=== PATIENT | male | born 1970 | race Caucasian/White ===

== ENCOUNTER → 2018-06-16 10:37 | Outpatient (CLI) | payer BC, SELFPAY ==
[2018-06-16 13:04] LABS: Hemoglobin A1c 6.7 % (4.2-6.3)
[2018-06-16 13:08] LABS: AST(SGOT) 15 U/L (15-37); Alanine Aminotransfer ALT/SGPT 27 U/L (16-61); Albumin, Serum 4.2 g/dL (3.2-5.0); Alkaline Phosphatase 45 U/L (45-117); Anion Gap 7 (5-15); BUN 12 mg/dL (7-18); BUN/Creat Ratio 14.2 RATIO (10-20); Bilirubin, Direct 0.17 mg/dL (0.00-0.30); Calcium,Total 9.1 mg/dL (8.5-10.1); Chloride 101 mmol/L (98-107); Cholesterol 113 mg/dL (200); Creatinine, Serum 0.85 mg/dL (0.70-1.30); EST Glomerular Filtration Rate 102 mL/min (>60); Est Glom Filt Rate - Afr Amer 123 mL/min (>60); Globulin 3.7 g/dL (2.2-4.2); Glucose 191 mg/dL (74-106); High Density Lipoprotein 26 mg/dL; Potassium 3.9 mmol/L (3.5-5.1); Protein, Total 7.9 g/dL (6.4-8.2); Sodium Level 135 mmol/L (136-145); Triglycerides 375 mg/dL; Very Low Density Lipoprotein 75 mg/dL (5-40)
[2018-06-16 13:12] LABS: Microalbumin,Random Urine < 5.0 mg/L (NO RANGE EST.)
== END ==
PROVIDERS: Family Provider Family Medicine; PCP Family Medicine; Visit Provider Family Medicine
DX: E11.9 Type 2 diabetes mellitus without complications (principal); I10 Essential (primary) hypertension
CPT/HCPCS: 36415; 80048; 80061; 80076; 82043; 82570; 83036

== ENCOUNTER → 2019-02-15 10:08 | Outpatient (CLI) | payer BC, SELFPAY ==
[2019-02-15 12:51] LABS: Anion Gap 7 (5-15); BUN 10 mg/dL (7-18); BUN/Creat Ratio 11.6 RATIO (10-20); Calcium,Total 9.5 mg/dL (8.5-10.1); Chloride 99 mmol/L (98-107); Cholesterol 111 mg/dL (200); Creatinine, Serum 0.86 mg/dL (0.70-1.30); EST Glomerular Filtration Rate 100 mL/min (>60); Est Glom Filt Rate - Afr Amer 121 mL/min (>60); Glucose 194 mg/dL (74-106); High Density Lipoprotein 32 mg/dL; Sodium Level 136 mmol/L (136-145); Triglycerides 243 mg/dL; Very Low Density Lipoprotein 49 mg/dL (5-40)
== END ==
PROVIDERS: Family Provider Family Medicine; PCP Family Medicine; Referring Provider Family Medicine; Visit Provider Family Medicine
DX: E11.9 Type 2 diabetes mellitus without complications (principal)
CPT/HCPCS: 36415; 80048; 80061

== ENCOUNTER → 2019-09-26 11:15 | Outpatient (CLI) | payer BC, SELFPAY ==
[2019-09-26 12:43] LABS: Anion Gap 7 (5-15); BUN 11 mg/dL (7-18); BUN/Creat Ratio 12.5 RATIO (10-20); Calcium,Total 9.4 mg/dL (8.5-10.1); Chloride 103 mmol/L (98-107); Cholesterol 130 mg/dL (200); Creatinine, Serum 0.88 mg/dL (0.70-1.30); EST Glomerular Filtration Rate 97 mL/min (>60); Est Glom Filt Rate - Afr Amer 117 mL/min (>60); Glucose 184 mg/dL (74-106); High Density Lipoprotein 33 mg/dL; Potassium 3.8 mmol/L (3.5-5.1); Sodium Level 137 mmol/L (136-145); Triglycerides 372 mg/dL; Very Low Density Lipoprotein 74 mg/dL (5-40)
== END ==
PROVIDERS: Family Provider Family Medicine; PCP Family Medicine; Referring Provider Family Medicine; Visit Provider Family Medicine
DX: E11.9 Type 2 diabetes mellitus without complications (principal)
CPT/HCPCS: 36415; 80048; 80061

== ENCOUNTER → 2020-12-14 14:27 | Outpatient (CLI) | payer BC, SELFPAY ==
[2020-12-14 17:53] LABS: ALB/GLOB Ratio 1.3 RATIO (0.9-2.4); AST(SGOT) 18 U/L (15-37); Alanine Aminotransfer ALT/SGPT 34 U/L (16-61); Albumin, Serum 4.3 g/dL (3.2-5.0); Alkaline Phosphatase 50 U/L (45-117); Anion Gap 5 (5-15); BUN 13 mg/dL (7-18); BUN/Creat Ratio 15.7 RATIO (10-20); Calcium,Total 9.1 mg/dL (8.5-10.1); Chloride 102 mmol/L (98-107); Cholesterol 111 mg/dL (200); Creatinine, Serum 0.83 mg/dL (0.70-1.30); EST Glomerular Filtration Rate 104 mL/min (>60); Est Glom Filt Rate - Afr Amer 125 mL/min (>60); Globulin 3.3 g/dL (2.2-4.2); Glucose 155 mg/dL (74-106); High Density Lipoprotein 34 mg/dL; Protein, Total 7.6 g/dL (6.4-8.2); Sodium Level 135 mmol/L (136-145); Triglycerides 216 mg/dL; Very Low Density Lipoprotein 43 mg/dL (5-40)
== END ==
PROVIDERS: PCP Family Medicine; Referring Provider Family Medicine; Visit Provider Family Medicine
DX: I10 Essential (primary) hypertension (principal)
CPT/HCPCS: 36415; 80053; 80061

== ENCOUNTER 2021-12-04 10:37 | Inpatient (IN) | payer BC, SELFPAY ==
[2021-12-04] VITALS (10 sets, daily range): BP systolic 112–140; BP diastolic 64–83; PULSE 101–148; RESP 18–37; TEMP 36.8–38.4; O2SAT 95–100; BMI 28.5; BMI 28.1
--- NOTE | 2021-12-04 10:49 | EKG12_ITS ---
Test Reason : CELLUTIS Blood Pressure : / mmHG Vent. Rate : 133 BPM Atrial Rate : 133 BPM P-R Int : 164 ms QRS Dur : 088 ms QT Int : 288 ms P-R-T Axes : 034 012 059 degrees QTc Int : 428 ms Sinus tachycardia with occasional Premature ventricular complexes Otherwise normal ECG Confirmed by JAQUELINE DURBIN, AILYN ([id number]), advertising editor MICHAEL KLEIN ([id number]) on 12/05/2021 9:48:21 AM Referred By: Confirmed By:AILYN PARSONS MD
--- NOTE | 2021-12-04 10:56 | RAD_ITS ---
STUDY: X-RAY - RIGHT FOOT CLINICAL: Right foot pain, no known injury. TECHNIQUE: 2 view(s) of the foot. COMPARISON: None. FINDINGS: There are posterior and plantar calcaneal enthesophytes. Otherwise, unremarkable talus, calcaneus, and tarsal bones. There is joint space narrowing of the tarsometatarsal articulations. There is chronic healed fracture deformity of the second through fifth metatarsals. Normal metatarsophalangeal joint of the great toe. Normal tibial and fibular sesamoid bones. Normal interphalangeal joint of the great toe. Normal phalanges of the great toe. Normal second through fifth metatarsophalangeal joints. Normal interphalangeal joints and phalanges of the lesser toes. The soft tissue structures are unremarkable. RAD/Foot 2 Views IMPRESSION: Chronic healed fracture deformity of the second through fifth metatarsals. Arthrosis of the tarsometatarsal articulations. Calcaneal enthesopathy. Electronically Signed: Werner Elizalde MD at 11:29 EST ,
--- NOTE | 2021-12-04 10:56 | EX.ED.DYSGE1 ---
HPI History of Present Illness Chief Complaint: Cellulitis Narrative Narrative: 50-year-old male presenting with right foot pain. Patient states he had COVID 19 2 weeks ago and has been recovering. He had fevers and chills throughout that time which resolved. Patient states that he now has a return of his fever over the last few days. Patient reports that he had a splinter in his right foot about a week ago. He dug it out himself. He quarantined at home and did not receive close follow-up because of this. Patient presented to his primary care physician's office with a fever and tachycardia. He was sent to the emergency room. He states that his foot does not hurt as bad as it did but does hurt mildly. He said no drainage from it. He denies any trauma. [facility] Medical History Diabetes mellitus HTN (hypertension) HTN (hypertension) Home Medications aspirin 81 mg PO DAILY@0800 03/30/14 [History Last Taken Unknown] lisinopril 5 mg PO DAILY 03/30/14 [History Last Taken Unknown] metformin 500 mg PO BIDCM 03/30/14 [History Last Taken Unknown] Allergy/AdvReac Type Severity Reaction Status Date / Time naproxen sodium [From Aleve] Allergy Other Verified 12/04/21 10:40 Social History Smoking Status: Former smoker ROS ROS ED Constitutional Constitutional ED: Reports fever(s); Denies sweats Eyes Eyes: Denies blurry vision or diplopia ENT ENT ED: Denies rhinorrhea or sore throat Cardiovascular Cardiovascular: Reports palpitations and racing heartbeat; Denies chest pain Respiratory/Chest Respiratory/Chest: Denies cough or dyspnea Gastrointestinal Gastrointestinal: Denies abdominal pain, nausea or vomiting Genitourinary Genitourinary ED: Denies dysuria or hematuria Musculoskeletal Musculoskeletal: Reports other Details: Right foot pain Integumentary Reports other Details: Redness and swelling of right foot. Neurologic Neurologic: Denies headache(s) or paresthesias EXAM Physical Exam Const Vital Signs: 12/04/21 10:38 12/04/21 10:40 12/04/21 11:02 Temperature 101.2 F H 100.7 F H 100.7 F H Temperature Source Oral Temporal Temporal Pulse Rate 148 H 148 H Respiratory Rate 18 18 Blood Pressure 119/83 H 119/83 H Blood Pressure Mean 95 95 Pulse Ox 96 96 Oxygen Delivery Method Room Air Room Air 12/04/21 11:15 12/04/21 11:40 12/04/21 12:00 Temperature 100.2 F H 100 F H Temperature Source Temporal Temporal Pulse Rate 126 H 119 H Respiratory Rate 28 H 31 H Blood Pressure 126/64 H 112/67 Blood Pressure Mean 84 82 Pulse Ox 96 95 95 Oxygen Delivery Method Room Air Room Air Room Air Positive well nourished Constitutional Narrative: Noted to be tachycardic. General Appearance ED: NAD HEENT Reports moist mucous membranes Eyes PERRL and EOMs intact bilaterally Neck no lymphadenopathy and supple Chest Wall inspection of chest normal and palpation of chest normal Resp normal respiratory effort and clear to auscultation bilaterally Cardio regular rhythm Rate: tachycardic Neuro oriented x3, CN's II-XII intact bilaterally and no sensory deficits noted Sensorium / Orientation: alert Motor Exam: strength 5/5 throughout Psych mental status grossly normal Skin Skin Narrative: Diffuse cellulitis over the right foot lymphangitic streaking noted on the medial aspect of the left ankle. On the plantar surface of the foot at the distal fat pad there is an area of fluctuance which is about 5 cm long with variable width. MDM MDM MDM Narrative Medical decision making narrative: Patient presenting with cellulitis of the right foot with a small area of abscess on the plantar surface. Patient is noted to be febrile and tachycardic. Patient given 2 L of IV fluids. 1 g of Tylenol was given. Sepsis work-up initiated. Patient CBC shows a leukocytosis of 17.2. Hemoglobin and hematocrit are stable. PT/INR normal. Sodium slightly low at 130 but otherwise electrolytes unremarkable. GFR normal. Glucose is 219. Total bilirubin is slightly elevated but has been in the past. Lactic acid 1.7. Patient was discussed with Dr. Jack who will likely be consulted inpatient. He felt comfortable he make an appoint incision into the abscess and obtaining cultures of the wound. Patient otherwise pancultured. Patient was given vancomycin and Zosyn. Urinalysis did return negative. Right foot x-ray on my interpretation shows old fracture deformities of the first through fifth metatarsals without any acute fractures. Radiologist does agree. There is no subcutaneous emphysema. Chest x-ray my interpretation shows no acute cardiopulmonary process and radiologist does agree. At this point patient was discussed with the hospitalist for admission. Impression: 1. Cellulitis right foot 2. Leukocytosis 3. Tachycardia Lab Data Labs: Laboratory Results - last 24 hr 12/04/21 12/04/21 12/04/21 11:15 11:15 11:15 WBC 17.2 H RBC 4.46 L Hgb 14.1 Hct 39.1 L MCV 87.7 MCH 31.6 MCHC 36.1 H RDW Std Deviation 38.7 RDW Coeff of Davina 12.1 Plt Count 231 MPV 8.5 Immature Gran % (Auto) 0.800 Neut % (Auto) 86.5 H Lymph % (Auto) 4.2 L [place] % (Auto) 8.3 Eos % (Auto) 0.1 Baso % (Auto) 0.1 Absolute Neuts (auto) 14.9 H Absolute Lymphs (auto) 0.72 L Nucleated RBC % 0 PT 14.5 INR 1.2 APTT 37.9 H Sodium 130 L Potassium 4.4 Chloride 99 Carbon Dioxide 26.0 Anion Gap 5 BUN 13 Creatinine 1.00 Estim Creat Clear Calc 93.77 Est GFR (MDRD) Af Amer 100 Est GFR (MDRD) Non-Af 83 BUN/Creatinine Ratio 13.0 Glucose 219 H Lactic Acid Calcium 9.7 Total Bilirubin 1.40 H AST 16 ALT 40 Alkaline Phosphatase 67 Troponin I High Sens 7 Total Protein 8.5 H Albumin 3.5 Globulin 5.0 H Albumin/Globulin Ratio 0.7 L 12/04/21 11:15 WBC RBC Hgb Hct MCV MCH MCHC RDW Std Deviation RDW Coeff of Davina Plt Count MPV Immature Gran % (Auto) Neut % (Auto) Lymph % (Auto) [place] % (Auto) Eos % (Auto) Baso % (Auto) Absolute Neuts (auto) Absolute Lymphs (auto) Nucleated RBC % PT INR APTT Sodium Potassium Chloride Carbon Dioxide Anion Gap BUN Creatinine Estim Creat Clear Calc Est GFR (MDRD) Af Amer Est GFR (MDRD) Non-Af BUN/Creatinine Ratio Glucose Lactic Acid 1.7 Calcium Total Bilirubin AST ALT Alkaline Phosphatase Troponin I High Sens Total Protein Albumin Globulin Albumin/Globulin Ratio Radiography Diagnostic Testing: Clinical Impression(s) from Imaging Studies Foot X-Ray 12/04/21 10:56 IMPRESSION: Chronic healed fracture deformity of the second through fifth metatarsals. Arthrosis of the tarsometatarsal articulations. Calcaneal enthesopathy. Electronically Signed: Werner Elizalde MD at 11:29 EST , Chest X-Ray 12/04/21 11:05 IMPRESSION: No acute pulmonary process Electronically Signed: Nick He MD at 11:26 EST , Discharge Plan Triage Chief Complaint: Cellulitis ED Provider: Louie Macias Dx/Rx/DC Orders Primary Care Provider: Steve Mckeon
[2021-12-04] MEDS: Acetaminophen 500 MG Tablet 1000 MG PO (11:04)
--- NOTE | 2021-12-04 11:05 | RAD_ITS ---
STUDY: X-RAY CHEST REASON FOR EXAM: Male, 51 years old. Fever and cough TECHNIQUE: Single AP portable view of the chest. COMPARISON: None. FINDINGS: EKG leads overlie the chest The lungs are clear and expanded. There is no demonstrated pleural abnormality. Normal size heart. Normal mediastinum and loyd. Normal visualized pulmonary arteries. Normal visualized aortic arch and descending thoracic aorta. Normal visualized thoracic spine. Normal visualized ribs, clavicles, and shoulders. There is no demonstrated abnormality of the visualized soft tissue structures of the upper abdomen. RAD/Chest 1 View (Portable) IMPRESSION: No acute pulmonary process Electronically Signed: Nick He MD at 11:26 EST ,
[2021-12-04] MEDS: 0.9% Normal Saline 1,000 ML 999 ML IV ×2 (11:14→11:20)
[2021-12-04 11:29] LABS: Absolute Lymphocyte Count 0.72 X10^3/uL (0.83-4.51); Absolute Neutrophil Count 14.9 X10^3/uL (2.0-7.7); Basophil# 0.02 X10^3/uL; Basophil% 0.1 % (0-1); Eosinophil# 0.01 X10^3/uL; Eosinophils% 0.1 % (0-5); Hematocrit 39.1 % (40-54); Hemoglobin 14.1 g/dL (13.0-16.5); Lymphocyte # 0.72 X10^3/ul (0.83-4.51); Lymphocyte % 4.2 % (19-41); Mean Corp Hgb Conc 36.1 g/dL (32-36); Mean Corpuscular Hgb 31.6 pg (27.0-32.0); Mean Corpuscular Volume 87.7 fL (80-94); Mean Platelet Vol. 8.5 fl (6.2-12.0); Monocyte# 1.43 X10^3/uL; Monocyte% 8.3 % (0-10); NRBC Flagged by Analyzer 0 % (0-5); Neutrophil # 14.85 X10^3/uL (2.7-7.7); Neutrophil % 86.5 % (47-70); Platelet Count 231 K/mm3 (150-450); RBC Distribution Width CV 12.1 % (11.6-14.6); RBC Distribution Width SD 38.7 fl (35.1-43.9); Red Blood Count 4.46 M/mm3 (4.6-6.2); White Blood Count 17.2 K/mm3 (4.4-11.0)
--- NOTE | 2021-12-04 11:38 | ED.RN ---
atb are on hold until provider I&D's area for wound cx. there is no open area to obtain cx samples.
[2021-12-04 11:41] LABS: International Normalized Ratio 1.2; Partial Thromboplast Time 37.9 Seconds (24.1-36.2); Prothrombin Time (Protime)PT. 14.5 SECONDS (11.7-14.9)
[2021-12-04] MEDS: Lidocaine 1% (20 ml mdv) 20 ML Vial INFILT (11:45)
[2021-12-04 11:50] LABS: ALB/GLOB Ratio 0.7 RATIO (0.9-2.4); AST(SGOT) 16 U/L (15-37); Alanine Aminotransfer ALT/SGPT 40 U/L (16-61); Albumin, Serum 3.5 g/dL (3.2-5.0); Alkaline Phosphatase 67 U/L (45-117); Anion Gap 5 (5-15); BUN 13 mg/dL (7-18); Calcium,Total 9.7 mg/dL (8.5-10.1); Chloride 99 mmol/L (98-107); EST Glomerular Filtration Rate 83 mL/min (>60); Est Glom Filt Rate - Afr Amer 100 mL/min (>60); Estimated Creatinine Clearance 93.77 ml/min; Glucose 219 mg/dL (74-106); Potassium 4.4 mmol/L (3.5-5.1); Protein, Total 8.5 g/dL (6.4-8.2); Sodium Level 130 mmol/L (136-145); Troponin-I HS 7 pg/mL (3.0-78.0)
[2021-12-04 12:01] LABS: Lactic Acid 1.7 mmol/L (0.4-1.9)
--- NOTE | 2021-12-04 12:30 | CASEMGMT ---
RN WINSOME Assessment: RN CM to room to meet with patient for initial transition planning/care coordination assessment. RN CM introduced self and role at [facility]. Patient voices understanding and consents to assessment at this time. Patient's Gracie Barnett present at bedside. Patient is alert and oriented and answers all questions appropriately, sitting up on ER cart in no apparent distress. Care providers, pharmacy, and demographics verified/updated at this time. Admitting Dx: cellulitis PCP: Steve Mckeon Specialists: Denies Preferred Pharmacy: [facility] Insurance: [employer] Prescription Benefit: yes Living Will/HPOA: Patient denies having a living will or HPOA. LNOK: Gracie Barnett Living Arrangements: Patient lives with in two story house with 3 steps to enter the home (no handrail present). Patient states independent with ADLs prior to hospitalization. 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 Smoking/ETOH: Former smoker (quit 1991), admits to occasional ETOH use (beer) Transportation: Patient drives self and denies transportation concerns. DME/HHC/SNF: Patient has a glucometer at home but admits he needs to purchase more test strips. Denies any other DME in the home and denies need for DME at this time. Denies previous HHC or SNF stays. Patient has no concerns with going home at time of discharge. CM to follow for any discharge planning/needs. Patient voices no concerns/needs at this time. Advised patient to ask for CM if any questions/concerns/needs arise. Voices understanding. Plan: home
--- NOTE | 2021-12-04 13:10 | PCM.HP.STD ---
HPI - General General Date of Admission: 12/04/21 Date of Service: 12/04/21 Chief Complaint: Right foot redness, swelling and pain for 1 week HPI Narrative JENNIFRE ANTHONY, is a 51 M history of diabetes mellitus type 2 on Metformin came to ED for right foot redness, pain, fever chills for 1 week. It started when patient is stepdown power cord about 1 week ago. He also removed a splinter from his foot at that time. Gradually started feeling pain along with fever and chills no 1- 02 Fahrenheit. Patient also recovered from Covid infection about 2 weeks ago. He had 2 dosages of Covid vaccine but did not had booster dose. He still has mild cough. He said he was tested positive for Covid on November 20. Complain of pain over right foot 6-7/10 intensity diffuse all over the foot but a started from right midfoot around ball of toe. No radiation. He has mild numbness probably Charcot's foot of right midtarsal bones. History of diabetes mellitus type 2 but his A1c usually less than 7 g%. He follows PCP Dr. Steve Mckeon. Denies any prior history of foot ulcer or osteomyelitis. In ED patient had fever, T-max 101.2 Fahrenheit along with tachycardia but no tachypnea or hypoxia. Patient has leukocytosis with left shift mild lymphopenia and lactic acid negative. Blood pressure is normal. [facility] Medical History Diabetes mellitus HTN (hypertension) HTN (hypertension) Home Medications aspirin 81 mg PO DAILY@0800 03/30/14 [History Last Taken Unknown] lisinopril 40 mg PO DAILY 12/04/21 [History Last Taken Unknown] metformin 500 mg PO DAILY 12/04/21 [History Last Taken Unknown] metformin 750 mg PO DAILY 12/04/21 [History Last Taken Unknown] Allergy/AdvReac Type Severity Reaction Status Date / Time naproxen sodium [From Aleve] Allergy Other Verified 12/04/21 10:40 Social History Smoking Status: Former smoker ROS ROS Narrative Constitutional: Fever with chills. Mild cough, recovering from Covid infection. Reports mild fatigue and weakness HEENT: Reports systems reviewed and no addt'l complaints, except as documented Respiratory/Chest: Denies chest pain, shortness of breath at rest or with exertion Gastrointestinal: Denies coffee ground emesis, hematemesis or vomiting Genitourinary: Denies burning urination or new urinary tract symptoms Musculoskeletal: Mild right foot joint pain and limited range of motion Neurologic: Denies seizure-like activity skin: Right foot redness, no open ulcer. Mild incision and wound culture/biopsy taken AGV Endocrinology: Diabetes mellitus type 2 as mentioned in HPI. Reports systems reviewed and no addt'l complaints, except as documented Hematologic/Lymphatic: Reports systems reviewed and no addt'l complaints, except as documented Rest 14 ROS are negative except as mentioned in HPI Vital Signs Vital Signs Vital Signs: 12/04/21 10:38 12/04/21 10:40 12/04/21 11:02 Temperature 101.2 F H 100.7 F H 100.7 F H Temperature Source Oral Temporal Temporal Pulse Rate 148 H 148 H Respiratory Rate 18 18 Blood Pressure 119/83 H 119/83 H Blood Pressure Mean 95 95 Pulse Ox 96 96 Oxygen Delivery Method Room Air Room Air 12/04/21 11:15 12/04/21 11:40 12/04/21 12:00 Temperature 100.2 F H 100 F H Temperature Source Temporal Temporal Pulse Rate 126 H 119 H Respiratory Rate 28 H 31 H Blood Pressure 126/64 H 112/67 Blood Pressure Mean 84 82 Pulse Ox 96 95 95 Oxygen Delivery Method Room Air Room Air Room Air 12/04/21 12:48 12/04/21 13:00 Temperature 100 F H 99 F Temperature Source Temporal Temporal Pulse Rate 119 H 106 H Respiratory Rate 31 H 37 H Blood Pressure 112/67 122/76 H Blood Pressure Mean 82 91 Pulse Ox 95 95 Oxygen Delivery Method Room Air Room Air Weight Weight: 210 lb Body Mass Index (BMI) 28.5 Physical Exam Narrative General: Alert, Oriented x3, Cooperative, overweight BMI 28.5 kg/m? HEENT: Atraumatic, PERRLA, EOMI, Normocephalic Oral: No Gingival or Mucosal Lesions/ Ulcerations Neck: Supple, No JVD, Negative Carotid Bruits Lungs: Air entry diminished in bilateral lung bases. No crepitation/rhonchi Cardiovascular: Regular rate, Regular Rhythm, Normal S1, Normal S2, No murmurs Abdomen: Bowel Sounds Present, Soft, Non Tender, Non-Distended : No renal angle tenderness. No suprapubic tenderness. Extremities: Right foot edema, Capillary Refill Less than 3 Seconds Skin: Subcutaneous fluctuant swelling with tenderness around midfoot. Incision and wound culture taken in ED. Redness, localized swelling and induration whole foot below right ankle. Musculoskeletal: No Tenderness to Palpation of Joints or Extremities Neurological: Cranial nerves II-XII grossly intact, DTR 2+/4 and Symmetrical, Neuro grossly intact Psych/Mental Status: Normal Affect, Appropriate. Results Lab / Micro Data Result Diagrams: 12/04/21 11:15 12/04/21 11:15 Labs: Laboratory Results - last 24 hr 12/04/21 11:15: WBC 17.2 H, RBC 4.46 L, Hgb 14.1, Hct 39.1 L, MCV 87.7, MCH 31.6, MCHC 36.1 H, RDW Std Deviation 38.7, RDW Coeff of Davina 12.1, Plt Count 231, MPV 8.5, Immature Gran % (Auto) 0.800, Neut % (Auto) 86.5 H, Lymph % (Auto) 4.2 L, [place] % (Auto) 8.3, Eos % (Auto) 0.1, Baso % (Auto) 0.1, Absolute Neuts (auto) 14.9 H, Absolute Lymphs (auto) 0.72 L, Nucleated RBC % 0 12/04/21 11:15: PT 14.5, INR 1.2, APTT 37.9 H 12/04/21 11:15: Sodium 130 L, Potassium 4.4, Chloride 99, Carbon Dioxide 26.0, Anion Gap 5, BUN 13, Creatinine 1.00, Estim Creat Clear Calc 93.77, Est GFR (MDRD) Af Amer 100, Est GFR (MDRD) Non-Af 83, BUN/Creatinine Ratio 13.0, Glucose 219 H, Calcium 9.7, Total Bilirubin 1.40 H, AST 16, ALT 40, Alkaline Phosphatase 67, Troponin I High Sens 7, Total Protein 8.5 H, Albumin 3.5, Globulin 5.0 H, Albumin/Globulin Ratio 0.7 L 12/04/21 11:15: Lactic Acid 1.7 Radiology Impression Foot X-Ray 12/04/21 10:56 IMPRESSION: Chronic healed fracture deformity of the second through fifth metatarsals. Arthrosis of the tarsometatarsal articulations. Calcaneal enthesopathy. Electronically Signed: Werner Elizalde MD at 11:29 EST , Chest X-Ray 12/04/21 11:05 IMPRESSION: No acute pulmonary process Electronically Signed: Nick He MD at 11:26 EST , Assessment & Plan Assessment/Plan (1) Cutaneous abscess of right foot: (2) Cellulitis of right foot: PLAN: 1. Right foot cellulitis with localized subcutaneous abscess: Patient is being admitted on [facility] floor. Patient has fever, tachycardia and leukocytosis with left shift and lymphopenia but does not merit the diagnosis of sepsis. No hypotension or lactic acidosis. qSOFA score 0. Started on IV vancomycin and Zosyn. Wound culture and blood culture taken in ED. Sugar Refinery Supervisor is consulted. Right foot x-ray shows arthrosis of tarsometatarsal articulation and chronic healed fracture deformity from second through fifth metatarsal. 2. Diabetes mellitus type 2: As per history is A1c less than 7 g%. Glucose in BMP is 290 mg/dL. Accu-Chek insulin coverage Humalog sliding scale. Hold Metformin. 3. Hypertension: Blood pressure is good and controlled. BP 122/76. Twelve-lead EKG shows sinus tachycardia 133 bpm. QTc 423 ms. No chest pain or shortness of breath. 4. Recovering from COVID-19 infection: Chest x-ray individually reviewed and does not show acute cardiopulmonary abnormality. Rapid COVID-19 antigen ordered. Patient had 2 doses of COVID-19 vaccine. Booster dose recommended after 5 months of second dose. VT prophylaxis: Moderate VTE risk. Lovenox 40 mg subcu daily. Living will/advanced directive/end of life care: Patient does not have living will or advanced directive. His is next to kin. Patient does not have designated power of trust and estates attorney for health. After discussion of benefits/risks procedures involved with full code, DNR CC arrest and DNR CC, the patient opted for full code. Patient does want artificial life support including intubation, tube feed, ventilator and/chest compression, central venous catheter, vasopressor and DC shock if needed Total time spent in [id number] encounter in discussion of advanced directive 16 minutes. Charges/Coding Visit Charges Inpatient E&M: 31850 Init Hosp L3 Procedures Hospitalists Procedures: 58637 Advncd Care Plan 30 Min
[2021-12-04] MEDS: 0.9% Normal Saline 1,000 ML 100 ML IV (15:30)
[2021-12-04] MEDS: Enoxaparin 40 MG/0.4 ML Syringe SC (15:30)
[2021-12-04] MEDS: 0.9% Saline Lock 10 ML Syringe IV (15:30)
--- NOTE | 2021-12-04 15:57 | PCM.RX.CS ---
Consult Suspected Infection: Other Labs: Sodium 130 mmol/L (136-145) L 12/04/21 11:15 Potassium 4.4 mmol/L (3.5-5.1) 12/04/21 11:15 Chloride 99 mmol/L (98-107) 12/04/21 11:15 Carbon Dioxide 26.0 mmol/L (21.0-32.0) 12/04/21 11:15 Anion Gap 5 (5-15) 12/04/21 11:15 BUN 13 mg/dL (7-18) 12/04/21 11:15 Creatinine 1.00 mg/dL (0.70-1.30) 12/04/21 11:15 Est GFR (MDRD) Af Amer 100 mL/min (>60) 12/04/21 11:15 Est GFR (MDRD) Non-Af 83 mL/min (>60) 12/04/21 11:15 BUN/Creatinine Ratio 13.0 RATIO (10-20) 12/04/21 11:15 Glucose 219 mg/dL (74-106) H 12/04/21 11:15 Microbiology: Microbiology 12/04/21 11:50 Wound - Left Foot Gram Stain - Final Weight used for dosin.7 kg Estimated Creatinine Clearance: 100 ML/MIN Goal Trough: 15-20 mcg/mL Pharmacy Plan for Drug Dosing: VANCOMYCIN 1250 MG IV Q8H Pharmacy Service will continue to monitor and adjust dosing as required. Follow-Up Labs: Trough Vancomycin Labs to be done on [date and time ordered]: VANCOMYCIN TROUGH 12/05/21 AT 1130
[2021-12-04 17:06] LABS: Bedside Glucose 212 mg/dL (70-110)
[2021-12-04 17:11] LABS: M R Staph aureus DNA By PCR Negative (Negative); Probe Check PASS; Specimen Processing Control PASS; Staph aureus DNA By PCR NEGATIVE (Negative)
[2021-12-04] MEDS: Insulin Lispro 100 UNIT/ML INSULN.PEN SC (17:53)
--- NOTE | 2021-12-04 18:21 | ART_ITS ---
Reason For Study: Ulcer Procedure A bilateral lower extremity continuous wave Doppler with analog waveform analysis,segmental pressures,and ankle brachial indexes without exercise. Left Segmental Pressures Left posterior tibial artery = 176mmHg. Left dorsalis pedis artery = 150mmHg. Left digit = 90 mmHg. The left dorsalis pedis waveforms are triphasic. The left posterior tibial artery waveforms are triphasic. Right Segmental Pressures Right brachial= 118mmHg. Right posterior tibial artery = 205mmHg. Right dorsalis pedis artery = 185mmHg. Right digit = 68 mmHg. The right dorsalis pedis waveforms are triphasic. The right posterior tibial artery waveforms are triphasic. Indices The right ankle brachial index by the dorsalis pedis is 1.57. The right ankle brachial index by the posterior tibial artery is 1.74. The right digital-brachial index is 0.58. The left ankle brachial index by the dorsalis pedis is 1.27. The left ankle brachial index by the posterior tibial artery is 1.49. The left digital-brachial index is 0.76. VL/Lower Ext Art Exam w/o Exercis Interpretation Summary Triphasic Doppler waveforms are noted at ankle level bilaterally. Pulse-volume recordings appear satisfactory at all levels bilaterally, including low thigh, calf, ankle, and d igital levels. Resting ankle-brachial indices are supra-normal bilaterally. The right digital- brachial index is mildly diminished. The left digital-brachial index is normal. There is evidence of arterial calcification at ankle level bilaterally. Arteria l flow appears normal at ankle level bilaterally, and at digital level on the left. There is evidence of mild arterial occlusive disease at digital level on the right. Ordering Physician: Jesse Jack Referring Physician: Steve Mckeon Performed By: Alka Gamboa RVT
--- NOTE | 2021-12-04 18:24 | PCM.CONS.GEN ---
Assessment & Plan Assessment/Plan (1) Cellulitis of right foot: (2) Cutaneous abscess of right foot: (3) Diabetes mellitus with diabetic polyneuropathy: (4) Type 2 diabetes mellitus with foot ulcer: (5) Non-pressure chronic ulcer of other part of right foot with fat layer exposed: PLAN: Evaluation performed. Reviewed diagnostic data. MRI was ordered for further evaluation. Will keep patient NPO after midnight for possible I+D debridement tomorrow. LEAS ordered for further evaluation of LE arterial flow - clinically there is good flow to foot bilateral. No weightbearing right foot. Painted ulceration right foot with betadine soln and applied gauze, kerlix and narayan dressing - keep clean, dry and intact. Discussed with Dr. Rocha. Podiatry will continue to follow - thank you for consultation. HPI Consult Data Date of Consult: 12/04/21 HPI Narrative Reason for Consultation: Right foot infection HPI Narrative: JENNIFER ANTHONY, is a 51 M who presents with redness, swelling and wound on bottom of the right foot. Patient relates symptoms started a couple days ago and have really been getting worse. He relates he had a metal splinter which came out. He saw Dr. Mckeon, and was sent to ER, and patient has been admitted. Patient has been started on Vancomycin and Zosyn, cultures have been obtained, xrays with old fractures, no gas. WBC is elevated. Patient is resting in chair. He relates to hx fever. He relates to hx of neuropathy in feet. He has no other complaints. FORMERLY [facility], 1928–1983 Medical History (Updated 12/04/21 @ 18:[address] Jesse Jack, [place]) Alcohol abuse Chewing tobacco use Diabetes mellitus HTN (hypertension) HTN (hypertension) Home Medications aspirin 81 mg PO DAILY@0800 03/30/14 [History Last Taken Unknown] lisinopril 40 mg PO DAILY 12/04/21 [History Last Taken Unknown] metformin 500 mg PO DAILY 12/04/21 [History Last Taken Unknown] metformin 750 mg PO DAILY 12/04/21 [History Last Taken Unknown] Allergy/AdvReac Type Severity Reaction Status Date / Time naproxen sodium [From Aleve] Allergy Other Verified 12/04/21 10:40 Social History Smoking Status: Former smoker Physical Exam Const alert, oriented x3 and no apparent distress Extremity Extremity Narrative: Right foot with large ulceration to plantar central forefoot down to subcutaneous tissue, there is no deep probing or tracking, there is serous drainage, there is significant erythema and edema to the foot, there is no maloder, no fluctuance, no crepitus, no visible abscess, no pain to the foot. There is decreased sensation bilateral foot. No open lesions left foot. There is chronic contracture of toes bilateral. No m/s POP or pain on ROM to the foot or ankle bilateral. No evidence of acute charcot neuroarthropathy bilateral foot. DP and PT pulses palpable, CFT < 2 seconds to all toes - no evidence of acute ischemia bilateral. No calf pain bilateral. Lab / Micro Data Result Diagrams: 12/04/21 11:15 12/04/21 11:15 Labs: Laboratory Results - last 24 hr 12/04/21 11:15: WBC 17.2 H, RBC 4.46 L, Hgb 14.1, Hct 39.1 L, MCV 87.7, MCH 31.6, MCHC 36.1 H, RDW Std Deviation 38.7, RDW Coeff of Davina 12.1, Plt Count 231, MPV 8.5, Immature Gran % (Auto) 0.800, Neut % (Auto) 86.5 H, Lymph % (Auto) 4.2 L, [place] % (Auto) 8.3, Eos % (Auto) 0.1, Baso % (Auto) 0.1, Absolute Neuts (auto) 14.9 H, Absolute Lymphs (auto) 0.72 L, Nucleated RBC % 0 12/04/21 11:15: PT 14.5, INR 1.2, APTT 37.9 H 12/04/21 11:15: Sodium 130 L, Potassium 4.4, Chloride 99, Carbon Dioxide 26.0, Anion Gap 5, BUN 13, Creatinine 1.00, Estim Creat Clear Calc 93.77, Est GFR (MDRD) Af Amer 100, Est GFR (MDRD) Non-Af 83, BUN/Creatinine Ratio 13.0, Glucose 219 H, Calcium 9.7, Total Bilirubin 1.40 H, AST 16, ALT 40, Alkaline Phosphatase 67, Troponin I High Sens 7, Total Protein 8.5 H, Albumin 3.5, Globulin 5.0 H, Albumin/Globulin Ratio 0.7 L 12/04/21 11:15: Lactic Acid 1.7 12/04/21 11:15: C-React Prot Ext Range 116.00 H 12/04/21 15:00: S.aureus Protein A PCR NEGATIVE, MRSA (PCR) Negative 12/04/21 17:00: POC Glucose 212 H Micro: Microbiology 12/04/21 15:00 Nasal Secretion SARS-CoV-2 Antigen (Rapid) - Final 12/04/21 11:50 Wound - Left Foot Gram Stain - Final Radiology Impression Foot X-Ray 12/04/21 10:56 IMPRESSION: Chronic healed fracture deformity of the second through fifth metatarsals. Arthrosis of the tarsometatarsal articulations. Calcaneal enthesopathy. Electronically Signed: Werner Elizalde MD at 11:29 EST , Chest X-Ray 12/04/21 11:05 IMPRESSION: No acute pulmonary process Electronically Signed: Nick He MD at 11:26 EST ,
[2021-12-04 18:41] LABS: Bacteria 0 SEEN /hpf (None Seen); Mucous, Urine 0 SEEN /hpf (<or=2+); Red Blood Cells-Urine 0 SEEN /hpf (0-5); Squamous Epithelial Cells - UA 0 SEEN /hpf (0-5); White Blood Cells 0 SEEN /hpf (0-5)
[2021-12-04 18:42] LABS: Color, Urine Yellow (Yellow); Glucose, Dipstick 1000 mg/dl (Normal); Ketone-Dipstick 5 mg/dl (Negative); Leukocyte Esterase-Dipstick Negative /ul (Negative); Nitrite-Dipstick Negative (Negative); Occult Blood-Urine Negative /ul (Negative); Protein-Dipstick Negative (Negative); Specific Gravity, Urine 1.015 (1.002-1.030); Urine Bilirubin Dipstick Negative (Negative); Urine Clarity Clear (Clear); Urine Urobilinogen Normal (Normal)
--- NOTE | 2021-12-04 19:10 | RAD_ITS ---
STUDY: X-RAY - ORBITS REASON FOR EXAM: Male, 51 years old. H/O METAL REMOVED FROM EYE TECHNIQUE: 2 view(s) of the orbits were obtained. COMPARISON: None. FINDINGS: Normal bilateral orbits without a metallic orbital foreign body. Normal visualized facial bones. Normal paranasal sinuses. The soft tissue structures are unremarkable. RAD/Orbits for Foreign Body IMPRESSION: No demonstrated metallic orbital foreign body. The patient is cleared for an MRI examination. Electronically Signed: Berta De La Fuente MD at 20:11 EST Reading Location ID and State: [id number] / Tel , Service support ,
--- NOTE | 2021-12-04 20:20 | MRI_ITS ---
STUDY: MRI RIGHT MIDFOOT REASON FOR EXAM: Male, 51 years old. Abscess. Notes Patient pulled metal splinter out of plantar surface of mid-proximal foot x5 days ago. Now red and swollen with pain across distal end of metatarsals on plantar surface of foot. xray also of foot 12/04/21 TECHNIQUE: Standardized fat and water weighted pulse sequences were obtained in all 3 orthogonal planes. COMPARISON: Right foot x-ray dated December 04, 2021 FINDINGS: There are healed fracture deformities of the fourth and fifth metatarsal bones. No visualized cortical erosion or bony destruction or intramedullary edema to suggest active osteomyelitis. Moderate subcutaneous edema is present around the forefoot. No visualized soft tissue abscess. A 9.8 x 4.8 mm oval fluid collection is present in the plantar subcutaneous tissues beneath the second and third metatarsal bases, which could represent a small microabscess at the site of laceration or posttraumatic seroma. There is no intramuscular abscess or inflammatory changes. Normal talonavicular articulation. Normal calcaneocuboid articulation. Normal navicular-cuneiform articulations. Normal intercuneiform articulations. Normal first tarsometatarsal articulation. Normal Lisfranc ligament. Normal second and third tarsometatarsal articulations. Normal cuboid fourth and cuboid fifth tarsometatarsal articulation. Mild to moderate osteoarthritic changes are present in the first through fifth TMT articulations. Normal tibialis anterior tendon. Normal extensor hallucis longus tendon. Normal extensor digitorum longus tendons. Normal peroneus longus tendon and distal insertion. Normal peroneus brevis tendon and distal insertion. There is diffuse atrophy of the intrinsic muscles of the foot consistent with a peripheral neuropathy. MRI/Lower Ext/No Jt/w/o IMPRESSION: 1. A 9.8 x 4.8 mm oval fluid collection is present in the plantar subcutaneous tissues beneath the second and third metatarsal bases, which could represent a small microabscess at the site of laceration or posttraumatic seroma. There is no intramuscular abscess or inflammatory changes. 2. No evidence of osteomyelitis. Electronically Signed: Barrington Mcdaniel MD at 22:51 EST ,
[2021-12-04] MEDS: Lisinopril 40 MG Tablet PO (22:03)
[2021-12-04] MEDS: guaiFENesin 10 ML UDC (200MG/10ML) GT (22:04)
[2021-12-04 22:16] LABS: Bedside Glucose 135 mg/dL (70-110)
[2021-12-05 03:54] VITALS: BP 113/58; PULSE 89; RESP 18; TEMP 37.6; O2SAT 98
[2021-12-05 04:56] LABS: Absolute Lymphocyte Count 1.37 X10^3/uL (0.83-4.51); Absolute Neutrophil Count 9.8 X10^3/uL (2.0-7.7); Basophil# 0.04 X10^3/uL; Basophil% 0.3 % (0-1); Eosinophil# 0.11 X10^3/uL; Eosinophils% 0.9 % (0-5); Hematocrit 32.4 % (40-54); Hemoglobin 11.3 g/dL (13.0-16.5); Lymphocyte # 1.37 X10^3/ul (0.83-4.51); Lymphocyte % 10.8 % (19-41); Mean Corp Hgb Conc 34.9 g/dL (32-36); Mean Corpuscular Hgb 30.5 pg (27.0-32.0); Mean Corpuscular Volume 87.3 fL (80-94); Mean Platelet Vol. 8.8 fl (6.2-12.0); Monocyte# 1.36 X10^3/uL; Monocyte% 10.7 % (0-10); NRBC Flagged by Analyzer 0 % (0-5); Neutrophil % 76.8 % (47-70); Platelet Count 191 K/mm3 (150-450); RBC Distribution Width CV 12.1 % (11.6-14.6); RBC Distribution Width SD 38.6 fl (35.1-43.9); Red Blood Count 3.71 M/mm3 (4.6-6.2); White Blood Count 12.7 K/mm3 (4.4-11.0)
[2021-12-05 05:26] LABS: Anion Gap 7 (5-15); BUN 12 mg/dL (7-18); BUN/Creat Ratio 17.5 RATIO (10-20); Calcium,Total 8.6 mg/dL (8.5-10.1); Chloride 102 mmol/L (98-107); Creatinine, Serum 0.68 mg/dL (0.70-1.30); EST Glomerular Filtration Rate 128 mL/min (>60); Est Glom Filt Rate - Afr Amer 155 mL/min (>60); Estimated Creatinine Clearance 141.98 ml/min; Glucose 140 mg/dL (74-106); Potassium 3.9 mmol/L (3.5-5.1); Sodium Level 134 mmol/L (136-145)
[2021-12-05 06:35] LABS: Bedside Glucose 127 mg/dL (70-110)
[2021-12-05 07:37] LABS: Hemoglobin A1c 7.1 % (3.8-5.6)
--- NOTE | 2021-12-05 07:43 | PN.HOSP_ITS ---
Subjective Subjective Patient had incision and drainage in the morning after MRI. MRI does not show osteomyelitis but superficial, subcutaneous plantar abscess. Continued to have fever, T-max 101.4 Fahrenheit. Objective Data Objective Data Vital Signs: Vital Signs Temp Pulse Resp BP Pulse Ox 99.6 F H 89 18 113/58 L 98 12/05/21 03:54 12/05/21 03:54 12/05/21 03:54 12/05/21 03:54 12/05/21 03:54 Oxygen Delivery Method Room Air Weight: 213 lb 2.992 oz Body Mass Index (BMI) 28.1 Intake & Output: Intake and Output for Last 24 Hours 12/03/21 12/04/21 12/05/21 23:59 23:59 23:59 Intake Total 2883.44 / 2883.44 324.79 / 324.79 Balance 2883.44 / 2883.44 324.79 / 324.79 Lab / Micro Data Result Diagrams: 12/05/21 04:42 12/05/21 04:42 Labs: Laboratory Results - last 24 hr 12/04/21 11:15: WBC 17.2 H, RBC 4.46 L, Hgb 14.1, Hct 39.1 L, MCV 87.7, MCH 31.6, MCHC 36.1 H, RDW Std Deviation 38.7, RDW Coeff of Davina 12.1, Plt Count 231, MPV 8.5, Immature Gran % (Auto) 0.800, Neut % (Auto) 86.5 H, Lymph % (Auto) 4.2 L, [place] % (Auto) 8.3, Eos % (Auto) 0.1, Baso % (Auto) 0.1, Absolute Neuts (auto) 14.9 H, Absolute Lymphs (auto) 0.72 L, Nucleated RBC % 0 12/04/21 11:15: PT 14.5, INR 1.2, APTT 37.9 H 12/04/21 11:15: Sodium 130 L, Potassium 4.4, Chloride 99, Carbon Dioxide 26.0, Anion Gap 5, BUN 13, Creatinine 1.00, Estim Creat Clear Calc 93.77, Est GFR (MDRD) Af Amer 100, Est GFR (MDRD) Non-Af 83, BUN/Creatinine Ratio 13.0, Glucose 219 H, Calcium 9.7, Total Bilirubin 1.40 H, AST 16, ALT 40, Alkaline Phosphatase 67, Troponin I High Sens 7, Total Protein 8.5 H, Albumin 3.5, Globulin 5.0 H, Albumin/Globulin Ratio 0.7 L 12/04/21 11:15: Lactic Acid 1.7 12/04/21 11:15: C-React Prot Ext Range 116.00 H 12/04/21 15:00: S.aureus Protein A PCR NEGATIVE, MRSA (PCR) Negative 12/04/21 17:00: POC Glucose 212 H 12/04/21 18:32: Urine Color Yellow, Urine Clarity Clear, Urine pH 6.0, Ur Specific [place] 1.015, Urine Protein Negative, Urine Glucose (UA) 1000 H, Urine Ketones 5 H, Urine Occult Blood Negative, Urine Nitrite Negative, Urine Bilirubin Negative, Urine Urobilinogen Normal, Ur Leukocyte Esterase Negative, Urine RBC 0 SEEN, Urine WBC 0 SEEN, Ur Squamous Epith Cells 0 SEEN, Urine Bacteria 0 SEEN, Urine Mucus 0 SEEN 12/04/21 21:54: POC Glucose 135 H 12/05/21 04:42: WBC 12.7 H, RBC 3.71 L, Hgb 11.3 L, Hct 32.4 L, MCV 87.3, MCH 30.5, MCHC 34.9, RDW Std Deviation 38.6, RDW Coeff of Davina 12.1, Plt Count 191, MPV 8.8, Immature Gran % (Auto) 0.500, Neut % (Auto) 76.8 H, Lymph % (Auto) 10.8 L, [place] % (Auto) 10.7 H, Eos % (Auto) 0.9, Baso % (Auto) 0.3, Absolute Neuts (auto) 9.8 H, Absolute Lymphs (auto) 1.37, Nucleated RBC % 0 12/05/21 04:42: Sodium 134 L, Potassium 3.9, Chloride 102, Carbon Dioxide 25.0, Anion Gap 7, BUN 12, Creatinine 0.68 L, Estim Creat Clear Calc 141.98, Est GFR (MDRD) Af Amer 155, Est GFR (MDRD) Non-Af 128, BUN/Creatinine Ratio 17.5, Glucose 140 H, Calcium 8.6 12/05/21 04:42: Hemoglobin A1c 7.1 H 12/05/21 06:28: POC Glucose 127 H Micro: Microbiology 12/04/21 11:15 Blood Culture (Wb) - Venous Blood Culture - Preliminary 12/04/21 15:00 Nasal Secretion SARS-CoV-2 Antigen (Rapid) - Final 12/04/21 11:50 Wound - Left Foot Gram Stain - Final Radiography Diagnostic Testing: Radiology Impression Foot X-Ray 12/04/21 10:56 IMPRESSION: Chronic healed fracture deformity of the second through fifth metatarsals. Arthrosis of the tarsometatarsal articulations. Calcaneal enthesopathy. Electronically Signed: Werner Elizalde MD at 11:29 EST , Chest X-Ray 12/04/21 11:05 IMPRESSION: No acute pulmonary process Electronically Signed: Nick He MD at 11:26 EST , Orbit X-Ray 12/04/21 19:10 IMPRESSION: No demonstrated metallic orbital foreign body. The patient is cleared for an MRI examination. Electronically Signed: Berta De La Fuente MD at 20:11 EST Reading Location ID and State: [id number] / Tel , Service support , Lower Extremity MRI 12/04/21 20:20 IMPRESSION: 1. A 9.8 x 4.8 mm oval fluid collection is present in the plantar subcutaneous tissues beneath the second and third metatarsal bases, which could represent a small microabscess at the site of laceration or posttraumatic seroma. There is no intramuscular abscess or inflammatory changes. 2. No evidence of osteomyelitis. Electronically Signed: Barrington Mcdaniel MD at 22:51 EST , Physical Exam Narrative General: Alert, Oriented x3, Cooperative, overweight BMI 28.5 kg/m?. Mild febrile HEENT: Atraumatic, PERRLA, EOMI, Normocephalic Oral: No Gingival or Mucosal Lesions/ Ulcerations Neck: Supple, No JVD, Negative Carotid Bruits Lungs: Air entry diminished in bilateral lung bases. No crepitation/rhonchi Cardiovascular: Sinus tachycardia, Normal S1, Normal S2, No murmurs Abdomen: Bowel Sounds Present, Soft, Non Tender, Non-Distended : No renal angle tenderness. No suprapubic tenderness. Extremities: Right foot edema resolved, Capillary Refill Less than 3 Seconds Skin: Incision and drainage with Phillip wrap bandage of right plantar foot. Redness, localized swelling and induration whole foot below right ankle improving. Musculoskeletal: No Tenderness to Palpation of Joints or Extremities Neurological: Cranial nerves II-XII grossly intact, DTR 2+/4 and Symmetrical, Neuro grossly intact Psych/Mental Status: Normal Affect, Appropriate. Assessment & Plan Assessment/Plan (1) Cutaneous abscess of right foot: (2) Cellulitis of right foot: PLAN: 1. Right foot cellulitis with localized subcutaneous abscess: Patient is being admitted on [facility] floor. Patient has fever, tachycardia and leukocytosis with left shift and lymphopenia but does not merit the diagnosis of sepsis. No hypotension or lactic acidosis. qSOFA score 0. Started on IV vancomycin and Zosyn. Wound culture and blood culture taken in ED. Auto Transmission Mechanic is consulted. Right foot x-ray shows arthrosis of tarsometatarsal articulation and chronic healed fracture deformity from second through fifth metatarsal. 12/05: Lower extremity MRI shows less than 1 cm oval fluid collection in plantar subcutaneous tissue beneath second and third metatarsal base. Patient had incision and drainage at bedside by geriatric social work professor. No evidence of osteomyelitis. Wound culture shows 3+ beta Streptococcus. Blood culture aerobic bottle shows gram-negative rods. Continue IV vancomycin and Zosyn till further sensitivities are available. MRI finding, clinical and hospital course discussed with the patient and near the bedside. 2. Diabetes mellitus type 2: As per history is A1c less than 7 g%. Glucose in BMP is 290 mg/dL. Accu-Chek insulin coverage Humalog sliding scale. Hold Metformin. 3. Hypertension: Blood pressure is good and controlled. BP 122/76. Twelve-lead EKG shows sinus tachycardia 133 bpm. QTc 423 ms. No chest pain or shortness of breath. 4. Recovering from COVID-19 infection: Chest x-ray individually reviewed and does not show acute cardiopulmonary abnormality. Rapid COVID-19 antigen ordered. Patient had 2 doses of COVID-19 vaccine. Booster dose recommended after 5 months of second dose. VT prophylaxis: Moderate VTE risk. Lovenox 40 mg subcu daily. Living will/advanced directive/end of life care: Patient does not have living will or advanced directive. His is next to kin. Patient does not have designated power of patent prosecution attorney for health. After discussion of benefits/risks procedures involved with full code, DNR CC arrest and DNR CC, the patient opted for full code. Patient does want artificial life support including intubation, tube feed, ventilator and/chest compression, central venous catheter, vasopressor and DC shock if needed Total time spent in [id number] encounter in discussion of advanced directive 16 minutes. Clinical Impression(s) from Imaging Studies Foot X-Ray 12/04/21 10:56 IMPRESSION: Chronic healed fracture deformity of the second through fifth metatarsals. Arthrosis of the tarsometatarsal articulations. Calcaneal enthesopathy. Lower Extremity MRI 12/04/21 20:20 IMPRESSION: 1. A 9.8 x 4.8 mm oval fluid collection is present in the plantar subcutaneous tissues beneath the second and third metatarsal bases, which could represent a small microabscess at the site of laceration or posttraumatic seroma. There is no intramuscular abscess or inflammatory changes. 2. No evidence of osteomyelitis. Charges/Coding Visit Charges Inpatient E&M: 97521 Subs Hosp L2
[2021-12-05] MEDS: Lisinopril 40 MG Tablet PO (07:49)
[2021-12-05] MEDS: Aspirin 81 MG TAB.CHEW PO (07:49)
[2021-12-05 09:00] VITALS: PULSE 66
--- NOTE | 2021-12-05 09:37 | WOUNDNOTE ---
wound photo: right foot
--- NOTE | 2021-12-05 09:37 | WOUNDNOTE ---
wound photo: right foot
[2021-12-05 09:54] VITALS: BP 151/76; PULSE 80; RESP 18; TEMP 37.1; O2SAT 96
[2021-12-05] MEDS: guaiFENesin 1,200 MG Tablet 1200 MG PO (11:00)
[2021-12-05] MEDS: Enoxaparin 40 MG/0.4 ML Syringe SC (11:00)
[2021-12-05] MEDS: Benzonatate 100 MG Capsule 200 MG PO ×2 (11:00→22:34)
[2021-12-05 11:16] LABS: Bedside Glucose 161 mg/dL (70-110)
--- NOTE | 2021-12-05 11:59 | NURSING ---
1200 vanc not on unit for pt administration-Rx sent note
[2021-12-05] MEDS: Insulin Lispro 100 UNIT/ML INSULN.PEN SC ×2 (12:10→22:35)
[2021-12-05 12:51] LABS: Vancomycin, Trough Level 10.5 ug/mL (5.0-15.0)
--- NOTE | 2021-12-05 14:32 | PN_ITS ---
Subjective Subjective This was seen this morning for follow up on right foot. He had MRI, WBC is trending down. Foot is improving. No fever, chills, nausea or vomiting. Objective Data Objective Data Vital Signs: Vital Signs Temp Pulse Resp BP Pulse Ox 98.8 F 80 18 151/76 H 96 12/05/21 09:54 12/05/21 09:54 12/05/21 09:54 12/05/21 09:54 12/05/21 09:54 Oxygen Delivery Method Room Air Weight: 96.7 kg Body Mass Index (BMI) 28.1 Intake & Output: Intake and Output for Last 24 Hours 12/03/21 12/04/21 12/05/21 23:59 23:59 23:59 Intake Total 2883.44 / 2883.44 1429.79 / 1429.79 Balance 2883.44 / 2883.44 1429.79 / 1429.79 Lab / Micro Data Result Diagrams: 12/05/21 04:42 12/05/21 04:42 Labs: Laboratory Results - last 24 hr 12/04/21 15:00: S.aureus Protein A PCR NEGATIVE, MRSA (PCR) Negative 12/04/21 17:00: POC Glucose 212 H 12/04/21 18:32: Urine Color Yellow, Urine Clarity Clear, Urine pH 6.0, Ur Specific [place] 1.015, Urine Protein Negative, Urine Glucose (UA) 1000 H, Urine Ketones 5 H, Urine Occult Blood Negative, Urine Nitrite Negative, Urine Bilirubin Negative, Urine Urobilinogen Normal, Ur Leukocyte Esterase Negative, Urine RBC 0 SEEN, Urine WBC 0 SEEN, Ur Squamous Epith Cells 0 SEEN, Urine Bacteria 0 SEEN, Urine Mucus 0 SEEN 12/04/21 21:54: POC Glucose 135 H 12/05/21 04:42: WBC 12.7 H, RBC 3.71 L, Hgb 11.3 L, Hct 32.4 L, MCV 87.3, MCH 30.5, MCHC 34.9, RDW Std Deviation 38.6, RDW Coeff of Davina 12.1, Plt Count 191, MPV 8.8, Immature Gran % (Auto) 0.500, Neut % (Auto) 76.8 H, Lymph % (Auto) 10.8 L, [place] % (Auto) 10.7 H, Eos % (Auto) 0.9, Baso % (Auto) 0.3, Absolute Neuts (auto) 9.8 H, Absolute Lymphs (auto) 1.37, Nucleated RBC % 0 12/05/21 04:42: Sodium 134 L, Potassium 3.9, Chloride 102, Carbon Dioxide 25.0, Anion Gap 7, BUN 12, Creatinine 0.68 L, Estim Creat Clear Calc 141.98, Est GFR (MDRD) Af Amer 155, Est GFR (MDRD) Non-Af 128, BUN/Creatinine Ratio 17.5, Glucose 140 H, Calcium 8.6 12/05/21 04:42: Hemoglobin A1c 7.1 H 12/05/21 06:28: POC Glucose 127 H 12/05/21 11:04: POC Glucose 161 H 12/05/21 11:48: Vancomycin Trough 10.5 Micro: Microbiology 12/04/21 11:15 Blood Culture (Wb) - Venous Blood Culture - Preliminary GNR lactose geotechnical operating engineer 12/04/21 11:50 Wound - Left Foot Gram Stain - Final 12/04/21 11:50 Wound - Left Foot Wound Culture - Preliminary Beta streptococcus 12/04/21 18:32 Urine, Clean Catch Urine Culture - Preliminary Culture exhibits no growth. 12/04/21 15:00 Nasal Secretion SARS-CoV-2 Antigen (Rapid) - Final Radiography Diagnostic Testing: Radiology Impression Orbit X-Ray 12/04/21 19:10 IMPRESSION: No demonstrated metallic orbital foreign body. The patient is cleared for an MRI examination. Electronically Signed: Berta De La Fuente MD at 20:11 EST Reading Location ID and State: [id number] / Tel , Service support , Lower Extremity MRI 12/04/21 20:20 IMPRESSION: 1. A 9.8 x 4.8 mm oval fluid collection is present in the plantar subcutaneous tissues beneath the second and third metatarsal bases, which could represent a small microabscess at the site of laceration or posttraumatic seroma. There is no intramuscular abscess or inflammatory changes. 2. No evidence of osteomyelitis. Electronically Signed: Barrington Mcdaniel MD at 22:51 EST Reading Location ID and State: [facility] / [place] , Service support , Physical Exam Const alert, oriented x3 and no apparent distress Extremity Extremity Narrative: Right foot with large ulceration to plantar central forefoot down to subcutaneous tissue, there is no deep probing or tracking, there is serous drainage, there is significant erythema and edema to the foot which is less than last night, there is no maloder, there is abscess to the plantar foot at base of the 3rd and 4th metatasals and questionable abscess just distal and lateral to this, otherwise no fluctuance, no crepitus, no visible abscess. There is noted to be POP to the abscess sites. No other pain to the foot. There is decreased sensation bilateral foot. No open lesions left foot. There is chronic contracture of toes bilateral. No m/s POP or pain on ROM to the foot or ankle bilateral. No evidence of acute charcot neuroarthropathy bilateral foot. DP and PT pulses palpable, CFT < 2 seconds to all toes - no evidence of ac pamunkey ischemia bilateral. No calf pain bilateral. Assessment & Plan Assessment/Plan (1) Cellulitis of right foot: (2) Diabetes mellitus with diabetic polyneuropathy: (3) Non-pressure chronic ulcer of other part of right foot with fat layer exposed: PLAN: Re-evaluation performed. Reviewed diagnostic data. There is improvement noted to the right foot. MRI was ordered for further evaluation, which has been obtained and reviewed. There is noted to be a small abscess plantar subcutaneous tissue at base of the 3rd and 4th metatarsals. This was discussed with patient and he agreed to proceed with bedside I+D which was completed this morning as noted below. Cultures have been obtained - finals pending - continue with Vanc/Zoravenn. LEAS ordered for further evaluation of LE arterial flow - clinically there is good flow to foot bilateral. No weightbearing right foot. Podiatry will continue to follow. I+D right foot - the procedure was discussed with patient in detail, reviewed rationale of procedure, possible benefits vs risks, goals, expectations and alternative (antibiotics, wound care, nothing) options. The consent form was reviewed with him and he freely signed it. After consent was obtained the site was cleansed with 70% Isopropyl alcohol and 10mL of 1% Lidocaine plain was given as a local nerve block around the plantar forefoot. After anestehsia obtained the skin was cleansed with 70% Isopropyl alcohol and the abscess at base of the 3rd and 4th met bases was incised and drained with a 15 blade, there was some purulence expressed from site, there was some nonviable tissue which was debrided and abscess was excised from the subcutaneous tissue and fascia layer using a 15 blade. The abscess did probe to the fascia layer, again the abscess was excised. The debrided area measured 0.9cm x 0.7cm and down to the subcutaneous tissue. There was another clinically questionable abscess area just distal and lateral to this which was incised using a 15 blade, there was serous drainage but otherwise no purulence noted. The sites were cleansed with normal saline solution. The site was packed with gauze packing and a gauze dressing was applied. He tolerated well with no complications. EBL was <5mL. (4) Type 2 diabetes mellitus with foot ulcer: (5) Cutaneous abscess of right foot:
[2021-12-05 15:00] VITALS: BP 125/76; PULSE 116; RESP 18; TEMP 38.6; O2SAT 95
--- NOTE | 2021-12-05 15:44 | CASEMGMT ---
PRATIK CM in to pt room to discuss any needs with wound care, monitoring upon dc. Pt denies need for HHC SN upon dc. He states he can perform any needed dressing change on himself. Pt has no interest in HHC.
[2021-12-05 16:40] LABS: Bedside Glucose 212 mg/dL (70-110)
[2021-12-05 20:46] VITALS: BP 116/59; PULSE 89; RESP 18; TEMP 37.6; O2SAT 94
[2021-12-05 22:51] LABS: Bedside Glucose 185 mg/dL (70-110)
[2021-12-06 03:00] VITALS: BP 129/76; PULSE 86; RESP 16; TEMP 36.6; O2SAT 99
[2021-12-06] MEDS: Benzonatate 100 MG Capsule 200 MG PO ×3 (06:17→22:49)
[2021-12-06] MEDS: Insulin Lispro 100 UNIT/ML INSULN.PEN SC ×3 (06:18→17:57)
[2021-12-06 06:31] LABS: Bedside Glucose 184 mg/dL (70-110)
[2021-12-06 07:04] LABS: Absolute Lymphocyte Count 1.24 X10^3/uL (0.83-4.51); Absolute Neutrophil Count 8.2 X10^3/uL (2.0-7.7); Basophil# 0.03 X10^3/uL; Basophil% 0.3 % (0-1); Eosinophil# 0.12 X10^3/uL; Eosinophils% 1.1 % (0-5); Hematocrit 31.7 % (40-54); Hemoglobin 11.1 g/dL (13.0-16.5); Lymphocyte # 1.24 X10^3/ul (0.83-4.51); Lymphocyte % 11.4 % (19-41); Mean Corpuscular Hgb 30.4 pg (27.0-32.0); Mean Corpuscular Volume 86.8 fL (80-94); Mean Platelet Vol. 9.1 fl (6.2-12.0); Monocyte# 1.16 X10^3/uL; Monocyte% 10.7 % (0-10); NRBC Flagged by Analyzer 0 % (0-5); Neutrophil # 8.21 X10^3/uL (2.7-7.7); Neutrophil % 75.9 % (47-70); Platelet Count 192 K/mm3 (150-450); RBC Distribution Width CV 12.1 % (11.6-14.6); RBC Distribution Width SD 38.6 fl (35.1-43.9); Red Blood Count 3.65 M/mm3 (4.6-6.2); White Blood Count 10.8 K/mm3 (4.4-11.0)
--- NOTE | 2021-12-06 07:18 | PN_ITS ---
Subjective Subjective Patient was seen this morning for follow up on right foot. He is resting comfortably in bed, no new complaints. Foot is improving. No complaints of fever, chills, nausea or vomiting. Objective Data Objective Data Vital Signs: Vital Signs Temp Pulse Resp BP Pulse Ox 97.9 F 86 16 129/76 H 99 12/06/21 03:00 12/06/21 03:00 12/06/21 03:00 12/06/21 03:00 12/06/21 03:00 Oxygen Delivery Method Room Air Weight: 96.7 kg Body Mass Index (BMI) 28.1 Intake & Output: Intake and Output for Last 24 Hours 12/04/21 12/05/21 12/06/21 23:59 23:59 23:59 Intake Total 2883.44 / 2883.44 202.79 / 2028.79 325 / 325 Balance 2883.44 / 2883.44 2028. / 2028. 325 / 325 Lab / Micro Data Result Diagrams: 12/06/21 06:20 12/05/21 04:42 Labs: Laboratory Results - last 24 hr 12/05/21 04:42: Hemoglobin A1c 7.1 H 12/05/21 11:04: POC Glucose 161 H 12/05/21 11:48: Vancomycin Trough 10.5 12/05/21 16:30: POC Glucose 212 H 12/05/21 22:33: POC Glucose 185 H 12/06/21 06:16: POC Glucose 184 H 12/06/21 06:20: WBC 10.8, RBC 3.65 L, Hgb 11.1 L, Hct 31.7 L, MCV 86.8, MCH 30.4, MCHC 35.0, RDW Std Deviation 38.6, RDW Coeff of Davina 12.1, Plt Count 192, MPV 9.1, Immature Gran % (Auto) 0.600, Neut % (Auto) 75.9 H, Lymph % (Auto) 11.4 L, [place] % (Auto) 10.7 H, Eos % (Auto) 1.1, Baso % (Auto) 0.3, Absolute Neuts (auto) 8.2 H, Absolute Lymphs (auto) 1.24, Nucleated RBC % 0 Micro: Microbiology 12/04/21 11:15 Blood Culture (Wb) - Venous Blood Culture - Preliminary GNR lactose [place] 12/04/21 11:50 Wound - Left Foot Gram Stain - Final 12/04/21 11:50 Wound - Left Foot Wound Culture - Preliminary Beta streptococcus 12/04/21 18:32 Urine, Clean Catch Urine Culture - Preliminary Culture exhibits no growth. 12/04/21 15:00 Nasal Secretion SARS-CoV-2 Antigen (Rapid) - Final Physical Exam Const alert, oriented x3 and no apparent distress Extremity Extremity Narrative: Right foot with ulceration to plantar central forefoot down to subcutaneous tissue and spot down to fascia layer, there is no deep probing or tracking, there is serous drainage and some mild purulence at the I+D site, there is significant erythema and edema to the foot, there is no maloder, there is no visible abscess. There is some tenderness to the plantar forefoot but improved. No other pain to the foot. There is decreased sensation bilateral foot. No open lesions left foot. There is chronic contracture of toes bilateral. No evidence of acute charcot neuroarthropathy bilateral foot. DP and PT pulses palpable, CFT < 2 seconds to all toes - no evidence of acute ischemia bilateral. No calf pain bilateral. 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 Reviewed diagnostic data. WBC now normal. There is continued improvement noted to the right foot. Cultures have been obtained - reviewed - finals pending - pt is on Vanc/Zosyn. I do not recommend patient be discharged home yet from foot standpoint. LEAS ordered for further evaluation of LE arterial flow - clinically there is good flow to foot bilateral. No weightbearing right foot. Recommend home health nursing once patient is discharged. Podiatry will continue to follow. (4) Type 2 diabetes mellitus with foot ulcer: (5) Cutaneous abscess of right foot:
[2021-12-06 07:29] LABS: Anion Gap 6 (5-15); BUN 11 mg/dL (7-18); BUN/Creat Ratio 16.2 RATIO (10-20); Calcium,Total 8.9 mg/dL (8.5-10.1); Chloride 103 mmol/L (98-107); Creatinine, Serum 0.68 mg/dL (0.70-1.30); EST Glomerular Filtration Rate 129 mL/min (>60); Est Glom Filt Rate - Afr Amer 156 mL/min (>60); Estimated Creatinine Clearance 141.98 ml/min; Glucose 176 mg/dL (74-106); Potassium 3.9 mmol/L (3.5-5.1); Sodium Level 135 mmol/L (136-145)
--- NOTE | 2021-12-06 07:50 | PCM.PN.HOSP ---
Subjective Subjective Follow-up for right foot subcutaneous abscess with cellulitis. Seen and examined. Patient had fever 101.4 Fahrenheit at 3 PM yesterday. Repeat blood culture ordered. Seen by shoes hand sewer in the morning. Objective Data Objective Data Vital Signs: Vital Signs Temp Pulse Resp BP Pulse Ox 97.9 F 86 16 129/76 H 99 12/06/21 03:00 12/06/21 03:00 12/06/21 03:00 12/06/21 03:00 12/06/21 03:00 Oxygen Delivery Method Room Air Weight: 213 lb 2.992 oz Body Mass Index (BMI) 28.1 Intake & Output: Intake and Output for Last 24 Hours 12/04/21 12/05/21 12/06/21 23:59 23:59 23:59 Intake Total 2883.44 / 2883.44 2029.79 / 2029.79 325 / 325 Balance 2883.44 / 2883.44 202.79 / 2028.79 325 / 325 Lab / Micro Data Result Diagrams: 12/06/21 06:20 12/06/21 06:20 Labs: Laboratory Results - last 24 hr 12/05/21 11:04: POC Glucose 161 H 12/05/21 11:48: Vancomycin Trough 10.5 12/05/21 16:30: POC Glucose 212 H 12/05/21 22:33: POC Glucose 185 H 12/06/21 06:16: POC Glucose 184 H 12/06/21 06:20: WBC 10.8, RBC 3.65 L, Hgb 11.1 L, Hct 31.7 L, MCV 86.8, MCH 30.4, MCHC 35.0, RDW Std Deviation 38.6, RDW Coeff of Davina 12.1, Plt Count 192, MPV 9.1, Immature Gran % (Auto) 0.600, Neut % (Auto) 75.9 H, Lymph % (Auto) 11.4 L, [place] % (Auto) 10.7 H, Eos % (Auto) 1.1, Baso % (Auto) 0.3, Absolute Neuts (auto) 8.2 H, Absolute Lymphs (auto) 1.24, Nucleated RBC % 0 12/06/21 06:20: Sodium 135 L, Potassium 3.9, Chloride 103, Carbon Dioxide 26.0, Anion Gap 6, BUN 11, Creatinine 0.68 L, Estim Creat Clear Calc 141.98, Est GFR (MDRD) Af Amer 156, Est GFR (MDRD) Non-Af 129, BUN/Creatinine Ratio 16.2, Glucose 176 H, Calcium 8.9 Micro: Microbiology 12/04/21 11:15 Blood Culture (Wb) - Venous Blood Culture - Preliminary GNR lactose activities director scouting 12/04/21 11:50 Wound - Left Foot Gram Stain - Final 12/04/21 11:50 Wound - Left Foot Wound Culture - Preliminary Beta streptococcus 12/04/21 18:32 Urine, Clean Catch Urine Culture - Preliminary Culture exhibits no growth. 12/04/21 15:00 Nasal Secretion SARS-CoV-2 Antigen (Rapid) - Final Physical Exam Narrative General: Alert, Oriented x3, Cooperative, overweight BMI 28.5 kg/m?. Mild febrile HEENT: Atraumatic, PERRLA, EOMI, Normocephalic Oral: No Gingival or Mucosal Lesions/ Ulcerations Neck: Supple, No JVD, Negative Carotid Bruits Lungs: Air entry diminished in bilateral lung bases. No crepitation/rhonchi Cardiovascular: Sinus tachycardia, Normal S1, Normal S2, No murmurs Abdomen: Bowel Sounds Present, Soft, Non Tender, Non-Distended : No renal angle tenderness. No suprapubic tenderness. Extremities: Right foot edema resolved, Capillary Refill Less than 3 Seconds Skin: Incision and drainage with Phillip wrap bandage of right plantar foot. Redness, localized swelling and induration whole foot below right ankle has improved Musculoskeletal: Mild tenderness over right plantar aspect of foot. Neurological: Cranial nerves II-XII grossly intact, DTR 2+/4 and Symmetrical, Neuro grossly intact Psych/Mental Status: Normal Affect, Appropriate. Charges/Coding Visit Charges Inpatient E&M: 65390 Subs Hosp L2 Assessment/Plan Assessment/Plan (1) Cutaneous abscess of right foot: CODE(S): L02.611 - Cutaneous abscess of right foot (2) Cellulitis of right foot: CODE(S): L03.115 - Cellulitis of right lower limb PLAN: 1. Right foot cellulitis with localized subcutaneous abscess: Patient is being admitted on [facility] floor. Patient has fever, tachycardia and leukocytosis with left shift and lymphopenia but does not merit the diagnosis of sepsis. No hypotension or lactic acidosis. qSOFA score 0. Started on IV vancomycin and Zosyn. Wound culture and blood culture taken in ED. [facility] [employer] [facility] is consulted. Right foot x-ray shows arthrosis of tarsometatarsal articulation and chronic healed fracture deformity from second through fifth metatarsal. 12/05: Lower extremity MRI shows less than 1 cm oval fluid collection in plantar subcutaneous tissue beneath second and third metatarsal base. Patient had incision and drainage at bedside by shoes hand sewer. No evidence of osteomyelitis. Wound culture shows 3+ beta Streptococcus. Blood culture aerobic bottle shows gram-negative rods. Continue IV vancomycin and Zosyn till further sensitivities are available. MRI finding, clinical and hospital course discussed with the patient and near the bedside. 12/06: Patient had fever about 3 PM yesterday T-max 101.4 Fahrenheit. Blood culture was sent and received but is still pending. Prelim blood culture shows gram-negative luis alberto. Doppler shows right 1.74, left 1.49 but reported triphasic wave in posterior tibialis. Due to inconsistency of CHAD and waveforms, recommend exercise segmental CHAD to further clarify whether calcification/hardening of ankle and dorsalis pedis arteries. 2. Diabetes mellitus type 2: As per history is A1c less than 7 g%. Glucose in BMP is 290 mg/dL. Accu-Chek insulin coverage Humalog sliding scale. Hold Metformin. : Blood sugar is high 1 80-245 range. Lantus 8 unit subcutaneous started. Titrate the dose as per Accu-Cheks. Continue sliding scale insulin. 3. Hypertension: Blood pressure is good and controlled. BP 122/76. Twelve-lead EKG shows sinus tachycardia 133 bpm. QTc 423 ms. No chest pain or shortness of breath. 4. Recovering from COVID-19 infection: Chest x-ray individually reviewed and does not show acute cardiopulmonary abnormality. Rapid COVID-19 antigen ordered. Patient had 2 doses of COVID-19 vaccine. Booster dose recommended after 5 months of second dose. VT prophylaxis: Moderate VTE risk. Lovenox 40 mg subcu daily. 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 Jack wants to monitor the patient until the full culture is out and clinically wound is better. Possible discharge on weekend Clinical Impression(s) from Imaging Studies Foot X-Ray 12/04/21 10:56 IMPRESSION: Chronic healed fracture deformity of the second through fifth metatarsals. Arthrosis of the tarsometatarsal articulations. Lower Extremity MRI 12/04/21 20:20 IMPRESSION: 1. A 9.8 x 4.8 mm oval fluid collection is present in the plantar subcutaneous tissues beneath the second and third metatarsal bases, which could represent a small microabscess at the site of laceration or posttraumatic seroma. There is no intramuscular abscess or inflammatory changes. 2. No evidence of osteomyelitis. Living will/advanced directive/end of life care: Patient does not have living will or advanced directive. His is next to kin. Patient does not have designated power of publisher assistant for health. After discussion of benefits/risks procedures involved with full code, DNR CC arrest and DNR CC, the patient opted for full code. Patient does want artificial life support including intubation, tube feed, ventilator and/chest compression, central venous catheter, vasopressor and DC shock if needed Total time spent in [id number] encounter in discussion of advanced directive 16 minutes.
[2021-12-06] MEDS: Aspirin 81 MG TAB.CHEW PO (08:10)
[2021-12-06 08:12] VITALS: BP 134/77; PULSE 89; RESP 18; TEMP 36.8; O2SAT 96
--- NOTE | 2021-12-06 09:42 | CASEMGMT ---
Addendum entered by Fidelia Clark 12/06/21 10:03: Received tc back from Kecia at [facility], they are able to accept pt with SOC on Thursday. Notified pt of information. Original Note: PRATIK SCHUMACHER notified that pt has changed his mind regarding HHC. PRATIK SCHUMACHER in to pt room. Pt states his will learn dsg change. He plans on staying at his mother's as it is one level. Her address is [address] [place] [address]. Pt states he has a walker at home as well as a knee scooter. His will go to his mother's house to change the dressings. Patient was provided a list of [facility] providers including quality and resource use data and consistent with the patient?s preferred geographic region, medical needs, and insurance network. The patient?s preferred provider is [facility]. TC to Kecia at [facility], referral made. She will call back with acceptance.
[2021-12-06] MEDS: Enoxaparin 40 MG/0.4 ML Syringe SC (10:34)
[2021-12-06] MEDS: Lisinopril 40 MG Tablet PO (10:34)
[2021-12-06] MEDS: guaiFENesin 1,200 MG Tablet 1200 MG PO (10:34)
[2021-12-06 10:50] LABS: Bedside Glucose 245 mg/dL (70-110)
[2021-12-06 12:37] LABS: Vancomycin, Trough Level 11.8 ug/mL (5.0-15.0)
--- NOTE | 2021-12-06 14:08 | PCM.RX.CS ---
Consult Pharmacy has been consulted to manage selected antiobiotic: Vancomycin Type of Consult: Follow-up Suspected Infection: Skin/Soft tissue Prior Doses of Antibiotics Received/Current Regimen: Has been on 1250mg iv q8h. Labs: Sodium 135 mmol/L (136-145) L 12/06/21 06:20 Potassium 3.9 mmol/L (3.5-5.1) 12/06/21 06:20 Chloride 103 mmol/L (98-107) 12/06/21 06:20 Carbon Dioxide 26.0 mmol/L (21.0-32.0) 12/06/21 06:20 Anion Gap 6 (5-15) 12/06/21 06:20 BUN 11 mg/dL (7-18) 12/06/21 06:20 Creatinine 0.68 mg/dL (0.70-1.30) L 12/06/21 06:20 Est GFR (MDRD) Af Amer 156 mL/min (>60) 12/06/21 06:20 Est GFR (MDRD) Non-Af 129 mL/min (>60) 12/06/21 06:20 BUN/Creatinine Ratio 16.2 RATIO (10-20) 12/06/21 06:20 Glucose 176 mg/dL (74-106) H 12/06/21 06:20 Vancomycin Trough 11.8 ug/mL (5.0-15.0) 12/06/21 11:30 Microbiology: Microbiology 12/04/21 11:19 Blood Culture (Wb) - Anticubital Left Blood Culture - Preliminary No growth in 48 hours. 12/04/21 11:50 Wound - Left Foot Gram Stain - Final 12/04/21 11:50 Wound - Left Foot Wound Culture - Final Streptococcus agalactiae (B) 12/04/21 11:50 Wound - Left Foot Anaerobic Culture - Final No anaerobic bacteria isolated. 12/04/21 18:32 Urine, Clean Catch Urine Culture - Final Gram negative luis alberto 12/04/21 11:15 Blood Culture (Wb) - Venous Blood Culture - Final Klebsiella oxytoca 12/04/21 15:00 Nasal Secretion SARS-CoV-2 Antigen (Rapid) - Final Weight used for dosin.7 kg Estimated Creatinine Clearance: >100ml/min Goal Trough: 15-20 mcg/mL Pharmacy Plan for Drug Dosing: Renal reviewed and same. Trough today 11.8 ~7.5 hrs post dose. Goal 15-20mcg/ml. Dose to be increased to 150mg IV q8h. New trough ordered for before 4th dose of new dose. Pharmacy Service will continue to monitor and adjust dosing as required. Follow-Up Labs: Trough Vancomycin - 2.12.22 @1930 before 2000 dose
[2021-12-06 15:15] VITALS: BP 143/76; PULSE 100; RESP 18; TEMP 37.4; O2SAT 97
[2021-12-06 18:06] LABS: Bedside Glucose 259 mg/dL (70-110)
[2021-12-06 20:40] VITALS: BP 122/69; PULSE 96; RESP 18; TEMP 37.9; O2SAT 99
[2021-12-06] MEDS: oxyCODONE 5 MG Tablet PO (20:54)
[2021-12-06 22:00] VITALS: TEMP 37.6
[2021-12-06 23:01] LABS: Bedside Glucose 146 mg/dL (70-110)
[2021-12-07 03:25] VITALS: BP 135/82; PULSE 95; RESP 16; TEMP 36.9; O2SAT 97
[2021-12-07 05:45] LABS: Absolute Lymphocyte Count 0.99 X10^3/uL (0.83-4.51); Absolute Neutrophil Count 9.5 X10^3/uL (2.0-7.7); Basophil# 0.03 X10^3/uL; Basophil% 0.2 % (0-1); Eosinophil# 0.12 X10^3/uL; Hematocrit 32.9 % (40-54); Hemoglobin 11.8 g/dL (13.0-16.5); Lymphocyte # 0.99 X10^3/ul (0.83-4.51); Lymphocyte % 8.2 % (19-41); Mean Corp Hgb Conc 35.9 g/dL (32-36); Mean Corpuscular Hgb 31.2 pg (27.0-32.0); Mean Platelet Vol. 8.7 fl (6.2-12.0); Monocyte# 1.28 X10^3/uL; Monocyte% 10.6 % (0-10); NRBC Flagged by Analyzer 0 % (0-5); Neutrophil # 9.54 X10^3/uL (2.7-7.7); Neutrophil % 79.5 % (47-70); Platelet Count 190 K/mm3 (150-450); RBC Distribution Width CV 11.9 % (11.6-14.6); RBC Distribution Width SD 38.1 fl (35.1-43.9); Red Blood Count 3.78 M/mm3 (4.6-6.2)
[2021-12-07] MEDS: Benzonatate 100 MG Capsule 200 MG PO ×2 (06:31→23:02)
[2021-12-07] MEDS: Insulin Lispro 100 UNIT/ML INSULN.PEN SC ×4 (06:35→23:17)
[2021-12-07 06:40] LABS: Bedside Glucose 167 mg/dL (70-110)
[2021-12-07 07:02] LABS: Anion Gap 5 (5-15); BUN 11 mg/dL (7-18); BUN/Creat Ratio 13.8 RATIO (10-20); Calcium,Total 8.7 mg/dL (8.5-10.1); Chloride 102 mmol/L (98-107); EST Glomerular Filtration Rate 108 mL/min (>60); Est Glom Filt Rate - Afr Amer 130 mL/min (>60); Estimated Creatinine Clearance 120.68 ml/min; Glucose 176 mg/dL (74-106); Sodium Level 134 mmol/L (136-145)
[2021-12-07 07:10] VITALS: O2SAT 96
--- NOTE | 2021-12-07 09:50 | PN_ITS ---
Subjective Subjective Patient was seen this morning for follow up on right foot. He is resting comfortably in bed, no new complaints. He is currently afebrile, had fever overnight of 100.2F; no current fever, chills, nausea or vomiting. Objective Data Objective Data Vital Signs: Vital Signs Temp Pulse Resp BP Pulse Ox 98.5 F 95 16 135/82 H 96 12/07/21 03:25 12/07/21 03:25 12/07/21 03:25 12/07/21 03:25 12/07/21 07:10 Oxygen Delivery Method Room Air Weight: 96.7 kg Body Mass Index (BMI) 28.1 Intake & Output: Intake and Output for Last 24 Hours 12/05/21 12/06/21 12/07/21 23:59 23:59 23:59 Intake Total / 2029 580 / 580 Balance / 2029 580 / 580 Lab / Micro Data Result Diagrams: 12/07/21 05:26 12/07/21 05:26 Labs: Laboratory Results - last 24 hr 12/06/21 10:37: POC Glucose 245 H 12/06/21 11:30: Vancomycin Trough 11.8 12/06/21 17:56: POC Glucose 259 H 12/06/21 22:47: POC Glucose 146 H 12/07/21 05:26: WBC 12.0 H, RBC 3.78 L, Hgb 11.8 L, Hct 32.9 L, MCV 87.0, MCH 31.2, MCHC 35.9, RDW Std Deviation 38.1, RDW Coeff of Davina 11.9, Plt Count 190, MPV 8.7, Immature Gran % (Auto) 0.500, Neut % (Auto) 79.5 H, Lymph % (Auto) 8.2 L, [place] % (Auto) 10.6 H, Eos % (Auto) 1.0, Baso % (Auto) 0.2, Absolute Neuts (auto) 9.5 H, Absolute Lymphs (auto) 0.99, Nucleated RBC % 0 12/07/21 05:26: Sodium 134 L, Potassium 4.0, Chloride 102, Carbon Dioxide 27.0, Anion Gap 5, BUN 11, Creatinine 0.80, Estim Creat Clear Calc 120.68, Est GFR (MDRD) Af Amer 130, Est GFR (MDRD) Non-Af 108, BUN/Creatinine Ratio 13.8, Glucose 176 H, Calcium 8.7 12/07/21 06:35: POC Glucose 167 H Micro: Microbiology 12/04/21 11:19 Blood Culture (Wb) - Anticubital Left Blood Culture - Preliminary No growth in 48 hours. 12/04/21 11:50 Wound - Left Foot Gram Stain - Final 12/04/21 11:50 Wound - Left Foot Wound Culture - Final Streptococcus agalactiae (B) 12/04/21 11:50 Wound - Left Foot Anaerobic Culture - Final No anaerobic bacteria isolated. 12/04/21 18:32 Urine, Clean Catch Urine Culture - Final Gram negative luis alberto 12/04/21 11:15 Blood Culture (Wb) - Venous Blood Culture - Final Klebsiella oxytoca 12/04/21 15:00 Nasal Secretion SARS-CoV-2 Antigen (Rapid) - Final Physical Exam Const alert, oriented x3 and no apparent distress Extremity Extremity Narrative: Right foot with ulceration to plantar central forefoot down to subcutaneous tissue and spot down to fascia layer, there is no deep probing or tracking, there is serous drainage and some mild purulence at the I+D site which was milked/massaged out today, there is erythema and edema to the foot which is resolving and improving, there is no maloder, there is no visible abscess. There is some tenderness to the plantar forefoot but continues to imp rove. No other pain to the foot. No evidence of acute ischemia to the right foot. No calf pain bilateral. Assessment & Plan Assessment/Plan (1) Cellulitis of right foot: (2) Diabetes mellitus with diabetic polyneuropathy: (3) Non-pressure chronic ulcer of other part of right foot with fat layer exposed: PLAN: Re-evaluation performed. Reviewed diagnostic data. Overall there is continued improvement noted to the right foot. Cultures have been obtained - reviewed - finals pending - pt is on Vanc/Zosyn. I do not recommend patient be discharged home yet from foot standpoint. LEAS ordered for further evaluation of LE arterial flow - obtained and reviewed- noted mild small vessel PVD - patient should follow up with vascular surgery, which can be outpatient at this point. No weightbearing right foot. Recommend home health nursing once patient is discharged. Podiatry will continue to follow. (4) Type 2 diabetes mellitus with foot ulcer: (5) Cutaneous abscess of right foot:
[2021-12-07 10:04] VITALS: BP 124/72; PULSE 100; RESP 18; TEMP 37.9; O2SAT 97
[2021-12-07] MEDS: oxyCODONE 5 MG Tablet PO (10:11)
[2021-12-07] MEDS: Lisinopril 40 MG Tablet PO (10:12)
[2021-12-07] MEDS: Enoxaparin 40 MG/0.4 ML Syringe SC (10:12)
[2021-12-07] MEDS: Acetaminophen 325 MG Tablet 650 MG PO (10:12)
[2021-12-07] MEDS: Aspirin 81 MG TAB.CHEW PO (10:13)
--- NOTE | 2021-12-07 11:58 | PCM.PN.HOSP ---
Subjective Subjective Patient states his foot is still sore at times. Asks if he will be able to drive with that leg and I told him likely not. He is awaiting input from [facility] to see if he will be able to go home today or not. No significant point complaints at this time. Objective Data Objective Data Vital Signs: Vital Signs Temp Pulse Resp BP Pulse Ox 100.2 F H 100 18 124/72 H 97 12/07/21 10:04 12/07/21 10:04 12/07/21 10:04 12/07/21 10:04 12/07/21 10:04 Oxygen Delivery Method Room Air Weight: 96.7 kg Body Mass Index (BMI) 28.1 Intake & Output: Intake and Output for Last 24 Hours 12/05/21 12/06/21 12/07/21 23:59 23:59 23:59 Intake Total / 2029 580 / 580 Balance / 2029 580 / 580 Lab / Micro Data Result Diagrams: 12/07/21 05:26 12/07/21 05:26 Labs: Laboratory Results - last 24 hr 12/06/21 11:30: Vancomycin Trough 11.8 12/06/21 17:56: POC Glucose 259 H 12/06/21 22:47: POC Glucose 146 H 12/07/21 05:26: WBC 12.0 H, RBC 3.78 L, Hgb 11.8 L, Hct 32.9 L, MCV 87.0, MCH 31.2, MCHC 35.9, RDW Std Deviation 38.1, RDW Coeff of Davina 11.9, Plt Count 190, MPV 8.7, Immature Gran % (Auto) 0.500, Neut % (Auto) 79.5 H, Lymph % (Auto) 8.2 L, [place] % (Auto) 10.6 H, Eos % (Auto) 1.0, Baso % (Auto) 0.2, Absolute Neuts (auto) 9.5 H, Absolute Lymphs (auto) 0.99, Nucleated RBC % 0 12/07/21 05:26: Sodium 134 L, Potassium 4.0, Chloride 102, Carbon Dioxide 27.0, Anion Gap 5, BUN 11, Creatinine 0.80, Estim Creat Clear Calc 120.68, Est GFR (MDRD) Af Amer 130, Est GFR (MDRD) Non-Af 108, BUN/Creatinine Ratio 13.8, Glucose 176 H, Calcium 8.7 12/07/21 06:35: POC Glucose 167 H Micro: Microbiology 12/04/21 11:19 Blood Culture (Wb) - Anticubital Left Blood Culture - Preliminary No growth in 48 hours. 12/04/21 11:50 Wound - Left Foot Gram Stain - Final 12/04/21 11:50 Wound - Left Foot Wound Culture - Final Streptococcus agalactiae (B) 12/04/21 11:50 Wound - Left Foot Anaerobic Culture - Final No anaerobic bacteria isolated. 12/04/21 18:32 Urine, Clean Catch Urine Culture - Final Gram negative luis alberto 12/04/21 11:15 Blood Culture (Wb) - Venous Blood Culture - Final Klebsiella oxytoca 12/04/21 15:00 Nasal Secretion SARS-CoV-2 Antigen (Rapid) - Final Physical Exam Const alert, oriented x3 and no apparent distress Constitutional Narrative: Slightly overweight white male lying in bed, watching television, appears comfortable, nontoxic, nursing at bedside Exam Limitations: no limitations Nutritional Appearance: overweight HEENT head/scalp atraumatic and moist oral mucous membranes Head and Scalp: normocephalic Resp normal respiratory effort, no retractions, no use of accessory muscles and clear to auscultation bilaterally Auscultation: Negative for crackles, rales, rhonchi or wheezes Cardio regular rate, regular rhythm, S1 normal heart sound, S2 normal heart sound, no murmurs, no rub, no gallops, no clicks and no JVD GI normal to inspection, nondistended, normoactive bowel sounds, soft to palpation, non-tender and non-distended Extremity no clubbing, cyanosis or edema Extremity Narrative: 1+ bilateral lower extremity pedal pulses Skin Skin Narrative: Right foot with post I&D dressing in place, cap refill is to bilateral lower extremities Neuro oriented x3, CN's II-XII intact bilaterally, moves all extremities and no focal motor deficits Sensorium / Orientation: awake and alert Assessment & Plan Assessment/Plan (1) Cutaneous abscess of right foot: (2) Cellulitis of right foot: (3) Leukocytosis: (4) Acute anemia: PLAN: Group B strep right foot abscess/infection -Status post I&D on 12/04/2021 -Patient is currently on Vanco and Zosyn -We will narrow to Unasyn at this time with likely discharge on Augmentin -The organism appears to be highly sensitive -Blood cultures remain pending -Fevers appear to be improving with T-max of 100.2 in the last 12 hours -MRI does not show any signs of osteomyelitis -Continue wound care -Appreciate podiatry input and await approval for discharge Leukocytosis -White count remains elevated but this appears to be a persistent issue -Overall white count has trended down however from 17.2 on admission to 12 today -Continue to monitor -Continue antibiotics Acute anemia -Baseline hemoglobin is normal -Patient with a hemoglobin of 11.2 today -Suspect related to volume and blood loss at foot -No signs of acute bleeding -Continue to monitor DM-2 -Metformin on hold -Continue Lantus 8 units subcu that was initiated yesterday -Continue SSI -Continue Accu-Cheks -Continue carb controlled diet Hypertension -Continue home lisinopril 40 mg daily Recent COVID-19 infection -Room air -Patient has had 2 doses of his COVID-19 vaccine and booster has been recommended at 4 months following second dose DVT prophylaxis -Continue enoxaparin 40 mg daily CODE STATUS -Full code Charges/Coding Visit Charges Inpatient E&M: 07188 Subs Hosp L2
[2021-12-07] MEDS: MENTHOL 226.8 GM JAR 1 APPLIC TOPICAL (12:03)
[2021-12-07 12:11] LABS: Bedside Glucose 230 mg/dL (70-110)
[2021-12-07 16:36] LABS: Bedside Glucose 150 mg/dL (70-110)
[2021-12-07 16:38] VITALS: BP 142/85; PULSE 95; RESP 16; TEMP 36.7; O2SAT 98
[2021-12-07 19:39] LABS: Vancomycin, Trough Level 16.8 ug/mL (5.0-15.0)
[2021-12-07 22:30] VITALS: BP 123/83; PULSE 107; RESP 20; TEMP 37.2; O2SAT 96
[2021-12-07 23:41] LABS: Bedside Glucose 193 mg/dL (70-110)
[2021-12-07] MEDS: 0.9% Saline Lock 10 ML Syringe IV (23:44)
[2021-12-08 04:30] VITALS: BP 118/65; PULSE 88; RESP 18; TEMP 36.6; O2SAT 96
[2021-12-08] MEDS: Benzonatate 100 MG Capsule 200 MG PO ×3 (05:49→21:05)
[2021-12-08] MEDS: oxyCODONE 5 MG Tablet PO ×2 (06:04→14:30)
[2021-12-08 06:55] LABS: Absolute Lymphocyte Count 0.97 X10^3/uL (0.83-4.51); Absolute Neutrophil Count 8.3 X10^3/uL (2.0-7.7); Basophil# 0.02 X10^3/uL; Basophil% 0.2 % (0-1); Eosinophil# 0.12 X10^3/uL; Eosinophils% 1.1 % (0-5); Hemoglobin 11.3 g/dL (13.0-16.5); Lymphocyte # 0.97 X10^3/ul (0.83-4.51); Mean Corp Hgb Conc 35.3 g/dL (32-36); Mean Corpuscular Volume 87.9 fL (80-94); Mean Platelet Vol. 8.6 fl (6.2-12.0); Monocyte# 1.32 X10^3/uL; Monocyte% 12.2 % (0-10); NRBC Flagged by Analyzer 0 % (0-5); Neutrophil % 76.9 % (47-70); Platelet Count 191 K/mm3 (150-450); RBC Distribution Width CV 12.1 % (11.6-14.6); RBC Distribution Width SD 39.4 fl (35.1-43.9); Red Blood Count 3.64 M/mm3 (4.6-6.2); White Blood Count 10.8 K/mm3 (4.4-11.0)
[2021-12-08 07:21] LABS: Bedside Glucose 188 mg/dL (70-110)
[2021-12-08 07:28] LABS: Anion Gap 5 (5-15); BUN 11 mg/dL (7-18); BUN/Creat Ratio 15.1 RATIO (10-20); Calcium,Total 8.8 mg/dL (8.5-10.1); Chloride 100 mmol/L (98-107); Creatinine, Serum 0.73 mg/dL (0.70-1.30); EST Glomerular Filtration Rate 120 mL/min (>60); Est Glom Filt Rate - Afr Amer 145 mL/min (>60); Estimated Creatinine Clearance 132.25 ml/min; Glucose 190 mg/dL (74-106); Potassium 3.9 mmol/L (3.5-5.1); Sodium Level 133 mmol/L (136-145)
--- NOTE | 2021-12-08 08:00 | PN_ITS ---
Subjective Subjective Patient was seen this morning for follow up on right foot. He relates he has not really been having any pain in foot. Patient is afebrile, no complaints of chills, nausea, vomiting or calf pain. Objective Data Objective Data Vital Signs: Vital Signs Temp Pulse Resp BP Pulse Ox 97.9 F 88 18 118/65 96 12/08/21 04:30 12/08/21 04:30 12/08/21 04:30 12/08/21 04:30 12/08/21 04:30 Oxygen Delivery Method Room Air Weight: 96.7 kg Body Mass Index (BMI) 28.1 Intake & Output: Intake and Output for Last 24 Hours 12/06/21 12/07/21 12/08/21 23:59 23:59 23:59 Intake Total 2029 2372 / 2372 344 / 344 Output Total 1400 / 1700 1125 / 1125 Balance 2029 972 / 672 -781 / -781 Lab / Micro Data Result Diagrams: 12/08/21 06:47 12/08/21 06:47 Labs: Laboratory Results - last 24 hr 12/07/21 12:02: POC Glucose 230 H 12/07/21 16:30: POC Glucose 150 H 12/07/21 19:04: Vancomycin Trough 16.8 H 12/07/21 23:13: POC Glucose 193 H 12/08/21 06:47: WBC 10.8, RBC 3.64 L, Hgb 11.3 L, Hct 32.0 L, MCV 87.9, MCH 31.0, MCHC 35.3, RDW Std Deviation 39.4, RDW Coeff of Davina 12.1, Plt Count 191, MPV 8.6, Immature Gran % (Auto) 0.600, Neut % (Auto) 76.9 H, Lymph % (Auto) 9.0 L, [place] % (Auto) 12.2 H, Eos % (Auto) 1.1, Baso % (Auto) 0.2, Absolute Neuts (auto) 8.3 H, Absolute Lymphs (auto) 0.97, Nucleated RBC % 0 12/08/21 06:47: Sodium 133 L, Potassium 3.9, Chloride 100, Carbon Dioxide 28.0, Anion Gap 5, BUN 11, Creatinine 0.73, Estim Creat Clear Calc 132.25, Est GFR (MDRD) Af Amer 145, Est GFR (MDRD) Non-Af 120, BUN/Creatinine Ratio 15.1, Glucose 190 H, Calcium 8.8 12/08/21 07:14: POC Glucose 188 H Micro: Microbiology 12/04/21 11:19 Blood Culture (Wb) - Anticubital Left Blood Culture - Preliminary No growth in 48 hours. 12/04/21 11:50 Wound - Left Foot Gram Stain - Final 12/04/21 11:50 Wound - Left Foot Wound Culture - Final Streptococcus agalactiae (B) 12/04/21 11:50 Wound - Left Foot Anaerobic Culture - Final No anaerobic bacteria isolated. 12/04/21 18:32 Urine, Clean Catch Urine Culture - Final Gram negative luis alberto 12/04/21 11:15 Blood Culture (Wb) - Venous Blood Culture - Final Klebsiella oxytoca 12/04/21 15:00 Nasal Secretion SARS-CoV-2 Antigen (Rapid) - Final Physical Exam Const alert, oriented x3 and no apparent distress Extremity Extremity Narrative: Right foot with ulceration to plantar central forefoot down to subcutaneous tissue and spot down to fascia layer, there is no deep probing or tracking, there is serous drainage and some mild purulence (less than yesterday) at the I+D site which was milked/massaged out today, there is erythema and edema to the foot which is continues to resolve and improve, there is no maloder, there is no visible abscess. There is some tenderness to the plantar forefoot but continues to improve. No other pain to the foot. No evidence of acute ischemia to the right foot. No calf pain bilateral. 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 Reviewed diagnostic data. WBC normal. Overall there is continued improvement noted to the right foot. Cultures have been obtained - reviewed. Pt is on Vanc/Zosyn. Although foot continues to improve, I do not recommend patient be discharged home yet from foot standpoint. LEAS ordered for further evaluation of LE arterial flow - obtained and reviewed- noted mild small vessel PVD - patient should follow up with vascular surgery, which can be outpatient at this point. No weightbearing right foot. Recommend home health nursing once patient is discharged. Podiatry will continue to follow. (4) Type 2 diabetes mellitus with foot ulcer: (5) Cutaneous abscess of right foot:
[2021-12-08 08:11] VITALS: BP 127/79; PULSE 88; RESP 18; TEMP 37.7; O2SAT 97
[2021-12-08] MEDS: Insulin Lispro 100 UNIT/ML INSULN.PEN SC ×4 (08:31→21:04)
[2021-12-08] MEDS: Aspirin 81 MG TAB.CHEW PO (08:32)
[2021-12-08] MEDS: Lisinopril 40 MG Tablet PO (08:33)
[2021-12-08] MEDS: Enoxaparin 40 MG/0.4 ML Syringe SC (08:33)
[2021-12-08 12:30] LABS: Bedside Glucose 248 mg/dL (70-110)
--- NOTE | 2021-12-08 13:04 | PCM.PN.HOSP ---
Subjective Subjective No specific complaints. Patient states he is in no hurry to get home as he would like to make sure he does not have to come back and that this foot is taking care of. I did discuss the case with Dr. Jack and he would like him on at least 24 more hours of IV antibiotics and then reevaluate his foot again tomorrow. Objective Data Objective Data Vital Signs: Vital Signs Temp Pulse Resp BP Pulse Ox 99.9 F H 88 18 127/79 H 97 12/08/21 08:11 12/08/21 08:11 12/08/21 08:11 12/08/21 08:11 12/08/21 08:11 Oxygen Delivery Method Room Air Weight: 96.7 kg Body Mass Index (BMI) 28.1 Intake & Output: Intake and Output for Last 24 Hours 12/06/21 12/07/21 12/08/21 23:59 23:59 23:59 Intake Total 2029 2372 / 2372 1144 / 1144 Output Total 1400 / 1700 1625 / 1625 Balance 2029 972 / 672 -481 / -481 Lab / Micro Data Result Diagrams: 12/08/21 06:47 12/08/21 06:47 Labs: Laboratory Results - last 24 hr 12/07/21 16:30: POC Glucose 150 H 12/07/21 19:04: Vancomycin Trough 16.8 H 12/07/21 23:13: POC Glucose 193 H 12/08/21 06:47: WBC 10.8, RBC 3.64 L, Hgb 11.3 L, Hct 32.0 L, MCV 87.9, MCH 31.0, MCHC 35.3, RDW Std Deviation 39.4, RDW Coeff of Davina 12.1, Plt Count 191, MPV 8.6, Immature Gran % (Auto) 0.600, Neut % (Auto) 76.9 H, Lymph % (Auto) 9.0 L, [place] % (Auto) 12.2 H, Eos % (Auto) 1.1, Baso % (Auto) 0.2, Absolute Neuts (auto) 8.3 H, Absolute Lymphs (auto) 0.97, Nucleated RBC % 0 12/08/21 06:47: Sodium 133 L, Potassium 3.9, Chloride 100, Carbon Dioxide 28.0, Anion Gap 5, BUN 11, Creatinine 0.73, Estim Creat Clear Calc 132.25, Est GFR (MDRD) Af Amer 145, Est GFR (MDRD) Non-Af 120, BUN/Creatinine Ratio 15.1, Glucose 190 H, Calcium 8.8 12/08/21 07:14: POC Glucose 188 H 12/08/21 12:16: POC Glucose 248 H Micro: Microbiology 12/05/21 15:50 Blood Culture (Wb) - Right Forearm Blood Culture - Preliminary No growth in 48 hours. 12/04/21 11:19 Blood Culture (Wb) - Anticubital Left Blood Culture - Preliminary No growth in 48 hours. 12/04/21 11:50 Wound - Left Foot Gram Stain - Final 12/04/21 11:50 Wound - Left Foot Wound Culture - Final Streptococcus agalactiae (B) 12/04/21 11:50 Wound - Left Foot Anaerobic Culture - Final No anaerobic bacteria isolated. 12/04/21 18:32 Urine, Clean Catch Urine Culture - Final Gram negative luis alberto 12/04/21 11:15 Blood Culture (Wb) - Venous Blood Culture - Final Klebsiella oxytoca 12/04/21 15:00 Nasal Secretion SARS-CoV-2 Antigen (Rapid) - Final Physical Exam Const alert, oriented x3 and no apparent distress Constitutional Narrative: Slightly overweight white male lying in bed, watching television, appears comfortable, nontoxic Exam Limitations: no limitations Nutritional Appearance: overweight HEENT head/scalp atraumatic and moist oral mucous membranes Head and Scalp: normocephalic Resp normal respiratory effort, no retractions, no use of accessory muscles and clear to auscultation bilaterally Auscultation: Negative for crackles, rales, rhonchi or wheezes Cardio regular rate, regular rhythm, S1 normal heart sound, S2 normal heart sound, no murmurs, no rub, no gallops, no clicks and no JVD GI normal to inspection, nondistended, normoactive bowel sounds, soft to palpation, non-tender and non-distended Extremity no clubbing, cyanosis or edema Extremity Narrative: 1+ bilateral lower extremity pedal pulses Skin Skin Narrative: Right foot with post I&D dressing in place, cap refill is to bilateral lower extremities Neuro oriented x3, CN's II-XII intact bilaterally, moves all extremities and no focal motor deficits Neuro Narrative: Bilateral lower extremity neuropathy with the right being greater than left Sensorium / Orientation: awake and alert Assessment & Plan Assessment/Plan (1) Cutaneous abscess of right foot: (2) Cellulitis of right foot: (3) Leukocytosis: (4) Acute anemia: PLAN: Group B strep right foot abscess/infection -Status post I&D on 12/04/2021 -Continue Unasyn -We will likely discharge on Augmentin -The organism appears to be highly sensitive -Blood cultures are negative -Fevers appear to be improving with T-max of 100.2 in the last 12 hours -MRI did not show any signs of osteomyelitis -Continue wound care -Appreciate podiatry input and await approval for discharge Leukocytosis -White count remains elevated but this appears to be a persistent issue -Overall white count has trended down however from 17.2 on admission to 12 today -Continue to monitor -Continue antibiotics Acute anemia -Baseline hemoglobin is normal -Patient with a hemoglobin of 11.3 today -Suspect related to volume and blood loss at foot -No signs of acute bleeding -Continue to monitor DM-2 -Metformin on hold -Increase Lantus to 12 units today and recheck fasting sugar tomorrow -Continue SSI but increase to high-dose as blood sugars remain markedly elevated -Continue Accu-Cheks -Continue carb controlled diet Hypertension -Continue home lisinopril 40 mg daily Recent COVID-19 infection -Room air -Patient has had 2 doses of his COVID-19 vaccine and booster has been recommended at 4 months following second dose DVT prophylaxis -Continue enoxaparin 40 mg daily CODE STATUS -Full code Charges/Coding Visit Charges Inpatient E&M: 03703 Subs Hosp L2
[2021-12-08 14:24] VITALS: BP 143/78; PULSE 97; RESP 16; TEMP 37.6; O2SAT 98
[2021-12-08 17:31] LABS: Bedside Glucose 227 mg/dL (70-110)
[2021-12-08 19:23] VITALS: BP 125/61; PULSE 79; RESP 18; TEMP 36.7; O2SAT 100
[2021-12-08 21:10] LABS: Bedside Glucose 237 mg/dL (70-110)
[2021-12-09] MEDS: oxyCODONE 5 MG Tablet PO ×2 (00:14→05:28)
[2021-12-09 00:30] VITALS: BP 124/77; PULSE 82; RESP 18; TEMP 36.8; O2SAT 98
[2021-12-09] MEDS: Insulin Lispro 100 UNIT/ML INSULN.PEN SC ×4 (05:29→22:01)
[2021-12-09] MEDS: Benzonatate 100 MG Capsule 200 MG PO ×3 (05:29→22:06)
[2021-12-09 05:33] VITALS: BP 127/69; PULSE 68; RESP 18; TEMP 36.8; O2SAT 93
[2021-12-09 05:46] LABS: Bedside Glucose 180 mg/dL (70-110)
[2021-12-09] MEDS: Enoxaparin 40 MG/0.4 ML Syringe SC (08:21)
[2021-12-09] MEDS: Aspirin 81 MG TAB.CHEW PO (08:22)
[2021-12-09] MEDS: Lisinopril 40 MG Tablet PO (08:22)
[2021-12-09 08:37] VITALS: BP 137/83; PULSE 95; RESP 18; TEMP 36.5; O2SAT 98
--- NOTE | 2021-12-09 10:36 | PCM.PROGNOTE ---
Subjective Subjective Patient was seen this morning for follow up on right foot. He relates he is not having any pain in foot. He is currently afebrile but temp was 99.9F. No complaints of chills, nausea, vomiting or calf pain. Objective Data Objective Data Vital Signs: Vital Signs Temp Pulse Resp BP Pulse Ox 97.7 F L 95 18 137/83 H 98 12/09/21 08:37 12/09/21 08:37 12/09/21 08:37 12/09/21 08:37 12/09/21 08:37 Oxygen Delivery Method Room Air Weight: 96.7 kg Body Mass Index (BMI) 28.1 Intake & Output: Intake and Output for Last 24 Hours 12/07/21 12/08/21 12/09/21 23:59 23:59 23:59 Intake Total 2372 / 2372 1967 / 1967 1325.5 / 1325.5 Output Total 1400 / 1700 2125 / 2125 2150 / 2150 Balance 972 / 672 -157 / -157 -824.5 / -824.5 Lab / Micro Data Result Diagrams: 12/08/21 06:47 12/08/21 06:47 Labs: Laboratory Results - last 24 hr 12/08/21 12:16: POC Glucose 248 H 12/08/21 16:52: POC Glucose 227 H 12/08/21 21:02: POC Glucose 237 H 12/09/21 05:27: POC Glucose 180 H Micro: Microbiology 12/05/21 15:50 Blood Culture (Wb) - Right Forearm Blood Culture - Preliminary No growth in 48 hours. 12/04/21 11:19 Blood Culture (Wb) - Anticubital Left Blood Culture - Preliminary No growth in 48 hours. 12/04/21 11:50 Wound - Left Foot Gram Stain - Final 12/04/21 11:50 Wound - Left Foot Wound Culture - Final Streptococcus agalactiae (B) 12/04/21 11:50 Wound - Left Foot Anaerobic Culture - Final No anaerobic bacteria isolated. 12/04/21 18:32 Urine, Clean Catch Urine Culture - Final Gram negative luis alberto 12/04/21 11:15 Blood Culture (Wb) - Venous Blood Culture - Final Klebsiella oxytoca 12/04/21 15:00 Nasal Secretion SARS-CoV-2 Antigen (Rapid) - Final Physical Exam Const alert, oriented x3 and no apparent distress Extremity Extremity Narrative: Right foot with ulceration to plantar central forefoot down to subcutaneous tissue and spot down to fascia layer, there is no deep probing or tracking, there is serous drainage and again noted to be purulence at the I+D site which was milked/massaged out today but appears there is chronic nidus of abscess which needs to be futhur incised, drained and debrided, there is erythema and edema to the foot which is continues to resolve and improve, there is no maloder, there is no visible abscess. There is some tenderness to the plantar forefoot but continues to improve. No other pain to the foot. No evidence of acute ischemia to the right foot. No calf pain bilateral. Assessment & Plan Assessment/Plan (1) Cellulitis of right foot: (2) Diabetes mellitus with diabetic polyneuropathy: (3) Non-pressure chronic ulcer of other part of right foot with fat layer exposed: PLAN: Re-evaluation performed. Reviewed diagnostic data. WBC normal. Overall there is continued improvement noted to the right foot but there is still purulence from the plantar forefoot - appears to have nidus of infection at this time and further I+D was discussed with patient and he agreed with plan. Cultures have been obtained - reviewed. Pt is on Vanc/Zosyn. LEAS ordered for further evaluation of LE arterial flow - obtained and reviewed- noted mild small vessel PVD - patient should follow up with vascular surgery, which can be outpatient at this point. No weightbearing right foot. Recommend home health nursing once patient is discharged. Podiatry will continue to follow. I+D right foot - the procedure was discussed with patient in detail, reviewed rationale of procedure, possible benefits vs risks, goals, expectations and alternative (antibiotics, wound care, nothing) options. The consent form was reviewed with him and he freely signed it. After consent was obtained the site was cleansed with 70% Isopropyl alcohol and 5mL of 1% Lidocaine plain was given as a local nerve block around the plantar forefoot. After anesthesia obtained the skin was cleansed with 70% Isopropyl alcohol and the abscess at the central plantar forefoot was incised and drained, and debrided all nonviable subcutaneous and fascia tissue with a 15 blade, all purulence expressed from site. The debrided area measured 9.5cm x 4cm and down to the subcutaneous and fascia tissue. The sites were cleansed with normal saline solution. The site was packed with gauze packing and a gauze dressing was applied. He tolerated well with no complications. EBL was <5mL. (4) Type 2 diabetes mellitus with foot ulcer: (5) Cutaneous abscess of right foot:
[2021-12-09] MEDS: Lidocaine 1% (20 ml mdv) 20 ML Vial INFILT (11:17)
--- NOTE | 2021-12-09 11:28 | WOUNDNOTE ---
PRATIK Crum states that patient had been up to the bathroom. there was blood all over the floor. blood had soaked through the dressings and HARRY bandages. some oozing noted when dressing was removed. direct pressure applied to 2 small bleeding areas right plantar foot. Dakins not to unit yet. another NS wet to dry dressing was applied. covered with dry dressings, ABD pads, and two rolls of kerlix. applied a snug HARRY wrap for compression as well. pt tolerated well. will monitor.
[2021-12-09 11:35] LABS: Bedside Glucose 262 mg/dL (70-110)
--- NOTE | 2021-12-09 12:17 | WOUNDNOTE ---
wound photo: right foot
--- NOTE | 2021-12-09 12:18 | WOUNDNOTE ---
skin photo: right foot
--- NOTE | 2021-12-09 13:27 | WOUNDNOTE ---
In to reassess the right foot. there is some strikethrough bleeding noted again through the dressings and HARRY wrap. did removed the dressings. left the packing in place to not disturb any clot formation. placed 4x4 gauze dressings, ABD pads, and 2 rolls of kerlix. applied the HARRY wrap with pressure. pt tolerated well. did let Dr Jack know of the bleeding as well.
--- NOTE | 2021-12-09 14:35 | PCM.PN.HOSP ---
Subjective Subjective No issues overnight. Patient states he is has no current problems. No significant foot pain. Is awaiting input from Dr. Jack from today. Objective Data Objective Data Vital Signs: Vital Signs Temp Pulse Resp BP Pulse Ox 97.7 F L 95 18 137/83 H 98 12/09/21 08:37 12/09/21 08:37 12/09/21 08:37 12/09/21 08:37 12/09/21 08:37 Oxygen Delivery Method Room Air Weight: 96.7 kg Body Mass Index (BMI) 28.1 Intake & Output: Intake and Output for Last 24 Hours 12/07/21 12/08/21 12/09/21 23:59 23:59 23:59 Intake Total 2372 / 2372 1968 / 1968 1437.5 / 1437.5 Output Total 1400 / 1700 2125 / 2125 2150 / 2150 Balance 972 / 672 -157 / -157 -712.5 / -712.5 Lab / Micro Data Result Diagrams: 12/08/21 06:47 12/08/21 06:47 Labs: Laboratory Results - last 24 hr 12/08/21 16:52: POC Glucose 227 H 12/08/21 21:02: POC Glucose 237 H 12/09/21 05:27: POC Glucose 180 H 12/09/21 11:21: POC Glucose 262 H Micro: Microbiology 12/04/21 11:19 Blood Culture (Wb) - Anticubital Left Blood Culture - Final No growth in 5 days. 12/05/21 15:50 Blood Culture (Wb) - Right Forearm Blood Culture - Preliminary No growth in 48 hours. 12/04/21 11:50 Wound - Left Foot Gram Stain - Final 12/04/21 11:50 Wound - Left Foot Wound Culture - Final Streptococcus agalactiae (B) 12/04/21 11:50 Wound - Left Foot Anaerobic Culture - Final No anaerobic bacteria isolated. 12/04/21 18:32 Urine, Clean Catch Urine Culture - Final Gram negative luis alberto 12/04/21 11:15 Blood Culture (Wb) - Venous Blood Culture - Final Klebsiella oxytoca 12/04/21 15:00 Nasal Secretion SARS-CoV-2 Antigen (Rapid) - Final Physical Exam Const alert, oriented x3 and no apparent distress Constitutional Narrative: Slightly overweight white male lying in bed, eating breakfast and watching television, appears comfortable, nontoxic Exam Limitations: no limitations Nutritional Appearance: overweight HEENT head/scalp atraumatic and moist oral mucous membranes HEENT Narrative: No thrush Head and Scalp: normocephalic Resp normal respiratory effort, no retractions, no use of accessory muscles and clear to auscultation bilaterally Auscultation: Negative for crackles, rales, rhonchi or wheezes Cardio regular rate, regular rhythm, S1 normal heart sound, S2 normal heart sound, no murmurs, no rub, no gallops, no clicks and no JVD GI normal to inspection, nondistended, normoactive bowel sounds, soft to palpation, non-tender and non-distended Extremity no clubbing, cyanosis or edema Skin Skin Narrative: Right foot with post I&D dressing in place, cap refill is to bilateral lower extremities Neuro oriented x3, moves all extremities and no focal motor deficits Neuro Narrative: Bilateral lower extremity neuropathy with the right being greater than left Sensorium / Orientation: awake and alert Assessment & Plan Assessment/Plan (1) Cutaneous abscess of right foot: (2) Cellulitis of right foot: (3) Leukocytosis: (4) Acute anemia: PLAN: Group B strep right foot abscess/infection -Status post I&D on 12/04/2021 -Continue Unasyn -We will likely discharge on Augmentin -The organism appears to be highly sensitive -Blood cultures are negative -Fevers appear to be improving with T-max of 100.2 in the last 12 hours -MRI did not show any signs of osteomyelitis -Continue wound care -Appreciate podiatry input and await approval for discharge Leukocytosis -White count remains elevated but this appears to be a persistent issue -Has trended down-we will repeat tomorrow morning -Continue to monitor -Continue antibiotics Acute anemia -Baseline hemoglobin is normal -Suspect related to volume and blood loss at foot -No signs of acute bleeding -Continue to monitor DM-2 -A1c was 7.1 on admission -Patient is on oral agents at baseline -Increase Lantus to 16 units today and recheck fasting sugar tomorrow -Continue high-dose sliding scale -Continue Accu-Cheks -Continue carb controlled diet Hypertension -Continue home lisinopril 40 mg daily Recent COVID-19 infection -Room air -Patient has had 2 doses of his COVID-19 vaccine and booster has been recommended at 4 months following second dose DVT prophylaxis -Continue enoxaparin 40 mg daily CODE STATUS -Full code Charges/Coding Visit Charges Inpatient E&M: 05104 Subs Hosp L2
[2021-12-09 14:40] VITALS: BP 130/60; PULSE 97; RESP 18; TEMP 37.7; O2SAT 99
--- NOTE | 2021-12-09 16:41 | NURSING ---
Pt laying in bed all day. This nurse encouraged pt to get up in chair. pt refused. I'm in a comfortable spot.
[2021-12-09 17:01] LABS: Bedside Glucose 277 mg/dL (70-110)
[2021-12-09] MEDS: 0.9% Saline Lock 10 ML Syringe IV ×2 (17:15→22:03)
[2021-12-09 21:51] VITALS: BP 147/75; PULSE 92; RESP 18; TEMP 37.9; O2SAT 96
[2021-12-09] MEDS: Acetaminophen 325 MG Tablet 650 MG PO (22:01)
[2021-12-09 22:16] LABS: Bedside Glucose 207 mg/dL (70-110)
[2021-12-10 01:16] VITALS: BP 126/77; PULSE 81; RESP 18; TEMP 36.5; O2SAT 100
[2021-12-10 06:01] LABS: Absolute Lymphocyte Count 1.15 X10^3/uL (0.83-4.51); Absolute Neutrophil Count 4.3 X10^3/uL (2.0-7.7); Basophil# 0.04 X10^3/uL; Basophil% 0.6 % (0-1); Eosinophil# 0.26 X10^3/uL; Eosinophils% 3.9 % (0-5); Hematocrit 31.8 % (40-54); Hemoglobin 10.8 g/dL (13.0-16.5); Lymphocyte # 1.15 X10^3/ul (0.83-4.51); Lymphocyte % 17.2 % (19-41); Mean Corpuscular Hgb 29.7 pg (27.0-32.0); Mean Corpuscular Volume 87.4 fL (80-94); Mean Platelet Vol. 8.8 fl (6.2-12.0); Monocyte# 0.89 X10^3/uL; Monocyte% 13.3 % (0-10); NRBC Flagged by Analyzer 0 % (0-5); Neutrophil # 4.28 X10^3/uL (2.7-7.7); Neutrophil % 64.3 % (47-70); Platelet Count 243 K/mm3 (150-450); RBC Distribution Width CV 12.2 % (11.6-14.6); RBC Distribution Width SD 39.4 fl (35.1-43.9); Red Blood Count 3.64 M/mm3 (4.6-6.2); White Blood Count 6.7 K/mm3 (4.4-11.0)
[2021-12-10 06:17] VITALS: BP 127/75; PULSE 76; RESP 16; TEMP 36.6; O2SAT 97
[2021-12-10] MEDS: Benzonatate 100 MG Capsule 200 MG PO (06:21)
[2021-12-10 06:35] LABS: Anion Gap 5 (5-15); BUN 15 mg/dL (7-18); BUN/Creat Ratio 21.1 RATIO (10-20); Chloride 103 mmol/L (98-107); Creatinine, Serum 0.71 mg/dL (0.70-1.30); EST Glomerular Filtration Rate 123 mL/min (>60); Est Glom Filt Rate - Afr Amer 149 mL/min (>60); Estimated Creatinine Clearance 135.98 ml/min; Glucose 185 mg/dL (74-106); Potassium 4.1 mmol/L (3.5-5.1); Sodium Level 136 mmol/L (136-145)
--- NOTE | 2021-12-10 07:32 | PCM.DC ---
Discharge Instructions Activity Discharge Activity: May Not Drive Weight Bearing Status: No weight bearing (No weightbearing right foot) Keep extremity elevated above heart level: Right Leg (Keep right foot elevated as much as possible.) Dressing / Incision Call your doctor if your incision/area has: - (Right foot dressing - change daily. Pack open wound with gauze moisted with Dakin's solution - cover with dry gauze, gauze wrap (kerlix) and narayan bandage.) Call your doctor if you observe: Fever of 101 or Higher, Shortness of breath, Chest pain, Calf discomfort, Uncontrolled pain and - (If any worsening to foot.) Follow Up Care Please Follow Up With: Jesse Jack DPM When: Thursday12/13/2021 at the [facility] [place] [address] Test Results: Test results from this visit will be discussed in further detail at your follow-up appointment, if applicable. Discharge Plan Admission Admit Date/Time: 12/04/21 12:21 Attending Provider: Heather Westbrook Primary Care Provider: Steve Mckeon Consulting Providers: Jesse Jack Instructions Additional Instructions / Restrictions: 1. dressing changes daily as instructed 2. Please complete all of antibiotics Discharge Orders/Prescriptions Prescriptions: New Dakin's Solution 0.25 % solution 1 applic topical DAILY Qty: 473 RF: 1 amoxicillin-pot clavulanate 875-125 mg tablet 1 tab PO BID Qty: 18 RF: 0 Continued aspirin 81 MG tablet,chewable 81 mg PO DAILY@0800 RF: 0 lisinopril 40 mg tablet 40 mg PO DAILY RF: 0 metformin 500 mg tablet extended release 24 hr 500 mg PO DAILY RF: 0 metformin 750 mg tablet extended release 24 hr 750 mg PO DAILY RF: 0 Referrals / Follow Up: Jesse Jack DPM [STAFF PHYSICIAN] - See Referral Note (as directed) Steve Mckeon MD [Primary Care Provider] - Within 2 Weeks Disposition Disposition (needs filled in before D/C Order can be placed): Home Health Service
--- NOTE | 2021-12-10 07:35 | PN_ITS ---
Subjective Subjective Patient was seen this morning for follow up on right foot. He has no new complaints. No current temperature/fever, no chills, nausea or vomiting. Objective Data Objective Data Vital Signs: Vital Signs Temp Pulse Resp BP Pulse Ox 97.9 F 76 16 127/75 H 97 12/10/21 06:17 12/10/21 06:17 12/10/21 06:17 12/10/21 06:17 12/10/21 06:17 Oxygen Delivery Method Room Air Weight: 96.7 kg Body Mass Index (BMI) 28.1 Intake & Output: Intake and Output for Last 24 Hours 12/08/21 12/09/21 12/10/21 23:59 23:59 23:59 Intake Total 1967 / 1967 2659.5 / 2659.5 472.5 / 472.5 Output Total 2124 / 2125 3450 / 3775 1425 / 1425 Balance -157 / -157 -790.5 / -1115.5 -952.5 / -952.5 Lab / Micro Data Result Diagrams: 12/10/21 05:31 12/10/21 05:31 Labs: Laboratory Results - last 24 hr 12/09/21 11:21: POC Glucose 262 H 12/09/21 16:49: POC Glucose 277 H 12/09/21 21:59: POC Glucose 207 H 12/10/21 05:31: WBC 6.7, RBC 3.64 L, Hgb 10.8 L, Hct 31.8 L, MCV 87.4, MCH 29.7, MCHC 34.0, RDW Std Deviation 39.4, RDW Coeff of Davina 12.2, Plt Count 243, MPV 8.8, Immature Gran % (Auto) 0.700, Neut % (Auto) 64.3, Lymph % (Auto) 17.2 L, [place] % (Auto) 13.3 H, Eos % (Auto) 3.9, Baso % (Auto) 0.6, Absolute Neuts (auto) 4.3, Absolute Lymphs (auto) 1.15, Nucleated RBC % 0 12/10/21 05:31: Sodium 136, Potassium 4.1, Chloride 103, Carbon Dioxide 28.0, Anion Gap 5, BUN 15, Creatinine 0.71, Estim Creat Clear Calc 135.98, Est GFR (MDRD) Af Amer 149, Est GFR (MDRD) Non-Af 123, BUN/Creatinine Ratio 21.1 H, Glucose 185 H, Calcium 9.0 Micro: Microbiology 12/04/21 11:19 Blood Culture (Wb) - Anticubital Left Blood Culture - Final No growth in 5 days. 12/05/21 15:50 Blood Culture (Wb) - Right Forearm Blood Culture - Preliminary No growth in 48 hours. 12/04/21 11:50 Wound - Left Foot Gram Stain - Final 12/04/21 11:50 Wound - Left Foot Wound Culture - Final Streptococcus agalactiae (B) 12/04/21 11:50 Wound - Left Foot Anaerobic Culture - Final No anaerobic bacteria isolated. 12/04/21 18:32 Urine, Clean Catch Urine Culture - Final Gram negative luis alberto 12/04/21 11:15 Blood Culture (Wb) - Venous Blood Culture - Final Klebsiella oxytoca 12/04/21 15:00 Nasal Secretion SARS-CoV-2 Antigen (Rapid) - Final Physical Exam Const alert, oriented x3 and no apparent distress Extremity Extremity Narrative: Right foot with ulceration to plantar central forefoot down to subcutaneous tissue and spot down to fascia layer, there is no deeper probing or tracking, no purulence, the tissues are healthy and viable, erythema and edema to the foot significantly improved, there is no maloder, there is no visible abscess. There is some tenderness to the plantar forefoot but continues to improve. No other pain to the foot. No evidence of acute ischemia to the rig ht foot. No calf pain bilateral. Assessment & Plan Assessment/Plan (1) Cellulitis of right foot: (2) Diabetes mellitus with diabetic polyneuropathy: (3) Non-pressure chronic ulcer of other part of right foot with fat layer exposed: PLAN: Re-evaluation performed. Reviewed diagnostic data. WBC normal. Foot doing well today, no purulence, tissues healthy and viable. Dressing changes right foot - wet to dry dakins solution gauze, kerlix and narayan - change daily. Cultures have been obtained - reviewed. Pt is on Vanc/Zosyn. LEAS ordered for further evaluation of LE arterial flow - obtained and reviewed- noted mild small vessel PVD - patient should follow up with vascular surgery, which can be outpatient at this point. No weightbearing right foot. Recommend home health nursing once patient is discharged. Ok to d/c home from podiatry standpoint. Patient to follow up with me in office this Thursday, sooner if needed. (4) Type 2 diabetes mellitus with foot ulcer: (5) Cutaneous abscess of right foot:
[2021-12-10] MEDS: Insulin Lispro 100 UNIT/ML INSULN.PEN SC ×2 (07:52→12:12)
[2021-12-10] MEDS: Lisinopril 40 MG Tablet PO (07:56)
[2021-12-10] MEDS: Aspirin 81 MG TAB.CHEW PO (07:56)
[2021-12-10] MEDS: Enoxaparin 40 MG/0.4 ML Syringe SC (07:57)
[2021-12-10] MEDS: DAKIN'S SOL HALF STRENGTH (=0.25%) 1 APPLIC TOPICAL (08:01)
[2021-12-10 08:11] LABS: Bedside Glucose 184 mg/dL (70-110)
[2021-12-10 08:16] VITALS: BP 118/71; PULSE 80; RESP 22; TEMP 36.4; O2SAT 100
--- NOTE | 2021-12-10 08:18 | NURSING ---
patient was speaking while respirations were noted, denies shortness of breath, chest pain, etc.
--- NOTE | 2021-12-10 10:25 | DS.PCM_ITS ---
Providers Date of Admission: 12/04/21 Date of Discharge: 12/10/21 Primary Care Physician: Dr. Steve Mckeon MD Consultations 12/04/21 14:11 Consult: Podiatry Routine Consulting Provider: Jesse Jack Reason for Consult: Right foot infection/abscess EMERGENT Consult: No MD Notified: Yes Date Notified: 12/04/21 Time Notified: 11:30 Method of Notification: Verbal Comments:: Notified by ER physician Dr. 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 Routine Comment: Reason for Consult:: right foot Reason For Visit: RIGHT FOOT CELLULITIS Diagnosis Discharge Diagnosis (1) Cellulitis of right foot: Status: Acute Code(s): L03.115 - Cellulitis of right lower limb (2) Diabetes mellitus with diabetic polyneuropathy: Status: Inactive Code(s): E11.42 - Type 2 diabetes mellitus with diabetic polyneuropathy (3) Non-pressure chronic ulcer of other part of right foot with fat layer exposed: Status: Inactive Code(s): L97.512 - Non-pressure chronic ulcer of other part of right foot with fat layer exposed (4) Type 2 diabetes mellitus with foot ulcer: Status: Deleted Code(s): E11.621 - Type 2 diabetes mellitus with foot ulcer; L97.509 - Non-pressure chronic ulcer of other part of unspecified foot with unspecified severity (5) Cutaneous abscess of right foot: Status: Acute Code(s): L02.611 - Cutaneous abscess of right foot Medications at Discharge Home Medications aspirin 81 mg PO DAILY@0800 03/30/14 lisinopril 40 mg PO DAILY 12/04/21 metformin 500 mg PO DAILY 12/04/21 metformin 750 mg PO DAILY 12/04/21 amoxicillin-pot clavulanate 1 tab PO BID #18 tab 12/10/21 Hospital Course Summary of Care Provided Minutes Spent on Discharge: 41 Hospital Course: Mr. Barnett is a 51-year-old white male who presented to the emergency department at [facility] on 12/04/2021 with a chief complaint of right lower extremity diabetic foot wound. On presentation the patient indicated he was a type II diabetic who is on Metformin at baseline and came in for right foot redness, pain, fever, and chills that had been present for approximately 1 week. He indicated that the wound started when he stepped down on a power cord of his that was lying on the floor. He also indicated he had removed a splinter from his foot at that time. He reported that he started feeling pain all along with fever and chills with a T-max of 101.2 at home. He indicated he also just recovered from COVID-19 2 weeks prior to presentation. On admission his pain was rated at 6-7 out of 10 diffusely all over the right foot but started about in the midfoot on the plantar surface. In the emergency department he was febrile with a temperature of 101.2, was tachycardic and had a leukocytosis with a left shift. He was admitted to the medical floor and started on broad- spectrum antibiotics with vancomycin and Zosyn. Wound and blood cultures were taken in the emergency department and podiatry was consulted. 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 An MRI was obtained and did not show any evidence of ost eomyelitis but did show evidence of abscess for which an I&D was performed at the bedside on 12/05/2021. Purulent fluid was expressed after the I&D and the patient was monitored on a daily basis while kept on broad-spectrum antibiotics. His cultures grew out pansensitive group B strep and his antibiotics were narrowed to Unasyn. A repeat I&D was performed on 12/09/2021 with more purulent fluid being expressed and the foot appeared much improved by 12/10/2021. At that time podiatry felt the patient was stable to be discharged home on oral antibiotics with outpatient follow-up and daily wound dressings. Home health care was arranged for the patient at discharge. He will be continued on oral antibiotics with Augmentin to complete a total of 14 days. He is to follow-up with Dr. Jack from podiatry as instructed by him and with his primary care physician in 2 to 4 weeks. He was discharged home in stable condition on 12/10/2021. Discharge diagnoses: Group B strep right foot abscess/infection Leukocytosis Acute anemia DM-2 Hypertension Recent COVID-19 infection Physical Exam Const alert, oriented x3 and no apparent distress Constitutional Narrative: Slightly overweight white male sitting up in bed eating breakfast and watching television, appears comfortable, nontoxic General Appearance: cooperative, comfortable, well kempt and well developed Orientation / Consciousness: awake Exam Limitations: no limitations Nutritional Appearance: overweight HEENT normocephalic, head/scalp atraumatic, hearing grossly normal bilaterally and moist oral mucous membranes HEENT Narrative: Mallampati 2-3, dentition is good, no thrush Eyes PERRL, EOMs intact bilaterally and conjunctivae normal Eyes Narrative: No scleral icterus Neck no lymphadenopathy, supple and no JVD Neck Narrative: Trachea midline, no thyroid enlargement Resp normal respiratory effort, no retractions, no use of accessory muscles and clear to auscultation bilaterally Auscultation: Negative for crackles, rales, rhonchi or wheezes Cardio regular rate, regular rhythm, S1 normal heart sound, S2 normal heart sound, no murmurs, no rub, no gallops, no clicks and no JVD GI normal to inspection, nondistended, normoactive bowel sounds, soft to palpation, non-tender and non-distended Extremity no clubbing, cyanosis or edema Extremity Narrative: 1+ bilateral lower extremity pedal pulses Skin Skin Narrative: Right foot with post I&D dressing in place, cap refill is to bilateral lower extremities Neuro oriented x3, CN's II-XII intact bilaterally, moves all extremities and no focal motor deficits Neuro Narrative: Bilateral lower extremity neuropathy with the right being greater than left Sensorium / Orientation: awake and alert Speech: speech normal Motor Exam: strength 5/5 throughout Psych affect normal Weight / BMI Weight Weight: 96.7 kg Body Mass Index (BMI) 28.1 ABG / Lab / Microbiology Data Result Diagrams: 12/10/21 05:31 12/10/21 05:31 Laboratory: Laboratory Results - last 24 hr 12/09/21 11:21: POC Glucose 262 H 12/09/21 16:49: POC Glucose 277 H 12/09/21 21:59: POC Glucose 207 H 12/10/21 05:31: WBC 6.7, RBC 3.64 L, Hgb 10.8 L, Hct 31.8 L, MCV 87.4, MCH 29.7, MCHC 34.0, RDW Std Deviation 39.4, RDW Coeff of Davina 12.2, Plt Count 243, MPV 8.8, Immature Gran % (Auto) 0.700, Neut % (Auto) 64.3, Lymph % (Auto) 17.2 L, [place] % (Auto) 13.3 H, Eos % (Auto) 3.9, Baso % (Auto) 0.6, Absolute Neuts (auto) 4.3, Absolute Lymphs (auto) 1.15, Nucleated RBC % 0 12/10/21 05:31: Sodium 136, Potassium 4.1, Chloride 103, Carbon Dioxide 28.0, Anion Gap 5, BUN 15, Creatinine 0.71, Estim Creat Clear Calc 135.98, Est GFR (MDRD) Af Amer 149, Est GFR (MDRD) Non-Af 123, BUN/Creatinine Ratio 21.1 H, Glucose 185 H, Calcium 9.0 12/10/21 07:48: POC Glucose 184 H Microbiology: Microbiology 12/04/21 11:19 Blood Culture (Wb) - Anticubital Left Blood Culture - Final No growth in 5 days. 12/05/21 15:50 Blood Culture (Wb) - Right Forearm Blood Culture - Preliminary No growth in 48 hours. 12/04/21 11:50 Wound - Left Foot Gram Stain - Final 12/04/21 11:50 Wound - Left Foot Wound Culture - Final Streptococcus agalactiae (B) 12/04/21 11:50 Wound - Left Foot Anaerobic Culture - Final No anaerobic bacteria isolated. 12/04/21 18:32 Urine, Clean Catch Urine Culture - Final Gram negative luis alberto 12/04/21 11:15 Blood Culture (Wb) - Venous Blood Culture - Final Klebsiella oxytoca 12/04/21 15:00 Nasal Secretion SARS-CoV-2 Antigen (Rapid) - Final D/C Instructions Discharge Diet: 1800 Calorie Control Diet Weight Bearing Status: No weight bearing (No weightbearing right foot) Keep extremity elevated above heart level: Right Leg (Keep right foot elevated as much as possible.) Call your doctor if your incision/area has: - (Right foot dressing - change daily. Pack open wound with gauze moisted with Dakin's solution - cover with dry gauze, gauze wrap (kerlix) and narayan bandage.) Call your doctor if you observe: Fever of 101 or Higher, Shortness of breath, Chest pain, Calf discomfort, Uncontrolled pain and - (If any worsening to foot.) Please Follow Up With: Jesse Jack DPM When: Thursday12/13/2021 at [facility] [place] [address] Meaningful Use Info Meaningful Use Diagnoses (Choose all that apply): None applicable Discharge Plan Admission Admit Date/Time: 12/04/21 12:21 Primary Reason for Your Visit: R Foot infection Attending Provider: Heather Westbrook Primary Care Provider: Steve Mckeon Consulting Providers: Jesse Jack Instructions Additional Instructions / Restrictions: 1. dressing changes daily as instructed 2. Please complete all of antibiotics Discharge Orders/Prescriptions Prescriptions: New amoxicillin-pot clavulanate 875-125 mg tablet 1 tab PO BID Qty: 18 RF: 0 Continued aspirin 81 MG tablet,chewable 81 mg PO DAILY@0800 RF: 0 lisinopril 40 mg tablet 40 mg PO DAILY RF: 0 metformin 500 mg tablet extended release 24 hr 500 mg PO DAILY RF: 0 metformin 750 mg tablet extended release 24 hr 750 mg PO DAILY RF: 0 Referrals / Follow Up: Jesse Jack DPM [STAFF PHYSICIAN] - See Referral Note (as directed) Steve Mckeon MD [Primary Care Provider] - Within 2 Weeks Disposition Disposition (needs filled in before D/C Order can be placed): Home Health S ervice Charges/Coding Visit Charges Inpatient E&M: 83502 Disch Hosp
--- NOTE | 2021-12-10 11:35 | CASEMGMT ---
Notified Kecia at [facility] that pt is dc'ing today.
[2021-12-10 12:16] LABS: Bedside Glucose 282 mg/dL (70-110)
--- NOTE | 2021-12-10 15:12 | WOUNDNOTE ---
Dressing to the right foot changed with . removed HARRY wrap and dressing. there was a small amount of drainage noted on the old dressing. no purulence noted. the was very surprised about the size of the wound. appeared hesitant about doing dressing change, but once she observed the whole change she states she felt better about changing it. pt will also have his mother assist with dressing changes and will have home health care. all supplies in room sent with patient as well as the Dakins. there is a script for dressing supplies as well. home health care will see patient tomorrow and pt has an appt at Dr Jack's office on 12/13/21. all questions answered. pt and very appreciative of care.
--- NOTE | 2021-12-10 15:16 | NURSING ---
Student charting reviewed by PRATIK Valdez, instructor
[2021-12-10 15:24] VITALS: BP 139/73; PULSE 89; RESP 16; TEMP 36.6
== END 2021-12-10 15:55 | disposition home health service (06) | DRG 638 ==
LOC: ED 12:28 → MS3 12:30
PROVIDERS: Admitting Provider Internal Medicine; Emergency Provider Student in an Organized Health Care Education/Training Program; PCP Family Medicine; Visit Provider Internal Medicine
DX: E11.621 Type 2 diabetes mellitus with foot ulcer (principal); L02.611 Cutaneous abscess of right foot; L03.115 Cellulitis of right lower limb; L97.412 Non-pressure chronic ulcer of right heel and midfoot with fat layer exposed; E11.42 Type 2 diabetes mellitus with diabetic polyneuropathy; B95.1 Streptococcus, group B, as the cause of diseases classified elsewhere; E11.65 Type 2 diabetes mellitus with hyperglycemia; I10 Essential (primary) hypertension; Z79.1 Long term (current) use of non-steroidal anti-inflammatories (NSAID); Z87.891 Personal history of nicotine dependence; Z79.82 Long term (current) use of aspirin; Z20.822 Contact with and (suspected) exposure to COVID-19; Z79.84 Long term (current) use of oral hypoglycemic drugs; Z79.899 Other long term (current) drug therapy; Z86.16 Personal history of COVID-19
CPT/HCPCS: 36415; 70030; 71045; 73620; 73718; 80048; 80053; 80202; 81001; 82962; 83036; 83605; 84484; 85025; 85610; 85730; 86140; 87040; 87070; 87075; 87077; 87086; 87088; 87186; 87205; 87426; 87640; 93005; 93923; 97161; 97802; 97803; 99251; 99285; 99406; J7030; J7040; J7050; A4216; G0463; J0295

== ENCOUNTER 2022-03-19 08:00 | Outpatient (RCR) | payer BC, SELFPAY ==
[2022-03-19 08:10] VITALS: BP 131/89; PULSE 95; RESP 16; TEMP 36.1; BMI 29.8
--- NOTE | 2022-03-19 09:10 | HP.PCM_ITS ---
History of Present Illness Date of Service: 03/19/22 Chief Complaint: Right foot ulcers History of Wound: This 52-year-old male with history of diabetic neuropathy presents to the wound healing center for delayed healing of right foot ulcers. It is noted he had prior foot infections with a bedside incision and drainage performed by Dr. Jack on 12-05-21. He denies current fever, chill, nausea, vomiting, redness or odor. He has been using a wound VAC. He has been using a knee roller. He takes nutritional supplementation. He refuses vascular surgery referral as recommended previously. He is eager to return to work and his short-term disability is approaching the end duration. This ulcer has been present for over several months. Progress of Wound: Stable [facility] Medical History (Updated 03/19/22 @ 11:[address] Judy Lima, [facility]) Acute anemia Alcohol abuse Chewing tobacco use Chronic cough Cutaneous abscess of right foot Diabetes mellitus Diabetes mellitus with diabetic polyneuropathy HTN (hypertension) HTN (hypertension) Non-pressure chronic ulcer of other part of right foot with fat layer exposed Home Medications aspirin 81 mg PO DAILY@0800 03/30/14 [History Last Taken Unknown] lisinopril 40 mg PO DAILY 12/04/21 [History Last Taken Unknown] metformin 750 mg PO BID 12/04/21 [History Last Taken Unknown] sodium hypochlorite [Dakin's Solution] 1 applic TOPICAL DAILY #473 ml 12/10/21 [Rx Last Taken Unknown] multivitamin 1 tab PO DAILY 03/19/22 [History Last Taken Unknown] Allergy/AdvReac Type Severity Reaction Status Date / Time naproxen sodium [From Aleve] Allergy Other Verified 03/19/22 08:24 Social History Smoking Status: Former smoker ROS Constitutional Constitutional: Denies chills, fatigue or fever(s) Cardiovascular Cardiovascular: Denies claudication or cold extremities Gastrointestinal Gastrointestinal: Denies nausea or vomiting Neurologic Neurologic: Reports paresthesias Hematologic/Lymphatic Hematologic/Lymphatic: Denies easy bruising Vital Signs Vital Signs Vital Signs: 03/19/22 08:10 Temperature 97 F L Temperature Source Temporal Pulse Rate 95 Respiratory Rate 16 Blood Pressure 131/89 H Blood Pressure Mean 103 Blood Pressure Source Monitor Blood Pressure Position Sitting Blood Pressure Location Left Arm Oxygen Delivery Method Room Air Weight Weight: 99.79 kg Body Mass Index (BMI) 29.8 Physical Exam Const alert and oriented x3 General Appearance: cooperative HEENT normocephalic Extremity Extremity Narrative: No calf tenderness Diminished pulses; palpable DP pulse and weak PT bilateral Muscle wasting noted General Extremity: edema and no tenderness to palpation of joints or extremities; Negative for cyanosis Skin Skin Narrative: no purulence, no streaking, no odor, no infection. Two plantar foot ulcers in which the more proximal one has exposed fascia/muscle tissue. The ulcer is more distal closer to the toes has a granular base. There is no other probe to bone. There is a lateral column rocker-bottom type foot shape noted and there is no laxity, calor, erythema or significant edema. There is no purulence on expression or adjacent erythema or streaking. General Skin Exam: Negative for erythema Neuro Neuro Narrative: lack of normal epicritic sensation via light touch is consistent with neuropathy status Psych cooperative and affect normal Debridement Note Debridement Note Wound debrided: Plantar right foot (distal, proximal) Wound Grade/Stage: 1,2 Type of Debridement: Excisional debridement Anesthesia Used: 4% Lidocaine Solution Depth: in the subcutaneous layer Percentage of wound debrided: 100 Instrument Used: #15 blade Tissue Removed: fibrous, devitalized subcutaneous, biofilm, slough Severity: Fat Layer Exposed Amount of bleeding with debridement: Mild Bleeding Controlled with: Pressure Patient tolerated procedure: Patient tolerated procedure well Post-Debridement Measurements and Additional Note: Post-Debridement Measurements/Treatment - Nurse 1 - General Ulcer Assessment Start: 03/19/22 08:08 Freq: Status: Active Protocol: MARY JO Activity Type Activity Date Activity User E-Sign Co-Sign Detail Recorded Client Recorded Date Recorded By Document 03/19/22 08:10 BMF [id number] 03/19/22 08:21 BMF Edit Result 03/19/22 08:10 BMF (1) [id number] 03/19/22 08:22 BMF (1) Pulse Rate (60-100) 102 H => 95 Blood Pressure (90/60-120/80) 163/96 H => 131/89 H Blood Pressure Mean 118 => 103 03/19/22 08:10 - Today's Visit Information Type of service Initial Visit Arrival Mode Ambulatory Transfer Assistance None Accompanied by Patient Identification Verified (Name & Yes ) Patient Requires Transmission-Based No Precautions Finger Stick Blood Sugar(mg/dl) (if 154 indicated): Blood Sugar Stated by Patient Height and Weight Height 6 ft Weight 99.79 kg Weight in Pounds 220.0 lbs Weight Measurement Method Estimated by Patient Body Mass Index (BMI) 29.8 BMI Classification Overweight BSA - Arsh 2.22 Vital Signs Temperature (97.8 F-99.1 F) 97 F L Temperature Source Temporal Pulse Rate (60-100) 95 Pulse Location Monitor Respiratory Rate (12-18) 16 Respiratory rate source Observation Oxygen Delivery Method Room Air Blood Pressure (90/60-120/80) 131/89 H Blood Pressure Mean 103 Source Monitor Position Sitting Blood Pressure Location Left Arm History Since Last Visit- (Skip if this is Patient's initial visit) Left Footwear Regular Shoe Right Footwear Other Footwear (Comment) Other Footwear sock to right foot Pain Scale: 0-10 Numeric Is Patient Pain Free? 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 Mover Helper Required No Able to Read Yes Able to Write Yes Communication Tools None Right Hearing Abillity Normal Left Hearing Abillity Normal Visual Assistive Devices Glasses Teaching Assessment Preferences Verbal,Written, Audio/Visual, Demonstration Barriers to Learning None Readiness To Learn Excellent Willingness to Engage in Self Management High Activies Readiness to Engage in Self Management High Activities Anxiety Level Calm Cooperation Cooperative Perception Coherent Interest in Health Problem Asks Questions Education Importance Acknowledges Need Does Patient Smoke tobacco or other No substances Smoking Status Former smoker Is Patient Diabetic Yes Functional Assessment Recent Decline in Ability to Perform Ambulation, Transferring Culture/Moravian/Neurology Technologist Cultural/Moravian Needs that may affect No Treatment Plan WC - Nurse 1 - General Ulcer Measurement Start: 03/19/22 08:08 Freq: Status: Active Protocol: Activity Type Activity Date Activity User E-Sign Co-Sign Detail Recorded Client Recorded Date Recorded By Document 03/19/22 08:10 [facility] [id number] 03/19/22 08:21 [facility] 03/19/22 08:10 Wound Center Nurse 1 #2- R INFERIOR PLANTAR FOOT POST OP -Combined with other wound No -Current Size (cm) - Length 1.6 -Current Size (cm) - Width 0.6 -Current Size (cm) - Depth 0.2 -Total Square Cm 0.96 -Date of Last Picture (Recall this 03/19/22 field) -Photo Taken Yes -Epithelialization None Present -Tunneling No -Undermining/Tunneling No -Circular Undermining No -Exudate Amt Small -Exudate Type Serosanguineous -Wound Margin Thickened & Rolled Under -Granulation Amt Large (67-100%) -Granulation Quality Red -Slough/Fibrin Yes -Necrosis Amt Small (1-33%) -Necrotic Tissue Type Adherent Slough -Texture (Lor-wound Skin Appearance) Assessed, Scarring -Moisture (Lor-wound Skin Appearance) Assessed, Maceration -Color (Lor-wound Skin Appearance) Assessed,Palor -Temperature (Lor-wound Skin No Abnormality Appearance) (Pt Warm) -Tenderness on Palpation (Lor-wound No Skin Appearance) -Ulcer Cleansing Soap and Water -Foul Odor after Cleansing No -Anesthetic Used 4% Lidocaine Solution #1- R SUPERIOR PLANTAR FOOTPOST OP -Combined with other wound No -Current Size (cm) - Length 3.3 -Current Size (cm) - Width 1.5 -Current Size (cm) - Depth 0.3 -Total Square Cm 4.95 -Date of Last Picture (Recall this 03/19/22 field) -Photo Taken Yes -Epithelialization None Present -Tunneling No -Undermining/Tunneling No -Circular Undermining No -Exudate Amt Medium -Exudate Type Serosanguineous -Wound Margin Thickened & Rolled Under -Granulation Amt Large (67-100%) -Granulation Quality Red -Slough/Fibrin Yes -Necrosis Amt Small (1-33%) -Necrotic Tissue Type Adherent Slough -Texture (Lor-wound Skin Appearance) Assessed, Scarring -Moisture (Lor-wound Skin Appearance) Assessed, Maceration -Color (Lor-wound Skin Appearance) Assessed,Palor -Temperature (Lor-wound Skin No Abnormality Appearance) (Pt Warm) -Tenderness on Palpation (Lor-wound No Skin Appearance) -Ulcer Cleansing Soap and Water -Foul Odor after Cleansing No -Anesthetic Used 4% Lidocaine Solution WC - Nurse 2 - General Ulcer CM Notes Start: 03/19/22 08:08 Freq: Status: Active Protocol: Activity Type Activity Date Activity User E-Sign Co-Sign Detail Recorded Client Recorded Date Recorded By Document 03/19/22 08:37 [id number] 03/19/22 08:42 03/19/22 08:37 Wound Center Nurse 2 #2- R INFERIOR PLANTAR FOOT POST OP -Time 08:39 -Correct Patient Yes -Correct Side, Site, Position Yes -Correct Procedure Yes -Procedure Performed Yes -Type of Procedure Debridement -Clinical Debridement Muscle / Fascia -Tissue Removed Muscle -Post Debridement (cm) - Length 1.7 -Post Debridement (cm) - Width 0.6 -Post Debridement (cm) - Depth 0.2 -Total Square (Post) (cm) 1.02 -Area of Debridement (cm) - Length 1.7 -Area of Debridement (cm) - Width 0.6 -Total Square (Area) (cm) 1.02 -Tunneling No -Undermining/Tunneling No -Circular Undermining No -Wound/Ulcer Outcome Not Healed -Ulcer Cleansing Rinsed/ Irrigated with Saline -Foul Odor after Cleansing No -Bioengineered Tissue No -Bleeding Controlled with Pressure -Treatment Response Procedure Tolerated Well -Offloading Yes -Type of Offloading Knee Walker -Debridement - Subq, 1st 20sq cm No -Debridement - Muscle / Fascia, 1st Yes 20sq cm #1- R SUPERIOR PLANTAR FOOTPOST OP -Time 08:39 -Correct Patient Yes -Correct Side, Site, Position Yes -Correct Procedure Yes -Procedure Performed Yes -Type of Procedure Debridement -Clinical Debridement Subcutaneous -Tissue Removed Subcutaneous -Post Debridement (cm) - Length 3.4 -Post Debridement (cm) - Width 1.5 -Post Debridement (cm) - Depth 0.3 -Total Square (Post) (cm) 5.10 -Area of Debridement (cm) - Length 3.4 -Area of Debridement (cm) - Width 1.5 -Total Square (Area) (cm) 5.10 -Tunneling No -Undermining/Tunneling No -Circular Undermining No -Wound/Ulcer Outcome Not Healed -Ulcer Cleansing Rinsed/ Irrigated with Saline -Foul Odor after Cleansing No -Bioengineered Tissue No -Bleeding Controlled with Pressure -Treatment Response Procedure Tolerated Well -Offloading Yes -Type of Offloading Knee Walker -Debridement - Subq, 1st 20sq cm Yes Pain Scale: 0-10 Numeric Is Patient Pain Free? Yes WC - Nurse 3 - General Ulcer D/C NN Start: 05/25/22 08:08 Freq: Status: Active Protocol: Activity Type Activity Date Activity User E-Sign Co-Sign Detail Recorded Client Recorded Date Recorded By Document 03/19/22 08:57 DL [id number] 03/19/22 09:01 DL 03/19/22 08:57 Wound Care Nurse 3 #2- R INFERIOR PLANTAR FOOT POST OP -Ulcer Cleansing Rinsed/ Irrigated with Saline -Foul Odor after Cleansing No -Primary Dressing Applied Promogran Aayush Matter -Primary Dressing Covered/Secured with Dry Gauze & Roll Gauze, Secured with Tape -Promogran Aayush Matter 1 #1- R SUPERIOR PLANTAR FOOTPOST OP -Ulcer Cleansing Rinsed/ Irrigated with Saline -Foul Odor after Cleansing No -Other Dressing aayush -Primary Dressing Covered/Secured with Dry Gauze & Roll Gauze, Secured with Tape -Promogran Aayush Matter 1 Treatment Response Procedure Tolerated Well Pain Scale: 0-10 Numeric Is Patient Pain Free? Yes WC - Visit Discharge Discharge Condition Stable Ambulatory Status Ambulatory Transportation Private [facility] Facility Type [facility] Care Facility Orders Sent Yes Assessment/Plan Assessment/Plan (1) Non-pressure chronic ulcer of other part of right foot with necrosis of muscle: CODE(S): L97.513 - Non-pressure chronic ulcer of other part of right foot with necrosis of muscle (2) Non-pressure chronic ulcer of other part of right foot with fat layer exposed: CODE(S): L97.512 - Non-pressure chronic ulcer of other part of right foot with fat layer exposed (3) Type 2 diabetes mellitus with foot ulcer: CODE(S): E11.621 - Type 2 diabetes mellitus with foot ulcer; L97.509 - Non-pressure chronic ulcer of other part of unspecified foot with unspecified severity (4) Other specified peripheral vascular diseases: CODE(S): I73.89 - Other specified peripheral vascular diseases (5) Localized edema: CODE(S): R60.0 - Localized edema (6) Delayed healing of traumatic wound: CODE(S): T14.8XXD - Other injury of unspecified body region, subsequent encounter (7) Type 2 diabetes mellitus with diabetic polyneuropathy: CODE(S): E11.42 - Type 2 diabetes mellitus with diabetic polyneuropathy PLAN: I reviewed and discussed his case today. Debridement was performed today as noted in the clinical panel to all of the ulcer sites. The following work up and care recommendations were made: Dressing: Change daily with Aayush Wash: Soap and water Tissue growth optimization: I recommend application of advanced wound healing product, epi fix and epi cord to optimize healing. Is noted he has delays in healing and this has been open for several months. The benefits, indications, anticipated application and management were reviewed. He is amendable to proceed and prior authorization will be started. This is a limb salvage case and delayed healing in a continue manner could result in amputation, , and serial infections. Offload: To maintain a strict nonweightbearing status with knee roller. Vascular: His noninvasive vascular studies demonstrate evidence of micro vascular disease and a vascular specialist referral has been recommended in the past. I recommend this again at this time and he refuses. It is also noted he uses tobacco products and this can affect microvascular circulation. He was urged to quit. Edema: Tubigrip Infection: This is resolved. It is noted he was treated by infectious disease on an inpatient and outpatient basis. To monitor for return of infection signs. Pain: He is neuropathic and does not have pain at this time. Host factors: He is a diabetic and his last A1c on file was 6.7%. To continue to manage his glucose levels to optimize healing. I also recommend nutritional supplementation. He is already taking Mino. He expresses concern about being off work for a longer time period. He will bring in his short-term disability paperwork for update. I answered all the patient's questions. To return to the wound healing center in 1 week or call sooner if the patient has any questions or concerns. Note: [employer] speech recognition weaving loom operator software was used to create portions of this document. Sound-alike and misspelled words, as well as other weaving loom operator errors may be contained in the documentation. The medical decision making level is moderate. There is noted moderate risk of morbidity after considering this treatment plan and diagnostic data. Considerations were given to prescription management, decisions regarding surgical options, or social determinants of health. The problems addressed require a moderate decision making level which includes one or more chronic illnesses (w/ exacerbation, progression, or side effects), two or more stable chronic illnesses, one undiagnosed new problem w/ uncertain prognosis, one acute illness with systemic symptoms, or one acute complicated injury. The medical decision making level is moderate based on data including at least three of the following: review of prior external notes, review of a test, ordering a test, assessment requiring an independent historian.
--- NOTE | 2022-03-19 09:18 | RAD_ITS ---
STUDY: X-RAY - RIGHT FOOT CLINICAL: Male, 52 years old. WOUND TECHNIQUE: 3 view(s) of the foot. COMPARISON: 12/04/2021 FINDINGS: Normal talus, calcaneus, and tarsal bones. Small plantar posterior calcaneal enthesophytes. Normal visualized subtalar, talonavicular, calcaneocuboid, tarsal and tarsometatarsal articulations. Healed fractures of the shafts of the fourth and fifth metatarsal bones. Normal metatarsophalangeal joint of the great toe. Normal tibial and fibular sesamoid bones. Normal interphalangeal joint of the great toe. Normal phalanges of the great toe. Normal second through fifth metatarsophalangeal joints. Normal interphalangeal joints and phalanges of the lesser toes. The soft tissue structures are unremarkable. No bone destruction or periosteal reaction to suggest osteomyelitis. RAD/Foot min 3 Views IMPRESSION: No radiographic evidence of osteomyelitis. Electronically Signed: Ruddy Castellanos MD at 9:26 EDT ,
== END 2022-03-25 23:59 | disposition home or self-care (01) ==
LOC: WC 08:00
PROVIDERS: PCP Family Medicine; Referring Provider Podiatrist; Visit Provider Podiatrist
DX: E11.621 Type 2 diabetes mellitus with foot ulcer (principal); E11.51 Type 2 diabetes mellitus with diabetic peripheral angiopathy without gangrene; L97.513 Non-pressure chronic ulcer of other part of right foot with necrosis of muscle; L97.512 Non-pressure chronic ulcer of other part of right foot with fat layer exposed; E11.42 Type 2 diabetes mellitus with diabetic polyneuropathy; I10 Essential (primary) hypertension; Z79.82 Long term (current) use of aspirin; R60.0 Localized edema; Z60.9 Problem related to social environment, unspecified; Z87.891 Personal history of nicotine dependence; T14.8XXD Other injury of unspecified body region, subsequent encounter
CPT/HCPCS: 11042; 11043; 36415; 73630; 80048; 80061; 99213; G0463

== ENCOUNTER → 2022-03-19 | Outpatient (CLI) | payer BC, SELFPAY ==
[2022-03-19 12:59] LABS: Anion Gap 8 (5-15); BUN 16 mg/dL (7-18); BUN/Creat Ratio 17.7 RATIO (10-20); Calcium,Total 9.8 mg/dL (8.5-10.1); Chloride 100 mmol/L (98-107); Cholesterol 106 mg/dL (200); EST Glomerular Filtration Rate 93 mL/min (>60); Est Glom Filt Rate - Afr Amer 113 mL/min (>60); Glucose 184 mg/dL (74-106); High Density Lipoprotein 30 mg/dL; Potassium 4.2 mmol/L (3.5-5.1); Sodium Level 135 mmol/L (136-145); Triglycerides 228 mg/dL; Very Low Density Lipoprotein 46 mg/dL (5-40)
== END | disposition home or self-care (01) ==
LOC: MFPLAB 09:54
PROVIDERS: PCP Family Medicine; Referring Provider Family Medicine; Visit Provider Family Medicine
DX: E11.9 Type 2 diabetes mellitus without complications (principal)
CPT/HCPCS: 36415; 80048; 80061

== ENCOUNTER 2022-04-23 09:45 | Outpatient (RCR) | payer BC, SELFPAY ==
[2022-03-26 01:17] VITALS: BP 131/89; PULSE 95; RESP 16; TEMP 36.1; BMI 29.8
[2022-03-26 08:36] VITALS: BP 142/77; PULSE 94; RESP 18; TEMP 36.1; BMI 29.8
--- NOTE | 2022-03-26 09:06 | PCM.WC.PN ---
History of Present Illness Date of Service: 03/26/22 Chief Complaint: Right foot ulcers History of Wound: This 52-year-old male with history of diabetic neuropathy presents to the wound healing center for delayed healing of right foot ulcers. It is noted he had prior foot infections with a bedside incision and drainage performed by Dr. Jack on 12-05-21. He denies current fever, chill, nausea, vomiting, redness or odor. He has been using a wound VAC. He has been using a knee roller. He takes nutritional supplementation. He refuses vascular surgery referral as recommended previously. He is eager to return to work and his short-term disability is approaching the end duration; he brought his paperwork today for completion. This ulcer has been present for over several months. He places weight on his heel if needed. Progress of Wound: stable Objective Data Objective Data Vital Signs: Vital Signs Temp Pulse Resp BP 97.0 F L 94 18 142/77 H 03/26/22 08:36 03/26/22 08:36 03/26/22 08:36 03/26/22 08:36 Oxygen Delivery Method Room Air Weight: 99.79 kg Body Mass Index (BMI) 29.8 Physical Exam Const alert and oriented x3 General Appearance: cooperative HEENT normocephalic Extremity Extremity Narrative: No calf tenderness Diminished pulses; palpable DP pulse and weak PT bilateral Muscle wasting noted General Extremity: edema and no tenderness to palpation of joints or extremities; Negative for cyanosis Skin Skin Narrative: no purulence, no streaking, no odor, no infection. Two plantar foot ulcers in which the more proximal one has exposed fascia/muscle tissue. The ulcer is more distal closer to the toes has a granular base. There is no other probe to bone. There is a lateral column rocker-bottom type foot shape noted and there is no laxity, calor, erythema or significant edema. There is no purulence on expression or adjacent erythema or streaking. General Skin Exam: Negative for erythema Neuro Neuro Narrative: lack of normal epicritic sensation via light touch is consistent with neuropathy status Psych cooperative and affect normal Debridement Note Debridement Note Wound debrided: plantar right foot (distal/inferior, proximal/superior) Wound Grade/Stage: 2,1 Type of Debridement: Excisional debridement Anesthesia Used: 4% Lidocaine Solution Depth: in the subcutaneous layer Percentage of wound debrided: 100 Instrument Used: #15 blade Tissue Removed: fibrous, devitalized subcutaneous, biofilm, slough Severity: Fat Layer Exposed Amount of bleeding with debridement: Mild Bleeding Controlled with: Pressure Patient tolerated procedure: Patient tolerated procedure well Post-Debridement Measurements and Additional Note: Post-Debridement Measurements/Treatment [facility] Nurse 1 - General Ulcer Assessment Start: 03/26/22 08:36 Freq: Status: Active Protocol: MARY JO Activity Type Activity Date Activity User E-Sign Co-Sign Detail Recorded Client Recorded Date Recorded By Document 03/26/22 08:36 [place] [id number] 03/26/22 08:47 [place] 03/26/22 08:36 - Today's Visit Information Type of service Follow-up Visit (Physician/VP PRODUCT MANAGEMENT ) Arrival Mode Ambulatory Accompanied by Patient Identification Verified (Name & Yes ) Height and Weight Body Mass Index (BMI) 29.8 BMI Classification Overweight Vital Signs Temperature (97.8 F-99.1 F) 97.0 F L Temperature Source Temporal Pulse Rate (60-100) 94 Pulse Location Monitor Respiratory Rate (12-18) 18 Respiratory rate source Observation Oxygen Delivery Method Room Air Blood Pressure (90/60-120/80) 142/77 H Blood Pressure Mean (mm Hg) 98 Source Monitor Position Sitting Blood Pressure Location Left Arm History Since Last Visit- (Skip if this is Patient's initial visit) Has dressing in place as prescribed Yes Has compression in place as prescribed Yes Has offloadiing in place as prescribed Yes Experienced any changes in pain level or Yes management Left Footwear Diabetic Shoe Right Footwear Diabetic Shoe Pain Scale: 0-10 Numeric Is Patient Pain Free? Yes [facility] Nurse 1 - General Ulcer Measurement Start: 03/26/22 08:36 Freq: Status: Active Protocol: Activity Type Activity Date Activity User E-Sign Co-Sign Detail Recorded Client Recorded Date Recorded By Document 03/26/22 08:36 [place] [id number] 03/26/22 08:47 [place] 03/26/22 08:36 Wound Center Nurse 1 #2- R INFERIOR PLANTAR FOOT POST OP -Current Size (cm) - Length 2.5 -Current Size (cm) - Width 1.5 -Current Size (cm) - Depth 0.5 -Total Square Cm 3.75 -Exudate Amt Small -Exudate Type Serosanguineous -Wound Margin Thickened & Rolled Under -Granulation Amt Medium (34-66%) -Granulation Quality Pale,[place] -Necrosis Amt Medium (34-66%) -Texture (Lor-wound Skin Appearance) Assessed,Callus -Moisture (Lor-wound Skin Appearance) Assessed -Color (Lor-wound Skin Appearance) Assessed -Temperature (Lor-wound Skin No Abnormality Appearance) (Pt Warm) -Tenderness on Palpation (Lor-wound No Skin Appearance) -Ulcer Cleansing Wound Cleanser -Foul Odor after Cleansing No -Anesthetic Used 4% Lidocaine Solution #1- R SUPERIOR PLANTAR FOOTPOST OP -Current Size (cm) - Length 2.5 -Current Size (cm) - Width 0.9 -Current Size (cm) - Depth 0.5 -Total Square Cm 2.25 -Exudate Amt Small -Exudate Type Serosanguineous -Wound Margin Thickened -Granulation Amt Medium (34-66%) -Granulation Quality Pale,[place] -Necrosis Amt Medium (34-66%) -Texture (Lor-wound Skin Appearance) Assessed -Moisture (Lor-wound Skin Appearance) Assessed -Color (Lor-wound Skin Appearance) Assessed -Temperature (Lor-wound Skin No Abnormality Appearance) (Pt Warm) -Tenderness on Palpation (Lor-wound No Skin Appearance) -Ulcer Cleansing Wound Cleanser -Anesthetic Used 4% Lidocaine Solution Lower Limb Edema Present NA Assessment/Plan Assessment/Plan (1) Non-pressure chronic ulcer of other part of right foot with necrosis of muscle: CODE(S): L97.513 - Non-pressure chronic ulcer of other part of right foot with necrosis of muscle (2) Non-pressure chronic ulcer of other part of right foot with fat layer exposed: CODE(S): L97.512 - Non-pressure chronic ulcer of other part of right foot with fat layer exposed (3) Type 2 diabetes mellitus with foot ulcer: CODE(S): E11.621 - Type 2 diabetes mellitus with foot ulcer; L97.509 - Non-pressure chronic ulcer of other part of unspecified foot with unspecified severity (4) Other specified peripheral vascular diseases: CODE(S): I73.89 - Other specified peripheral vascular diseases (5) Localized edema: CODE(S): R60.0 - Localized edema (6) Delayed healing of traumatic wound: CODE(S): T14.8XXD - Other injury of unspecified body region, subsequent encounter (7) Type 2 diabetes mellitus with diabetic polyneuropathy: CODE(S): E11.42 - Type 2 diabetes mellitus with diabetic polyneuropathy PLAN: I reviewed and discussed his case today. Debridement was performed today as noted in the clinical panel to all of the ulcer sites. The following work up and care recommendations were made: Dressing:d/c wound vac. Keep secondary dressing clean, dry, and intact no follow-up next week. Wash: Soap and water Tissue growth optimization: I recommend application of advanced wound healing product, epi fix which was approved for the distal/inferior ulcer that has exposed fascial tissue. The benefits, indications, anticipated application and management were reviewed. He is amendable to proceed and prior authorization will be started. This is a limb salvage case and delayed healing in a continue manner could result in amputation, , and serial infections. Verbal consent was obtained. This was applied according standard protocol was further secured with a wound veil and Steri-Strips. He tolerated this well. This was performed according standard protocol. Offload: To maintain a strict nonweightbearing status with knee roller. Vascular: His noninvasive vascular studies demonstrate evidence of micro vascular disease and a vascular specialist referral has been recommended in the past. I recommend this again at this time and he refuses. It is also noted he uses tobacco products and this can affect microvascular circulation. He was urged to quit. Edema: Tubigrip Infection: This is resolved. It is noted he was treated by infectious disease on an inpatient and outpatient basis. To monitor for return of infection signs. Pain: He is neuropathic and does not have pain at this time. Host factors: He is a diabetic and his last A1c on file was 6.7%. To continue to manage his glucose levels to optimize healing. I also recommend nutritional supplementation. He is already taking Mino. He also brought his short-term disability paperwork for update which will be completed. I answered all the patient's questions. To return to the wound healing center in 1 week or call sooner if the patient has any questions or concerns. Note: [employer] speech recognition production mechanic tin cans software was used to create portions of this document. Sound-alike and misspelled words, as well as other production mechanic tin cans errors may be contained in the documentation.
[2022-04-02 08:53] VITALS: BP 150/83; PULSE 99; RESP 17; TEMP 36.5; BMI 29.8
--- NOTE | 2022-04-02 15:31 | PCM.WC.PN ---
History of Present Illness Date of Service: 04/02/22 Chief Complaint: Right foot ulcers History of Wound: This 52-year-old male with history of diabetic neuropathy presents to the wound healing center for delayed healing of right foot ulcers. It is noted he had prior foot infections with a bedside incision and drainage performed by Dr. Jack on 12-05-21. He denies current fever, chill, nausea, vomiting, redness or odor. He has been using a wound VAC. He has been using a knee roller. He takes nutritional supplementation. He refuses vascular surgery referral as recommended previously. This ulcer has been present for over several months. He places weight on his heel if needed. He defers total contact cast today as advised and will consider this next week. Progress of Wound: stable Objective Data Objective Data Vital Signs: Vital Signs Temp Pulse Resp BP 97.7 F L 99 17 150/83 H 04/02/22 08:53 04/02/22 08:53 04/02/22 08:53 04/02/22 08:53 Oxygen Delivery Method Room Air Weight: 99.79 kg Body Mass Index (BMI) 29.8 Physical Exam Const alert and oriented x3 General Appearance: cooperative HEENT normocephalic Extremity Extremity Narrative: No calf tenderness Diminished pulses; palpable DP pulse and weak PT bilateral Muscle wasting noted General Extremity: edema and no tenderness to palpation of joints or extremities; Negative for cyanosis Skin Skin Narrative: no purulence, no streaking, no odor, no infection. Two plantar foot ulcers in which the more proximal one has exposed fascia/muscle tissue. The ulcer is more distal closer to the toes has a granular base. There is no other probe to bone. There is a lateral column rocker-bottom type foot shape noted and there is no laxity, calor, erythema or significant edema. There is no purulence on expression or adjacent erythema or streaking. General Skin Exam: Negative for erythema Neuro Neuro Narrative: lack of normal epicritic sensation via light touch is consistent with neuropathy status Psych cooperative and affect normal Debridement Note Debridement Note Wound debrided: plantar right foot (inferior and superior) Wound Grade/Stage: 2,1 Type of Debridement: Excisional debridement Anesthesia Used: 4% Lidocaine Solution Depth: in the subcutaneous layer Percentage of wound debrided: 100 Instrument Used: #15 blade Tissue Removed: fibrous, devitalized subcutaneous, biofilm, slough Severity: Fat Layer Exposed Amount of bleeding with debridement: Mild Bleeding Controlled with: Pressure Patient tolerated procedure: Patient tolerated procedure well Post-Debridement Measurements and Additional Note: Post-Debridement Measurements/Treatment - Nurse 1 - General Ulcer Assessment Start: 03/26/22 08:36 Freq: Status: Active Protocol: MARY JO Activity Type Activity Date Activity User E-Sign Co-Sign Detail Recorded Client Recorded Date Recorded By Document 03/26/22 08:36 MT [id number] 03/26/22 08:47 MT Document 04/02/22 08:53 ML [id number] 04/02/22 09:04 ML 03/26/22 04/02/22 08:36 08:53 WC - Today's Visit Information Type of service Follow-up Visit Follow-up Visit (Physician/FOOD OR BAGGAGE HANDLING RAMPMAN (Physician/FOOD OR BAGGAGE HANDLING RAMPMAN ) ) Arrival Mode Ambulatory Arrival Mode (Other) knee roller Transfer Assistance None Accompanied by Patient Identification Verified (Name & Yes Yes ) Patient Requires Transmission-Based No Precautions Safety Precautions NA Finger Stick Blood Sugar(mg/dl) (if 160 indicated): Blood Sugar Stated by Patient Height and Weight Body Mass Index (BMI) 29.8 29.8 BMI Classification Overweight Overweight Vital Signs Temperature (97.8 F-99.1 F) 97.0 F L 97.7 F L Temperature Source Temporal Temporal Pulse Rate (60-100) 94 99 Pulse Location Monitor Monitor Respiratory Rate (12-18) 18 17 Respiratory rate source Observation Observation Oxygen Delivery Method Room Air Blood Pressure (90/60-120/80) 142/77 H 150/83 H Blood Pressure Mean (mm Hg) 98 105 Source Monitor Monitor Position Sitting Sitting Blood Pressure Location Left Arm Right Arm History Since Last Visit- (Skip if this is Patient's initial visit) Have you changed medications since your No last visit? Any new allergies or adverse reactions No Had a fall/change in ADL's that may No increase risk of falls Signs or symptoms of abuse and/or No neglect since last visit Have you been in the hospital since your No last visit? Has dressing in place as prescribed Yes Yes Has compression in place as prescribed Yes Yes Has offloadiing in place as prescribed Yes Yes Experienced any changes in pain level or Yes No management Left Footwear Diabetic Shoe Regular Shoe Right Footwear Diabetic Shoe Surgical Shoe with pressure relief insole Pain Scale: 0-10 Numeric Is Patient Pain Free? Yes Yes WC - Nurse 1 - General Ulcer Measurement Start: 03/26/22 08:36 Freq: Status: Active Protocol: Activity Type Activity Date Activity User E-Sign Co-Sign Detail Recorded Client Recorded Date Recorded By Document 03/26/22 08:36 MT [id number] 03/26/22 08:47 MT Document 04/02/22 08:53 ML [id number] 04/02/22 09:04 ML 03/26/22 04/02/22 08:36 08:53 Wound Center Nurse 1 #2- R INFERIOR PLANTAR FOOT POST OP -Current Size (cm) - Length 2.5 2.5 -Current Size (cm) - Width 1.5 3 -Current Size (cm) - Depth 0.5 0.3 -Total Square Cm 3.75 7.5 -Exudate Amt Small Medium -Exudate Type Serosanguineous Serosanguineous -Wound Margin Thickened & Distinct, Rolled Under Outline Attached -Granulation Amt Medium (34-66%) Medium (34-66%) -Granulation Quality Pale,[place] Pale -Slough/Fibrin Yes -Necrosis Amt Medium (34-66%) Medium (34-66%) -Necrotic Tissue Type Adherent Slough -Texture (Lor-wound Skin Appearance) Assessed,Callus Assessed -Moisture (Lor-wound Skin Appearance) Assessed Assessed -Color (Lor-wound Skin Appearance) Assessed Assessed -Temperature (Lor-wound Skin No Abnormality No Abnormality Appearance) (Pt Warm) (Pt Warm) -Tenderness on Palpation (Lor-wound No No Skin Appearance) -Ulcer Cleansing Wound Cleanser Soap and Water -Foul Odor after Cleansing No No -Anesthetic Used 4% Lidocaine 5% Lidocaine Solution Gel #1- R SUPERIOR PLANTAR FOOTPOST OP -Current Size (cm) - Length 2.5 1 -Current Size (cm) - Width 0.9 1.5 -Current Size (cm) - Depth 0.5 0.2 -Total Square Cm 2.25 1.5 -Exudate Amt Small Medium -Exudate Type Serosanguineous Serosanguineous -Wound Margin Thickened Distinct, Outline Attached -Granulation Amt Medium (34-66%) Medium (34-66%) -Granulation Quality Pale,[place] -Slough/Fibrin Yes -Necrosis Amt Medium (34-66%) Medium (34-66%) -Necrotic Tissue Type Adherent Slough -Texture (Lor-wound Skin Appearance) Assessed Assessed -Moisture (Lor-wound Skin Appearance) Assessed Assessed -Color (Lor-wound Skin Appearance) Assessed Assessed -Temperature (Lor-wound Skin No Abnormality No Abnormality Appearance) (Pt Warm) (Pt Warm) -Tenderness on Palpation (Lor-wound No No Skin Appearance) -Ulcer Cleansing Wound Cleanser Soap and Water -Foul Odor after Cleansing No -Anesthetic Used 4% Lidocaine 5% Lidocaine Solution Gel Lower Limb Edema Present NA WC - Nurse 2 - General Ulcer CM Notes Start: 03/26/22 08:36 Freq: Status: Active Protocol: Activity Type Activity Date Activity User E-Sign Co-Sign Detail Recorded Client Recorded Date Recorded By Document 03/26/22 08:55 SARAH [id number] 03/26/22 09:08 Edit Result 03/26/22 08:55 SARAH (1) [id number] 03/27/22 07:34 JF Document 04/02/22 09:14 [id number] 04/02/22 09:22 SARAH (1) #2- R INFERIOR PLANTAR FOOT POST OP - Type of Procedure Incision & => Debridement Drainage => - Epicord (per sq cm) 4 => #1- R SUPERIOR PLANTAR FOOTPOST OP - Offloading => Yes - Type of Offloading Total Contact Cast => Knee Walker (TCC) - Left ($) => - Apply Skin Sub - 1st 25 sq cm - Feet 1 => 03/26/22 04/02/22 08:55 09:14 Wound Center Nurse 2 #2- R INFERIOR PLANTAR FOOT POST OP -Time 09: 09:14 -Correct Patient Yes Yes -Correct Side, Site, Position Yes Yes -Correct Procedure Yes Yes -Procedure Performed Yes Yes -Type of Procedure Debridement Debridement -Clinical Debridement Subcutaneous Subcutaneous -Tissue Removed Subcutaneous Subcutaneous -Post Debridement (cm) - Length 2.3 2.3 -Post Debridement (cm) - Width 1.0 1.3 -Post Debridement (cm) - Depth 0.5 0.3 -Total Square (Post) (cm) 2.30 2.99 -Area of Debridement (cm) - Length 2.3 2.3 -Area of Debridement (cm) - Width 1.0 1.3 -Total Square (Area) (cm) 2.30 2.99 -Tunneling No No -Undermining/Tunneling No No -Circular Undermining No No -Wound/Ulcer Outcome Not Healed Not Healed -Ulcer Cleansing Rinsed/ Rinsed/ Irrigated with Irrigated with Saline Saline -Foul Odor after Cleansing No No -Bioengineered Tissue Yes Yes -Type of Bioengineered Tissue Epifix Epifix -Expiration Date 12/24/26 12/24/26 -Product Lot Number [id number] -Percent Used 100 100 -Lot number of Saline Used [id number] -Bleeding Controlled with Pressure Pressure -Treatment Response Procedure Procedure Tolerated Well Tolerated Well -Offloading Yes Yes -Type of Offloading Knee Walker Knee Walker -Debridement - Subq, 1st 20sq cm No No -Apply Skin Sub - 1st 25 sq cm - Feet 1 1 -Epifix (per sq cm) 4 4 #1- R SUPERIOR PLANTAR FOOTPOST OP -Time 08:57 09:15 -Correct Patient Yes Yes -Correct Side, Site, Position Yes Yes -Correct Procedure Yes Yes -Procedure Performed Yes Yes -Type of Procedure Debridement Debridement -Clinical Debridement Subcutaneous Subcutaneous -Tissue Removed Subcutaneous Subcutaneous -Post Debridement (cm) - Length 2.5 3.3 -Post Debridement (cm) - Width 1.0 1.2 -Post Debridement (cm) - Depth 0.5 0.3 -Total Square (Post) (cm) 2.50 3.96 -Area of Debridement (cm) - Length 2.5 3.3 -Area of Debridement (cm) - Width 1.0 1.3 -Total Square (Area) (cm) 2.50 4.29 -Tunneling No No -Undermining/Tunneling No No -Circular Undermining No No -Wound/Ulcer Outcome Not Healed Not Healed -Ulcer Cleansing Rinsed/ Rinsed/ Irrigated with Irrigated with Saline Saline -Foul Odor after Cleansing No No -Bioengineered Tissue No No -Bleeding Controlled with Pressure Pressure -Treatment Response Procedure Procedure Tolerated Well Tolerated Well -Offloading Yes Yes -Type of Offloading Knee Walker Knee Walker -Debridement - Subq, 1st 20sq cm Yes Yes Pain Scale: 0-10 Numeric Is Patient Pain Free? Yes Yes WC - Nurse 3 - General Ulcer D/C NN Start: 03/26/22 08:36 Freq: Status: Active Protocol: Activity Type Activity Date Activity User E-Sign Co-Sign Detail Recorded Client Recorded Date Recorded By Document 03/26/22 09:10 DL [id number] 03/26/22 09:12 DL Document 04/02/22 09:38 DL [id number] 04/02/22 09:40 DL 03/26/22 04/02/22 09:10 09:38 Wound Care Nurse 3 #2- R INFERIOR PLANTAR FOOT POST OP -Ulcer Cleansing Rinsed/ Irrigated with Saline -Foul Odor after Cleansing No No -Other Dressing Epifix epifix -Primary Dressing Covered/Secured with Dry Gauze & Dry Gauze & Roll Gauze, Roll Gauze, Secured with Secured with Tape Tape #1- R SUPERIOR PLANTAR FOOTPOST OP -Ulcer Cleansing Rinsed/ Irrigated with Saline -Foul Odor after Cleansing No No -Other Dressing Epifix epifix -Primary Dressing Covered/Secured with Dry Gauze & Dry Gauze & Roll Gauze, Roll Gauze, Secured with Secured with Tape Tape -Other Covering narayan Treatment Response Procedure Procedure Tolerated Well Tolerated Well Pain Scale: 0-10 Numeric Is Patient Pain Free? Yes Yes - Visit Discharge Discharge Condition Stable Stable Ambulatory Status Walker Ambulatory, Walker Transportation Private Auto Private Auto Notes: Vac D/Cd Facility Type Home Health Orders Sent Yes Assessment/Plan Assessment/Plan (1) Non-pressure chronic ulcer of other part of right foot with necrosis of muscle: CODE(S): L97.513 - Non-pressure chronic ulcer of other part of right foot with necrosis of muscle (2) Non-pressure chronic ulcer of other part of right foot with fat layer exposed: CODE(S): L97.512 - Non-pressure chronic ulcer of other part of right foot with fat layer exposed (3) Type 2 diabetes mellitus with foot ulcer: CODE(S): E11.621 - Type 2 diabetes mellitus with foot ulcer; L97.509 - Non-pressure chronic ulcer of other part of unspecified foot with unspecified severity (4) Other specified peripheral vascular diseases: CODE(S): I73.89 - Other specified peripheral vascular diseases (5) Localized edema: CODE(S): R60.0 - Localized edema (6) Delayed healing of traumatic wound: CODE(S): T14.8XXD - Other injury of unspecified body region, subsequent encounter (7) Type 2 diabetes mellitus with diabetic polyneuropathy: CODE(S): E11.42 - Type 2 diabetes mellitus with diabetic polyneuropathy PLAN: I reviewed and discussed his case today. Debridement was performed today as noted in the clinical panel to all of the ulcer sites. The following work up and care recommendations were made: Dressing:d/c wound vac. Keep secondary dressing clean, dry, and intact no follow-up next week. Wash: Soap and water Tissue growth optimization: I recommend application of advanced wound healing product, epi fix which was approved for the distal/inferior ulcer that has exposed fascial tissue. The benefits, indications, anticipated application and management were reviewed. He is amendable to proceed and prior authorization will be started. This is a limb salvage case and delayed healing in a continue manner could result in amputation, , and serial infections. Verbal consent was obtained. This was applied according standard protocol was further secured with a wound veil and Steri-Strips. He tolerated this well. This was performed according standard protocol. Offload: To maintain a strict nonweightbearing status with knee roller. I recommend total contact cast application and reviewed the indications and benefits and use. He defers today but will consider it next week. Vascular: His noninvasive vascular studies demonstrate evidence of micro vascular disease and a vascular specialist referral has been recommended in the past. I recommend this again at this time and he refuses. It is also noted he uses tobacco products and this can affect microvascular circulation. He was urged to quit. Edema: Tubigrip Infection: This is resolved. It is noted he was treated by infectious disease on an inpatient and outpatient basis. To monitor for return of infection signs. Pain: He is neuropathic and does not have pain at this time. Host factors: He is a diabetic and his last A1c on file was 6.7%. To continue to manage his glucose levels to optimize healing. I also recommend nutritional supplementation. He is already taking Mino. Nutrition: to continue mino supplementation to optimize healing. I answered all the patient's questions. To return to the wound healing center in 1 week or call sooner if the patient has any questions or concerns. Note: [employer] speech recognition drapery operator software was used to create portions of this document. Sound-alike and misspelled words, as well as other drapery operator errors may be contained in the documentation.
[2022-04-09 09:19] VITALS: BP 148/74; PULSE 98; RESP 18; TEMP 35.9; BMI 29.8
--- NOTE | 2022-04-09 10:32 | PCM.WC.PN ---
History of Present Illness Date of Service: 04/09/22 Chief Complaint: Right foot ulcers History of Wound: This 52-year-old male with history of diabetic neuropathy presents to the wound healing center for delayed healing of right foot ulcers. It is noted he had prior foot infections with a bedside incision and drainage performed by Dr. Jack on 12-05-21. He denies current fever, chill, nausea, vomiting, redness or odor. He has been using a wound VAC. He has been using a knee roller. He takes nutritional supplementation. He refuses vascular surgery referral as recommended previously. This ulcer has been present for over several months. He places weight on his heel if needed. He is amenable to proceed with a total contact cast today and confirmed he is able to wear shorts at work. Progress of Wound: Improving Objective Data Objective Data Vital Signs: Vital Signs Temp Pulse Resp BP 96.7 F L 98 18 148/74 H 04/09/22 09:19 04/09/22 09:19 04/09/22 09:19 04/09/22 09:19 Oxygen Delivery Method Room Air Weight: 99.79 kg Body Mass Index (BMI) 29.8 Physical Exam Const alert and oriented x3 General Appearance: cooperative HEENT normocephalic Extremity Extremity Narrative: No calf tenderness Diminished pulses; palpable DP pulse and weak PT bilateral Muscle wasting noted General Extremity: edema and no tenderness to palpation of joints or extremities; Negative for cyanosis Skin Skin Narrative: no purulence, no streaking, no odor, no infection. Two plantar foot ulcers in which the more proximal one has exposed fascia/muscle tissue. The ulcer is more distal closer to the toes has a granular base. There is no other probe to bone. There is a lateral column rocker-bottom type foot shape noted and there is no laxity, calor, erythema or significant edema. There is no purulence on expression or adjacent erythema or streaking. General Skin Exam: Negative for erythema Neuro Neuro Narrative: lack of normal epicritic sensation via light touch is consistent with neuropathy status Psych cooperative and affect normal Debridement Note Debridement Note Wound debrided: plantar right foot (inferior and superior) Wound Grade/Stage: 2,1 Type of Debridement: Excisional debridement Anesthesia Used: 4% Lidocaine Solution Depth: in the subcutaneous layer Percentage of wound debrided: 100 Instrument Used: #15 blade Tissue Removed: fibrous, devitalized subcutaneous, biofilm, slough Severity: Fat Layer Exposed Amount of bleeding with debridement: Mild Bleeding Controlled with: Pressure Patient tolerated procedure: Patient tolerated procedure well Post-Debridement Measurements and Additional Note: Post-Debridement Measurements/Treatment WC - Nurse 1 - General Ulcer Assessment Start: 03/26/22 08:36 Freq: Status: Active Protocol: POOJAT Activity Type Activity Date Activity User E-sign Co-sign Detail Recorded Client Recorded Date Recorded By Document 03/26/22 08:36 MT [id number] 03/26/22 08:47 MT Document 04/02/22 08:53 ML [id number] 04/02/22 09:04 ML Document 04/09/22 09:19 DL [id number] 04/09/22 09:29 DL 03/26/22 04/02/22 04/09/22 08:36 08:53 09:19 - Today's Visit Information Type of service Follow-up Visit Follow-up Visit Follow-up Visit (Physician/GENERATION ENGINEER (Physician/GENERATION ENGINEER (Physician/GENERATION ENGINEER ) ) ) Arrival Mode Ambulatory Ambulatory Arrival Mode (Other) knee roller Transfer Assistance None None Accompanied by Patient Identification Verified (Name & Yes Yes Yes ) Patient Requires Transmission-Based No No Precautions Safety Precautions NA Finger Stick Blood Sugar(mg/dl) (if 160 170 indicated): Blood Sugar Stated by Stated by Patient Patient Height and Weight Body Mass Index (BMI) 29.8 29.8 29.8 BMI Classification Overweight Overweight Overweight Vital Signs Temperature (97.8 F-99.1 F) 97.0 F L 97.7 F L 96.7 F L Temperature Source Temporal Temporal Temporal Pulse Rate (60-100) 94 99 98 Pulse Location Monitor Monitor Monitor Respiratory Rate (12-18) 18 17 18 Respiratory rate source Observation Observation Observation Oxygen Delivery Method Room Air Blood Pressure (90/60-120/80) 142/77 H 150/83 H 148/74 H Blood Pressure Mean (mm Hg) 98 105 98 Source Monitor Monitor Monitor Position Sitting Sitting Blood Pressure Location Left Arm Right Arm History Since Last Visit- (Skip if this is Patient's initial visit) Have you changed medications since your No No last visit? Any new allergies or adverse reactions No No Had a fall/change in ADL's that may No No increase risk of falls Signs or symptoms of abuse and/or No No neglect since last visit Have you been in the hospital since your No No last visit? Has dressing in place as prescribed Yes Yes Yes Has compression in place as prescribed Yes Yes N/A Has offloadiing in place as prescribed Yes Yes Yes Experienced any changes in pain level or Yes No No management Left Footwear Diabetic Shoe Regular Shoe Right Footwear Diabetic Shoe Surgical Shoe with pressure relief insole Pain Scale: 0-10 Numeric Is Patient Pain Free? Yes Yes Yes WC - Nurse 1 - General Ulcer Measurement Start: 03/26/22 08:36 Freq: Status: Active Protocol: Activity Type Activity Date Activity User E-sign Co-sign Detail Recorded Client Recorded Date Recorded By Document 03/26/22 08:36 MT [id number] 03/26/22 08:47 MT Document 04/02/22 08:53 ML [id number] 04/02/22 09:04 ML Document 04/09/22 09:19 DL [id number] 04/09/22 09:29 DL 03/26/22 04/02/22 04/09/22 08:36 08:53 09:19 Wound Center Nurse 1 #2- R INFERIOR PLANTAR FOOT POST OP -Current Size (cm) - Length 2.5 2.5 2 -Current Size (cm) - Width 1.5 3 0.7 -Current Size (cm) - Depth 0.5 0.3 0.4 -Total Square Cm 3.75 7.5 1.4 -Photo Taken No -Exudate Amt Small Medium Medium -Exudate Type Serosanguineous Serosanguineous Serosanguineous -Wound Margin Thickened & Distinct, Distinct, Rolled Under Outline Outline Attached Attached -Granulation Amt Medium (34-66%) Medium (34-66%) Large (67-100%) -Granulation Quality Pale,[place] Pale [place],Red -Slough/Fibrin Yes -Necrosis Amt Medium (34-66%) Medium (34-66%) Small (1-33%) -Necrotic Tissue Type Adherent Slough Adherent Slough -Texture (Lor-wound Skin Appearance) Assessed,Callus Assessed Scarring -Moisture (Lor-wound Skin Appearance) Assessed Assessed No Abnormality -Color (Lor-wound Skin Appearance) Assessed Assessed No Abnormality -Temperature (Lor-wound Skin No Abnormality No Abnormality No Abnormality Appearance) (Pt Warm) (Pt Warm) (Pt Warm) -Tenderness on Palpation (Lor-wound No No No Skin Appearance) -Ulcer Cleansing Wound Cleanser Soap and Water Soap and Water -Foul Odor after Cleansing No No No -Anesthetic Used 4% Lidocaine 5% Lidocaine 5% Lidocaine Solution Gel Gel #1- R SUPERIOR PLANTAR FOOTPOST OP -Current Size (cm) - Length 2.5 1 2.2 -Current Size (cm) - Width 0.9 1.5 1.1 -Current Size (cm) - Depth 0.5 0.2 0.3 -Total Square Cm 2.25 1.5 2.42 -Photo Taken No -Exudate Amt Small Medium Medium -Exudate Type Serosanguineous Serosanguineous Serosanguineous -Wound Margin Thickened Distinct, Distinct, Outline Outline Attached Attached -Granulation Amt Medium (34-66%) Medium (34-66%) Large (67-100%) -Granulation Quality Pale,[place] Red -Slough/Fibrin Yes -Necrosis Amt Medium (34-66%) Medium (34-66%) Small (1-33%) -Necrotic Tissue Type Adherent Slough Adherent Slough -Structure Exposed N/A -Texture (Lor-wound Skin Appearance) Assessed Assessed Scarring -Moisture (Lor-wound Skin Appearance) Assessed Assessed No Abnormality -Color (Lor-wound Skin Appearance) Assessed Assessed No Abnormality -Temperature (Lor-wound Skin No Abnormality No Abnormality No Abnormality Appearance) (Pt Warm) (Pt Warm) (Pt Warm) -Tenderness on Palpation (Lor-wound No No No Skin Appearance) -Ulcer Cleansing Wound Cleanser Soap and Water Soap and Water -Foul Odor after Cleansing No No -Anesthetic Used 4% Lidocaine 5% Lidocaine 5% Lidocaine Solution Gel Gel Lower Limb Edema Present NA WC - Nurse 2 - General Ulcer CM Notes Start: 03/26/22 08:36 Freq: Status: Active Protocol: Activity Type Activity Date Activity User E-sign Co-sign Detail Recorded Client Recorded Date Recorded By Document 03/26/22 08:55 SARAH [id number] 03/26/22 09:08 JF Edit Result 03/26/22 08:55 SARAH (1) [id number] 03/27/22 07:34 JF Document 04/02/22 09:14 [id number] 04/02/22 09:22 Document 04/09/22 09:40 [id number] 04/09/22 09:43 JF (1) #2- R INFERIOR PLANTAR FOOT POST OP - Type of Procedure Incision & => Debridement Drainage => - Epicord (per sq cm) 4 => #1- R SUPERIOR PLANTAR FOOTPOST OP - Offloading => Yes - Type of Offloading Total Contact Cast => Knee Walker (TCC) - Left ($) => - Apply Skin Sub - 1st 25 sq cm - Feet 1 => 03/26/22 04/02/22 04/09/22 08:55 09:14 09:40 Wound Center Nurse 2 #2- R INFERIOR PLANTAR FOOT POST OP -Time 09:02 09:14 09:41 -Correct Patient Yes Yes Yes -Correct Side, Site, Position Yes Yes Yes -Correct Procedure Yes Yes Yes -Procedure Performed Yes Yes Yes -Type of Procedure Debridement Debridement Debridement -Clinical Debridement Subcutaneous Subcutaneous Subcutaneous -Tissue Removed Subcutaneous Subcutaneous Subcutaneous -Post Debridement (cm) - Length 2.3 2.3 2.0 -Post Debridement (cm) - Width 1.0 1.3 0.8 -Post Debridement (cm) - Depth 0.5 0.3 0.4 -Total Square (Post) (cm) 2.30 2.99 1.60 -Area of Debridement (cm) - Length 2.3 2.3 2.0 -Area of Debridement (cm) - Width 1.0 1.3 0.8 -Total Square (Area) (cm) 2.30 2.99 1.60 -Tunneling No No No -Undermining/Tunneling No No No -Circular Undermining No No No -Wound/Ulcer Outcome Not Healed Not Healed Not Healed -Ulcer Cleansing Rinsed/ Rinsed/ Rinsed/ Irrigated with Irrigated with Irrigated with Saline Saline Saline -Foul Odor after Cleansing No No No -Bioengineered Tissue Yes Yes Yes -Type of Bioengineered Tissue Epifix Epifix Epifix 18mm Disc -Expiration Date 12/24/26 12/24/26 12/24/26 -Product Lot Number [id number] -Percent Used 100 100 100 -Lot number of Saline Used [id number] -Bleeding Controlled with Pressure Pressure Pressure -Treatment Response Procedure Procedure Procedure Tolerated Well Tolerated Well Tolerated Well -Offloading Yes Yes Yes -Type of Offloading Knee Walker Knee Walker Total Contact Cast (TCC) - Right ($) -Debridement - Subq, 1st 20sq cm No No No -Apply Skin Sub - 1st 25 sq cm - Feet 1 1 1 -Epifix (per sq cm) 4 4 -Epifix 18mm Disc 3 #1- R SUPERIOR PLANTAR FOOTPOST OP -Time 08:57 09:15 09:42 -Correct Patient Yes Yes Yes -Correct Side, Site, Position Yes Yes Yes -Correct Procedure Yes Yes Yes -Procedure Performed Yes Yes Yes -Type of Procedure Debridement Debridement Debridement -Clinical Debridement Subcutaneous Subcutaneous Subcutaneous -Tissue Removed Subcutaneous Subcutaneous Subcutaneous -Post Debridement (cm) - Length 2.5 3.3 2.3 -Post Debridement (cm) - Width 1.0 1.2 1.1 -Post Debridement (cm) - Depth 0.5 0.3 0.3 -Total Square (Post) (cm) 2.50 3.96 2.53 -Area of Debridement (cm) - Length 2.5 3.3 2.3 -Area of Debridement (cm) - Width 1.0 1.3 1.1 -Total Square (Area) (cm) 2.50 4.29 2.53 -Tunneling No No No -Undermining/Tunneling No No No -Circular Undermining No No No -Wound/Ulcer Outcome Not Healed Not Healed Not Healed -Ulcer Cleansing Rinsed/ Rinsed/ Rinsed/ Irrigated with Irrigated with Irrigated with Saline Saline Saline -Foul Odor after Cleansing No No No -Bioengineered Tissue No No No -Bleeding Controlled with Pressure Pressure Pressure -Treatment Response Procedure Procedure Procedure Tolerated Well Tolerated Well Tolerated Well -Offloading Yes Yes No -Type of Offloading Knee Walker Knee Walker -Debridement - Subq, 1st 20sq cm Yes Yes Yes Pain Scale: 0-10 Numeric Is Patient Pain Free? Yes Yes Yes WC - Nurse 3 - General Ulcer D/C NN Start: 03/26/22 08:36 Freq: Status: Active Protocol: Activity Type Activity Date Activity User E-sign Co-sign Detail Recorded Client Recorded Date Recorded By Document 03/26/22 09:10 DL [id number] 03/26/22 09:12 DL Document 04/02/22 09:38 DL [id number] 04/02/22 09:40 DL Document 04/09/22 09:50 RB [id number] 04/09/22 09:52 RB 03/26/22 04/02/22 04/09/22 09:10 09:38 09:50 Wound Care Nurse 3 #2- R INFERIOR PLANTAR FOOT POST OP -Ulcer Cleansing Rinsed/ Irrigated with Saline -Foul Odor after Cleansing No No -Primary Dressing Applied Optilok 6.5x10 -Other Dressing Epifix epifix primary layer of TCC applied -Primary Dressing Covered/Secured with Dry Gauze & Dry Gauze & Secured with Roll Gauze, Roll Gauze, Tape Secured with Secured with Tape Tape -Optilok 6.5x10 1 #1- R SUPERIOR PLANTAR FOOTPOST OP -Ulcer Cleansing Rinsed/ Irrigated with Saline -Foul Odor after Cleansing No No -Other Dressing Epifix epifix optilock and primary layer of TCC applied -Primary Dressing Covered/Secured with Dry Gauze & Dry Gauze & Roll Gauze, Roll Gauze, Secured with Secured with Tape Tape -Other Covering narayan Treatment Response Procedure Procedure Procedure Tolerated Well Tolerated Well Tolerated Well Pain Scale: 0-10 Numeric Is Patient Pain Free? Yes Yes Yes WC - Visit Discharge Discharge Condition Stable Stable Stable Ambulatory Status Walker Ambulatory, Ambulatory Walker Transportation Private Auto Private Auto Private Auto Medication Reconcilliation completed & No provided to patient/care provider Clinical Summary of Care Provided Yes Notes: Vac D/Cd Facility Type Home Health Orders Sent Yes Assessment/Plan Assessment/Plan (1) Non-pressure chronic ulcer of other part of right foot with necrosis of muscle: CODE(S): L97.513 - Non-pressure chronic ulcer of other part of right foot with necrosis of muscle (2) Non-pressure chronic ulcer of other part of right foot with fat layer exposed: CODE(S): L97.512 - Non-pressure chronic ulcer of other part of right foot with fat layer exposed (3) Type 2 diabetes mellitus with foot ulcer: CODE(S): E11.621 - Type 2 diabetes mellitus with foot ulcer; L97.509 - Non-pressure chronic ulcer of other part of unspecified foot with unspecified severity (4) Other specified peripheral vascular diseases: CODE(S): I73.89 - Other specified peripheral vascular diseases (5) Localized edema: CODE(S): R60.0 - Localized edema (6) Delayed healing of traumatic wound: CODE(S): T14.8XXD - Other injury of unspecified body region, subsequent encounter (7) Type 2 diabetes mellitus with diabetic polyneuropathy: CODE(S): E11.42 - Type 2 diabetes mellitus with diabetic polyneuropathy PLAN: Plan I reviewed and discussed his case today. Debridement was performed today as noted in the clinical panel to all of the ulcer sites. The following work up and care recommendations were made: Dressing:d/c wound vac. Keep secondary dressing clean, dry, and intact no follow-up next week. Wash: Soap and water Tissue growth optimization: I recommend application of advanced wound healing product, epi fix which was approved for the distal/inferior ulcer that has exposed fascial tissue. The benefits, indications, anticipated application and management were reviewed. He is amendable to proceed and prior authorization will be started. This is a limb salvage case and delayed healing in a continue manner could result in amputation, , and serial infections. Verbal consent was obtained. This was applied according standard protocol was further secured with a wound veil and Steri-Strips. 100% of the product was utilized. He tolerated this well. This was performed according standard protocol. Offload: To maintain a strict nonweightbearing status with knee roller. Verbal consent was obtained to apply total contact cast. This was applied according to standard protocol in a rectus neutral well-padded manner. He tolerated this well. He was advised to keep this clean, dry, and intact. The indications benefits and anticipated management were reviewed. Vascular: His noninvasive vascular studies demonstrate evidence of micro vascular disease and a vascular specialist referral has been recommended in the past. I recommend this again at this time and he refuses. It is also noted he uses tobacco products and this can affect microvascular circulation. He was urged to quit. Edema: Tubigrip Infection: This is resolved. It is noted he was treated by infectious disease on an inpatient and outpatient basis. To monitor for return of infection signs. Pain: He is neuropathic and does not have pain at this time. Host factors: He is a diabetic and his last A1c on file was 6.7%. To continue to manage his glucose levels to optimize healing. I also recommend nutritional supplementation. He is already taking Mino. Nutrition: to continue mino supplementation to optimize healing. I answered all the patient's questions. To return to the wound healing center in 1 week or call sooner if the patient has any questions or concerns. Note: [employer] speech recognition adult remedial education instructor software was used to create portions of this document. Sound-alike and misspelled words, as well as other adult remedial education instructor errors may be contained in the documentation.
[2022-04-16 09:15] VITALS: BP 139/74; PULSE 74; RESP 18; TEMP 36.4; BMI 29.8
--- NOTE | 2022-04-16 09:25 | WC ---
fluid filled blister noted on dorsum right foot noted
--- NOTE | 2022-04-16 11:09 | PN.PCM_ITS ---
History of Present Illness Date of Service: 04/16/22 Chief Complaint: Right foot ulcers History of Wound: This 52-year-old male with history of diabetic neuropathy presents to the wound healing center for delayed healing of right foot ulcers. It is noted he had prior foot infections with a bedside incision and drainage performed by Dr. Jack on 12-05-21. He denies current fever, chill, nausea, vomiting, redness or odor. He has been using a wound VAC. He has been using a knee roller. He takes nutritional supplementation. He refuses vascular surgery referral as recommended previously. This ulcer has been present for over several months. He places weight on his heel if needed. He reports he had some motion in his cast while being pretty active last week and he now has a blister to the top of his foot. Progress of Wound: Improving Objective Data Objective Data Vital Signs: Vital Signs Temp Pulse Resp BP 97.5 F L 74 18 139/74 H 04/16/22 09:15 04/16/22 09:15 04/16/22 09:15 04/16/22 09:15 Oxygen Delivery Method Room Air Weight: 99.79 kg Body Mass Index (BMI) 29.8 Physical Exam Const alert and oriented x3 General Appearance: cooperative HEENT normocephalic Extremity Extremity Narrative: No calf tenderness Diminished pulses; palpable DP pulse and weak PT bilateral Muscle wasting noted General Extremity: edema and no tenderness to palpation of joints or extremities; Negative for cyanosis Skin Skin Narrative: no purulence, no streaking, no odor, no infection. Two plantar foot ulcers in which the more proximal one has exposed fascia/muscle tissue. The ulcer is more distal closer to the toes has a granular base. There is no other probe to bone. There is a lateral column rocker-bottom type foot shape noted and there is no laxity, calor, erythema or significant edema. There is no purulence on expression or adjacent erythema or streaking. New bulla with hematogenous drainage partially adhered outer layer of skin to the dorsal lateral foot without adjacent infection or deep tissue exposure. No remaining bogginess or fluctuance. Compartments remain soft to palpate General Skin Exam: Negative for erythema Neuro Neuro Narrative: lack of normal epicritic sensation via light touch is consistent with neuropathy status Psych cooperative and affect normal Debridement Note Debridement Note Wound debrided: plantar right foot (inferior and superior) Wound Grade/Stage: 2,1 Type of Debridement: Excisional debridement Anesthesia Used: 4% Lidocaine Solution Depth: in the subcutaneous layer Percentage of wound debrided: 100 Instrument Used: #15 blade Tissue Removed: fibrous, devitalized subcutaneous, biofilm, slough Severity: Fat Layer Exposed Amount of bleeding with debridement: Mild Bleeding Controlled with: Pressure Patient tolerated procedure: Patient tolerated procedure well Post-Debridement Measurements and Additional Note: Post-Debridement Measurements/Treatment - Nurse 1 - General Ulcer Assessment Start: 03/26/22 08:36 Freq: Status: Active Protocol: MARY JO Activity Type Activity Date Activity User E-sign Co-sign Detail Recorded Client Recorded Date Recorded By Document 03/26/22 08:36 MT [id number] 03/26/22 08:47 MT Document 04/02/22 08:53 ML [id number] 04/02/22 09:04 ML Document 04/09/22 09:19 DL [id number] 04/09/22 09:29 DL Document 04/16/22 09:15 RB [id number] 04/16/22 09:25 RB 03/26/22 04/02/22 04/09/22 08:36 08:53 09:19 - Today's Visit Information Type of service Follow-up Visit Follow-up Visit Follow-up Visit (Physician/DRY CLEANING MANAGER (Physician/DRY CLEANING MANAGER (Physician/DRY CLEANING MANAGER ) ) ) Arrival Mode Ambulatory Ambulatory Arrival Mode (Other) knee roller Transfer Assistance None None Accompanied by Patient Identification Verified (Name & Yes Yes Yes ) Patient Requires Transmission-Based No No Precautions Safety Precautions NA Finger Stick Blood Sugar(mg/dl) (if 160 170 indicated): Blood Sugar Stated by Stated by Patient Patient Height and Weight Body Mass Index (BMI) 29.8 29.8 29.8 BMI Classification Overweight Overweight Overweight Vital Signs Temperature (97.8 F-99.1 F) 97.0 F L 97.7 F L 96.7 F L Temperature Source Temporal Temporal Temporal Pulse Rate (60-100) 94 99 98 Pulse Location Monitor Monitor Monitor Respiratory Rate (12-18) 18 17 18 Respiratory rate source Observation Observation Observation Oxygen Delivery Method Room Air Blood Pressure (90/60-120/80) 142/77 H 150/83 H 148/74 H Blood Pressure Mean (mm Hg) 98 105 98 Source Monitor Monitor Monitor Position Sitting Sitting Blood Pressure Location Left Arm Right Arm History Since Last Visit- (Skip if this is Patient's initial visit) Have you changed medications since your No No last visit? Any new allergies or adverse reactions No No Had a fall/change in ADL's that may No No increase risk of falls Signs or symptoms of abuse and/or No No neglect since last visit Have you been in the hospital since your No No last visit? Has dressing in place as prescribed Yes Yes Yes Has compression in place as prescribed Yes Yes N/A Has offloadiing in place as prescribed Yes Yes Yes Experienced any changes in pain level or Yes No No management Left Footwear Diabetic Shoe Regular Shoe Right Footwear Diabetic Shoe Surgical Shoe with pressure relief insole Pain Scale: 0-10 Numeric Is Patient Pain Free? Yes Yes Yes 04/16/22 09:15 WC - Today's Visit Information Type of service Follow-up Visit (Physician/DRY CLEANING MANAGER ) Arrival Mode Ambulatory, Other Arrival Mode (Other) Transfer Assistance None Accompanied by Patient Identification Verified (Name & Yes ) Patient Requires Transmission-Based No Precautions Safety Precautions NA Finger Stick Blood Sugar(mg/dl) (if 151 indicated): Blood Sugar Stated by Patient Height and Weight Body Mass Index (BMI) 29.8 BMI Classification Overweight Vital Signs Temperature (97.8 F-99.1 F) 97.5 F L Temperature Source Temporal Pulse Rate (60-100) 74 Pulse Location Monitor Respiratory Rate (12-18) 18 Respiratory rate source Observation Oxygen Delivery Method Blood Pressure (90/60-120/80) 139/74 H Blood Pressure Mean (mm Hg) 95 Source Monitor Position Semi-Fowlers Blood Pressure Location Left Arm History Since Last Visit- (Skip if this is Patient's initial visit) Have you changed medications since your No last visit? Any new allergies or adverse reactions No Had a fall/change in ADL's that may No increase risk of falls Signs or symptoms of abuse and/or No neglect since last visit Have you been in the hospital since your No last visit? Has dressing in place as prescribed Yes Has compression in place as prescribed No Has offloadiing in place as prescribed Yes Experienced any changes in pain level or No management Left Footwear Regular Shoe Right Footwear Total Contact Cast Pain Scale: 0-10 Numeric Is Patient Pain Free? Yes WC - Nurse 1 - General Ulcer Measurement Start: 03/26/22 08:36 Freq: Status: Active Protocol: Activity Type Activity Date Activity User E-sign Co-sign Detail Recorded Client Recorded Date Recorded By Document 03/26/22 08:36 MT [id number] 03/26/22 08:47 MT Document 04/02/22 08:53 ML [id number] 04/02/22 09:04 ML Document 04/09/22 09:19 DL [id number] 04/09/22 09:29 DL Document 04/16/22 09:15 RB [id number] 04/16/22 09:25 RB 03/26/22 04/02/22 04/09/22 08:36 08:53 09:19 Wound Center Nurse 1 #2- R INFERIOR PLANTAR FOOT POST OP -Combined with other wound -Current Size (cm) - Length 2.5 2.5 2 -Current Size (cm) - Width 1.5 3 0.7 -Current Size (cm) - Depth 0.5 0.3 0.4 -Total Square Cm 3.75 7.5 1.4 -Photo Taken No -Tunneling -Undermining/Tunneling -Circular Undermining -Exudate Amt Small Medium Medium -Exudate Type Serosanguineous Serosanguineous Serosanguineous -Wound Margin Thickened & Distinct, Distinct, Rolled Under Outline Outline Attached Attached -Granulation Amt Medium (34-66%) Medium (34-66%) Large (67-100%) -Granulation Quality Pale,[place] Pale [place],Red -Slough/Fibrin Yes -Necrosis Amt Medium (34-66%) Medium (34-66%) Small (1-33%) -Necrotic Tissue Type Adherent Slough Adherent Slough -Structure Exposed -Texture (Lor-wound Skin Appearance) Assessed,Callus Assessed Scarring -Moisture (Lor-wound Skin Appearance) Assessed Assessed No Abnormality -Color (Lor-wound Skin Appearance) Assessed Assessed No Abnormality -Temperature (Lor-wound Skin No Abnormality No Abnormality No Abnormality Appearance) (Pt Warm) (Pt Warm) (Pt Warm) -Tenderness on Palpation (Lor-wound No No No Skin Appearance) -Ulcer Cleansing Wound Cleanser Soap and Water Soap and Water -Foul Odor after Cleansing No No No -Anesthetic Used 4% Lidocaine 5% Lidocaine 5% Lidocaine Solution Gel Gel #1- R SUPERIOR PLANTAR FOOTPOST OP -Combined with other wound -Current Size (cm) - Length 2.5 1 2.2 -Current Size (cm) - Width 0.9 1.5 1.1 -Current Size (cm) - Depth 0.5 0.2 0.3 -Total Square Cm 2.25 1.5 2.42 -Photo Taken No -Tunneling -Undermining/Tunneling -Circular Undermining -Exudate Amt Small Medium Medium -Exudate Type Serosanguineous Serosanguineous Serosanguineous -Wound Margin Thickened Distinct, Distinct, Outline Outline Attached Attached -Granulation Amt Medium (34-66%) Medium (34-66%) Large (67-100%) -Granulation Quality Pale,[place] Red -Slough/Fibrin Yes -Necrosis Amt Medium (34-66%) Medium (34-66%) Small (1-33%) -Necrotic Tissue Type Adherent Slough Adherent Slough -Structure Exposed N/A -Texture (Lor-wound Skin Appearance) Assessed Assessed Scarring -Moisture (Lor-wound Skin Appearance) Assessed Assessed No Abnormality -Color (Lor-wound Skin Appearance) Assessed Assessed No Abnormality -Temperature (Lor-wound Skin No Abnormality No Abnormality No Abnormality Appearance) (Pt Warm) (Pt Warm) (Pt Warm) -Tenderness on Palpation (Lor-wound No No No Skin Appearance) -Ulcer Cleansing Wound Cleanser Soap and Water Soap and Water -Foul Odor after Cleansing No No -Anesthetic Used 4% Lidocaine 5% Lidocaine 5% Lidocaine Solution Gel Gel Lower Limb Edema Present NA 04/16/22 09:15 Wound Center Nurse 1 #2- R INFERIOR PLANTAR FOOT POST OP -Combined with other wound No -Current Size (cm) - Length 1.6 -Current Size (cm) - Width 0.5 -Current Size (cm) - Depth 0.2 -Total Square Cm 0.80 -Photo Taken Yes -Tunneling No -Undermining/Tunneling No -Circular Undermining No -Exudate Amt Large -Exudate Type Serosanguineous -Wound Margin Distinct, Outline Attached -Granulation Amt Medium (34-66%) -Granulation Quality [place] -Slough/Fibrin Yes -Necrosis Amt Small (1-33%) -Necrotic Tissue Type Adherent Slough -Structure Exposed N/A -Texture (Lor-wound Skin Appearance) Assessed,Callus -Moisture (Lor-wound Skin Appearance) Assessed, Maceration -Color (Lor-wound Skin Appearance) Assessed -Temperature (Lor-wound Skin No Abnormality Appearance) (Pt Warm) -Tenderness on Palpation (Lor-wound No Skin Appearance) -Ulcer Cleansing Wound Cleanser -Foul Odor after Cleansing No -Anesthetic Used 5% Lidocaine Gel #1- R SUPERIOR PLANTAR FOOTPOST OP -Combined with other wound No -Current Size (cm) - Length 3 -Current Size (cm) - Width 1 -Current Size (cm) - Depth 0.1 -Total Square Cm 3 -Photo Taken Yes -Tunneling No -Undermining/Tunneling No -Circular Undermining No -Exudate Amt Large -Exudate Type Serosanguineous -Wound Margin Distinct, Outline Attached -Granulation Amt Medium (34-66%) -Granulation Quality [place] -Slough/Fibrin Yes -Necrosis Amt Medium (34-66%) -Necrotic Tissue Type Adherent Slough -Structure Exposed N/A -Texture (Lor-wound Skin Appearance) Assessed,Callus -Moisture (Lor-wound Skin Appearance) Assessed, Maceration -Color (Lor-wound Skin Appearance) Assessed -Temperature (Lor-wound Skin No Abnormality Appearance) (Pt Warm) -Tenderness on Palpation (Lor-wound No Skin Appearance) -Ulcer Cleansing Wound Cleanser -Foul Odor after Cleansing No -Anesthetic Used 5% Lidocaine Gel Lower Limb Edema Present 04/16/22 09:25 Wound Center by Angeles Ramirez fluid filled blister noted on dorsum right foot noted Initialized on 04/16/22 09:25 - END OF NOTE WC - Nurse 2 - General Ulcer CM Notes Start: 03/26/22 08:36 Freq: Status: Active Protocol: Activity Type Activity Date Activity User E-sign Co-sign Detail Recorded Client Recorded Date Recorded By Document 03/26/22 08:55 SARAH [id number] 03/26/22 09:08 SARAH Edit Result 03/26/22 08:55 SARAH (1) [id number] 03/27/22 07:34 SARAH Document 04/02/22 09:14 SARAH [id number] 04/02/22 09:22 SARAH Document 04/09/22 09:40 [id number] 04/09/22 09:43 JF Document 04/16/22 09:31 [id number] 04/16/22 09:37 JF (1) #2- R INFERIOR PLANTAR FOOT POST OP - Type of Procedure Incision & => Debridement Drainage => - Epicord (per sq cm) 4 => #1- R SUPERIOR PLANTAR FOOTPOST OP - Offloading => Yes - Type of Offloading Total Contact Cast => Knee Walker (TCC) - Left ($) => - Apply Skin Sub - 1st 25 sq cm - Feet 1 => 03/26/22 04/02/22 04/09/22 08:55 09:14 09:40 Wound Center Nurse 2 #2- R INFERIOR PLANTAR FOOT POST OP -Time 09:02 09:14 09:41 -Correct Patient Yes Yes Yes -Correct Side, Site, Position Yes Yes Yes -Correct Procedure Yes Yes Yes -Procedure Performed Yes Yes Yes -Type of Procedure Debridement Debridement Debridement -Clinical Debridement Subcutaneous Subcutaneous Subcutaneous -Tissue Removed Subcutaneous Subcutaneous Subcutaneous -Post Debridement (cm) - Length 2.3 2.3 2.0 -Post Debridement (cm) - Width 1.0 1.3 0.8 -Post Debridement (cm) - Depth 0.5 0.3 0.4 -Total Square (Post) (cm) 2.30 2.99 1.60 -Area of Debridement (cm) - Length 2.3 2.3 2.0 -Area of Debridement (cm) - Width 1.0 1.3 0.8 -Total Square (Area) (cm) 2.30 2.99 1.60 -Tunneling No No No -Undermining/Tunneling No No No -Circular Undermining No No No -Wound/Ulcer Outcome Not Healed Not Healed Not Healed -Ulcer Cleansing Rinsed/ Rinsed/ Rinsed/ Irrigated with Irrigated with Irrigated with Saline Saline Saline -Foul Odor after Cleansing No No No -Bioengineered Tissue Yes Yes Yes -Type of Bioengineered Tissue Epifix Epifix Epifix 18mm Disc -Expiration Date 12/24/26 12/24/26 12/24/26 -Product Lot Number [id number] -Percent Used 100 100 100 -Lot number of Saline Used [id number] -Bleeding Controlled with Pressure Pressure Pressure -Treatment Response Procedure Procedure Procedure Tolerated Well Tolerated Well Tolerated Well -Offloading Yes Yes Yes -Type of Offloading Knee Walker Knee Walker Total Contact Cast (TCC) - Right ($) -Debridement - Subq, 1st 20sq cm No No No -Apply Skin Sub - 1st 25 sq cm - Feet 1 1 1 -Epifix (per sq cm) 4 4 -Epifix 18mm Disc 3 #1- R SUPERIOR PLANTAR FOOTPOST OP -Time 08:57 09:15 09:42 -Correct Patient Yes Yes Yes -Correct Side, Site, Position Yes Yes Yes -Correct Procedure Yes Yes Yes -Procedure Performed Yes Yes Yes -Type of Procedure Debridement Debridement Debridement -Clinical Debridement Subcutaneous Subcutaneous Subcutaneous -Tissue Removed Subcutaneous Subcutaneous Subcutaneous -Post Debridement (cm) - Length 2.5 3.3 2.3 -Post Debridement (cm) - Width 1.0 1.2 1.1 -Post Debridement (cm) - Depth 0.5 0.3 0.3 -Total Square (Post) (cm) 2.50 3.96 2.53 -Area of Debridement (cm) - Length 2.5 3.3 2.3 -Area of Debridement (cm) - Width 1.0 1.3 1.1 -Total Square (Area) (cm) 2.50 4.29 2.53 -Tunneling No No No -Undermining/Tunneling No No No -Circular Undermining No No No -Wound/Ulcer Outcome Not Healed Not Healed Not Healed -Ulcer Cleansing Rinsed/ Rinsed/ Rinsed/ Irrigated with Irrigated with Irrigated with Saline Saline Saline -Foul Odor after Cleansing No No No -Bioengineered Tissue No No No -Bleeding Controlled with Pressure Pressure Pressure -Treatment Response Procedure Procedure Procedure Tolerated Well Tolerated Well Tolerated Well -Offloading Yes Yes No -Type of Offloading Knee Walker Knee Walker -Debridement - Subq, 1st 20sq cm Yes Yes Yes Pain Scale: 0-10 Numeric Is Patient Pain Free? Yes Yes Yes 04/16/22 09:31 Wound Center Nurse 2 #2- R INFERIOR PLANTAR FOOT POST OP -Time 09:31 -Correct Patient Yes -Correct Side, Site, Position Yes -Correct Procedure Yes -Procedure Performed Yes -Type of Procedure Debridement -Clinical Debridement Subcutaneous -Tissue Removed Subcutaneous -Post Debridement (cm) - Length 0.2 -Post Debridement (cm) - Width 0.5 -Post Debridement (cm) - Depth 0.2 -Total Square (Post) (cm) 0.10 -Area of Debridement (cm) - Length 0.2 -Area of Debridement (cm) - Width 0.5 -Total Square (Area) (cm) 0.10 -Tunneling No -Undermining/Tunneling No -Circular Undermining No -Wound/Ulcer Outcome Not Healed -Ulcer Cleansing Rinsed/ Irrigated with Saline -Foul Odor after Cleansing No -Bioengineered Tissue Yes -Type of Bioengineered Tissue Epifix 18mm Disc -Expiration Date 01/24/27 -Product Lot Number [id number] -Percent Used 100 -Lot number of Saline Used [id number] -Bleeding Controlled with Pressure -Treatment Response Procedure Tolerated Well -Offloading No -Type of Offloading -Debridement - Subq, 1st 20sq cm No -Apply Skin Sub - 1st 25 sq cm - Feet 1 -Epifix (per sq cm) -Epifix 18mm Disc 3 #1- R SUPERIOR PLANTAR FOOTPOST OP -Time 09:31 -Correct Patient Yes -Correct Side, Site, Position Yes -Correct Procedure Yes -Procedure Performed Yes -Type of Procedure Debridement -Clinical Debridement Subcutaneous -Tissue Removed Subcutaneous -Post Debridement (cm) - Length 2.6 -Post Debridement (cm) - Width 1.0 -Post Debridement (cm) - Depth 0.2 -Total Square (Post) (cm) 2.60 -Area of Debridement (cm) - Length 2.6 -Area of Debridement (cm) - Width 1.0 -Total Square (Area) (cm) 2.60 -Tunneling No -Undermining/Tunneling No -Circular Undermining No -Wound/Ulcer Outcome Not Healed -Ulcer Cleansing Rinsed/ Irrigated with Saline -Foul Odor after Cleansing Yes, Due to Product Use -Bioengineered Tissue No -Bleeding Controlled with Pressure -Treatment Response Procedure Tolerated Well -Offloading Yes -Type of Offloading Total Contact Cast (TCC) - Right ($) -Debridement - Subq, 1st 20sq cm Yes Pain Scale: 0-10 Numeric Is Patient Pain Free? Yes WC - Nurse 3 - General Ulcer D/C NN Start: 03/26/22 08:36 Freq: Status: Active Protocol: Activity Type Activity Date Activity User E-sign Co-sign Detail Recorded Client Recorded Date Recorded By Document 03/26/22 09:10 DL [id number] 03/26/22 09:12 DL Document 04/02/22 09:38 DL [id number] 04/02/22 09:40 DL Document 04/09/22 09:50 RB [id number] 04/09/22 09:52 RB Document 04/16/22 09:57 RB [id number] 04/16/22 09:58 RB 03/26/22 04/02/22 04/09/22 09:10 09:38 09:50 Wound Care Nurse 3 #2- R INFERIOR PLANTAR FOOT POST OP -Ulcer Cleansing Rinsed/ Irrigated with Saline -Foul Odor after Cleansing No No -Primary Dressing Applied Optilok 6.5x10 -Other Dressing Epifix epifix primary layer of TCC applied -Primary Dressing Covered/Secured with Dry Gauze & Dry Gauze & Secured with Roll Gauze, Roll Gauze, Tape Secured with Secured with Tape Tape -Optilok 6.5x10 1 #1- R SUPERIOR PLANTAR FOOTPOST OP -Ulcer Cleansing Rinsed/ Irrigated with Saline -Foul Odor after Cleansing No No -Other Dressing Epifix epifix optilock and primary layer of TCC applied -Primary Dressing Covered/Secured with Dry Gauze & Dry Gauze & Roll Gauze, Roll Gauze, Secured with Secured with Tape Tape -Other Covering narayan Treatment Response Procedure Procedure Procedure Tolerated Well Tolerated Well Tolerated Well Pain Scale: 0-10 Numeric Is Patient Pain Free? Yes Yes Yes WC - Visit Discharge Discharge Condition Stable Stable Stable Ambulatory Status Walker Ambulatory, Ambulatory Walker Transportation Private Auto Private Auto Private Auto Medication Reconcilliation completed & No provided to patient/care provider Clinical Summary of Care Provided Yes Notes: Vac D/Cd Facility Type Home Health Orders Sent Yes 04/16/22 09:57 Wound Care Nurse 3 #2- R INFERIOR PLANTAR FOOT POST OP -Ulcer Cleansing -Foul Odor after Cleansing -Primary Dressing Applied Optilok 6.5x10 -Other Dressing -Primary Dressing Covered/Secured with -Optilok 6.5x10 1 #1- R SUPERIOR PLANTAR FOOTPOST OP -Ulcer Cleansing -Foul Odor after Cleansing -Other Dressing superabsorber and primary layer ofTCC -Primary Dressing Covered/Secured with -Other Covering Treatment Response Procedure Tolerated Well Pain Scale: 0-10 Numeric Is Patient Pain Free? Yes WC - Visit Discharge Discharge Condition Stable Ambulatory Status Ambulatory Transportation Private Auto Medication Reconcilliation completed & No provided to patient/care provider Clinical Summary of Care Provided Yes Notes: adaptic and 1/3 abd pad on R dorsum fluid filled blister Facility Type Orders Sent Assessment/Plan Assessment/Plan (1) Non-pressure chronic ulcer of other part of right foot with necrosis of muscle: CODE(S): L97.513 - Non-pressure chronic ulcer of other part of right foot with necrosis of muscle (2) Non-pressure chronic ulcer of other part of right foot with fat layer exposed: CODE(S): L97.512 - Non-pressure chronic ulcer of other part of right foot with fat layer exposed (3) Type 2 diabetes mellitus with foot ulcer: CODE(S): E11.621 - Type 2 diabetes mellitus with foot ulcer; L97.509 - Non-pressure chronic ulcer of other part of unspecified foot with unspecified severity (4) Other specified peripheral vascular diseases: CODE(S): I73.89 - Other specified peripheral vascular diseases (5) Localized edema: CODE(S): R60.0 - Localized edema (6) Delayed healing of traumatic wound: CODE(S): T14.8XXD - Other injury of unspecified body region, subsequent encounter (7) Type 2 diabetes mellitus with diabetic polyneuropathy: CODE(S): E11.42 - Type 2 diabetes mellitus with diabetic polyneuropathy (8) Blister (nonthermal), right foot, initial encounter: CODE(S): S90.821A - Blister (nonthermal), right foot, initial encounter PLAN: Plan I reviewed and discussed his case today. Debridement was performed today as noted in the clinical panel to all of the ulcer sites. The following work up and care recommendations were made: Dressing: Keep secondary dressing clean, dry, and intact no follow-up next week. adaptic and gauze applied to dorsal foot Wash: Soap and water performed today Tissue growth optimization: I recommend application of advanced wound healing product, epi fix which was approved for the distal/inferior ulcer that has exposed fascial tissue. The benefits, indications, anticipated application and management were reviewed. He is amendable to proceed and prior authorization will be started. This is a limb salvage case and delayed healing in a continue manner could result in amputation, , and serial infections. Verbal consent was obtained. This was applied according standard protocol was further secured with a wound veil and Steri-Strips. 100% of the product was utilized. He tolerated this well. This was performed according standard protocol. Offload: To maintain a strict nonweightbearing status with knee roller. Verbal consent was obtained to apply total contact cast. This was applied according to standard protocol in a rectus neutral well-padded manner. He tolerated this well. He was advised to keep this clean, dry, and intact. The indications benefits and anticipated management were reviewed. To avoid excessive activity even with cast in place Vascular: His noninvasive vascular studies demonstrate evidence of micro vascular disease and a vascular specialist referral has been recommended in the past. I recommend this again at this time and he refuses. It is also noted he uses tobacco products and this can affect microvascular circulation. He was urged to quit. Edema: Tubigrip Infection: This is resolved. It is noted he was treated by infectious disease on an inpatient and outpatient basis. To monitor for return of infection signs. Pain: He is neuropathic and does not have pain at this time. Host factors: He is a diabetic and his last A1c on file was 6.7%. To continue to manage his glucose levels to optimize healing. I also recommend nutritional supplementation. He is already taking Mino. Nutrition: to continue mino supplementation to optimize healing. Verbal consent was obtained to drain the bulla on the dorsal foot. This was performed after isopropyl alcohol cleanse and only a small amount of hematogenous drainage was expressed. There is no purulence. He understands this may develop into an actual skin discontinuity and require wound care however for this week we will keep the skin intact as a biological barrier and this was further covered with a dressing. I answered all the patient's questions. To return to the wound healing center in 1 week or call sooner if the patient has any questions or concerns. Note: [employer] speech recognition system support administrator software was used to create portions of this document. Sound-alike and misspelled words, as well as other system support administrator errors may be contained in the documentation.
[2022-04-23 09:59] VITALS: BP 138/81; PULSE 102; RESP 16; TEMP 36.2; BMI 29.8
--- NOTE | 2022-04-23 10:33 | PN.PCM_ITS ---
History of Present Illness Date of Service: 04/23/22 Chief Complaint: Right foot ulcers History of Wound: This 52-year-old male with history of diabetic neuropathy presents to the wound healing center for delayed healing of right foot ulcers. It is noted he had prior foot infections with a bedside incision and drainage performed by Dr. Jack on 12-05-21. He denies current fever, chill, nausea, vomiting, redness or odor. He has been using a wound VAC. He has been using a knee roller. He takes nutritional supplementation. He refuses vascular surgery referral as recommended previously. This ulcer has been present for over several months. He places weight on his heel if needed. He is ready for another cast today. Progress of Wound: Improving Objective Data Objective Data Vital Signs: Vital Signs Temp Pulse Resp BP O2 Del Method 97.2 F L 102 H 16 138/81 H Room Air 04/23/22 09:59 04/23/22 09:59 04/23/22 09:59 04/23/22 09:59 04/23/22 09:59 Oxygen Delivery Method Room Air Weight: 99.79 kg Body Mass Index (BMI) 29.8 Physical Exam Const alert and oriented x3 General Appearance: cooperative HEENT normocephalic Extremity Extremity Narrative: No calf tenderness Diminished pulses; palpable DP pulse and weak PT bilateral Muscle wasting noted General Extremity: edema and no tenderness to palpation of joints or extremities; Negative for cyanosis Skin Skin Narrative: no purulence, no streaking, no odor, no infection. Two plantar foot ulcers granular bases today without exposed deeper tissue. The ulcer is more distal closer to the toes has a granular base. There is no other probe to bone. There is a lateral column rocker-bottom type foot shape noted and there is no laxity, calor, erythema or significant edema. There is no purulence on expression or adjacent erythema or streaking. incorporating outer skin from prior bulla noted and kept intact today. No remaining bogginess or fluctuance. Compartments remain soft to palpate General Skin Exam: Negative for erythema Neuro Neuro Narrative: lack of normal epicritic sensation via light touch is consistent with neuropathy status Psych cooperative and affect normal Debridement Note Debridement Note Wound debrided: plantar right foot (inferior and superior) Laterality: Right Wound Grade/Stage: 2,1 Type of Debridement: Excisional debridement Anesthesia Used: 4% Lidocaine Solution Depth: in the subcutaneous layer Percentage of wound debrided: 100 Instrument Used: #15 blade Tissue Removed: fibrous, devitalized subcutaneous, biofilm, slough Severity: Fat Layer Exposed Amount of bleeding with debridement: Mild Bleeding Controlled with: Pressure Patient tolerated procedure: Patient tolerated procedure well Post-Debridement Measurements and Additional Note: Post-Debridement Measurements/Treatment WC - Nurse 1 - General Ulcer Assessment Start: 03/26/22 08:36 Freq: Status: Active Protocol: MARY JO Activity Type Activity Date Activity User E-sign Co-sign Detail Recorded Client Recorded Date Recorded By Document 03/26/22 08:36 MT [id number] 03/26/22 08:47 MT Document 04/02/22 08:53 ML [id number] 04/02/22 09:04 ML Document 04/09/22 09:19 DL [id number] 04/09/22 09:29 DL Document 04/16/22 09:15 RB [id number] 04/16/22 09:25 RB Document 04/23/22 09:59 BMF [id number] 04/23/22 10:03 BMF 03/26/22 04/02/22 04/09/22 08:36 08:53 09:19 - Today's Visit Information Type of service Follow-up Visit Follow-up Visit Follow-up Visit (Physician/INSTRUCTIONAL RESOURCE TEACHER (Physician/INSTRUCTIONAL RESOURCE TEACHER (Physician/INSTRUCTIONAL RESOURCE TEACHER ) ) ) Arrival Mode Ambulatory Ambulatory Arrival Mode (Other) knee roller Transfer Assistance None None Accompanied by Patient Identification Verified (Name & Yes Yes Yes ) Patient Requires Transmission-Based No No Precautions Safety Precautions NA Finger Stick Blood Sugar(mg/dl) (if 160 170 indicated): Blood Sugar Stated by Stated by Patient Patient Height and Weight Body Mass Index (BMI) 29.8 29.8 29.8 BMI Classification Overweight Overweight Overweight Vital Signs Temperature (97.8 F-99.1 F) 97.0 F L 97.7 F L 96.7 F L Temperature Source Temporal Temporal Temporal Pulse Rate (60-100) 94 99 98 Pulse Location Monitor Monitor Monitor Respiratory Rate (12-18) 18 17 18 Respiratory rate source Observation Observation Observation Oxygen Delivery Method Room Air Blood Pressure (90/60-120/80) 142/77 H 150/83 H 148/74 H Blood Pressure Mean (mm Hg) 98 105 98 Source Monitor Monitor Monitor Position Sitting Sitting Blood Pressure Location Left Arm Right Arm History Since Last Visit- (Skip if this is Patient's initial visit) Have you changed medications since your No No last visit? Any new allergies or adverse reactions No No Had a fall/change in ADL's that may No No increase risk of falls Signs or symptoms of abuse and/or No No neglect since last visit Have you been in the hospital since your No No last visit? Has dressing in place as prescribed Yes Yes Yes Has compression in place as prescribed Yes Yes N/A Has offloadiing in place as prescribed Yes Yes Yes Experienced any changes in pain level or Yes No No management Left Footwear Diabetic Shoe Regular Shoe Right Footwear Diabetic Shoe Surgical Shoe with pressure relief insole Pain Scale: 0-10 Numeric Is Patient Pain Free? Yes Yes Yes 04/16/22 04/23/22 09:15 09:59 WC - Today's Visit Information Type of service Follow-up Visit Follow-up Visit (Physician/INSTRUCTIONAL RESOURCE TEACHER (Physician/INSTRUCTIONAL RESOURCE TEACHER ) ) Arrival Mode Ambulatory, Ambulatory, Other Walker Arrival Mode (Other) Transfer Assistance None None Accompanied by Patient Identification Verified (Name & Yes Yes ) Patient Requires Transmission-Based No No Precautions Safety Precautions NA Finger Stick Blood Sugar(mg/dl) (if 151 indicated): Blood Sugar Stated by Patient Height and Weight Body Mass Index (BMI) 29.8 29.8 BMI Classification Overweight Overweight Vital Signs Temperature (97.8 F-99.1 F) 97.5 F L 97.2 F L Temperature Source Temporal Temporal Pulse Rate (60-100) 74 102 H Pulse Location Monitor Monitor Respiratory Rate (12-18) 18 16 Respiratory rate source Observation Observation Oxygen Delivery Method Room Air Blood Pressure (90/60-120/80) 139/74 H 138/81 H Blood Pressure Mean (mm Hg) 95 100 Source Monitor Monitor Position Semi-Fowlers Sitting Blood Pressure Location Left Arm Right Arm History Since Last Visit- (Skip if this is Patient's initial visit) Have you changed medications since your No No last visit? Any new allergies or adverse reactions No No Had a fall/change in ADL's that may No No increase risk of falls Signs or symptoms of abuse and/or No No neglect since last visit Have you been in the hospital since your No No last visit? Has dressing in place as prescribed Yes Yes Has compression in place as prescribed No N/A Has offloadiing in place as prescribed Yes Yes Experienced any changes in pain level or No No management Left Footwear Regular Shoe Regular Shoe Right Footwear Total Contact Total Contact Cast Cast Pain Scale: 0-10 Numeric Is Patient Pain Free? Yes Yes WC - Nurse 1 - General Ulcer Measurement Start: 03/26/22 08:36 Freq: Status: Active Protocol: Activity Type Activity Date Activity User E-sign Co-sign Detail Recorded Client Recorded Date Recorded By Document 03/26/22 08:36 MT [id number] 03/26/22 08:47 MT Document 04/02/22 08:53 ML [id number] 04/02/22 09:04 ML Document 04/09/22 09:19 DL [id number] 04/09/22 09:29 DL Document 04/16/22 09:15 RB [id number] 04/16/22 09:25 RB Document 04/23/22 09:59 BMF [id number] 04/23/22 10:03 BMF 03/26/22 04/02/22 04/09/22 08:36 08:53 09:19 Wound Center Nurse 1 #2- R INFERIOR PLANTAR FOOT POST OP -Combined with other wound -Current Size (cm) - Length 2.5 2.5 2 -Current Size (cm) - Width 1.5 3 0.7 -Current Size (cm) - Depth 0.5 0.3 0.4 -Total Square Cm 3.75 7.5 1.4 -Date of Last Picture (Recall this field) -Photo Taken No -Epithelialization -Tunneling -Undermining/Tunneling -Circular Undermining -Exudate Amt Small Medium Medium -Exudate Type Serosanguineous Serosanguineous Serosanguineous -Wound Margin Thickened & Distinct, Distinct, Rolled Under Outline Outline Attached Attached -Granulation Amt Medium (34-66%) Medium (34-66%) Large (67-100%) -Granulation Quality Pale,[place] Pale [place],Red -Slough/Fibrin Yes -Necrosis Amt Medium (34-66%) Medium (34-66%) Small (1-33%) -Necrotic Tissue Type Adherent Slough Adherent Slough -Structure Exposed -Texture (Lor-wound Skin Appearance) Assessed,Callus Assessed Scarring -Moisture (Lor-wound Skin Appearance) Assessed Assessed No Abnormality -Color (Lor-wound Skin Appearance) Assessed Assessed No Abnormality -Temperature (Lor-wound Skin No Abnormality No Abnormality No Abnormality Appearance) (Pt Warm) (Pt Warm) (Pt Warm) -Tenderness on Palpation (Lor-wound No No No Skin Appearance) -Ulcer Cleansing Wound Cleanser Soap and Water Soap and Water -Foul Odor after Cleansing No No No -Anesthetic Used 4% Lidocaine 5% Lidocaine 5% Lidocaine Solution Gel Gel #1- R SUPERIOR PLANTAR FOOTPOST OP -Combined with other wound -Current Size (cm) - Length 2.5 1 2.2 -Current Size (cm) - Width 0.9 1.5 1.1 -Current Size (cm) - Depth 0.5 0.2 0.3 -Total Square Cm 2.25 1.5 2.42 -Date of Last Picture (Recall this field) -Photo Taken No -Epithelialization -Tunneling -Undermining/Tunneling -Circular Undermining -Exudate Amt Small Medium Medium -Exudate Type Serosanguineous Serosanguineous Serosanguineous -Wound Margin Thickened Distinct, Distinct, Outline Outline Attached Attached -Granulation Amt Medium (34-66%) Medium (34-66%) Large (67-100%) -Granulation Quality Pale,[place] Red -Slough/Fibrin Yes -Necrosis Amt Medium (34-66%) Medium (34-66%) Small (1-33%) -Necrotic Tissue Type Adherent Slough Adherent Slough -Structure Exposed N/A -Texture (Lor-wound Skin Appearance) Assessed Assessed Scarring -Moisture (Lor-wound Skin Appearance) Assessed Assessed No Abnormality -Color (Lor-wound Skin Appearance) Assessed Assessed No Abnormality -Temperature (Lor-wound Skin No Abnormality No Abnormality No Abnormality Appearance) (Pt Warm) (Pt Warm) (Pt Warm) -Tenderness on Palpation (Lor-wound No No No Skin Appearance) -Ulcer Cleansing Wound Cleanser Soap and Water Soap and Water -Foul Odor after Cleansing No No -Anesthetic Used 4% Lidocaine 5% Lidocaine 5% Lidocaine Solution Gel Gel Lower Limb Edema Present NA 04/16/22 04/23/22 09:15 09:59 Wound Center Nurse 1 #2- R INFERIOR PLANTAR FOOT POST OP -Combined with other wound No No -Current Size (cm) - Length 1.6 1.6 -Current Size (cm) - Width 0.5 0.6 -Current Size (cm) - Depth 0.2 0.3 -Total Square Cm 0.80 0.96 -Date of Last Picture (Recall this 04/23/22 field) -Photo Taken Yes Yes -Epithelialization Small 1-33% -Tunneling No No -Undermining/Tunneling No No -Circular Undermining No No -Exudate Amt Large Medium -Exudate Type Serosanguineous Serosanguineous -Wound Margin Distinct, Distinct, Outline Outline Attached Attached -Granulation Amt Medium (34-66%) Large (67-100%) -Granulation Quality [place] -Slough/Fibrin Yes Yes -Necrosis Amt Small (1-33%) Small (1-33%) -Necrotic Tissue Type Adherent Slough Adherent Slough -Structure Exposed N/A -Texture (Lor-wound Skin Appearance) Assessed,Callus Assessed, Scarring -Moisture (Lor-wound Skin Appearance) Assessed, Assessed, Maceration Maceration -Color (Lor-wound Skin Appearance) Assessed Assessed -Temperature (Lor-wound Skin No Abnormality No Abnormality Appearance) (Pt Warm) (Pt Warm) -Tenderness on Palpation (Lor-wound No No Skin Appearance) -Ulcer Cleansing Wound Cleanser Soap and Water -Foul Odor after Cleansing No No -Anesthetic Used 5% Lidocaine 5% Lidocaine Gel Gel #1- R SUPERIOR PLANTAR FOOTPOST OP -Combined with other wound No No -Current Size (cm) - Length 3 2.2 -Current Size (cm) - Width 1 1.4 -Current Size (cm) - Depth 0.1 0.3 -Total Square Cm 3 3.08 -Date of Last Picture (Recall this 04/23/22 field) -Photo Taken Yes Yes -Epithelialization Small 1-33% -Tunneling No No -Undermining/Tunneling No No -Circular Undermining No No -Exudate Amt Large Medium -Exudate Type Serosanguineous Serosanguineous -Wound Margin Distinct, Distinct, Outline Outline Attached Attached -Granulation Amt Medium (34-66%) Large (67-100%) -Granulation Quality [place] Pale -Slough/Fibrin Yes Yes -Necrosis Amt Medium (34-66%) Small (1-33%) -Necrotic Tissue Type Adherent Slough Adherent Slough -Structure Exposed N/A -Texture (Lor-wound Skin Appearance) Assessed,Callus Assessed, Scarring -Moisture (Lor-wound Skin Appearance) Assessed, Assessed, Maceration Maceration -Color (Lor-wound Skin Appearance) Assessed Assessed -Temperature (Lor-wound Skin No Abnormality No Abnormality Appearance) (Pt Warm) (Pt Warm) -Tenderness on Palpation (Lor-wound No No Skin Appearance) -Ulcer Cleansing Wound Cleanser Soap and Water -Foul Odor after Cleansing No No -Anesthetic Used 5% Lidocaine 5% Lidocaine Gel Gel Lower Limb Edema Present 04/16/22 09:25 Wound Center by Angeles Ramirez fluid filled blister noted on dorsum right foot noted Initialized on 04/16/22 09:25 - END OF NOTE WC - Nurse 2 - General Ulcer CM Notes Start: 03/26/22 08:36 Freq: Status: Active Protocol: Activity Type Activity Date Activity User E-sign Co-sign Detail Recorded Client Recorded Date Recorded By Document 03/26/22 08:55 [id number] 03/26/22 09:08 Edit Result 03/26/22 08:55 JF (1) [id number] 03/27/22 07:34 Document 04/02/22 09:14 [id number] 04/02/22 09:22 Document 04/09/22 09:40 [id number] 04/09/22 09:43 Document 04/16/22 09:31 [id number] 04/16/22 09:37 Document 04/23/22 10:15 PL [id number] 04/23/22 10:18 PL (1) #2- R INFERIOR PLANTAR FOOT POST OP - Type of Procedure Incision & => Debridement Drainage => - Epicord (per sq cm) 4 => #1- R SUPERIOR PLANTAR FOOTPOST OP - Offloading => Yes - Type of Offloading Total Contact Cast => Knee Walker (TCC) - Left ($) => - Apply Skin Sub - 1st 25 sq cm - Feet 1 => 03/26/22 04/02/22 04/09/22 08:55 09:14 09:40 Wound Center Nurse 2 #2- R INFERIOR PLANTAR FOOT POST OP -Time 09:02 09:14 09:41 -Correct Patient Yes Yes Yes -Correct Side, Site, Position Yes Yes Yes -Correct Procedure Yes Yes Yes -Procedure Performed Yes Yes Yes -Type of Procedure Debridement Debridement Debridement -Clinical Debridement Subcutaneous Subcutaneous Subcutaneous -Tissue Removed Subcutaneous Subcutaneous Subcutaneous -Post Debridement (cm) - Length 2.3 2.3 2.0 -Post Debridement (cm) - Width 1.0 1.3 0.8 -Post Debridement (cm) - Depth 0.5 0.3 0.4 -Total Square (Post) (cm) 2.30 2.99 1.60 -Area of Debridement (cm) - Length 2.3 2.3 2.0 -Area of Debridement (cm) - Width 1.0 1.3 0.8 -Total Square (Area) (cm) 2.30 2.99 1.60 -Tunneling No No No -Undermining/Tunneling No No No -Circular Undermining No No No -Wound/Ulcer Outcome Not Healed Not Healed Not Healed -Ulcer Cleansing Rinsed/ Rinsed/ Rinsed/ Irrigated with Irrigated with Irrigated with Saline Saline Saline -Foul Odor after Cleansing No No No -Bioengineered Tissue Yes Yes Yes -Type of Bioengineered Tissue Epifix Epifix Epifix 18mm Disc -Expiration Date 12/24/26 12/24/26 12/24/26 -Product Lot Number [id number] -Percent Used 100 100 100 -Lot number of Saline Used [id number] -Bleeding Controlled with Pressure Pressure Pressure -Treatment Response Procedure Procedure Procedure Tolerated Well Tolerated Well Tolerated Well -Offloading Yes Yes Yes -Type of Offloading Knee Walker Knee Walker Total Contact Cast (TCC) - Right ($) -Debridement - Subq, 1st 20sq cm No No No -Apply Skin Sub - 1st 25 sq cm - Feet 1 1 1 -Epifix (per sq cm) 4 4 -Epifix 18mm Disc 3 #1- R SUPERIOR PLANTAR FOOTPOST OP -Time 08:57 09:15 09:42 -Correct Patient Yes Yes Yes -Correct Side, Site, Position Yes Yes Yes -Correct Procedure Yes Yes Yes -Procedure Performed Yes Yes Yes -Type of Procedure Debridement Debridement Debridement -Clinical Debridement Subcutaneous Subcutaneous Subcutaneous -Tissue Removed Subcutaneous Subcutaneous Subcutaneous -Post Debridement (cm) - Length 2.5 3.3 2.3 -Post Debridement (cm) - Width 1.0 1.2 1.1 -Post Debridement (cm) - Depth 0.5 0.3 0.3 -Total Square (Post) (cm) 2.50 3.96 2.53 -Area of Debridement (cm) - Length 2.5 3.3 2.3 -Area of Debridement (cm) - Width 1.0 1.3 1.1 -Total Square (Area) (cm) 2.50 4.29 2.53 -Tunneling No No No -Undermining/Tunneling No No No -Circular Undermining No No No -Wound/Ulcer Outcome Not Healed Not Healed Not Healed -Ulcer Cleansing Rinsed/ Rinsed/ Rinsed/ Irrigated with Irrigated with Irrigated with Saline Saline Saline -Foul Odor after Cleansing No No No -Bioengineered Tissue No No No -Bleeding Controlled with Pressure Pressure Pressure -Treatment Response Procedure Procedure Procedure Tolerated Well Tolerated Well Tolerated Well -Offloading Yes Yes No -Type of Offloading Knee Walker Knee Walker -Debridement - Subq, 1st 20sq cm Yes Yes Yes Pain Scale: 0-10 Numeric Is Patient Pain Free? Yes Yes Yes 04/16/22 04/23/22 09:31 10:15 Wound Center Nurse 2 #2- R INFERIOR PLANTAR FOOT POST OP -Time 09:31 10:10 -Correct Patient Yes Yes -Correct Side, Site, Position Yes Yes -Correct Procedure Yes Yes -Procedure Performed Yes Yes -Type of Procedure Debridement Debridement -Clinical Debridement Subcutaneous Subcutaneous -Tissue Removed Subcutaneous Subcutaneous -Post Debridement (cm) - Length 0.2 1.5 -Post Debridement (cm) - Width 0.5 0.7 -Post Debridement (cm) - Depth 0.2 0.2 -Total Square (Post) (cm) 0.10 1.05 -Area of Debridement (cm) - Length 0.2 1.5 -Area of Debridement (cm) - Width 0.5 0.7 -Total Square (Area) (cm) 0.10 1.05 -Tunneling No No -Undermining/Tunneling No No -Circular Undermining No No -Wound/Ulcer Outcome Not Healed Not Healed -Ulcer Cleansing Rinsed/ Rinsed/ Irrigated with Irrigated with Saline Saline -Foul Odor after Cleansing No No -Bioengineered Tissue Yes Yes -Type of Bioengineered Tissue Epifix 18mm Epifix 18mm Disc Disc -Expiration Date 01/24/27 01/24/27 -Product Lot Number [id number] -Percent Used 100 100 -Lot number of Saline Used [id number] -Bleeding Controlled with Pressure Pressure -Treatment Response Procedure Procedure Tolerated Well Tolerated Well -Offloading No -Type of Offloading -Debridement - Subq, 1st 20sq cm No No -Apply Skin Sub - 1st 25 sq cm - Feet 1 1 -Epifix (per sq cm) -Epifix 18mm Disc 3 3 #1- R SUPERIOR PLANTAR FOOTPOST OP -Time 09:31 10:10 -Correct Patient Yes Yes -Correct Side, Site, Position Yes Yes -Correct Procedure Yes Yes -Procedure Performed Yes Yes -Type of Procedure Debridement Debridement -Clinical Debridement Subcutaneous Subcutaneous -Tissue Removed Subcutaneous Subcutaneous -Post Debridement (cm) - Length 2.6 1.5 -Post Debridement (cm) - Width 1.0 0.4 -Post Debridement (cm) - Depth 0.2 0.1 -Total Square (Post) (cm) 2.60 0.60 -Area of Debridement (cm) - Length 2.6 1.5 -Area of Debridement (cm) - Width 1.0 0.4 -Total Square (Area) (cm) 2.60 0.60 -Tunneling No No -Undermining/Tunneling No No -Circular Undermining No No -Wound/Ulcer Outcome Not Healed Not Healed -Ulcer Cleansing Rinsed/ Rinsed/ Irrigated with Irrigated with Saline Saline -Foul Odor after Cleansing Yes, Due to No Product Use -Bioengineered Tissue No No -Bleeding Controlled with Pressure Pressure -Treatment Response Procedure Procedure Tolerated Well Tolerated Well -Offloading Yes -Type of Offloading Total Contact Cast (TCC) - Right ($) -Debridement - Subq, 1st 20sq cm Yes No Pain Scale: 0-10 Numeric Is Patient Pain Free? Yes Yes WC - Nurse 3 - General Ulcer D/C NN Start: 03/26/22 08:36 Freq: Status: Active Protocol: Activity Type Activity Date Activity User E-sign Co-sign Detail Recorded Client Recorded Date Recorded By Document 03/26/22 09:10 DL [id number] 03/26/22 09:12 DL Document 04/02/22 09:38 DL [id number] 04/02/22 09:40 DL Document 04/09/22 09:50 RB [id number] 04/09/22 09:52 RB Document 04/16/22 09:57 RB [id number] 04/16/22 09:58 RB 03/26/22 04/02/22 04/09/22 09:10 09:38 09:50 Wound Care Nurse 3 #2- R INFERIOR PLANTAR FOOT POST OP -Ulcer Cleansing Rinsed/ Irrigated with Saline -Foul Odor after Cleansing No No -Primary Dressing Applied Optilok 6.5x10 -Other Dressing Epifix epifix primary layer of TCC applied -Primary Dressing Covered/Secured with Dry Gauze & Dry Gauze & Secured with Roll Gauze, Roll Gauze, Tape Secured with Secured with Tape Tape -Optilok 6.5x10 1 #1- R SUPERIOR PLANTAR FOOTPOST OP -Ulcer Cleansing Rinsed/ Irrigated with Saline -Foul Odor after Cleansing No No -Other Dressing Epifix epifix optilock and primary layer of TCC applied -Primary Dressing Covered/Secured with Dry Gauze & Dry Gauze & Roll Gauze, Roll Gauze, Secured with Secured with Tape Tape -Other Covering narayan Treatment Response Procedure Procedure Procedure Tolerated Well Tolerated Well Tolerated Well Pain Scale: 0-10 Numeric Is Patient Pain Free? Yes Yes Yes WC - Visit Discharge Discharge Condition Stable Stable Stable Ambulatory Status Walker Ambulatory, Ambulatory Walker Transportation Private Auto Private Auto Private Auto Medication Reconcilliation completed & No provided to patient/care provider Clinical Summary of Care Provided Yes Notes: Vac D/Cd Facility Type Home Health Orders Sent Yes 04/16/22 09:57 Wound Care Nurse 3 #2- R INFERIOR PLANTAR FOOT POST OP -Ulcer Cleansing -Foul Odor after Cleansing -Primary Dressing Applied Optilok 6.5x10 -Other Dressing -Primary Dressing Covered/Secured with -Optilok 6.5x10 1 #1- R SUPERIOR PLANTAR FOOTPOST OP -Ulcer Cleansing -Foul Odor after Cleansing -Other Dressing superabsorber and primary layer ofTCC -Primary Dressing Covered/Secured with -Other Covering Treatment Response Procedure Tolerated Well Pain Scale: 0-10 Numeric Is Patient Pain Free? Yes WC - Visit Discharge Discharge Condition Stable Ambulatory Status Ambulatory Transportation Private Auto Medication Reconcilliation completed & No provided to patient/care provider Clinical Summary of Care Provided Yes Notes: adaptic and 1/3 abd pad on R dorsum fluid filled blister Facility Type Orders Sent Assessment/Plan Assessment/Plan (1) Non-pressure chronic ulcer of other part of right foot with necrosis of muscle: CODE(S): L97.513 - Non-pressure chronic ulcer of other part of right foot with necrosis of muscle (2) Non-pressure chronic ulcer of other part of right foot with fat layer exposed: CODE(S): L97.512 - Non-pressure chronic ulcer of other part of right foot with fat layer exposed (3) Type 2 diabetes mellitus with foot ulcer: CODE(S): E11.621 - Type 2 diabetes mellitus with foot ulcer; L97.509 - Non-pressure chronic ulcer of other part of unspecified foot with unspecified severity (4) Other specified peripheral vascular diseases: CODE(S): I73.89 - Other specified peripheral vascular diseases (5) Localized edema: CODE(S): R60.0 - Localized edema (6) Delayed healing of traumatic wound: CODE(S): T14.8XXD - Other injury of unspecified body region, subsequent encounter (7) Type 2 diabetes mellitus with diabetic polyneuropathy: CODE(S): E11.42 - Type 2 diabetes mellitus with diabetic polyneuropathy (8) Blister (nonthermal), right foot, initial encounter: CODE(S): S90.821A - Blister (nonthermal), right foot, initial encounter PLAN: Plan I reviewed and discussed his case today. Debridement was performed today as noted in the clinical panel to all of the ulcer sites. The following work up and care recommendations were made: Dressing: Keep secondary dressing clean, dry, and intact no follow-up next week. adaptic and gauze applied to dorsal foot Wash: Soap and water performed today Tissue growth optimization: I recommend application of advanced wound healing product, epi fix which was approved for the distal/inferior ulcer that has exposed fascial tissue. The benefits, indications, anticipated application and management were reviewed. He is amendable to proceed and prior authorization will be started. This is a limb salvage case and delayed healing in a continue manner could result in amputation, , and serial infections. Verbal consent was obtained. This was applied according standard protocol was further secured with a wound veil and Steri-Strips. 100% of the product was utilized. He tolerated this well. This was performed according standard protocol. Offload: To maintain a strict nonweightbearing status with knee roller. Verbal consent was obtained to apply total contact cast. This was applied according to standard protocol in a rectus neutral well-padded manner. He tolerated this well. He was advised to keep this clean, dry, and intact. The indications benefits and anticipated management were reviewed. To avoid excessive activity even with cast in place Vascular: His noninvasive vascular studies demonstrate evidence of micro vascular disease and a vascular specialist referral has been recommended in the past. I recommend this again at this time and he refuses. It is also noted he uses tobacco products and this can affect microvascular circulation. He was urged to quit. Edema: Tubigrip Infection: This is resolved. It is noted he was treated by infectious disease on an inpatient and outpatient basis. To monitor for return of infection signs. Pain: He is neuropathic and does not have pain at this time. Host factors: He is a diabetic and his last A1c on file was 6.7%. To continue to manage his glucose levels to optimize healing. I also recommend nutritional supplementation. He is already taking Mino. Nutrition: to continue mino supplementation to optimize healing. bulla intact. skin left as biologic barrier. no infection or defined wound noted today. I answered all the patient's questions. To return to the wound healing center in 1 week or call sooner if the patient has any questions or concerns. Note: [employer] [place] speech recognition computer designer software was used to create p ortions of this document. Sound-alike and misspelled words, as well as other computer designer errors may be contained in the documentation.
== END 2022-04-24 23:59 | disposition home or self-care (01) ==
LOC: WC 09:45
PROVIDERS: PCP Family Medicine; Referring Provider Podiatrist; Visit Provider Podiatrist
DX: E11.621 Type 2 diabetes mellitus with foot ulcer (principal); E11.51 Type 2 diabetes mellitus with diabetic peripheral angiopathy without gangrene; L97.513 Non-pressure chronic ulcer of other part of right foot with necrosis of muscle; L97.512 Non-pressure chronic ulcer of other part of right foot with fat layer exposed; E11.42 Type 2 diabetes mellitus with diabetic polyneuropathy; R60.0 Localized edema; T14.8XXD Other injury of unspecified body region, subsequent encounter; S90.812A Abrasion, left foot, initial encounter
CPT/HCPCS: 11042; 15275; 29445; Q4186; Q4187

== ENCOUNTER 2022-05-21 08:30 | Outpatient (RCR) | payer BC, SELFPAY ==
[2022-04-25 00:43] VITALS: BP 138/81; PULSE 102; RESP 16; TEMP 36.2; BMI 29.8
[2022-04-30 09:27] VITALS: BP 143/80; PULSE 101; RESP 16; BMI 29.8
--- NOTE | 2022-04-30 09:59 | PCM.WC.PN ---
History of Present Illness Date of Service: 04/30/22 Chief Complaint: Right foot ulcers History of Wound: This 52-year-old male with history of diabetic neuropathy presents to the wound healing center for delayed healing of right foot ulcers. It is noted he had prior foot infections with a bedside incision and drainage performed by Dr. Jack on 12-05-21. He denies current fever, chill, nausea, vomiting, redness or odor. He has been using a wound VAC. He has been using a knee roller. He takes nutritional supplementation. He refuses vascular surgery referral as recommended previously. This ulcer has been present for over several months. He places weight on his heel if needed. He is ready for another cast today and reports he is doing well. Progress of Wound: improving healed blister site dorsal right foot also Objective Data Objective Data Vital Signs: Vital Signs Temp Pulse Resp BP O2 Del Method 97.2 F L 101 H 16 143/80 H Room Air 04/25/22 00:43 04/30/22 09:27 04/30/22 09:27 04/30/22 09:27 04/30/22 09:27 Oxygen Delivery Method Room Air Weight: 99.79 kg Body Mass Index (BMI) 29.8 Physical Exam Const alert and oriented x3 General Appearance: cooperative HEENT normocephalic Extremity Extremity Narrative: No calf tenderness Diminished pulses; palpable DP pulse and weak PT bilateral Muscle wasting noted General Extremity: edema and no tenderness to palpation of joints or extremities; Negative for cyanosis Skin Skin Narrative: no purulence, no streaking, no odor, no infection. Two plantar foot ulcers granular bases today without exposed deeper tissue. The ulcer is more distal closer to the toes has a granular base. There is no other probe to bone. There is a lateral column rocker-bottom type foot shape noted and there is no laxity, calor, erythema or significant edema. There is no purulence on expression or adjacent erythema or streaking. incorporating outer skin from prior bulla noted noted and upon removal this site has full epithelialization noted today. No remaining bogginess or fluctuance. Compartments remain soft to palpate General Skin Exam: Negative for erythema Neuro Neuro Narrative: lack of normal epicritic sensation via light touch is consistent with neuropathy status Psych cooperative and affect normal Debridement Note Debridement Note Wound debrided: plantar right foot (inferior and superior) Laterality: Right Wound Grade/Stage: 2,1 Type of Debridement: Excisional debridement Anesthesia Used: 4% Lidocaine Solution Depth: in the subcutaneous layer Percentage of wound debrided: 100 Instrument Used: #15 blade Tissue Removed: fibrous, devitalized subcutaneous, biofilm, slough Severity: Fat Layer Exposed Amount of bleeding with debridement: Mild Bleeding Controlled with: Pressure Patient tolerated procedure: Patient tolerated procedure well Debridement Free Text: post debridement measurement 8x4x1 mm (predebridement as noted in nursing panel) and plantar left foot and 2x1x1 mm (distal most-predebridement [id number]) Post-Debridement Measurements and Additional Note: Post-Debridement Measurements/Treatment - Nurse 1 - General Ulcer Assessment Start: 04/30/22 09:27 Freq: Status: Active Protocol: MARY JO Activity Type Activity Date Activity User E-sign Co-sign Detail Recorded Client Recorded Date Recorded By Document 04/30/22 09:27 [facility] [id number] 04/30/22 09:41 [facility] 04/30/22 09:27 WC - Today's Visit Information Type of service Follow-up Visit (Physician/POWER DISTRIBUTOR ) Arrival Mode Ambulatory, Walker Arrival Mode (Other) knee walker Transfer Assistance None Accompanied by Patient Identification Verified (Name & Yes ) Patient Requires Transmission-Based No Precautions Height and Weight Body Mass Index (BMI) 29.8 BMI Classification Overweight Vital Signs Pulse Rate (60-100) 101 H Pulse Location Monitor Respiratory Rate (12-18) 16 Respiratory rate source Observation Oxygen Delivery Method Room Air Blood Pressure (90/60-120/80) 143/80 H Blood Pressure Mean (mm Hg) 101 Source Monitor Position Sitting Blood Pressure Location Right Arm History Since Last Visit- (Skip if this is Patient's initial visit) Have you changed medications since your No last visit? Any new allergies or adverse reactions No Had a fall/change in ADL's that may No increase risk of falls Signs or symptoms of abuse and/or No neglect since last visit Have you been in the hospital since your No last visit? Has dressing in place as prescribed Yes Has compression in place as prescribed N/A Has offloadiing in place as prescribed Yes Experienced any changes in pain level or No management Left Footwear Regular Shoe Right Footwear Total Contact Cast Pain Scale: 0-10 Numeric Is Patient Pain Free? Yes - Nurse 1 - General Ulcer Measurement Start: 04/30/22 09:27 Freq: Status: Active Protocol: Activity Type Activity Date Activity User E-sign Co-sign Detail Recorded Client Recorded Date Recorded By Document 04/30/22 09:27 [facility] [id number] 04/30/22 09:41 [facility] 04/30/22 09:27 Wound Center Nurse 1 #2- R INFERIOR PLANTAR FOOT POST OP -Combined with other wound No -Current Size (cm) - Length 2.8 -Current Size (cm) - Width 0.5 -Current Size (cm) - Depth 0.3 -Total Square Cm 1.40 -Date of Last Picture (Recall this 04/30/22 field) -Photo Taken Yes -Epithelialization Small 1-33% -Tunneling No -Undermining/Tunneling No -Circular Undermining No -Exudate Amt Medium -Exudate Type Serosanguineous -Wound Margin Distinct, Outline Attached -Granulation Amt Medium (34-66%) -Granulation Quality [place] -Slough/Fibrin Yes -Necrosis Amt Medium (34-66%) -Necrotic Tissue Type Adherent Slough -Texture (Lor-wound Skin Appearance) Assessed, Scarring -Moisture (Lor-wound Skin Appearance) Assessed, Maceration -Color (Lor-wound Skin Appearance) Assessed -Temperature (Lor-wound Skin No Abnormality Appearance) (Pt Warm) -Tenderness on Palpation (Lor-wound No Skin Appearance) -Ulcer Cleansing Soap and Water -Foul Odor after Cleansing No -Anesthetic Used 5% Lidocaine Gel #1- R SUPERIOR PLANTAR FOOTPOST OP -Combined with other wound No -Current Size (cm) - Length 0.7 -Current Size (cm) - Width 0.3 -Current Size (cm) - Depth 0.1 -Total Square Cm 0.21 -Date of Last Picture (Recall this 04/30/22 field) -Photo Taken Yes -Epithelialization Medium 34-66% -Tunneling No -Undermining/Tunneling No -Circular Undermining No -Exudate Amt Small -Exudate Type Serous -Wound Margin Distinct, Outline Attached -Granulation Amt Large (67-100%) -Granulation Quality [place] -Slough/Fibrin Yes -Necrosis Amt Small (1-33%) -Necrotic Tissue Type Adherent Slough -Texture (Lor-wound Skin Appearance) Assessed, Scarring -Moisture (Lor-wound Skin Appearance) Assessed, Maceration -Color (Lor-wound Skin Appearance) Assessed -Temperature (Lor-wound Skin No Abnormality Appearance) (Pt Warm) -Tenderness on Palpation (Lor-wound No Skin Appearance) -Ulcer Cleansing Soap and Water -Foul Odor after Cleansing No -Anesthetic Used 5% Lidocaine Gel Right Calf (cm) 38.5 Right Ankle (cm) 24.6 Assessment/Plan Assessment/Plan (1) Non-pressure chronic ulcer of other part of right foot with necrosis of muscle: CODE(S): L97.513 - Non-pressure chronic ulcer of other part of right foot with necrosis of muscle (2) Non-pressure chronic ulcer of other part of right foot with fat layer exposed: CODE(S): L97.512 - Non-pressure chronic ulcer of other part of right foot with fat layer exposed (3) Type 2 diabetes mellitus with foot ulcer: CODE(S): E11.621 - Type 2 diabetes mellitus with foot ulcer; L97.509 - Non-pressure chronic ulcer of other part of unspecified foot with unspecified severity (4) Other specified peripheral vascular diseases: CODE(S): I73.89 - Other specified peripheral vascular diseases (5) Localized edema: CODE(S): R60.0 - Localized edema (6) Delayed healing of traumatic wound: CODE(S): T14.8XXD - Other injury of unspecified body region, subsequent encounter (7) Type 2 diabetes mellitus with diabetic polyneuropathy: CODE(S): E11.42 - Type 2 diabetes mellitus with diabetic polyneuropathy (8) Blister (nonthermal), right foot, initial encounter: CODE(S): S90.821A - Blister (nonthermal), right foot, initial encounter PLAN: Plan I reviewed and discussed his case today. Debridement was performed today as noted in the clinical panel to all of the ulcer sites. The following work up and care recommendations were made: Dressing: Keep secondary dressing clean, dry, and intact no follow-up next week. adaptic and gauze applied to dorsal foot after dry blister outer skin gently removed today Wash: Soap and water performed today Tissue growth optimization: I recommend application of advanced wound healing product, epi fix which was approved for the distal/inferior ulcer that has exposed fascial tissue. The benefits, indications, anticipated application and management were reviewed. He is amendable to proceed and prior authorization will be started. This is a limb salvage case and delayed healing in a continue manner could result in amputation, , and serial infections. Verbal consent was obtained. This was applied according standard protocol was further secured with a wound veil and Steri-Strips. 100% of the product was utilized. He tolerated this well. This was performed according standard protocol. Offload: To maintain a strict nonweightbearing status with knee roller. Verbal consent was obtained to apply total contact cast. This was applied according to standard protocol in a rectus neutral well-padded manner. He tolerated this well. He was advised to keep this clean, dry, and intact. The indications benefits and anticipated management were reviewed. To avoid excessive activity even with cast in place Vascular: His noninvasive vascular studies demonstrate evidence of micro vascular disease and a vascular specialist referral has been recommended in the past. I recommend this again at this time and he refuses. It is also noted he uses tobacco products and this can affect microvascular circulation. He was urged to quit. Edema: Tubigrip Infection: This is resolved. It is noted he was treated by infectious disease on an inpatient and outpatient basis. To monitor for return of infection signs. Pain: He is neuropathic and does not have pain at this time. Host factors: He is a diabetic and his last A1c on file was 6.7%. To continue to manage his glucose levels to optimize healing. I also recommend nutritional supplementation. He is already taking Chaim. Nutrition: to continue chaim supplementation to optimize healing. I answered all the patient's questions. To return to the wound healing center in 1 week or call sooner if the patient has any questions or concerns. Note: [employer] speech recognition rn cvicu software was used to create portions of this document. Sound-alike and misspelled words, as well as other rn cvicu errors may be contained in the documentation.
[2022-05-07 08:34] VITALS: BP 144/78; PULSE 98; RESP 16; TEMP 36.6; BMI 29.8
--- NOTE | 2022-05-07 19:35 | PN.PCM_ITS ---
History of Present Illness Date of Service: 05/07/22 Chief Complaint: Right foot ulcers History of Wound: This 52-year-old male with history of diabetic neuropathy presents to the wound healing center for delayed healing of right foot ulcers. It is noted he had prior foot infections with a bedside incision and drainage performed by Dr. Jack on 12-05-21. He denies current fever, chill, nausea, vomiting, redness or odor. He has been using a wound VAC. He has been using a knee roller. He takes nutritional supplementation. He refuses vascular surgery referral as recommended previously. This ulcer has been present for over several months. He places weight on his heel if needed. He also complains of a new heel blister from placing weight on the heel and pivoting on a routine basis while at work. He is concerned he has a new ulcer. Progress of Wound: improving healed blister site dorsal right foot also Objective Data Objective Data Vital Signs: Vital Signs Temp Pulse Resp BP O2 Del Method 97.8 F 98 16 144/78 H Room Air 05/07/22 08:34 05/07/22 08:34 05/07/22 08:34 05/07/22 08:34 05/07/22 08:34 Oxygen Delivery Method Room Air Weight: 99.79 kg Body Mass Index (BMI) 29.8 Physical Exam Const alert and oriented x3 General Appearance: cooperative HEENT normocephalic Extremity Extremity Narrative: No calf tenderness Diminished pulses; palpable DP pulse and weak PT bilateral Muscle wasting noted General Extremity: edema and no tenderness to palpation of joints or extremities; Negative for cyanosis Skin Skin Narrative: no purulence, no streaking, no odor, no infection. Two plantar foot ulcers granular bases today without exposed deeper tissue and the ulcer that is more distal closer to the toes has healed with full epithelialization. There is no other probe to bone. There is a lateral column rocker-bottom type foot shape noted and there is no laxity, calor, erythema or significant edema. There is no purulence on expression or adjacent erythema or streaking. No remaining bogginess or fluctuance. Compartments remain soft to palpate new blister to heel without wound or infection noted after debridement of peeling skin. no blanching or bogginess. General Skin Exam: Negative for erythema Neuro Neuro Narrative: lack of normal epicritic sensation via light touch is consistent with neuropathy status Psych cooperative and affect normal Debridement Note Debridement Note Wound debrided: plantar right foot (inferior) Laterality: Right Wound Grade/Stage: 2 Type of Debridement: Excisional debridement Anesthesia Used: 4% Lidocaine Solution Depth: in the subcutaneous layer Percentage of wound debrided: 100 Instrument Used: #15 blade Tissue Removed: fibrous, devitalized subcutaneous, biofilm, slough Severity: Fat Layer Exposed Amount of bleeding with debridement: Mild Bleeding Controlled with: Pressure Patient tolerated procedure: Patient tolerated procedure well Debridement Free Text: post debridement measurement 8x4x1 mm (predebridement as noted in nursing panel) and plantar left foot and 2x1x1 mm (distal most- predebridement [id number]) Post-Debridement Measurements and Additional Note: Post-Debridement Measurements/Treatment - Nurse 1 - General Ulcer Assessment Start: 04/30/22 09:27 Freq: Status: Active Protocol: .LOWEXT Activity Type Activity Date Activity User E-sign Co-sign Detail Recorded Client Recorded Date Recorded By Document 04/30/22 09:27 [facility] [id number] 04/30/22 09:41 [facility] Document 05/07/22 08:34 [facility] [id number] 05/07/22 08:46 [facility] 04/30/22 05/07/22 09:27 08:34 - Today's Visit Information Type of service Follow-up Visit Follow-up Visit (Physician/PIPE LINE REPAIRER (Physician/PIPE LINE REPAIRER ) ) Arrival Mode Ambulatory, Ambulatory, Walker Walker Arrival Mode (Other) knee walker knee walker Transfer Assistance None None Accompanied by Patient Identification Verified (Name & Yes Yes ) Patient Requires Transmission-Based No No Precautions Height and Weight Body Mass Index (BMI) 29.8 29.8 BMI Classification Overweight Overweight Vital Signs Temperature (97.8 F-99.1 F) 97.8 F Temperature Source Temporal Pulse Rate (60-100) 101 H 98 Pulse Location Monitor Monitor Respiratory Rate (12-18) 16 16 Respiratory rate source Observation Observation Oxygen Delivery Method Room Air Room Air Blood Pressure (90/60-120/80) 143/80 H 144/78 H Blood Pressure Mean (mm Hg) 101 100 Source Monitor Monitor Position Sitting Sitting Blood Pressure Location Right Arm Right Arm History Since Last Visit- (Skip if this is Patient's initial visit) Have you changed medications since your No No last visit? Any new allergies or adverse reactions No No Had a fall/change in ADL's that may No No increase risk of falls Signs or symptoms of abuse and/or No No neglect since last visit Have you been in the hospital since your No No last visit? Has dressing in place as prescribed Yes Yes Has compression in place as prescribed N/A N/A Has offloadiing in place as prescribed Yes Yes Experienced any changes in pain level or No No management Left Footwear Regular Shoe Regular Shoe Right Footwear Total Contact Total Contact Cast Cast Pain Scale: 0-10 Numeric Is Patient Pain Free? Yes No WC - Nurse 1 - General Ulcer Measurement Start: 04/30/22 09:27 Freq: Status: Active Protocol: Activity Type Activity Date Activity User E-sign Co-sign Detail Recorded Client Recorded Date Recorded By Document 04/30/22 09:27 [facility] [id number] 04/30/22 09:41 [facility] Document 05/07/22 08:34 [facility] [id number] 05/07/22 08:46 [facility] 04/30/22 05/07/22 09:27 08:34 Wound Center Nurse 1 #1- R SUPERIOR PLANTAR FOOTPOST OP -Combined with other wound No No -Current Size (cm) - Length 0.7 0.1 -Current Size (cm) - Width 0.3 0.1 -Current Size (cm) - Depth 0.1 0.1 -Total Square Cm 0.21 0.01 -Date of Last Picture (Recall this 04/30/22 05/07/22 field) -Photo Taken Yes Yes -Epithelialization Medium 34-66% Large 67-100% -Tunneling No -Undermining/Tunneling No -Circular Undermining No -Exudate Amt Small -Exudate Type Serous -Wound Margin Distinct, Outline Attached -Granulation Amt Large (67-100%) -Granulation Quality Orrin -Slough/Fibrin Yes -Necrosis Amt Small (1-33%) -Necrotic Tissue Type Adherent Slough -Texture (Lor-wound Skin Appearance) Assessed, Assessed, Scarring Scarring -Moisture (Lor-wound Skin Appearance) Assessed, Assessed,Dry/ Maceration Scaly -Color (Lor-wound Skin Appearance) Assessed Assessed -Temperature (Lor-wound Skin No Abnormality Appearance) (Pt Warm) -Tenderness on Palpation (Lor-wound No Skin Appearance) -Ulcer Cleansing Soap and Water Soap and Water -Foul Odor after Cleansing No Yes, Due to Product Use -Anesthetic Used 5% Lidocaine 5% Lidocaine Gel Gel #2- R INFERIOR PLANTAR FOOT POST OP -Combined with other wound No No -Current Size (cm) - Length 2.8 1.4 -Current Size (cm) - Width 0.5 0.4 -Current Size (cm) - Depth 0.3 0.2 -Total Square Cm 1.40 0.56 -Date of Last Picture (Recall this 04/30/22 05/07/22 field) -Photo Taken Yes Yes -Epithelialization Small 1-33% Small 1-33% -Tunneling No No -Undermining/Tunneling No No -Circular Undermining No No -Exudate Amt Medium Small -Exudate Type Serosanguineous Serosanguineous -Wound Margin Distinct, Distinct, Outline Outline Attached Attached -Granulation Amt Medium (34-66%) Medium (34-66%) -Granulation Quality Orrin Red -Slough/Fibrin Yes Yes -Necrosis Amt Medium (34-66%) Small (1-33%) -Necrotic Tissue Type Adherent Slough Adherent Slough -Texture (Lor-wound Skin Appearance) Assessed, Assessed, Scarring Scarring -Moisture (Lor-wound Skin Appearance) Assessed, Assessed,Dry/ Maceration Scaly -Color (Lor-wound Skin Appearance) Assessed Assessed -Temperature (Lor-wound Skin No Abnormality No Abnormality Appearance) (Pt Warm) (Pt Warm) -Tenderness on Palpation (Lor-wound No No Skin Appearance) -Ulcer Cleansing Soap and Water Soap and Water -Foul Odor after Cleansing No Yes, Due to Product Use -Anesthetic Used 5% Lidocaine 5% Lidocaine Gel Gel Right Calf (cm) 38.5 Right Ankle (cm) 24.6 WC - Nurse 2 - General Ulcer CM Notes Start: 04/30/22 09:27 Freq: Status: Active Protocol: Activity Type Activity Date Activity User E-sign Co-sign Detail Recorded Client Recorded Date Recorded By Document 04/30/22 09:56 [address] [id number] 04/30/22 09:59 PL Edit Result 04/30/22 09:56 PL (1) [id number] 05/01/22 06:59 PL Document 05/07/22 09:03 [id number] 05/07/22 09:06 JF (1) #2- R INFERIOR PLANTAR FOOT POST OP - Type of Offloading => Total Contact Cast => (TCC) - Right ($) 04/30/22 05/07/22 09:56 09:03 Wound Center Nurse 2 #1- R SUPERIOR PLANTAR FOOTPOST OP -Time 09:47 -Correct Patient Yes No -Correct Side, Site, Position Yes No -Correct Procedure Yes No -Procedure Performed Yes No -Type of Procedure Debridement -Clinical Debridement Subcutaneous -Tissue Removed Subcutaneous -Post Debridement (cm) - Length 0.7 0 -Post Debridement (cm) - Width 0.3 0 -Post Debridement (cm) - Depth 0.1 0 -Total Square (Post) (cm) 0.21 0 -Area of Debridement (cm) - Length 0.7 0 -Area of Debridement (cm) - Width 0.3 0 -Total Square (Area) (cm) 0.21 0 -Tunneling No -Undermining/Tunneling No -Circular Undermining No -Wound/Ulcer Outcome Not Healed Healed- Epithelialized -Ulcer Cleansing Rinsed/ Irrigated with Saline -Foul Odor after Cleansing No -Bioengineered Tissue No -Bleeding Controlled with Pressure -Treatment Response Procedure Tolerated Well -Debridement - Subq, 1st 20sq cm No #2- R INFERIOR PLANTAR FOOT POST OP -Time 09:47 09:03 -Correct Patient Yes Yes -Correct Side, Site, Position Yes Yes -Correct Procedure Yes Yes -Procedure Performed Yes Yes -Type of Procedure Debridement Debridement -Clinical Debridement Subcutaneous Subcutaneous -Tissue Removed Subcutaneous Subcutaneous -Post Debridement (cm) - Length 2.8 1.5 -Post Debridement (cm) - Width 0.5 0.4 -Post Debridement (cm) - Depth 0.3 0.2 -Total Square (Post) (cm) 1.40 0.60 -Area of Debridement (cm) - Length 2.8 1.5 -Area of Debridement (cm) - Width 0.5 0.4 -Total Square (Area) (cm) 1.40 0.60 -Tunneling No No -Undermining/Tunneling No No -Circular Undermining No No -Wound/Ulcer Outcome Not Healed Not Healed -Ulcer Cleansing Rinsed/ Rinsed/ Irrigated with Irrigated with Saline Saline -Foul Odor after Cleansing No No -Bioengineered Tissue Yes Yes -Type of Bioengineered Tissue Epifix 18mm Epifix 18mm Disc Disc -Expiration Date 01/24/27 02/23/27 -Product Lot Number [id number] -Percent Used 100 100 -Lot number of Saline Used [id number] -Bleeding Controlled with Pressure Pressure -Treatment Response Procedure Procedure Tolerated Well Tolerated Well -Offloading Yes -Type of Offloading Total Contact Knee Walker Cast (TCC) - Right ($) -Debridement - Subq, 1st 20sq cm No No -Apply Skin Sub - 1st 25 sq cm - Feet 1 1 -Epifix 18mm Disc 3 3 Pain Scale: 0-10 Numeric Is Patient Pain Free? Yes Yes - Nurse 3 - General Ulcer D/C NN Start: 04/30/22 09:27 Freq: Status: Active Protocol: Activity Type Activity Date Activity User E-sign Co-sign Detail Recorded Client Recorded Date Recorded By Document 04/30/22 11:48 RB [id number] 04/30/22 11:49 RB Document 05/07/22 09:03 JF [id number] 05/07/22 09:06 JF Document 05/07/22 09:18 DL [id number] 05/07/22 09:19 DL 04/30/22 05/07/22 05/07/22 11:48 09:03 09:18 Wound Care Nurse 3 #1- R SUPERIOR PLANTAR FOOTPOST OP -Other Dressing optilock secured with tape then primary layer of TCC applied #2- R INFERIOR PLANTAR FOOT POST OP -Foul Odor after Cleansing No -Primary Dressing Applied Optilok 6.5x10 -Other Dressing Epifix -Primary Dressing Covered/Secured with Secured with Dry Gauze & Tape Roll Gauze, Secured with Tape -Optilok 6.5x10 1 Treatment Response Procedure Tolerated Well Pain Scale: 0-10 Numeric Is Patient Pain Free? Yes Yes Yes Teaching: Wound Center Foot Care -Person Taught Patient -Teaching Method Discussion, Demonstration -Response to teaching Return demonstration, Verbalize understanding WC - Visit Discharge Discharge Condition Stable Stable Stable Ambulatory Status Ambulatory Walker Ambulatory, Walker Transportation Private Auto Private Auto Private Auto Medication Reconcilliation completed & No Yes provided to patient/care provider Clinical Summary of Care Provided Yes Yes Notes: Phillip appied per pts request Assessment/Plan Assessment/Plan (1) Non-pressure chronic ulcer of other part of right foot with necrosis of muscle: CODE(S): L97.513 - Non-pressure chronic ulcer of other part of right foot with necrosis of muscle (2) Non-pressure chronic ulcer of other part of right foot with fat layer exposed: CODE(S): L97.512 - Non-pressure chronic ulcer of other part of right foot with fat layer exposed (3) Type 2 diabetes mellitus with foot ulcer: CODE(S): E11.621 - Type 2 diabetes mellitus with foot ulcer; L97.509 - Non-pressure chronic ulcer of other part of unspecified foot with unspecified severity (4) Other specified peripheral vascular diseases: CODE(S): I73.89 - Other specified peripheral vascular diseases (5) Localized edema: CODE(S): R60.0 - Localized edema (6) Delayed healing of traumatic wound: CODE(S): T14.8XXD - Other injury of unspecified body region, subsequent encounter (7) Type 2 diabetes mellitus with diabetic polyneuropathy: CODE(S): E11.42 - Type 2 diabetes mellitus with diabetic polyneuropathy (8) Blister of right heel: CODE(S): S90.821A - Blister (nonthermal), right foot, initial encounter PLAN: Plan I reviewed and discussed his case today. Debridement was performed today as noted in the clinical panel to all of the ulcer sites. The following work up and care recommendations were made: Dressing: Keep secondary dressing clean, dry, and intact no follow-up next week. Wash: Soap and water performed today Tissue growth optimization: I recommend application of advanced wound healing product, epi fix which was approved for the distal/inferior ulcer that has exposed fascial tissue. The benefits, indications, anticipated application and management were reviewed. He is amendable to proceed and prior authorization will be started. This is a limb salvage case and delayed healing in a continue manner could result in amputation, , and serial infections. Verbal consent was obtained. This was applied according standard protocol was further secured with a wound veil and Steri-Strips. 100% of the product was utilized. He tolerated this well. This was performed according standard protocol. Offload: To maintain a strict nonweightbearing status with knee roller. Cast will be reapplied next week if materials are available. Vascular: His noninvasive vascular studies demonstrate evidence of micro vascular disease and a vascular specialist referral has been recommended in the past. I recommend this again at this time and he refuses. It is also noted he uses tobacco products and this can affect microvascular circulation. He was urged to quit. Edema: Tubigrip Infection: This is resolved. It is noted he was treated by infectious disease on an inpatient and outpatient basis. To monitor for return of infection signs. Pain: He is neuropathic and does not have pain at this time. Host factors: He is a diabetic and his last A1c on file was 6.7%. To continue to manage his glucose levels to optimize healing. I also recommend nutritional supplementation. He is already taking Chaim. Nutrition: to continue chaim supplementation to optimize healing. I answered all the patient's questions. To return to the wound healing center in 1 week or call sooner if the patient has any questions or concerns. blister heel skin debrided without wound or infection This was discussed. To avoid extra heel friction and walking. 12 minutes was spent on this encounter. This included face to face and non face to face care including preparing for the visit, reviewing the history, performing the exam, counseling and providing education to the patient, family, or caregiver, ordering medications/test/ procedures if indicated as documented, communicating with other healthcare providers, documenting information in the medical record, interpreting / sharing this information when indicated as documented, and care coordination. Note: [employer] speech recognition immigration lawyer software was used to create portions of this document. Sound-alike and misspelled words, as well as other immigration lawyer errors may be contained in the documentation.
[2022-05-14 08:34] VITALS: BP 128/76; PULSE 102; RESP 18; TEMP 36.1; BMI 29.8
--- NOTE | 2022-05-14 09:24 | PCM.WC.PN ---
History of Present Illness Date of Service: 05/14/22 Chief Complaint: Right foot ulcers History of Wound: This 52-year-old male with history of diabetic neuropathy presents to the wound healing center for delayed healing of right foot ulcers. It is noted he had prior foot infections with a bedside incision and drainage performed by Dr. Jack on 12-05-21. He denies current fever, chill, nausea, vomiting, redness or odor. He has been using a wound VAC. He has been using a knee roller. He takes nutritional supplementation. He refuses vascular surgery referral as recommended previously. This ulcer has been present for over several months. He places weight on his heel if needed. He denies any injuries or blisters this week. Progress of Wound: improving Objective Data Objective Data Vital Signs: Vital Signs Temp Pulse Resp BP O2 Del Method 96.9 F L 102 H 18 128/76 H Room Air 05/14/22 08:34 05/14/22 08:34 05/14/22 08:34 05/14/22 08:34 05/07/22 08:34 Oxygen Delivery Method Room Air Weight: 99.79 kg Body Mass Index (BMI) 29.8 Physical Exam Const alert and oriented x3 General Appearance: cooperative HEENT normocephalic Extremity Extremity Narrative: No calf tenderness Diminished pulses; palpable DP pulse and weak PT bilateral Muscle wasting noted General Extremity: edema and no tenderness to palpation of joints or extremities; Negative for cyanosis Skin Skin Narrative: no purulence, no streaking, no odor, no infection. Two plantar foot ulcers granular bases today without exposed deeper tissue and the ulcer that is more distal closer to the toes has healed last week with full epithelialization now has subhemorragic tissue with scant serous drainage. There is the other ulcer that does not probe to bone and it does have only improved granulation healthy tissue. There is a lateral column rocker-bottom type foot shape noted and there is no laxity, calor, erythema or significant edema. There is no purulence on expression or adjacent erythema or streaking. No remaining bogginess or fluctuance. Compartments remain soft to palpate new blister to heel without wound or infection noted after debridement of peeling skin. no blanching or bogginess. General Skin Exam: Negative for erythema Neuro Neuro Narrative: lack of normal epicritic sensation via light touch is consistent with neuropathy status Psych cooperative and affect normal Debridement Note Debridement Note Wound debrided: plantar right foot (inferior) Laterality: Right Wound Grade/Stage: 2 Type of Debridement: Excisional debridement Anesthesia Used: 4% Lidocaine Solution Depth: in the subcutaneous layer Percentage of wound debrided: 100 Instrument Used: #15 blade Tissue Removed: fibrous, devitalized subcutaneous, biofilm, slough Severity: Fat Layer Exposed Amount of bleeding with debridement: Mild Bleeding Controlled with: Pressure Patient tolerated procedure: Patient tolerated procedure well Debridement Free Text: Post-Debridement Measurements and Additional Note: Post-Debridement Measurements/Treatment - Nurse 1 - General Ulcer Assessment Start: 04/30/22 09:27 Freq: Status: Active Protocol: YAKELIN.LOWEXT Activity Type Activity Date Activity User E-sign Co-sign Detail Recorded Client Recorded Date Recorded By Document 04/30/22 09:[address] [facility] [id number] 04/30/22 09:[address] [facility] Document 05/07/22 08:34 BMF [id number] 05/07/22 08:46 BM Document 05/14/22 08:34 RB [id number] 05/14/22 08:44 RB 04/30/22 05/07/22 05/14/22 09:27 08:34 08:34 - Today's Visit Information Type of service Follow-up Visit Follow-up Visit Follow-up Visit (Physician/DENTAL FINANCIAL COORDINATOR (Physician/DENTAL FINANCIAL COORDINATOR (Physician/DENTAL FINANCIAL COORDINATOR ) ) ) Arrival Mode Ambulatory, Ambulatory, Ambulatory, Walker Walker Other Arrival Mode (Other) knee walker knee walker Transfer Assistance None None None Accompanied by Patient Identification Verified (Name & Yes Yes Yes ) Patient Requires Transmission-Based No No No Precautions Height and Weight Body Mass Index (BMI) 29.8 29.8 29.8 BMI Classification Overweight Overweight Overweight Vital Signs Temperature (97.8 F-99.1 F) 97.8 F 96.9 F L Temperature Source Temporal Temporal Pulse Rate (60-100) 101 H 98 102 H Pulse Location Monitor Monitor Monitor Respiratory Rate (12-18) 16 16 18 Respiratory rate source Observation Observation Observation Oxygen Delivery Method Room Air Room Air Blood Pressure (90/60-120/80) 143/80 H 144/78 H 128/76 H Blood Pressure Mean (mm Hg) 101 100 93 Source Monitor Monitor Monitor Position Sitting Sitting Semi-Fowlers Blood Pressure Location Right Arm Right Arm Right Arm History Since Last Visit- (Skip if this is Patient's initial visit) Have you changed medications since your No No No last visit? Any new allergies or adverse reactions No No No Had a fall/change in ADL's that may No No No increase risk of falls Signs or symptoms of abuse and/or No No No neglect since last visit Have you been in the hospital since your No No No last visit? Has dressing in place as prescribed Yes Yes Yes Has compression in place as prescribed N/A N/A No Has offloadiing in place as prescribed Yes Yes Yes Experienced any changes in pain level or No No No management Left Footwear Regular Shoe Regular Shoe Regular Shoe Right Footwear Total Contact Total Contact Surgical Shoe Cast Cast with pressure relief insole Pain Scale: 0-10 Numeric Is Patient Pain Free? Yes No Yes WC - Nurse 1 - General Ulcer Measurement Start: 04/30/22 09:27 Freq: Status: Active Protocol: Activity Type Activity Date Activity User E-sign Co-sign Detail Recorded Client Recorded Date Recorded By Document 04/30/22 09:[address] [facility] [id number] 04/30/22 09:[address] [facility] Document 05/07/22 08:[address] [facility] [id number] 05/07/22 08:46 BM Document 05/14/22 08:34 [id number] 05/14/22 08:44 RB 04/30/22 05/07/22 05/14/22 09:27 08:34 08:34 Wound Center Nurse 1 #1- R SUPERIOR PLANTAR FOOTPOST OP -Combined with other wound No No -Current Size (cm) - Length 0.7 0.1 -Current Size (cm) - Width 0.3 0.1 -Current Size (cm) - Depth 0.1 0.1 -Total Square Cm 0.21 0.01 -Date of Last Picture (Recall this 04/30/22 05/07/22 field) -Photo Taken Yes Yes -Epithelialization Medium 34-66% Large 67-100% -Tunneling No -Undermining/Tunneling No -Circular Undermining No -Exudate Amt Small -Exudate Type Serous -Wound Margin Distinct, Outline Attached -Granulation Amt Large (67-100%) -Granulation Quality Hart[place]orne -Slough/Fibrin Yes -Necrosis Amt Small (1-33%) -Necrotic Tissue Type Adherent Slough -Texture (Lor-wound Skin Appearance) Assessed, Assessed, Scarring Scarring -Moisture (Lor-wound Skin Appearance) Assessed, Assessed,Dry/ Maceration Scaly -Color (Lor-wound Skin Appearance) Assessed Assessed -Temperature (Lor-wound Skin No Abnormality Appearance) (Pt Warm) -Tenderness on Palpation (Lor-wound No Skin Appearance) -Ulcer Cleansing Soap and Water Soap and Water -Foul Odor after Cleansing No Yes, Due to Product Use -Anesthetic Used 5% Lidocaine 5% Lidocaine Gel Gel #2- R INFERIOR PLANTAR FOOT POST OP -Combined with other wound No No No -Current Size (cm) - Length 2.8 1.4 1 -Current Size (cm) - Width 0.5 0.4 0.4 -Current Size (cm) - Depth 0.3 0.2 0.3 -Total Square Cm 1.40 0.56 0.4 -Date of Last Picture (Recall this 04/30/22 05/07/22 field) -Photo Taken Yes Yes Yes -Epithelialization Small 1-33% Small 1-33% -Tunneling No No No -Undermining/Tunneling No No No -Circular Undermining No No No -Exudate Amt Medium Small Medium -Exudate Type Serosanguineous Serosanguineous Serosanguineous -Wound Margin Distinct, Distinct, Distinct, Outline Outline Outline Attached Attached Attached -Granulation Amt Medium (34-66%) Medium (34-66%) Medium (34-66%) -Granulation Quality [place] Red [place] -Slough/Fibrin Yes Yes Yes -Necrosis Amt Medium (34-66%) Small (1-33%) Small (1-33%) -Necrotic Tissue Type Adherent Slough Adherent Slough Adherent Slough -Structure Exposed N/A -Texture (Lor-wound Skin Appearance) Assessed, Assessed, Assessed, Scarring Scarring Scarring -Moisture (Lor-wound Skin Appearance) Assessed, Assessed,Dry/ Assessed Maceration Scaly -Color (Lor-wound Skin Appearance) Assessed Assessed Assessed -Temperature (Lor-wound Skin No Abnormality No Abnormality No Abnormality Appearance) (Pt Warm) (Pt Warm) (Pt Warm) -Tenderness on Palpation (Lor-wound No No No Skin Appearance) -Ulcer Cleansing Soap and Water Soap and Water Wound Cleanser -Foul Odor after Cleansing No Yes, Due to No Product Use -Anesthetic Used 5% Lidocaine 5% Lidocaine 5% Lidocaine Gel Gel Gel Right Calf (cm) 38.5 Right Ankle (cm) 24.6 WC - Nurse 2 - General Ulcer CM Notes Start: 04/30/22 09:27 Freq: Status: Active Protocol: Activity Type Activity Date Activity User E-sign Co-sign Detail Recorded Client Recorded Date Recorded By Document 04/30/22 09:56 PL [id number] 04/30/22 09:59 PL Edit Result 04/30/22 09:56 PL (1) [id number] 05/01/22 06:59 PL Document 05/07/22 09:03 JF [id number] 05/07/22 09:06 JF Document 05/14/22 09:08 PL [id number] 05/14/22 09:10 PL (1) #2- R INFERIOR PLANTAR FOOT POST OP - Type of Offloading => Total Contact Cast => (TCC) - Right ($) 04/30/22 05/07/22 05/14/22 09:56 09:03 09:08 Wound Center Nurse 2 #1- R SUPERIOR PLANTAR FOOTPOST OP -Time 09:47 -Correct Patient Yes No -Correct Side, Site, Position Yes No -Correct Procedure Yes No -Procedure Performed Yes No -Type of Procedure Debridement -Clinical Debridement Subcutaneous -Tissue Removed Subcutaneous -Post Debridement (cm) - Length 0.7 0 -Post Debridement (cm) - Width 0.3 0 -Post Debridement (cm) - Depth 0.1 0 -Total Square (Post) (cm) 0.21 0 -Area of Debridement (cm) - Length 0.7 0 -Area of Debridement (cm) - Width 0.3 0 -Total Square (Area) (cm) 0.21 0 -Tunneling No -Undermining/Tunneling No -Circular Undermining No -Wound/Ulcer Outcome Not Healed Healed- Epithelialized -Ulcer Cleansing Rinsed/ Irrigated with Saline -Foul Odor after Cleansing No -Bioengineered Tissue No -Bleeding Controlled with Pressure -Treatment Response Procedure Tolerated Well -Debridement - Subq, 1st 20sq cm No #2- R INFERIOR PLANTAR FOOT POST OP -Time 09:47 09:03 08:47 -Correct Patient Yes Yes Yes -Correct Side, Site, Position Yes Yes Yes -Correct Procedure Yes Yes Yes -Procedure Performed Yes Yes Yes -Type of Procedure Debridement Debridement Debridement -Clinical Debridement Subcutaneous Subcutaneous Subcutaneous -Tissue Removed Subcutaneous Subcutaneous Subcutaneous -Post Debridement (cm) - Length 2.8 1.5 1.0 -Post Debridement (cm) - Width 0.5 0.4 0.4 -Post Debridement (cm) - Depth 0.3 0.2 0.3 -Total Square (Post) (cm) 1.40 0.60 0.40 -Area of Debridement (cm) - Length 2.8 1.5 1.0 -Area of Debridement (cm) - Width 0.5 0.4 0.4 -Total Square (Area) (cm) 1.40 0.60 0.40 -Tunneling No No No -Undermining/Tunneling No No No -Circular Undermining No No No -Wound/Ulcer Outcome Not Healed Not Healed Not Healed -Ulcer Cleansing Rinsed/ Rinsed/ Rinsed/ Irrigated with Irrigated with Irrigated with Saline Saline Saline -Foul Odor after Cleansing No No No -Bioengineered Tissue Yes Yes Yes -Type of Bioengineered Tissue Epifix 18mm Epifix 18mm Epifix 18mm Disc Disc Disc -Expiration Date 01/24/27 02/23/27 02/23/27 -Product Lot Number [id number] -Percent Used 100 100 100 -Lot number of Saline Used [id number] -Bleeding Controlled with Pressure Pressure Pressure -Treatment Response Procedure Procedure Procedure Tolerated Well Tolerated Well Tolerated Well -Offloading Yes -Type of Offloading Total Contact Knee Walker Total Contact Cast (TCC) - Cast (TCC) - Right ($) Right ($) -Debridement - Subq, 1st 20sq cm No No No -Apply Skin Sub - 1st 25 sq cm - Feet 1 1 1 -Epifix 18mm Disc 3 3 3 Pain Scale: 0-10 Numeric Is Patient Pain Free? Yes Yes Yes WC - Nurse 3 - General Ulcer D/C NN Start: 04/30/22 09:27 Freq: Status: Active Protocol: Activity Type Activity Date Activity User E-sign Co-sign Detail Recorded Client Recorded Date Recorded By Document 04/30/22 11:48 RB [id number] 04/30/22 11:49 RB Document 05/07/22 09:03 JF [id number] 05/07/22 09:06 JF Document 05/07/22 09:18 DL [id number] 05/07/22 09:19 DL 04/30/22 05/07/22 05/07/22 11:48 09:03 09:18 Wound Care Nurse 3 #1- R SUPERIOR PLANTAR FOOTPOST OP -Other Dressing optilock secured with tape then primary layer of TCC applied #2- R INFERIOR PLANTAR FOOT POST OP -Foul Odor after Cleansing No -Primary Dressing Applied Optilok 6.5x10 -Other Dressing Epifix -Primary Dressing Covered/Secured with Secured with Dry Gauze & Tape Roll Gauze, Secured with Tape -Optilok 6.5x10 1 Treatment Response Procedure Tolerated Well Pain Scale: 0-10 Numeric Is Patient Pain Free? Yes Yes Yes Teaching: Wound Center Foot Care -Person Taught Patient -Teaching Method Discussion, Demonstration -Response to teaching Return demonstration, Verbalize understanding WC - Visit Discharge Discharge Condition Stable Stable Stable Ambulatory Status Ambulatory Walker Ambulatory, Walker Transportation Private Auto Private Auto Private Auto Medication Reconcilliation completed & No Yes provided to patient/care provider Clinical Summary of Care Provided Yes Yes Notes: Phillip appied per pts request Assessment/Plan Assessment/Plan (1) Non-pressure chronic ulcer of other part of right foot with necrosis of muscle: CODE(S): L97.513 - Non-pressure chronic ulcer of other part of right foot with necrosis of muscle (2) Non-pressure chronic ulcer of other part of right foot with fat layer exposed: CODE(S): L97.512 - Non-pressure chronic ulcer of other part of right foot with fat layer exposed (3) Type 2 diabetes mellitus with foot ulcer: CODE(S): E11.621 - Type 2 diabetes mellitus with foot ulcer; L97.509 - Non-pressure chronic ulcer of other part of unspecified foot with unspecified severity (4) Other specified peripheral vascular diseases: CODE(S): I73.89 - Other specified peripheral vascular diseases (5) Localized edema: CODE(S): R60.0 - Localized edema (6) Delayed healing of traumatic wound: CODE(S): T14.8XXD - Other injury of unspecified body region, subsequent encounter (7) Type 2 diabetes mellitus with diabetic polyneuropathy: CODE(S): E11.42 - Type 2 diabetes mellitus with diabetic polyneuropathy PLAN: Plan I reviewed and discussed his case today. Debridement was performed today as noted in the clinical panel to all of the ulcer sites. The following work up and care recommendations were made: Dressing: Keep secondary dressing clean, dry, and intact no follow-up next week. Wash: Soap and water performed today Tissue growth optimization: I recommend application of advanced wound healing product, epi fix which was approved for the distal/inferior ulcer that has exposed fascial tissue. The benefits, indications, anticipated application and management were reviewed. He is amendable to proceed and prior authorization will be started. This is a limb salvage case and delayed healing in a continue manner could result in amputation, , and serial infections. Verbal consent was obtained. This was applied according standard protocol was further secured with a wound veil and Steri-Strips. 100% of the product was utilized. He tolerated this well. This was performed according standard protocol. Offload: To maintain a strict nonweightbearing status with knee roller. Verbal consent was obtained to apply a total contact cast in a rectus well-padded manner position. He tolerated this well. He was advised to keep this clean, dry, and intact until follow-up next week. Vascular: His noninvasive vascular studies demonstrate evidence of micro vascular disease and a vascular specialist referral has been recommended in the past. I recommend this again at this time and he refuses. It is also noted he uses tobacco products and this can affect microvascular circulation. He was urged to quit. Edema: Tubigrip Infection: This is resolved. It is noted he was treated by infectious disease on an inpatient and outpatient basis. To monitor for return of infection signs. Pain: He is neuropathic and does not have pain at this time. Host factors: He is a diabetic and his last A1c on file was 6.7%. To continue to manage his glucose levels to optimize healing. I also recommend nutritional supplementation. He is already taking Mino. Nutrition: to continue mino supplementation to optimize healing. This patient also has ADA medical assessment form from [facility] for me to complete today and this will be performed. I estimate an approximate 2-month additional healing time needed for his complex condition. I answered all the patient's questions. To return to the wound healing center in 1 week or call sooner if the patient has any questions or concerns. Note: [employer] speech recognition rec therapist software was used to create portions of this document. Sound-alike and misspelled words, as well as other rec therapist errors may be contained in the documentation.
[2022-05-21 09:02] VITALS: BP 130/77; PULSE 97; RESP 18; TEMP 36.3; BMI 29.8
--- NOTE | 2022-05-21 09:17 | PN.PCM_ITS ---
History of Present Illness Date of Service: 05/21/22 Chief Complaint: Right foot ulcers History of Wound: This 52-year-old male with history of diabetic neuropathy presents to the wound healing center for delayed healing of right foot ulcers. It is noted he had prior foot infections with a bedside incision and drainage performed by Dr. Jack on 12-05-21. He denies current fever, chill, nausea, vomiting, redness or odor. He has been using a wound VAC. He has been using a knee roller. He takes nutritional supplementation. He refuses vascular surgery referral as recommended previously. This ulcer has been present for over several months. He places weight on his heel if needed. He denies any injuries or blisters this week. Progress of Wound: improving Objective Data Objective Data Vital Signs: Vital Signs Temp Pulse Resp BP O2 Del Method 97.3 F L 97 18 130/77 H Room Air 05/21/22 09:02 05/21/22 09:02 05/21/22 09:02 05/21/22 09:02 05/07/22 08:34 Oxygen Delivery Method Room Air Weight: 99.79 kg Body Mass Index (BMI) 29.8 Physical Exam Const alert and oriented x3 General Appearance: cooperative Extremity Extremity Narrative: No calf tenderness Diminished pulses; palpable DP pulse and weak PT bilateral Muscle wasting noted Skin Skin Narrative: no purulence, no streaking, no odor, no infection. plantar foot ulcers granular base today without exposed deeper tissue and the ulcer that is more distal closer to the toes has healed again without drainage. There is the other ulcer that does not probe to bone and it does have only improved granulation healthy tissue. There is a lateral column rocker-bottom type foot shape noted and there is no laxity, calor, erythema or significant edema. There is no purulence on expression or adjacent erythema or streaking. No remaining bogginess or fluctuance. Compartments remain soft to palpate General Skin Exam: Negative for erythema Neuro Neuro Narrative: lack of normal epicritic sensation via light touch is consistent with neuropathy status Psych cooperative and affect normal Debridement Note Debridement Note Wound debrided: plantar right foot (inferior) Laterality: Right Wound Grade/Stage: 2 Type of Debridement: Excisional debridement Anesthesia Used: 4% Lidocaine Solution Depth: in the subcutaneous layer Percentage of wound debrided: 100 Instrument Used: #15 blade Tissue Removed: fibrous, devitalized subcutaneous, biofilm, slough Severity: Fat Layer Exposed Amount of bleeding with debridement: Mild Bleeding Controlled with: Pressure Patient tolerated procedure: Patient tolerated procedure well Debridement Free Text: Post-Debridement Measurements and Additional Note: Post-Debridement Measurements/Treatment - Nurse 1 - General Ulcer Assessment Start: 04/30/22 09:27 Freq: Status: Active Protocol: YAKELIN.LOWEXT Activity Type Activity Date Activity User E-sign Co-sign Detail Recorded Client Recorded Date Recorded By Document 04/30/22 09:27 [facility] [id number] 04/30/22 09:41 BM Document 05/07/22 08:34 BMF [id number] 05/07/22 08:46 BMF Document 05/14/22 08:34 RB [id number] 05/14/22 08:44 RB Document 05/21/22 09:02 RB [id number] 05/21/22 09:04 RB 04/30/22 05/07/22 05/14/22 09:27 08:34 08:34 - Today's Visit Information Type of service Follow-up Visit Follow-up Visit Follow-up Visit (Physician/GLASS RIBBON MACHINE OPERATOR ASSISTANT (Physician/GLASS RIBBON MACHINE OPERATOR ASSISTANT (Physician/GLASS RIBBON MACHINE OPERATOR ASSISTANT ) ) ) Arrival Mode Ambulatory, Ambulatory, Ambulatory, Walker Walker Other Arrival Mode (Other) knee walker knee walker Transfer Assistance None None None Accompanied by Patient Identification Verified (Name & Yes Yes Yes ) Patient Requires Transmission-Based No No No Precautions Height and Weight Body Mass Index (BMI) 29.8 29.8 29.8 BMI Classification Overweight Overweight Overweight Vital Signs Temperature (97.8 F-99.1 F) 97.8 F 96.9 F L Temperature Source Temporal Temporal Pulse Rate (60-100) 101 H 98 102 H Pulse Location Monitor Monitor Monitor Respiratory Rate (12-18) 16 16 18 Respiratory rate source Observation Observation Observation Oxygen Delivery Method Room Air Room Air Blood Pressure (90/60-120/80) 143/80 H 144/78 H 128/76 H Blood Pressure Mean (mm Hg) 101 100 93 Source Monitor Monitor Monitor Position Sitting Sitting Semi-Fowlers Blood Pressure Location Right Arm Right Arm Right Arm History Since Last Visit- (Skip if this is Patient's initial visit) Have you changed medications since your No No No last visit? Any new allergies or adverse reactions No No No Had a fall/change in ADL's that may No No No increase risk of falls Signs or symptoms of abuse and/or No No No neglect since last visit Have you been in the hospital since your No No No last visit? Has dressing in place as prescribed Yes Yes Yes Has compression in place as prescribed N/A N/A No Has offloadiing in place as prescribed Yes Yes Yes Experienced any changes in pain level or No No No management Left Footwear Regular Shoe Regular Shoe Regular Shoe Right Footwear Total Contact Total Contact Surgical Shoe Cast Cast with pressure relief insole Pain Scale: 0-10 Numeric Is Patient Pain Free? Yes No Yes 05/21/22 09:02 WC - Today's Visit Information Type of service Follow-up Visit (Physician/GLASS RIBBON MACHINE OPERATOR ASSISTANT ) Arrival Mode Ambulatory Arrival Mode (Other) Transfer Assistance None Accompanied by Patient Identification Verified (Name & Yes ) Patient Requires Transmission-Based No Precautions Height and Weight Body Mass Index (BMI) 29.8 BMI Classification Overweight Vital Signs Temperature (97.8 F-99.1 F) 97.3 F L Temperature Source Temporal Pulse Rate (60-100) 97 Pulse Location Monitor Respiratory Rate (12-18) 18 Respiratory rate source Observation Oxygen Delivery Method Blood Pressure (90/60-120/80) 130/77 H Blood Pressure Mean (mm Hg) 94 Source Monitor Position Semi-Fowlers Blood Pressure Location Right Arm History Since Last Visit- (Skip if this is Patient's initial visit) Have you changed medications since your No last visit? Any new allergies or adverse reactions No Had a fall/change in ADL's that may No increase risk of falls Signs or symptoms of abuse and/or No neglect since last visit Have you been in the hospital since your No last visit? Has dressing in place as prescribed Yes Has compression in place as prescribed No Has offloadiing in place as prescribed Yes Experienced any changes in pain level or No management Left Footwear Regular Shoe Right Footwear Regular Shoe Pain Scale: 0-10 Numeric Is Patient Pain Free? Yes - Nurse 1 - General Ulcer Measurement Start: 04/30/22 09:27 Freq: Status: Active Protocol: Activity Type Activity Date Activity User E-sign Co-sign Detail Recorded Client Recorded Date Recorded By Document 04/30/22 09:27 [facility] [id number] 04/30/22 09:41 BM Document 05/07/22 08:34 BMF [id number] 05/07/22 08:46 BM Document 05/14/22 08:34 RB [id number] 05/14/22 08:44 RB Document 05/21/22 09:02 RB [id number] 05/21/22 09:04 RB 04/30/22 05/07/22 05/14/22 09:27 08:34 08:34 Wound Center Nurse 1 #1- R SUPERIOR PLANTAR FOOTPOST OP -Combined with other wound No No -Current Size (cm) - Length 0.7 0.1 -Current Size (cm) - Width 0.3 0.1 -Current Size (cm) - Depth 0.1 0.1 -Total Square Cm 0.21 0.01 -Date of Last Picture (Recall this 04/30/22 05/07/22 field) -Photo Taken Yes Yes -Epithelialization Medium 34-66% Large 67-100% -Tunneling No -Undermining/Tunneling No -Circular Undermining No -Exudate Amt Small -Exudate Type Serous -Wound Margin Distinct, Outline Attached -Granulation Amt Large (67-100%) -Granulation Quality [place] -Slough/Fibrin Yes -Necrosis Amt Small (1-33%) -Necrotic Tissue Type Adherent Slough -Texture (Lor-wound Skin Appearance) Assessed, Assessed, Scarring Scarring -Moisture (Lro-wound Skin Appearance) Assessed, Assessed,Dry/ Maceration Scaly -Color (Lor-wound Skin Appearance) Assessed Assessed -Temperature (Lor-wound Skin No Abnormality Appearance) (Pt Warm) -Tenderness on Palpation (Lor-wound No Skin Appearance) -Ulcer Cleansing Soap and Water Soap and Water -Foul Odor after Cleansing No Yes, Due to Product Use -Anesthetic Used 5% Lidocaine 5% Lidocaine Gel Gel #2- R INFERIOR PLANTAR FOOT POST OP -Combined with other wound No No No -Current Size (cm) - Length 2.8 1.4 1 -Current Size (cm) - Width 0.5 0.4 0.4 -Current Size (cm) - Depth 0.3 0.2 0.3 -Total Square Cm 1.40 0.56 0.4 -Date of Last Picture (Recall this 04/30/22 05/07/22 field) -Photo Taken Yes Yes Yes -Epithelialization Small 1-33% Small 1-33% -Tunneling No No No -Undermining/Tunneling No No No -Circular Undermining No No No -Exudate Amt Medium Small Medium -Exudate Type Serosanguineous Serosanguineous Serosanguineous -Wound Margin Distinct, Distinct, Distinct, Outline Outline Outline Attached Attached Attached -Granulation Amt Medium (34-66%) Medium (34-66%) Medium (34-66%) -Granulation Quality [place] Red [place] -Slough/Fibrin Yes Yes Yes -Necrosis Amt Medium (34-66%) Small (1-33%) Small (1-33%) -Necrotic Tissue Type Adherent Slough Adherent Slough Adherent Slough -Structure Exposed N/A -Texture (Lor-wound Skin Appearance) Assessed, Assessed, Assessed, Scarring Scarring Scarring -Moisture (Lor-wound Skin Appearance) Assessed, Assessed,Dry/ Assessed Maceration Scaly -Color (Lor-wound Skin Appearance) Assessed Assessed Assessed -Temperature (Lor-wound Skin No Abnormality No Abnormality No Abnormality Appearance) (Pt Warm) (Pt Warm) (Pt Warm) -Tenderness on Palpation (Lor-wound No No No Skin Appearance) -Ulcer Cleansing Soap and Water Soap and Water Wound Cleanser -Foul Odor after Cleansing No Yes, Due to No Product Use -Anesthetic Used 5% Lidocaine 5% Lidocaine 5% Lidocaine Gel Gel Gel Right Calf (cm) 38.5 Right Ankle (cm) 24.6 05/21/22 09:02 Wound Center Nurse 1 #1- R SUPERIOR PLANTAR FOOTPOST OP -Combined with other wound -Current Size (cm) - Length -Current Size (cm) - Width -Current Size (cm) - Depth -Total Square Cm -Date of Last Picture (Recall this field) -Photo Taken -Epithelialization -Tunneling -Undermining/Tunneling -Circular Undermining -Exudate Amt -Exudate Type -Wound Margin -Granulation Amt -Granulation Quality -Slough/Fibrin -Necrosis Amt -Necrotic Tissue Type -Texture (Lor-wound Skin Appearance) -Moisture (Lor-wound Skin Appearance) -Color (Lor-wound Skin Appearance) -Temperature (Lor-wound Skin Appearance) -Tenderness on Palpation (Lor-wound Skin Appearance) -Ulcer Cleansing -Foul Odor after Cleansing -Anesthetic Used #2- R INFERIOR PLANTAR FOOT POST OP -Combined with other wound No -Current Size (cm) - Length 5 -Current Size (cm) - Width 0.4 -Current Size (cm) - Depth 0.1 -Total Square Cm 2.0 -Date of Last Picture (Recall this field) -Photo Taken Yes -Epithelialization -Tunneling No -Undermining/Tunneling No -Circular Undermining No -Exudate Amt Large -Exudate Type Serosanguineous -Wound Margin Distinct, Outline Attached -Granulation Amt Medium (34-66%) -Granulation Quality [place] -Slough/Fibrin Yes -Necrosis Amt Medium (34-66%) -Necrotic Tissue Type Adherent Slough -Structure Exposed N/A -Texture (Lor-wound Skin Appearance) Assessed -Moisture (Lor-wound Skin Appearance) Assessed -Color (Lor-wound Skin Appearance) Assessed -Temperature (Lor-wound Skin No Abnormality Appearance) (Pt Warm) -Tenderness on Palpation (Lor-wound No Skin Appearance) -Ulcer Cleansing Wound Cleanser -Foul Odor after Cleansing No -Anesthetic Used 5% Lidocaine Gel Right Calf (cm) Right Ankle (cm) WC - Nurse 2 - General Ulcer CM Notes Start: 04/30/22 09:27 Freq: Status: Active Protocol: Activity Type Activity Date Activity User E-sign Co-sign Detail Recorded Client Recorded Date Recorded By Document 04/30/22 09:56 PL [id number] 04/30/22 09:59 PL Edit Result 04/30/22 09:56 PL (1) [id number] 05/01/22 06:59 PL Document 05/07/22 09:03 [id number] 05/07/22 09:06 JF Document 05/14/22 09:08 PL [id number] 05/14/22 09:10 PL (1) #2- R INFERIOR PLANTAR FOOT POST OP - Type of Offloading => Total Contact Cast => (TCC) - Right ($) 04/30/22 05/07/22 05/14/22 09:56 09:03 09:08 Wound Center Nurse 2 #1- R SUPERIOR PLANTAR FOOTPOST OP -Time 09:47 -Correct Patient Yes No -Correct Side, Site, Position Yes No -Correct Procedure Yes No -Procedure Performed Yes No -Type of Procedure Debridement -Clinical Debridement Subcutaneous -Tissue Removed Subcutaneous -Post Debridement (cm) - Length 0.7 0 -Post Debridement (cm) - Width 0.3 0 -Post Debridement (cm) - Depth 0.1 0 -Total Square (Post) (cm) 0.21 0 -Area of Debridement (cm) - Length 0.7 0 -Area of Debridement (cm) - Width 0.3 0 -Total Square (Area) (cm) 0.21 0 -Tunneling No -Undermining/Tunneling No -Circular Undermining No -Wound/Ulcer Outcome Not Healed Healed- Epithelialized -Ulcer Cleansing Rinsed/ Irrigated with Saline -Foul Odor after Cleansing No -Bioengineered Tissue No -Bleeding Controlled with Pressure -Treatment Response Procedure Tolerated Well -Debridement - Subq, 1st 20sq cm No #2- R INFERIOR PLANTAR FOOT POST OP -Time 09:47 09:03 08:47 -Correct Patient Yes Yes Yes -Correct Side, Site, Position Yes Yes Yes -Correct Procedure Yes Yes Yes -Procedure Performed Yes Yes Yes -Type of Procedure Debridement Debridement Debridement -Clinical Debridement Subcutaneous Subcutaneous Subcutaneous -Tissue Removed Subcutaneous Subcutaneous Subcutaneous -Post Debridement (cm) - Length 2.8 1.5 1.0 -Post Debridement (cm) - Width 0.5 0.4 0.4 -Post Debridement (cm) - Depth 0.3 0.2 0.3 -Total Square (Post) (cm) 1.40 0.60 0.40 -Area of Debridement (cm) - Length 2.8 1.5 1.0 -Area of Debridement (cm) - Width 0.5 0.4 0.4 -Total Square (Area) (cm) 1.40 0.60 0.40 -Tunneling No No No -Undermining/Tunneling No No No -Circular Undermining No No No -Wound/Ulcer Outcome Not Healed Not Healed Not Healed -Ulcer Cleansing Rinsed/ Rinsed/ Rinsed/ Irrigated with Irrigated with Irrigated with Saline Saline Saline -Foul Odor after Cleansing No No No -Bioengineered Tissue Yes Yes Yes -Type of Bioengineered Tissue Epifix 18mm Epifix 18mm Epifix 18mm Disc Disc Disc -Expiration Date 01/24/27 02/23/27 02/23/27 -Product Lot Number [id number] -Percent Used 100 100 100 -Lot number of Saline Used [id number] -Bleeding Controlled with Pressure Pressure Pressure -Treatment Response Procedure Procedure Procedure Tolerated Well Tolerated Well Tolerated Well -Offloading Yes -Type of Offloading Total Contact Knee Walker Total Contact Cast (TCC) - Cast (TCC) - Right ($) Right ($) -Debridement - Subq, 1st 20sq cm No No No -Apply Skin Sub - 1st 25 sq cm - Feet 1 1 1 -Epifix 18mm Disc 3 3 3 Pain Scale: 0-10 Numeric Is Patient Pain Free? Yes Yes Yes - Nurse 3 - General Ulcer D/C NN Start: 04/30/22 09:27 Freq: Status: Active Protocol: Activity Type Activity Date Activity User E-sign Co-sign Detail Recorded Client Recorded Date Recorded By Document 04/30/22 11:48 RB [id number] 04/30/22 11:49 RB Document 05/07/22 09:03 JF [id number] 05/07/22 09:06 JF Document 05/07/22 09:18 DL [id number] 05/07/22 09:19 DL 04/30/22 05/07/22 05/07/22 11:48 09:03 09:18 Wound Care Nurse 3 #1- R SUPERIOR PLANTAR FOOTPOST OP -Other Dressing optilock secured with tape then primary layer of TCC applied #2- R INFERIOR PLANTAR FOOT POST OP -Foul Odor after Cleansing No -Primary Dressing Applied Optilok 6.5x10 -Other Dressing Epifix -Primary Dressing Covered/Secured with Secured with Dry Gauze & Tape Roll Gauze, Secured with Tape -Optilok 6.5x10 1 Treatment Response Procedure Tolerated Well Pain Scale: 0-10 Numeric Is Patient Pain Free? Yes Yes Yes Teaching: Wound Center Foot Care -Person Taught Patient -Teaching Method Discussion, Demonstration -Response to teaching Return demonstration, Verbalize understanding WC - Visit Discharge Discharge Condition Stable Stable Stable Ambulatory Status Ambulatory Walker Ambulatory, Walker Transportation Private Auto Private Auto Private Auto Medication Reconcilliation completed & No Yes provided to patient/care provider Clinical Summary of Care Provided Yes Yes Notes: Phillip appied per pts request Assessment/Plan Assessment/Plan (1) Non-pressure chronic ulcer of other part of right foot with necrosis of muscle: CODE(S): L97.513 - Non-pressure chronic ulcer of other part of right foot with necrosis of muscle (2) Non-pressure chronic ulcer of other part of right foot with fat layer exposed: CODE(S): L97.512 - Non-pressure chronic ulcer of other part of right foot with fat layer exposed (3) Type 2 diabetes mellitus with foot ulcer: CODE(S): E11.621 - Type 2 diabetes mellitus with foot ulcer; L97.509 - Non-pressure chronic ulcer of other part of unspecified foot with unspecified severity (4) Other specified peripheral vascular diseases: CODE(S): I73.89 - Other specified peripheral vascular diseases (5) Localized edema: CODE(S): R60.0 - Localized edema (6) Delayed healing of traumatic wound: CODE(S): T14.8XXD - Other injury of unspecified body region, subsequent encounter (7) Type 2 diabetes mellitus with diabetic polyneuropathy: CODE(S): E11.42 - Type 2 diabetes mellitus with diabetic polyneuropathy PLAN: Plan I reviewed and discussed his case today. Debridement was performed today as noted in the clinical panel to all of the ulcer sites. The following work up and care recommendations were made: Dressing: Keep secondary dressing clean, dry, and intact no follow-up next week. Wash: Soap and water performed today Tissue growth optimization: I recommend application of advanced wound healing product, epi fix which was approved for the distal/inferior ulcer that has exposed fascial tissue. The benefits, indications, anticipated application and management were reviewed. He is amendable to proceed and prior authorization will be started. This is a limb salvage case and delayed healing in a continue manner could result in amputation, , and serial infections. Verbal consent was obtained. This was applied according standard protocol was further secured with a wound veil and Steri-Strips. 100% of the product was utilized. He tolerated this well. This was performed according standard protocol. Offload: To maintain a strict nonweightbearing status with knee roller. Verbal consent was obtained to apply a total contact cast in a rectus well-padded manner position. He tolerated this well. He was advised to keep this clean, dry, and intact until follow-up next week. Vascular: His noninvasive vascular studies demonstrate evidence of micro vascular disease and a vascular specialist referral has been recommended in the past. I recommend this again at this time and he refuses. It is also noted he uses tobacco products and this can affect microvascular circulation. He was urged to quit. Edema: Tubigrip Infection: This is resolved. It is noted he was treated by infectious disease on an inpatient and outpatient basis. To monitor for return of infection signs. Pain: He is neuropathic and does not have pain at this time. Host factors: He is a diabetic and his last A1c on file was 6.7%. To continue to manage his glucose levels to optimize healing. I also recommend nutritional supplementation. He is already taking Mino. Nutrition: to continue mino supplementation to optimize healing. I answered all the patient's questions. To return to the wound healing center in 1 week or call sooner if the patient has any questions or concerns. Note: SLID speech recognition outside sales representative software was used to create portions of this document. Sound-alike and misspelled words, as well as other outside sales representative errors may be contained in the documentation.
== END 2022-05-25 23:59 | disposition home or self-care (01) ==
LOC: WC 08:30
PROVIDERS: PCP Family Medicine; Referring Provider Podiatrist; Visit Provider Podiatrist
DX: E11.621 Type 2 diabetes mellitus with foot ulcer (principal); E11.51 Type 2 diabetes mellitus with diabetic peripheral angiopathy without gangrene; L97.513 Non-pressure chronic ulcer of other part of right foot with necrosis of muscle; E11.42 Type 2 diabetes mellitus with diabetic polyneuropathy; I73.89 Other specified peripheral vascular diseases; R60.0 Localized edema; T14.8XXD Other injury of unspecified body region, subsequent encounter; S90.821A Blister (nonthermal), right foot, initial encounter
CPT/HCPCS: 15275; 29445; Q4186

== ENCOUNTER 2022-06-25 08:45 | Outpatient (RCR) | payer BC, SELFPAY ==
[2022-05-26 00:32] VITALS: BP 130/77; PULSE 97; RESP 18; TEMP 36.3; BMI 29.8
[2022-05-28 08:37] VITALS: BP 146/77; PULSE 104; RESP 20; TEMP 36.4; BMI 29.8
--- NOTE | 2022-05-28 15:19 | PN.PCM_ITS ---
History of Present Illness Date of Service: 05/28/22 Chief Complaint: Right foot ulcers History of Wound: This 52-year-old male with history of diabetic neuropathy presents to the wound healing center for delayed healing of right foot ulcers. It is noted he had prior foot infections with a bedside incision and drainage performed by Dr. Jack on 12-05-21. He denies current fever, chill, nausea, vomiting, redness or odor. He has been using a wound VAC. He has been using a knee roller. He takes nutritional supplementation. He refuses vascular surgery referral as recommended previously. This ulcer has been present for over several months. He places weight on his heel if needed. He denies any injuries or blisters this week. He is with his today. Progress of Wound: improving Objective Data Objective Data Vital Signs: Vital Signs Temp Pulse Resp BP 97.5 F L 104 H 20 H 146/77 H 05/28/22 08:37 05/28/22 08:37 05/28/22 08:37 05/28/22 08:37 Weight: 99.79 kg Body Mass Index (BMI) 29.8 Physical Exam Const alert and oriented x3 General Appearance: cooperative HEENT normocephalic Extremity Extremity Narrative: No calf tenderness Diminished pulses; palpable DP pulse and weak PT bilateral Muscle wasting noted General Extremity: edema and no tenderness to palpation of joints or extremities; Negative for cyanosis Skin Skin Narrative: no purulence, no streaking, no odor, no infection. plantar foot ulcers granular base today without exposed deeper tissue and the ulcer that is more distal closer to the toes has healed again without drainage. There is the other ulcer that does not probe to bone and it does have only improved granulation healthy tissue. There is a lateral column rocker-bottom type foot shape noted and there is no laxity, calor, erythema or significant edema. There is no purulence on expression or adjacent erythema or streaking. No remaining bogginess or fluctuance. Compartments remain soft to palpate improvement is noted General Skin Exam: Negative for erythema Neuro Neuro Narrative: lack of normal epicritic sensation via light touch is consistent with neuropathy status Psych cooperative and affect normal Debridement Note Debridement Note Wound debrided: plantar right foot (inferior) Laterality: Right Wound Grade/Stage: 2 Type of Debridement: Excisional debridement Anesthesia Used: 4% Lidocaine Solution Depth: in the subcutaneous layer Percentage of wound debrided: 100 Instrument Used: #15 blade Tissue Removed: fibrous, devitalized subcutaneous, biofilm, slough Severity: Fat Layer Exposed Amount of bleeding with debridement: Mild Bleeding Controlled with: Pressure Patient tolerated procedure: Patient tolerated procedure well Debridement Free Text: Post-Debridement Measurements and Additional Note: Post-Debridement Measurements/Treatment - Nurse 1 - General Ulcer Assessment Start: 05/28/22 08:37 Freq: Status: Active Protocol: MARY JO Activity Type Activity Date Activity User E-sign Co-sign Detail Recorded Client Recorded Date Recorded By Document 05/28/22 08:37 DL [id number] 05/28/22 08:42 DL 05/28/22 08:37 WC - Today's Visit Information Type of service Follow-up Visit (Physician/HEATING AND VENTILATION ENGINEER ) Arrival Mode Ambulatory Transfer Assistance None Patient Identification Verified (Name & Yes ) Patient Requires Transmission-Based No Precautions Height and Weight Body Mass Index (BMI) 29.8 BMI Classification Overweight Vital Signs Temperature (97.8 F-99.1 F) 97.5 F L Temperature Source Temporal Pulse Rate (60-100) 104 H Pulse Location Apical Respiratory Rate (12-18) 20 H Respiratory rate source Observation Blood Pressure (90/60-120/80) 146/77 H Blood Pressure Mean (mm Hg) 100 Source Monitor History Since Last Visit- (Skip if this is Patient's initial visit) Have you changed medications since your No last visit? Any new allergies or adverse reactions No Had a fall/change in ADL's that may No increase risk of falls Signs or symptoms of abuse and/or No neglect since last visit Have you been in the hospital since your No last visit? Has dressing in place as prescribed Yes Has compression in place as prescribed N/A Has offloadiing in place as prescribed Yes Experienced any changes in pain level or No management Right Footwear Total Contact Cast Pain Scale: 0-10 Numeric Is Patient Pain Free? Yes - Nurse 1 - General Ulcer Measurement Start: 05/28/22 08:37 Freq: Status: Active Protocol: Activity Type Activity Date Activity User E-sign Co-sign Detail Recorded Client Recorded Date Recorded By Document 05/28/22 08:37 DL [id number] 05/28/22 08:42 DL 05/28/22 08:37 Wound Center Nurse 1 #2- R INFERIOR PLANTAR FOOT POST OP -Current Size (cm) - Length 0.6 -Current Size (cm) - Width 0.1 -Current Size (cm) - Depth 0.2 -Total Square Cm 0.06 -Photo Taken Yes -Exudate Amt Medium -Exudate Type Serosanguineous -Wound Margin Distinct, Outline Attached -Granulation Amt Large (67-100%) -Granulation Quality [place] -Necrosis Amt Small (1-33%) -Necrotic Tissue Type Adherent Slough -Structure Exposed N/A -Texture (Lor-wound Skin Appearance) Scarring -Moisture (Lor-wound Skin Appearance) Maceration -Color (Lor-wound Skin Appearance) No Abnormality -Temperature (Lor-wound Skin No Abnormality Appearance) (Pt Warm) -Tenderness on Palpation (Lor-wound No Skin Appearance) -Ulcer Cleansing Soap and Water -Foul Odor after Cleansing No -Anesthetic Used 5% Lidocaine Gel WC - Nurse 2 - General Ulcer CM Notes Start: 05/28/22 08:37 Freq: Status: Active Protocol: Activity Type Activity Date Activity User E-sign Co-sign Detail Recorded Client Recorded Date Recorded By Document 05/28/22 08:52 [id number] 05/28/22 08:57 SARAH 05/28/22 08:52 Wound Center Nurse 2 -Time 08:56 -Correct Patient Yes -Correct Side, Site, Position Yes -Correct Procedure Yes -Procedure Performed Yes -Type of Procedure Debridement -Clinical Debridement Subcutaneous -Tissue Removed Subcutaneous -Post Debridement (cm) - Length 0.6 -Post Debridement (cm) - Width 0.2 -Post Debridement (cm) - Depth 0.2 -Total Square (Post) (cm) 0.12 -Area of Debridement (cm) - Length 0.6 -Area of Debridement (cm) - Width 0.2 -Total Square (Area) (cm) 0.12 -Tunneling No -Undermining/Tunneling No -Circular Undermining No -Wound/Ulcer Outcome Not Healed -Ulcer Cleansing Rinsed/ Irrigated with Saline -Foul Odor after Cleansing No -Bioengineered Tissue Yes -Type of Bioengineered Tissue Epifix 18mm Disc -Expiration Date 02/23/27 -Product Lot Number [id number] -Percent Used 100 -Lot number of Saline Used [id number] -Bleeding Controlled with Pressure -Treatment Response Procedure Tolerated Well -Offloading Yes -Type of Offloading Total Contact Cast (TCC) - Right ($) -Debridement - Subq, 1st 20sq cm No -Apply Skin Sub - 1st 25 sq cm - Feet 1 -Epifix 18mm Disc 3 Pain Scale: 0-10 Numeric Is Patient Pain Free? Yes Assessment/Plan Assessment/Plan (1) Non-pressure chronic ulcer of other part of right foot with necrosis of muscle: CODE(S): L97.513 - Non-pressure chronic ulcer of other part of right foot with necrosis of muscle (2) Non-pressure chronic ulcer of other part of right foot with fat layer exposed: CODE(S): L97.512 - Non-pressure chronic ulcer of other part of right foot with fat layer exposed (3) Type 2 diabetes mellitus with foot ulcer: CODE(S): E11.621 - Type 2 diabetes mellitus with foot ulcer; L97.509 - Non-pressure chronic ulcer of other part of unspecified foot with unspecified severity (4) Other specified peripheral vascular diseases: CODE(S): I73.89 - Other specified peripheral vascular diseases (5) Localized edema: CODE(S): R60.0 - Localized edema (6) Delayed healing of traumatic wound: CODE(S): T14.8XXD - Other injury of unspecified body region, subsequent encounter (7) Type 2 diabetes mellitus with diabetic polyneuropathy: CODE(S): E11.42 - Type 2 diabetes mellitus with diabetic polyneuropathy PLAN: Plan I reviewed and discussed his case today. Debridement was performed today as noted in the clinical panel to all of the ulcer sites. The following work up and care recommendations were made: Dressing: Keep secondary dressing clean, dry, and intact no follow-up next week. Wash: Soap and water performed today Tissue growth optimization: I recommend application of advanced wound healing product, epi fix which was approved for the distal/inferior ulcer that has exposed fascial tissue. The benefits, indications, anticipated application and management were reviewed. He is amendable to proceed and prior authorization will be started. This is a limb salvage case and delayed healing in a continue manner could result in amputation, , and serial infections. Verbal consent was obtained. This was applied according standard protocol was further secured with a wound veil and Steri-Strips. 100% of the product was utilized. He tolerated this well. This was performed according standard protocol. Offload: To maintain a strict nonweightbearing status with knee roller. Verbal consent was obtained to apply a total contact cast in a rectus well-padded manner position. He tolerated this well. He was advised to keep this clean, dry, and intact until follow-up next week. Vascular: His noninvasive vascular studies demonstrate evidence of micro vascular disease and a vascular specialist referral has been recommended in the past. I recommend this again at this time and he refuses. It is also noted he uses tobacco products and this can affect microvascular circulation. He was urged to quit. Edema: Tubigrip Infection: This is resolved. It is noted he was treated by infectious disease on an inpatient and outpatient basis. To monitor for return of infection signs. Pain: He is neuropathic and does not have pain at this time. Host factors: He is a diabetic and his last A1c on file was 6.7%. To continue to manage his glucose levels to optimize healing. I also recommend nutritional supplementation. He is already taking Mino. Nutrition: to continue mino supplementation to optimize healing. I answered all the patient's questions. To return to the wound healing center in 1 week or call sooner if the patient has any questions or concerns. Note: [employer] speech recognition racetrack steward software was used to create portions of this document. Sound-alike and misspelled words, as well as other racetrack steward errors may be contained in the documentation.
[2022-06-04 08:29] VITALS: BP 141/89; PULSE 104; RESP 16; TEMP 36.1; BMI 29.8
--- NOTE | 2022-06-04 09:43 | PCM.WC.PN ---
History of Present Illness Date of Service: 06/04/22 Chief Complaint: Right foot ulcers History of Wound: This 52-year-old male with history of diabetic neuropathy presents to the wound healing center for delayed healing of right foot ulcers. It is noted he had prior foot infections with a bedside incision and drainage performed by Dr. Jack on 12-05-21. He denies current fever, chill, nausea, vomiting, redness or odor. He has been using a wound VAC. He has been using a knee roller. He takes nutritional supplementation. He refuses vascular surgery referral as recommended previously. This ulcer has been present for over several months. He places weight on his heel if needed. He is with his today. He did well with total contact cast this past week. Progress of Wound: improving Objective Data Objective Data Vital Signs: Vital Signs Temp Pulse Resp BP O2 Del Method 97 F L 104 H 16 141/89 H Room Air 06/04/22 08:29 06/04/22 08:29 06/04/22 08:29 06/04/22 08:29 06/04/22 08:29 Oxygen Delivery Method Room Air Weight: 99.79 kg Body Mass Index (BMI) 29.8 Physical Exam Const alert and oriented x3 General Appearance: cooperative HEENT normocephalic Extremity Extremity Narrative: No calf tenderness Diminished pulses; palpable DP pulse and weak PT bilateral Muscle wasting noted General Extremity: edema and no tenderness to palpation of joints or extremities; Negative for cyanosis Skin Skin Narrative: no purulence, no streaking, no odor, no infection. plantar foot ulcer granular base today without exposed deeper tissue and reduced size and drainage is noted. There is a lateral column rocker-bottom type foot shape noted and there is no laxity, calor, erythema or significant edema. There is no purulence on expression or adjacent erythema or streaking. No remaining bogginess or fluctuance. Compartments remain soft to palpate improvement is noted General Skin Exam: Negative for erythema Neuro Neuro Narrative: lack of normal epicritic sensation via light touch is consistent with neuropathy status Psych cooperative and affect normal Debridement Note Debridement Note Wound debrided: plantar right foot (inferior) Laterality: Right Wound Grade/Stage: 2 Type of Debridement: Excisional debridement Anesthesia Used: 4% Lidocaine Solution Depth: in the subcutaneous layer Percentage of wound debrided: 100 Instrument Used: #15 blade Tissue Removed: fibrous, devitalized subcutaneous, biofilm, slough Severity: Fat Layer Exposed Amount of bleeding with debridement: Mild Bleeding Controlled with: Pressure Patient tolerated procedure: Patient tolerated procedure well Debridement Free Text: Post-Debridement Measurements and Additional Note: Post-Debridement Measurements/Treatment - Nurse 1 - General Ulcer Assessment Start: 05/28/22 08:37 Freq: Status: Active Protocol: YAKELIN.LOWHENRY Activity Type Activity Date Activity User E-sign Co-sign Detail Recorded Client Recorded Date Recorded By Document 05/28/22 08:37 DL [id number] 05/28/22 08:42 DL Document 06/04/22 08:29 BM [id number] 06/04/22 08:41 BMF 05/28/22 06/04/22 08:37 08:29 - Today's Visit Information Type of service Follow-up Visit Follow-up Visit (Physician/ENVELOPE PATTERNMAKER (Physician/ENVELOPE PATTERNMAKER ) ) Arrival Mode Ambulatory Ambulatory, Walker Arrival Mode (Other) knee walker Transfer Assistance None None Accompanied by Patient Identification Verified (Name & Yes Yes ) Patient Requires Transmission-Based No No Precautions Height and Weight Body Mass Index (BMI) 29.8 29.8 BMI Classification Overweight Overweight Vital Signs Temperature (97.8 F-99.1 F) 97.5 F L 97 F L Temperature Source Temporal Temporal Pulse Rate (60-100) 104 H 104 H Pulse Location Apical Monitor Respiratory Rate (12-18) 20 H 16 Respiratory rate source Observation Observation Oxygen Delivery Method Room Air Blood Pressure (90/60-120/80) 146/77 H 141/89 H Blood Pressure Mean (mm Hg) 100 106 Source Monitor Monitor Position Sitting Blood Pressure Location Right Arm History Since Last Visit- (Skip if this is Patient's initial visit) Have you changed medications since your No No last visit? Any new allergies or adverse reactions No No Had a fall/change in ADL's that may No No increase risk of falls Signs or symptoms of abuse and/or No No neglect since last visit Have you been in the hospital since your No No last visit? Has dressing in place as prescribed Yes Yes Has compression in place as prescribed N/A N/A Has offloadiing in place as prescribed Yes Yes Experienced any changes in pain level or No No management Left Footwear Regular Shoe Right Footwear Total Contact Total Contact Cast Cast Pain Scale: 0-10 Numeric Is Patient Pain Free? Yes Yes - Nurse 1 - General Ulcer Measurement Start: 05/28/22 08:37 Freq: Status: Active Protocol: Activity Type Activity Date Activity User E-sign Co-sign Detail Recorded Client Recorded Date Recorded By Document 05/28/22 08:37 DL [id number] 05/28/22 08:42 DL Document 06/04/22 08:29 [facility] [id number] 06/04/22 08:41 [facility] 05/28/22 06/04/22 08:37 08:29 Wound Center Nurse 1 #2- R INFERIOR PLANTAR FOOT POST OP -Combined with other wound No -Current Size (cm) - Length 0.6 0.3 -Current Size (cm) - Width 0.1 0.2 -Current Size (cm) - Depth 0.2 0.2 -Total Square Cm 0.06 0.06 -Photo Taken Yes No -Epithelialization Small 1-33% -Tunneling No -Undermining/Tunneling No -Circular Undermining No -Exudate Amt Medium Medium -Exudate Type Serosanguineous Serosanguineous -Wound Margin Distinct, Distinct, Outline Outline Attached Attached -Granulation Amt Large (67-100%) Large (67-100%) -Granulation Quality [place] Red -Slough/Fibrin Yes -Necrosis Amt Small (1-33%) Small (1-33%) -Necrotic Tissue Type Adherent Slough Adherent Slough -Structure Exposed N/A -Texture (Lor-wound Skin Appearance) Scarring Assessed, Scarring -Moisture (Lor-wound Skin Appearance) Maceration Assessed, Maceration -Color (Lor-wound Skin Appearance) No Abnormality Assessed -Temperature (Olr-wound Skin No Abnormality No Abnormality Appearance) (Pt Warm) (Pt Warm) -Tenderness on Palpation (Lor-wound No No Skin Appearance) -Ulcer Cleansing Soap and Water Soap and Water -Foul Odor after Cleansing No No -Anesthetic Used 5% Lidocaine 5% Lidocaine Gel Gel - Nurse 2 - General Ulcer CM Notes Start: 05/28/22 08:37 Freq: Status: Active Protocol: Activity Type Activity Date Activity User E-sign Co-sign Detail Recorded Client Recorded Date Recorded By Document 05/28/22 08:52 [id number] 05/28/22 08:57 Document 06/04/22 08:49 [id number] 06/04/22 08:50 JF 05/28/22 06/04/22 08:52 08:49 Wound Center Nurse 2 #2- R INFERIOR PLANTAR FOOT POST OP -Time 08:56 08:49 -Correct Patient Yes Yes -Correct Side, Site, Position Yes Yes -Correct Procedure Yes Yes -Procedure Performed Yes Yes -Type of Procedure Debridement Debridement -Clinical Debridement Subcutaneous Subcutaneous -Tissue Removed Subcutaneous Subcutaneous -Post Debridement (cm) - Length 0.6 0.3 -Post Debridement (cm) - Width 0.2 0.2 -Post Debridement (cm) - Depth 0.2 0.2 -Total Square (Post) (cm) 0.12 0.06 -Area of Debridement (cm) - Length 0.6 0.3 -Area of Debridement (cm) - Width 0.2 0.2 -Total Square (Area) (cm) 0.12 0.06 -Tunneling No No -Undermining/Tunneling No No -Circular Undermining No No -Wound/Ulcer Outcome Not Healed Not Healed -Ulcer Cleansing Rinsed/ Rinsed/ Irrigated with Irrigated with Saline Saline -Foul Odor after Cleansing No No -Bioengineered Tissue Yes No -Type of Bioengineered Tissue Epifix 18mm Disc -Expiration Date 02/23/27 -Product Lot Number [id number] -Percent Used 100 -Lot number of Saline Used [id number] -Bleeding Controlled with Pressure Pressure -Treatment Response Procedure Procedure Tolerated Well Tolerated Well -Offloading Yes Yes -Type of Offloading Total Contact Total Contact Cast (TCC) - Cast (TCC) - Right ($) Right ($) -Debridement - Subq, 1st 20sq cm No Yes -Apply Skin Sub - 1st 25 sq cm - Feet 1 -Epifix 18mm Disc 3 Pain Scale: 0-10 Numeric Is Patient Pain Free? Yes Yes - Nurse 3 - General Ulcer D/C NN Start: 05/28/22 08:37 Freq: Status: Active Protocol: Activity Type Activity Date Activity User E-sign Co-sign Detail Recorded Client Recorded Date Recorded By Document 06/04/22 09:03 [facility] [id number] 06/04/22 09:04 [facility] 06/04/22 09:03 Wound Care Nurse 3 #2- R INFERIOR PLANTAR FOOT POST OP -Ulcer Cleansing Rinsed/ Irrigated with Saline -Foul Odor after Cleansing No -Primary Dressing Applied Mepilex Border, Promogran Jennifer Matter -Primary Dressing Covered/Secured with Secured with Tape -Other Covering tcc undercast -Mepilex Border 1 -Promogran Jennifer Matter 1 Treatment Response Procedure Tolerated Well Pain Scale: 0-10 Numeric Is Patient Pain Free? Yes WC - Visit Discharge Discharge Condition Stable Ambulatory Status Ambulatory, Walker Transportation Private Auto Accompanied by Notes: knee walker Assessment/Plan Assessment/Plan (1) Non-pressure chronic ulcer of other part of right foot with necrosis of muscle: CODE(S): L97.513 - Non-pressure chronic ulcer of other part of right foot with necrosis of muscle (2) Non-pressure chronic ulcer of other part of right foot with fat layer exposed: CODE(S): L97.512 - Non-pressure chronic ulcer of other part of right foot with fat layer exposed (3) Type 2 diabetes mellitus with foot ulcer: CODE(S): E11.621 - Type 2 diabetes mellitus with foot ulcer; L97.509 - Non-pressure chronic ulcer of other part of unspecified foot with unspecified severity (4) Other specified peripheral vascular diseases: CODE(S): I73.89 - Other specified peripheral vascular diseases (5) Localized edema: CODE(S): R60.0 - Localized edema (6) Delayed healing of traumatic wound: CODE(S): T14.8XXD - Other injury of unspecified body region, subsequent encounter (7) Type 2 diabetes mellitus with diabetic polyneuropathy: CODE(S): E11.42 - Type 2 diabetes mellitus with diabetic polyneuropathy PLAN: Plan I reviewed and discussed his case today. Debridement was performed today as noted in the clinical panel to all of the ulcer sites. The following work up and care recommendations were made: Dressing: Jennifer and secondary dressing was applied prior to cast application Wash: Soap and water performed today Tissue growth optimization: I recommend application of advanced wound healing product, epi fix and he completed this course and did very well. Offload: To maintain a strict nonweightbearing status with knee roller. Verbal consent was obtained to apply a total contact cast in a rectus well-padded manner position. He tolerated this well. He was advised to keep this clean, dry, and intact until follow-up next week. Vascular: His noninvasive vascular studies demonstrate evidence of micro vascular disease and a vascular specialist referral has been recommended in the past. I recommend this again at this time and he refuses. It is also noted he uses tobacco products and this can affect microvascular circulation. He was urged to quit. Edema: Tubigrip Infection: This is resolved. It is noted he was treated by infectious disease on an inpatient and outpatient basis. To monitor for return of infection signs. Pain: He is neuropathic and does not have pain at this time. Host factors: He is a diabetic and his last A1c on file was 6.7%. To continue to manage his glucose levels to optimize healing. I also recommend nutritional supplementation. He is already taking Mino. Nutrition: to continue mino supplementation to optimize healing. I answered all the patient's questions. To return to the wound healing center in 1 week or call sooner if the patient has any questions or concerns. Note: [employer] speech recognition funeral home director software was used to create portions of this document. Sound-alike and misspelled words, as well as other funeral home director errors may be contained in the documentation.
[2022-06-11 08:33] VITALS: BP 151/80; PULSE 105; RESP 16; TEMP 36.1; BMI 29.8
--- NOTE | 2022-06-11 09:03 | PCM.WC.PN ---
History of Present Illness Date of Service: 06/11/22 Chief Complaint: Right foot ulcers History of Wound: This 52-year-old male with history of diabetic neuropathy presents to the wound healing center for delayed healing of right foot ulcers. It is noted he had prior foot infections with a bedside incision and drainage performed by Dr. Jack on 12-05-21. He denies current fever, chill, nausea, vomiting, redness or odor. He has been using a wound VAC. He has been using a knee roller. He takes nutritional supplementation. He refuses vascular surgery referral as recommended previously. This ulcer has been present for over several months. He places weight on his heel if needed. He is with his today. He did well with total contact cast this past week and is amendable to proceed today. Progress of Wound: improving Objective Data Objective Data Vital Signs: Vital Signs Temp Pulse Resp BP O2 Del Method 97 F L 105 H 16 151/80 H Room Air 06/11/22 08:33 06/11/22 08:33 06/11/22 08:33 06/11/22 08:33 06/11/22 08:33 Oxygen Delivery Method Room Air Weight: 99.79 kg Body Mass Index (BMI) 29.8 Physical Exam Const alert and oriented x3 Extremity Extremity Narrative: No calf tenderness Diminished pulses; palpable DP pulse and weak PT bilateral Muscle wasting noted Skin Skin Narrative: no purulence, no streaking, no odor, no infection. plantar foot ulcer granular base today without exposed deeper tissue and reduced size and drainage is noted. There is a lateral column rocker-bottom type foot shape noted and there is no laxity, calor, erythema or significant edema. There is no purulence on expression or adjacent erythema or streaking. No remaining bogginess or fluctuance. Compartments remain soft to palpate improvement is noted General Skin Exam: Negative for erythema Neuro Neuro Narrative: lack of normal epicritic sensation via light touch is consistent with neuropathy status Psych cooperative and affect normal Debridement Note Debridement Note Wound debrided: plantar right foot (inferior) Laterality: Right Wound Grade/Stage: 2 Type of Debridement: Excisional debridement Anesthesia Used: 4% Lidocaine Solution Depth: in the subcutaneous layer Percentage of wound debrided: 100 Instrument Used: #15 blade Tissue Removed: fibrous, devitalized subcutaneous, biofilm, slough Severity: Fat Layer Exposed Amount of bleeding with debridement: Mild Bleeding Controlled with: Pressure Patient tolerated procedure: Patient tolerated procedure well Debridement Free Text: Post-Debridement Measurements and Additional Note: Post-Debridement Measurements/Treatment WC - Nurse 1 - General Ulcer Assessment Start: 05/28/22 08:37 Freq: Status: Active Protocol: MARY JO Activity Type Activity Date Activity User E-sign Co-sign Detail Recorded Client Recorded Date Recorded By Document 05/28/22 08:37 DL [id number] 05/28/22 08:42 DL Document 06/04/22 08:29 BMF [id number] 06/04/22 08:41 BMF Document 06/11/22 08:33 BMF [id number] 06/11/22 08:39 BMF 05/28/22 06/04/22 06/11/22 08:37 08:29 08:33 - Today's Visit Information Type of service Follow-up Visit Follow-up Visit Follow-up Visit (Physician/METAL NUMERICAL CONTROL PROGRAMMER (Physician/METAL NUMERICAL CONTROL PROGRAMMER (Physician/METAL NUMERICAL CONTROL PROGRAMMER ) ) ) Arrival Mode Ambulatory Ambulatory, Ambulatory, Walker Walker Arrival Mode (Other) knee walker knee walker Transfer Assistance None None Accompanied by Patient Identification Verified (Name & Yes Yes Yes ) Patient Requires Transmission-Based No No No Precautions Height and Weight Body Mass Index (BMI) 29.8 29.8 29.8 BMI Classification Overweight Overweight Overweight Vital Signs Temperature (97.8 F-99.1 F) 97.5 F L 97 F L 97 F L Temperature Source Temporal Temporal Temporal Pulse Rate (60-100) 104 H 104 H 105 H Pulse Location Apical Monitor Monitor Respiratory Rate (12-18) 20 H 16 16 Respiratory rate source Observation Observation Observation Oxygen Delivery Method Room Air Room Air Blood Pressure (90/60-120/80) 146/77 H 141/89 H 151/80 H Blood Pressure Mean (mm Hg) 100 106 103 Source Monitor Monitor Monitor Position Sitting Sitting Blood Pressure Location Right Arm Right Arm History Since Last Visit- (Skip if this is Patient's initial visit) Have you changed medications since your No No No last visit? Any new allergies or adverse reactions No No No Had a fall/change in ADL's that may No No No increase risk of falls Signs or symptoms of abuse and/or No No No neglect since last visit Have you been in the hospital since your No No No last visit? Has dressing in place as prescribed Yes Yes Yes Has compression in place as prescribed N/A N/A N/A Has offloadiing in place as prescribed Yes Yes Yes Experienced any changes in pain level or No No No management Left Footwear Regular Shoe Regular Shoe Right Footwear Total Contact Total Contact Total Contact Cast Cast Cast Pain Scale: 0-10 Numeric Is Patient Pain Free? Yes Yes Yes WC - Nurse 1 - General Ulcer Measurement Start: 05/28/22 08:37 Freq: Status: Active Protocol: Activity Type Activity Date Activity User E-sign Co-sign Detail Recorded Client Recorded Date Recorded By Document 05/28/22 08:37 DL [id number] 05/28/22 08:42 DL Document 06/04/22 08:29 BMF [id number] 06/04/22 08:41 BMF Document 06/11/22 08:33 BMF [id number] 06/11/22 08:39 BMF 05/28/22 06/04/22 06/11/22 08:37 08:29 08:33 Wound Center Nurse 1 #2- R INFERIOR PLANTAR FOOT POST OP -Combined with other wound No No -Current Size (cm) - Length 0.6 0.3 0.1 -Current Size (cm) - Width 0.1 0.2 0.1 -Current Size (cm) - Depth 0.2 0.2 0.1 -Total Square Cm 0.06 0.06 0.01 -Date of Last Picture (Recall this 06/11/22 field) -Photo Taken Yes No Yes -Epithelialization Small 1-33% Large 67-100% -Tunneling No No -Undermining/Tunneling No No -Circular Undermining No No -Exudate Amt Medium Medium Small -Exudate Type Serosanguineous Serosanguineous Sanguineous -Wound Margin Distinct, Distinct, Distinct, Outline Outline Outline Attached Attached Attached -Granulation Amt Large (67-100%) Large (67-100%) Large (67-100%) -Granulation Quality [place] -Slough/Fibrin Yes Yes -Necrosis Amt Small (1-33%) Small (1-33%) Small (1-33%) -Necrotic Tissue Type Adherent Slough Adherent Slough Adherent Slough -Structure Exposed N/A -Texture (Lor-wound Skin Appearance) Scarring Assessed, Assessed,Callus Scarring -Moisture (Lor-wound Skin Appearance) Maceration Assessed, Assessed, Maceration Maceration,Dry/ Scaly -Color (Lor-wound Skin Appearance) No Abnormality Assessed Assessed -Temperature (Lor-wound Skin No Abnormality No Abnormality No Abnormality Appearance) (Pt Warm) (Pt Warm) (Pt Warm) -Tenderness on Palpation (Lor-wound No No No Skin Appearance) -Ulcer Cleansing Soap and Water Soap and Water Soap and Water -Foul Odor after Cleansing No No No -Anesthetic Used 5% Lidocaine 5% Lidocaine 5% Lidocaine Gel Gel Gel WC - Nurse 2 - General Ulcer CM Notes Start: 05/28/22 08:37 Freq: Status: Active Protocol: Activity Type Activity Date Activity User E-sign Co-sign Detail Recorded Client Recorded Date Recorded By Document 05/28/22 08:52 [id number] 05/28/22 08:57 Document 06/04/22 08:49 [id number] 06/04/22 08:50 Document 06/11/22 08:58 [id number] 06/11/22 08:58 05/28/22 06/04/22 06/11/22 08:52 08:49 08:58 Wound Center Nurse 2 #2- R INFERIOR PLANTAR FOOT POST OP -Time 08:56 08:49 08:58 -Correct Patient Yes Yes Yes -Correct Side, Site, Position Yes Yes Yes -Correct Procedure Yes Yes Yes -Procedure Performed Yes Yes Yes -Type of Procedure Debridement Debridement Debridement -Clinical Debridement Subcutaneous Subcutaneous Subcutaneous -Tissue Removed Subcutaneous Subcutaneous Subcutaneous -Post Debridement (cm) - Length 0.6 0.3 0.4 -Post Debridement (cm) - Width 0.2 0.2 0.2 -Post Debridement (cm) - Depth 0.2 0.2 0.2 -Total Square (Post) (cm) 0.12 0.06 0.08 -Area of Debridement (cm) - Length 0.6 0.3 0.4 -Area of Debridement (cm) - Width 0.2 0.2 0.2 -Total Square (Area) (cm) 0.12 0.06 0.08 -Tunneling No No No -Undermining/Tunneling No No No -Circular Undermining No No No -Wound/Ulcer Outcome Not Healed Not Healed Not Healed -Ulcer Cleansing Rinsed/ Rinsed/ Rinsed/ Irrigated with Irrigated with Irrigated with Saline Saline Saline -Foul Odor after Cleansing No No No -Bioengineered Tissue Yes No No -Type of Bioengineered Tissue Epifix 18mm Disc -Expiration Date 02/23/27 -Product Lot Number [id number] -Percent Used 100 -Lot number of Saline Used [id number] -Bleeding Controlled with Pressure Pressure Pressure -Treatment Response Procedure Procedure Procedure Tolerated Well Tolerated Well Tolerated Well -Offloading Yes Yes Yes -Type of Offloading Total Contact Total Contact Total Contact Cast (TCC) - Cast (TCC) - Cast (TCC) - Right ($) Right ($) Right ($) -Debridement - Subq, 1st 20sq cm No Yes Yes -Apply Skin Sub - 1st 25 sq cm - Feet 1 -Epifix 18mm Disc 3 Pain Scale: 0-10 Numeric Is Patient Pain Free? Yes Yes Yes - Nurse 3 - General Ulcer D/C NN Start: 05/28/22 08:37 Freq: Status: Active Protocol: Activity Type Activity Date Activity User E-sign Co-sign Detail Recorded Client Recorded Date Recorded By Document 06/04/22 09:03 [facility] [id number] 06/04/22 09:04 [facility] 06/04/22 09:03 Wound Care Nurse 3 #2- R INFERIOR PLANTAR FOOT POST OP -Ulcer Cleansing Rinsed/ Irrigated with Saline -Foul Odor after Cleansing No -Primary Dressing Applied Mepilex Border, Promogran Jennifer Matter -Primary Dressing Covered/Secured with Secured with Tape -Other Covering tcc undercast -Mepilex Border 1 -Promogran Jennifer Matter 1 Treatment Response Procedure Tolerated Well Pain Scale: 0-10 Numeric Is Patient Pain Free? Yes - Visit Discharge Discharge Condition Stable Ambulatory Status Ambulatory, Walker Transportation Private Auto Accompanied by Notes: knee walker Assessment/Plan Assessment/Plan (1) Non-pressure chronic ulcer of other part of right foot with necrosis of muscle: CODE(S): L97.513 - Non-pressure chronic ulcer of other part of right foot with necrosis of muscle (2) Non-pressure chronic ulcer of other part of right foot with fat layer exposed: CODE(S): L97.512 - Non-pressure chronic ulcer of other part of right foot with fat layer exposed (3) Type 2 diabetes mellitus with foot ulcer: CODE(S): E11.621 - Type 2 diabetes mellitus with foot ulcer; L97.509 - Non-pressure chronic ulcer of other part of unspecified foot with unspecified severity (4) Other specified peripheral vascular diseases: CODE(S): I73.89 - Other specified peripheral vascular diseases (5) Localized edema: CODE(S): R60.0 - Localized edema (6) Delayed healing of traumatic wound: CODE(S): T14.8XXD - Other injury of unspecified body region, subsequent encounter (7) Type 2 diabetes mellitus with diabetic polyneuropathy: CODE(S): E11.42 - Type 2 diabetes mellitus with diabetic polyneuropathy PLAN: Plan I reviewed and discussed his case today. Debridement was performed today as noted in the clinical panel to all of the ulcer sites. The following work up and care recommendations were made: Dressing: Jennifer and secondary dressing was applied prior to cast application Wash: Soap and water performed today Tissue growth optimization: I recommend application of advanced wound healing product, epi fix and he completed this course and did very well. Offload: To maintain a strict nonweightbearing status with knee roller. Verbal consent was obtained to apply a total contact cast in a rectus well-padded manner position. He tolerated this well. He was advised to keep this clean, dry, and intact until follow-up next week. Vascular: His noninvasive vascular studies demonstrate evidence of micro vascular disease and a vascular specialist referral has been recommended in the past. I recommend this again at this time and he refuses. It is also noted he uses tobacco products and this can affect microvascular circulation. He was urged to quit. Edema: Tubigrip Infection: This is resolved. It is noted he was treated by infectious disease on an inpatient and outpatient basis. To monitor for return of infection signs. Pain: He is neuropathic and does not have pain at this time. Host factors: He is a diabetic and his last A1c on file was 6.7%. To continue to manage his glucose levels to optimize healing. I also recommend nutritional supplementation. He is already taking Mino. Nutrition: to continue mino supplementation to optimize healing. I answered all the patient's questions. To return to the wound healing center in 1 week or call sooner if the patient has any questions or concerns. Note: [employer] speech recognition ground support equipment fitter software was used to create portions of this document. Sound-alike and misspelled words, as well as other ground support equipment fitter errors may be contained in the documentation.
[2022-06-18 08:35] VITALS: BP 144/81; PULSE 105; RESP 18; TEMP 36.1; BMI 29.8
--- NOTE | 2022-06-18 11:14 | PN.PCM_ITS ---
History of Present Illness Date of Service: 06/18/22 Chief Complaint: Right foot ulcer History of Wound: This 52-year-old male with history of diabetic neuropathy presents to the wound healing center for delayed healing of right foot ulcers. It is noted he had prior foot infections with a bedside incision and drainage performed by Dr. Jack on 12-05-21. He denies current fever, chill, nausea, vomiting, redness or odor. He has been using a knee roller. He takes nutritional supplementation. He refuses vascular surgery referral as recommended previously. This ulcer has been present for over several months. He places weight on his heel if needed. He is with his today. He did well with total contact cast this past week and is amendable to proceed again today. Progress of Wound: improving Objective Data Objective Data Vital Signs: Vital Signs Temp Pulse Resp BP O2 Del Method 96.9 F L 105 H 18 144/81 H Room Air 06/18/22 08:35 06/18/22 08:35 06/18/22 08:35 06/18/22 08:35 06/11/22 08:33 Oxygen Delivery Method Room Air Weight: 99.79 kg Body Mass Index (BMI) 29.8 Physical Exam Const alert and oriented x3 Extremity Extremity Narrative: No calf tenderness Diminished pulses; palpable DP pulse and weak PT bilateral Muscle wasting noted Skin Skin Narrative: no purulence, no streaking, no odor, no infection. plantar foot ulcer granular base today without exposed deeper tissue and reduced size and drainage is noted. There is a lateral column rocker-bottom type foot shape noted and there is no laxity, calor, erythema or significant edema. There is no purulence on expression or adjacent erythema or streaking. No remaining bogginess or fluctuance. Compartments remain soft to palpate improvement is noted General Skin Exam: Negative for erythema Neuro Neuro Narrative: lack of normal epicritic sensation via light touch is consistent with neuropathy status Psych cooperative and affect normal Debridement Note Debridement Note Wound debrided: plantar right foot (inferior) Laterality: Right Wound Grade/Stage: 2 Type of Debridement: Excisional debridement Anesthesia Used: 4% Lidocaine Solution Depth: in the subcutaneous layer Percentage of wound debrided: 100 Instrument Used: #15 blade Tissue Removed: fibrous, devitalized subcutaneous, biofilm, slough Severity: Fat Layer Exposed Amount of bleeding with debridement: Mild Bleeding Controlled with: Pressure Patient tolerated procedure: Patient tolerated procedure well Debridement Free Text: Post-Debridement Measurements and Additional Note: Post-Debridement Measurements/Treatment WC - Nurse 1 - General Ulcer Assessment Start: 05/28/22 08:37 Freq: Status: Active Protocol: MARY JO Activity Type Activity Date Activity User E-sign Co-sign Detail Recorded Client Recorded Date Recorded By Document 05/28/22 08:37 DL [id number] 05/28/22 08:42 DL Document 06/04/22 08:29 BMF [id number] 06/04/22 08:41 BMF Document 06/11/22 08:33 BMF [id number] 06/11/22 08:39 BMF Document 06/18/22 08:35 RB [id number] 06/18/22 08:41 RB 05/28/22 06/04/22 06/11/22 08:37 08:29 08:33 WC - Today's Visit Information Type of service Follow-up Visit Follow-up Visit Follow-up Visit (Physician/QUILLER HAND (Physician/QUILLER HAND (Physician/QUILLER HAND ) ) ) Arrival Mode Ambulatory Ambulatory, Ambulatory, Walker Walker Arrival Mode (Other) knee walker knee walker Transfer Assistance None None Accompanied by Patient Identification Verified (Name & Yes Yes Yes ) Patient Requires Transmission-Based No No No Precautions Height and Weight Body Mass Index (BMI) 29.8 29.8 29.8 BMI Classification Overweight Overweight Overweight Vital Signs Temperature (97.8 F-99.1 F) 97.5 F L 97 F L 97 F L Temperature Source Temporal Temporal Temporal Pulse Rate (60-100) 104 H 104 H 105 H Pulse Location Apical Monitor Monitor Respiratory Rate (12-18) 20 H 16 16 Respiratory rate source Observation Observation Observation Oxygen Delivery Method Room Air Room Air Blood Pressure (90/60-120/80) 146/77 H 141/89 H 151/80 H Blood Pressure Mean (mm Hg) 100 106 103 Source Monitor Monitor Monitor Position Sitting Sitting Blood Pressure Location Right Arm Right Arm History Since Last Visit- (Skip if this is Patient's initial visit) Have you changed medications since your No No No last visit? Any new allergies or adverse reactions No No No Had a fall/change in ADL's that may No No No increase risk of falls Signs or symptoms of abuse and/or No No No neglect since last visit Have you been in the hospital since your No No No last visit? Has dressing in place as prescribed Yes Yes Yes Has compression in place as prescribed N/A N/A N/A Has offloadiing in place as prescribed Yes Yes Yes Experienced any changes in pain level or No No No management Left Footwear Regular Shoe Regular Shoe Right Footwear Total Contact Total Contact Total Contact Cast Cast Cast Pain Scale: 0-10 Numeric Is Patient Pain Free? Yes Yes Yes 06/18/22 08:35 - Today's Visit Information Type of service Follow-up Visit (Physician/QUILLER HAND ) Arrival Mode Other Arrival Mode (Other) kneewalker Transfer Assistance None Accompanied by Patient Identification Verified (Name & Yes ) Patient Requires Transmission-Based No Precautions Height and Weight Body Mass Index (BMI) 29.8 BMI Classification Overweight Vital Signs Temperature (97.8 F-99.1 F) 96.9 F L Temperature Source Temporal Pulse Rate (60-100) 105 H Pulse Location Monitor Respiratory Rate (12-18) 18 Respiratory rate source Observation Oxygen Delivery Method Blood Pressure (90/60-120/80) 144/81 H Blood Pressure Mean (mm Hg) 102 Source Monitor Position Sitting Blood Pressure Location Left Arm History Since Last Visit- (Skip if this is Patient's initial visit) Have you changed medications since your No last visit? Any new allergies or adverse reactions No Had a fall/change in ADL's that may No increase risk of falls Signs or symptoms of abuse and/or No neglect since last visit Have you been in the hospital since your No last visit? Has dressing in place as prescribed Yes Has compression in place as prescribed No Has offloadiing in place as prescribed Yes Experienced any changes in pain level or No management Left Footwear Regular Shoe Right Footwear Total Contact Cast Pain Scale: 0-10 Numeric Is Patient Pain Free? Yes - Nurse 1 - General Ulcer Measurement Start: 05/28/22 08:37 Freq: Status: Active Protocol: Activity Type Activity Date Activity User E-sign Co-sign Detail Recorded Client Recorded Date Recorded By Document 05/28/22 08:37 DL [id number] 05/28/22 08:42 DL Document 06/04/22 08:29 [facility] [id number] 06/04/22 08:41 BMF Document 06/11/22 08:33 BMF [id number] 06/11/22 08:39 BM Document 06/18/22 08:35 RB [id number] 06/18/22 08:41 RB 05/28/22 06/04/22 06/11/22 08:37 08:29 08:33 Wound Center Nurse 1 #2- R INFERIOR PLANTAR FOOT POST OP -Combined with other wound No No -Current Size (cm) - Length 0.6 0.3 0.1 -Current Size (cm) - Width 0.1 0.2 0.1 -Current Size (cm) - Depth 0.2 0.2 0.1 -Total Square Cm 0.06 0.06 0.01 -Date of Last Picture (Recall this 06/11/22 field) -Photo Taken Yes No Yes -Epithelialization Small 1-33% Large 67-100% -Tunneling No No -Undermining/Tunneling No No -Circular Undermining No No -Exudate Amt Medium Medium Small -Exudate Type Serosanguineous Serosanguineous Sanguineous -Wound Margin Distinct, Distinct, Distinct, Outline Outline Outline Attached Attached Attached -Granulation Amt Large (67-100%) Large (67-100%) Large (67-100%) -Granulation Quality [place] -Slough/Fibrin Yes Yes -Necrosis Amt Small (1-33%) Small (1-33%) Small (1-33%) -Necrotic Tissue Type Adherent Slough Adherent Slough Adherent Slough -Structure Exposed N/A -Texture (Lor-wound Skin Appearance) Scarring Assessed, Assessed,Callus Scarring -Moisture (Lor-wound Skin Appearance) Maceration Assessed, Assessed, Maceration Maceration,Dry/ Scaly -Color (Lor-wound Skin Appearance) No Abnormality Assessed Assessed -Temperature (Lor-wound Skin No Abnormality No Abnormality No Abnormality Appearance) (Pt Warm) (Pt Warm) (Pt Warm) -Tenderness on Palpation (Lor-wound No No No Skin Appearance) -Ulcer Cleansing Soap and Water Soap and Water Soap and Water -Foul Odor after Cleansing No No No -Anesthetic Used 5% Lidocaine 5% Lidocaine 5% Lidocaine Gel Gel Gel 06/18/22 08:35 Wound Center Nurse 1 #2- R INFERIOR PLANTAR FOOT POST OP -Combined with other wound No -Current Size (cm) - Length 0.1 -Current Size (cm) - Width 0.1 -Current Size (cm) - Depth 0.2 -Total Square Cm 0.01 -Date of Last Picture (Recall this field) -Photo Taken Yes -Epithelialization -Tunneling No -Undermining/Tunneling No -Circular Undermining No -Exudate Amt Small -Exudate Type Serosanguineous -Wound Margin Distinct, Outline Attached -Granulation Amt Medium (34-66%) -Granulation Quality [place] -Slough/Fibrin Yes -Necrosis Amt Medium (34-66%) -Necrotic Tissue Type Adherent Slough -Structure Exposed N/A -Texture (Lor-wound Skin Appearance) Assessed,Callus ,Scarring -Moisture (Lor-wound Skin Appearance) Assessed -Color (Lor-wound Skin Appearance) Assessed -Temperature (Lor-wound Skin No Abnormality Appearance) (Pt Warm) -Tenderness on Palpation (Lor-wound No Skin Appearance) -Ulcer Cleansing Wound Cleanser -Foul Odor after Cleansing No -Anesthetic Used 5% Lidocaine Gel WC - Nurse 2 - General Ulcer CM Notes Start: 05/28/22 08:37 Freq: Status: Active Protocol: Activity Type Activity Date Activity User E-sign Co-sign Detail Recorded Client Recorded Date Recorded By Document 05/28/22 08:52 [id number] 05/28/22 08:57 Document 06/04/22 08:49 [id number] 06/04/22 08:50 Document 06/11/22 08:58 [id number] 06/11/22 08:58 Document 06/18/22 08:46 [id number] 06/18/22 08:48 05/28/22 06/04/22 06/11/22 08:52 08:49 08:58 Wound Center Nurse 2 #2- R INFERIOR PLANTAR FOOT POST OP -Time 08:56 08:49 08:58 -Correct Patient Yes Yes Yes -Correct Side, Site, Position Yes Yes Yes -Correct Procedure Yes Yes Yes -Procedure Performed Yes Yes Yes -Type of Procedure Debridement Debridement Debridement -Clinical Debridement Subcutaneous Subcutaneous Subcutaneous -Tissue Removed Subcutaneous Subcutaneous Subcutaneous -Post Debridement (cm) - Length 0.6 0.3 0.4 -Post Debridement (cm) - Width 0.2 0.2 0.2 -Post Debridement (cm) - Depth 0.2 0.2 0.2 -Total Square (Post) (cm) 0.12 0.06 0.08 -Area of Debridement (cm) - Length 0.6 0.3 0.4 -Area of Debridement (cm) - Width 0.2 0.2 0.2 -Total Square (Area) (cm) 0.12 0.06 0.08 -Tunneling No No No -Undermining/Tunneling No No No -Circular Undermining No No No -Wound/Ulcer Outcome Not Healed Not Healed Not Healed -Ulcer Cleansing Rinsed/ Rinsed/ Rinsed/ Irrigated with Irrigated with Irrigated with Saline Saline Saline -Foul Odor after Cleansing No No No -Bioengineered Tissue Yes No No -Type of Bioengineered Tissue Epifix 18mm Disc -Expiration Date 02/23/27 -Product Lot Number [id number] -Percent Used 100 -Lot number of Saline Used [id number] -Bleeding Controlled with Pressure Pressure Pressure -Treatment Response Procedure Procedure Procedure Tolerated Well Tolerated Well Tolerated Well -Offloading Yes Yes Yes -Type of Offloading Total Contact Total Contact Total Contact Cast (TCC) - Cast (TCC) - Cast (TCC) - Right ($) Right ($) Right ($) -Debridement - Subq, 1st 20sq cm No Yes Yes -Apply Skin Sub - 1st 25 sq cm - Feet 1 -Epifix 18mm Disc 3 Pain Scale: 0-10 Numeric Is Patient Pain Free? Yes Yes Yes 06/18/22 08:46 Wound Center Nurse 2 #2- R INFERIOR PLANTAR FOOT POST OP -Time 08:47 -Correct Patient Yes -Correct Side, Site, Position Yes -Correct Procedure Yes -Procedure Performed Yes -Type of Procedure Debridement -Clinical Debridement Subcutaneous -Tissue Removed Subcutaneous -Post Debridement (cm) - Length 0.3 -Post Debridement (cm) - Width 0.2 -Post Debridement (cm) - Depth 0.1 -Total Square (Post) (cm) 0.06 -Area of Debridement (cm) - Length 0.3 -Area of Debridement (cm) - Width 0.2 -Total Square (Area) (cm) 0.06 -Tunneling No -Undermining/Tunneling No -Circular Undermining No -Wound/Ulcer Outcome Not Healed -Ulcer Cleansing Rinsed/ Irrigated with Saline -Foul Odor after Cleansing No -Bioengineered Tissue No -Type of Bioengineered Tissue -Expiration Date -Product Lot Number -Percent Used -Lot number of Saline Used -Bleeding Controlled with Pressure -Treatment Response Procedure Tolerated Well -Offloading Yes -Type of Offloading Total Contact Cast (TCC) - Right ($) -Debridement - Subq, 1st 20sq cm Yes -Apply Skin Sub - 1st 25 sq cm - Feet -Epifix 18mm Disc Pain Scale: 0-10 Numeric Is Patient Pain Free? Yes - Nurse 3 - General Ulcer D/C NN Start: 05/28/22 08:37 Freq: Status: Active Protocol: Activity Type Activity Date Activity User E-sign Co-sign Detail Recorded Client Recorded Date Recorded By Document 06/04/22 09:03 [facility] [id number] 06/04/22 09:04 [facility] 06/04/22 09:03 Wound Care Nurse 3 #2- R INFERIOR PLANTAR FOOT POST OP -Ulcer Cleansing Rinsed/ Irrigated with Saline -Foul Odor after Cleansing No -Primary Dressing Applied Mepilex Border, Promogran Jennifer Matter -Primary Dressing Covered/Secured with Secured with Tape -Other Covering tcc undercast -Mepilex Border 1 -Promogran Ejnnifer Matter 1 Treatment Response Procedure Tolerated Well Pain Scale: 0-10 Numeric Is Patient Pain Free? Yes - Visit Discharge Discharge Condition Stable Ambulatory Status Ambulatory, Walker Transportation Private Auto Accompanied by Notes: knee walker Assessment/Plan Assessment/Plan (1) Non-pressure chronic ulcer of other part of right foot with necrosis of muscle: CODE(S): L97.513 - Non-pressure chronic ulcer of other part of right foot with necrosis of muscle (2) Non-pressure chronic ulcer of other part of right foot with fat layer exposed: CODE(S): L97.512 - Non-pressure chronic ulcer of other part of right foot with fat layer exposed (3) Type 2 diabetes mellitus with foot ulcer: CODE(S): E11.621 - Type 2 diabetes mellitus with foot ulcer; L97.509 - Non-pressure chronic ulcer of other part of unspecified foot with unspecified severity (4) Other specified peripheral vascular diseases: CODE(S): I73.89 - Other specified peripheral vascular diseases (5) Localized edema: CODE(S): R60.0 - Localized edema (6) Delayed healing of traumatic wound: CODE(S): T14.8XXD - Other injury of unspecified body region, subsequent encounter (7) Type 2 diabetes mellitus with diabetic polyneuropathy: CODE(S): E11.42 - Type 2 diabetes mellitus with diabetic polyneuropathy PLAN: Plan I reviewed and discussed his case today. Debridement was performed today as noted in the clinical panel to the ulcer site. The following work up and care recommendations were made: Dressing: Jennifer and secondary dressing was applied prior to cast application Wash: Soap and water performed today Tissue growth optimization: I recommend application of advanced wound healing product, epi fix and he completed this course and did very well. Offload: To maintain a strict nonweightbearing status with knee roller. Verbal consent was obtained to apply a total contact cast in a rectus well-padded manner position. He tolerated this well. He was advised to keep this clean, dry, and intact until follow-up next week. Vascular: His noninvasive vascular studies demonstrate evidence of micro vascular disease and a vascular specialist referral has been recommended in the past. I recommend this again at this time and he refuses. It is also noted he uses tobacco products and this can affect microvascular circulation. He was urged to quit. Edema: Tubigrip Infection: This is resolved. It is noted he was treated by infectious disease on an inpatient and outpatient basis. To monitor for return of infection signs. Pain: He is neuropathic and does not have pain at this time. Host factors: He is a diabetic and his last A1c on file was 6.7%. To continue to manage his glucose levels to optimize healing. I also recommend nutritional supplementation. He is already taking Mino. Nutrition: to continue mino supplementation to optimize healing. I answered all the patient's questions. To return to the wound healing center in 1 week or call sooner if the patient has any questions or concerns. Note: [employer] speech recognition roll edge machine operator software was used to create portions of this document. Sound-alike and misspelled words, as well as other roll edge machine operator errors may be contained in the documentation.
[2022-06-25 08:52] VITALS: BP 126/75; PULSE 78; RESP 20; TEMP 36.4; BMI 29.8
--- NOTE | 2022-06-25 09:20 | PCM.WC.PN ---
History of Present Illness Date of Service: 06/25/22 Chief Complaint: Right foot ulcer History of Wound: This 52-year-old male with history of diabetic neuropathy presents to the wound healing center for delayed healing of right foot ulcers. It is noted he had prior foot infections with a bedside incision and drainage performed by Dr. Jack on 12-05-21. He denies current fever, chill, nausea, vomiting, redness or odor. He has been using a knee roller. He takes nutritional supplementation. He refuses vascular surgery referral as recommended previously. This ulcer has been present for over several months. He places weight on his heel if needed. He is with his today. He did well with total contact cast this past week and is amendable to proceed again today. Progress of Wound: healed Objective Data Objective Data Vital Signs: Vital Signs Temp Pulse Resp BP O2 Del Method 97.6 F L 78 20 H 126/75 H Room Air 06/25/22 08:52 06/25/22 08:52 06/25/22 08:52 06/25/22 08:52 06/11/22 08:33 Oxygen Delivery Method Room Air Weight: 99.79 kg Body Mass Index (BMI) 29.8 Physical Exam Const alert and oriented x3 Extremity Extremity Narrative: No calf tenderness Diminished pulses; palpable DP pulse and weak PT bilateral Muscle wasting noted Skin Skin Narrative: no purulence, no streaking, no odor, no infection. plantar foot ulcer is healed with full epithelialization. There is a lateral column rocker-bottom type foot shape noted and there is no laxity, calor, erythema or significant edema. There is no purulence on expression or adjacent erythema or streaking. No remaining bogginess or fluctuance. Compartments remain soft to palpate improvement is noted General Skin Exam: Negative for erythema Neuro Neuro Narrative: lack of normal epicritic sensation via light touch is consistent with neuropathy status Psych cooperative and affect normal Debridement Note Debridement Note Post-Debridement Measurements and Additional Note: Post-Debridement Measurements/Treatment WC - Nurse 1 - General Ulcer Assessment Start: 05/28/22 08:37 Freq: Status: Active Protocol: MARY JO Activity Type Activity Date Activity User E-sign Co-sign Detail Recorded Client Recorded Date Recorded By Document 05/28/22 08:37 DL [id number] 05/28/22 08:42 DL Document 06/04/22 08:29 BMF [id number] 06/04/22 08:41 BMF Document 06/11/22 08:33 BMF [id number] 06/11/22 08:39 BMF Document 06/18/22 08:35 RB [id number] 06/18/22 08:41 RB Document 06/25/22 08:52 DL [id number] 06/25/22 08:56 DL 05/28/22 06/04/22 06/11/22 08:37 08:29 08:33 WC - Today's Visit Information Type of service Follow-up Visit Follow-up Visit Follow-up Visit (Physician/ER TECH (Physician/ER TECH (Physician/ER TECH ) ) ) Arrival Mode Ambulatory Ambulatory, Ambulatory, Walker Walker Arrival Mode (Other) knee walker knee walker Transfer Assistance None None Accompanied by Patient Identification Verified (Name & Yes Yes Yes ) Patient Requires Transmission-Based No No No Precautions Finger Stick Blood Sugar(mg/dl) (if indicated): Blood Sugar Height and Weight Body Mass Index (BMI) 29.8 29.8 29.8 BMI Classification Overweight Overweight Overweight Vital Signs Temperature (97.8 F-99.1 F) 97.5 F L 97 F L 97 F L Temperature Source Temporal Temporal Temporal Pulse Rate (60-100) 104 H 104 H 105 H Pulse Location Apical Monitor Monitor Respiratory Rate (12-18) 20 H 16 16 Respiratory rate source Observation Observation Observation Oxygen Delivery Method Room Air Room Air Blood Pressure (90/60-120/80) 146/77 H 141/89 H 151/80 H Blood Pressure Mean (mm Hg) 100 106 103 Source Monitor Monitor Monitor Position Sitting Sitting Blood Pressure Location Right Arm Right Arm History Since Last Visit- (Skip if this is Patient's initial visit) Have you changed medications since your No No No last visit? Any new allergies or adverse reactions No No No Had a fall/change in ADL's that may No No No increase risk of falls Signs or symptoms of abuse and/or No No No neglect since last visit Have you been in the hospital since your No No No last visit? Has dressing in place as prescribed Yes Yes Yes Has compression in place as prescribed N/A N/A N/A Has offloadiing in place as prescribed Yes Yes Yes Experienced any changes in pain level or No No No management Left Footwear Regular Shoe Regular Shoe Right Footwear Total Contact Total Contact Total Contact Cast Cast Cast Pain Scale: 0-10 Numeric Is Patient Pain Free? Yes Yes Yes 06/18/22 06/25/22 08:35 08:52 - Today's Visit Information Type of service Follow-up Visit Follow-up Visit (Physician/ER TECH (Physician/ER TECH ) ) Arrival Mode Other Ambulatory Arrival Mode (Other) kneewalker Transfer Assistance None None Accompanied by Patient Identification Verified (Name & Yes Yes ) Patient Requires Transmission-Based No No Precautions Finger Stick Blood Sugar(mg/dl) (if 160 indicated): Blood Sugar Stated by Patient Height and Weight Body Mass Index (BMI) 29.8 29.8 BMI Classification Overweight Overweight Vital Signs Temperature (97.8 F-99.1 F) 96.9 F L 97.6 F L Temperature Source Temporal Temporal Pulse Rate (60-100) 105 H 78 Pulse Location Monitor Monitor Respiratory Rate (12-18) 18 20 H Respiratory rate source Observation Observation Oxygen Delivery Method Blood Pressure (90/60-120/80) 144/81 H 126/75 H Blood Pressure Mean (mm Hg) 102 92 Source Monitor Monitor Position Sitting Blood Pressure Location Left Arm History Since Last Visit- (Skip if this is Patient's initial visit) Have you changed medications since your No No last visit? Any new allergies or adverse reactions No No Had a fall/change in ADL's that may No No increase risk of falls Signs or symptoms of abuse and/or No No neglect since last visit Have you been in the hospital since your No No last visit? Has dressing in place as prescribed Yes Yes Has compression in place as prescribed No N/A Has offloadiing in place as prescribed Yes Yes Experienced any changes in pain level or No No management Left Footwear Regular Shoe Right Footwear Total Contact Cast Pain Scale: 0-10 Numeric Is Patient Pain Free? Yes Yes - Nurse 1 - General Ulcer Measurement Start: 05/28/22 08:37 Freq: Status: Active Protocol: Activity Type Activity Date Activity User E-sign Co-sign Detail Recorded Client Recorded Date Recorded By Document 05/28/22 08:37 DL [id number] 05/28/22 08:42 DL Document 06/04/22 08:29 BMF [id number] 06/04/22 08:41 BM Document 06/11/22 08:33 BMF [id number] 06/11/22 08:39 BMF Document 06/18/22 08:35 RB [id number] 06/18/22 08:41 RB Document 06/25/22 08:52 DL [id number] 06/25/22 08:56 DL 05/28/22 06/04/22 06/11/22 08:37 08:29 08:33 Wound Center Nurse 1 #2- R INFERIOR PLANTAR FOOT POST OP -Combined with other wound No No -Current Size (cm) - Length 0.6 0.3 0.1 -Current Size (cm) - Width 0.1 0.2 0.1 -Current Size (cm) - Depth 0.2 0.2 0.1 -Total Square Cm 0.06 0.06 0.01 -Date of Last Picture (Recall this 06/11/22 field) -Photo Taken Yes No Yes -Epithelialization Small 1-33% Large 67-100% -Tunneling No No -Undermining/Tunneling No No -Circular Undermining No No -Exudate Amt Medium Medium Small -Exudate Type Serosanguineous Serosanguineous Sanguineous -Wound Margin Distinct, Distinct, Distinct, Outline Outline Outline Attached Attached Attached -Granulation Amt Large (67-100%) Large (67-100%) Large (67-100%) -Granulation Quality [place] -Slough/Fibrin Yes Yes -Necrosis Amt Small (1-33%) Small (1-33%) Small (1-33%) -Necrotic Tissue Type Adherent Slough Adherent Slough Adherent Slough -Structure Exposed N/A -Texture (Lor-wound Skin Appearance) Scarring Assessed, Assessed,Callus Scarring -Moisture (Lor-wound Skin Appearance) Maceration Assessed, Assessed, Maceration Maceration,Dry/ Scaly -Color (Lor-wound Skin Appearance) No Abnormality Assessed Assessed -Temperature (Lor-wound Skin No Abnormality No Abnormality No Abnormality Appearance) (Pt Warm) (Pt Warm) (Pt Warm) -Tenderness on Palpation (Lor-wound No No No Skin Appearance) -Ulcer Cleansing Soap and Water Soap and Water Soap and Water -Foul Odor after Cleansing No No No -Anesthetic Used 5% Lidocaine 5% Lidocaine 5% Lidocaine Gel Gel Gel 06/18/22 06/25/22 08:35 08:52 Wound Center Nurse 1 #2- R INFERIOR PLANTAR FOOT POST OP -Combined with other wound No -Current Size (cm) - Length 0.1 0.1 -Current Size (cm) - Width 0.1 0.1 -Current Size (cm) - Depth 0.2 0.1 -Total Square Cm 0.01 0.01 -Date of Last Picture (Recall this field) -Photo Taken Yes No -Epithelialization -Tunneling No -Undermining/Tunneling No -Circular Undermining No -Exudate Amt Small Small -Exudate Type Serosanguineous Serosanguineous -Wound Margin Distinct, Flat & Intact Outline Attached -Granulation Amt Medium (34-66%) Large (67-100%) -Granulation Quality [place] -Slough/Fibrin Yes -Necrosis Amt Medium (34-66%) None Present (0 %) -Necrotic Tissue Type Adherent Slough -Structure Exposed N/A N/A -Texture (Lor-wound Skin Appearance) Assessed,Callus Scarring ,Scarring -Moisture (Lor-wound Skin Appearance) Assessed No Abnormality -Color (Lor-wound Skin Appearance) Assessed No Abnormality -Temperature (Lor-wound Skin No Abnormality No Abnormality Appearance) (Pt Warm) (Pt Warm) -Tenderness on Palpation (Lor-wound No Skin Appearance) -Ulcer Cleansing Wound Cleanser Soap and Water -Foul Odor after Cleansing No No -Anesthetic Used 5% Lidocaine 5% Lidocaine Gel Gel WC - Nurse 2 - General Ulcer CM Notes Start: 05/28/22 08:37 Freq: Status: Active Protocol: Activity Type Activity Date Activity User E-sign Co-sign Detail Recorded Client Recorded Date Recorded By Document 05/28/22 08:52 [id number] 05/28/22 08:57 Document 06/04/22 08:49 [id number] 06/04/22 08:50 Document 06/11/22 08:58 SARAH [id number] 06/11/22 08:58 Document 06/18/22 08:46 [id number] 06/18/22 08:48 Document 06/25/22 09:14 [id number] 06/25/22 09:15 05/28/22 06/04/22 06/11/22 08:52 08:49 08:58 Wound Center Nurse 2 #2- R INFERIOR PLANTAR FOOT POST OP -Time 08:56 08:49 08:58 -Correct Patient Yes Yes Yes -Correct Side, Site, Position Yes Yes Yes -Correct Procedure Yes Yes Yes -Procedure Performed Yes Yes Yes -Type of Procedure Debridement Debridement Debridement -Clinical Debridement Subcutaneous Subcutaneous Subcutaneous -Tissue Removed Subcutaneous Subcutaneous Subcutaneous -Post Debridement (cm) - Length 0.6 0.3 0.4 -Post Debridement (cm) - Width 0.2 0.2 0.2 -Post Debridement (cm) - Depth 0.2 0.2 0.2 -Total Square (Post) (cm) 0.12 0.06 0.08 -Area of Debridement (cm) - Length 0.6 0.3 0.4 -Area of Debridement (cm) - Width 0.2 0.2 0.2 -Total Square (Area) (cm) 0.12 0.06 0.08 -Tunneling No No No -Undermining/Tunneling No No No -Circular Undermining No No No -Wound/Ulcer Outcome Not Healed Not Healed Not Healed -Ulcer Cleansing Rinsed/ Rinsed/ Rinsed/ Irrigated with Irrigated with Irrigated with Saline Saline Saline -Foul Odor after Cleansing No No No -Bioengineered Tissue Yes No No -Type of Bioengineered Tissue Epifix 18mm Disc -Expiration Date 02/23/27 -Product Lot Number [id number] -Percent Used 100 -Lot number of Saline Used [id number] -Bleeding Controlled with Pressure Pressure Pressure -Treatment Response Procedure Procedure Procedure Tolerated Well Tolerated Well Tolerated Well -Offloading Yes Yes Yes -Type of Offloading Total Contact Total Contact Total Contact Cast (TCC) - Cast (TCC) - Cast (TCC) - Right ($) Right ($) Right ($) -Debridement - Subq, 1st 20sq cm No Yes Yes -Apply Skin Sub - 1st 25 sq cm - Feet 1 -Epifix 18mm Disc 3 Pain Scale: 0-10 Numeric Is Patient Pain Free? Yes Yes Yes 06/18/22 06/25/22 08:46 09:14 Wound Center Nurse 2 #2- R INFERIOR PLANTAR FOOT POST OP -Time 08:47 -Correct Patient Yes No -Correct Side, Site, Position Yes No -Correct Procedure Yes No -Procedure Performed Yes No -Type of Procedure Debridement -Clinical Debridement Subcutaneous -Tissue Removed Subcutaneous -Post Debridement (cm) - Length 0.3 0 -Post Debridement (cm) - Width 0.2 0 -Post Debridement (cm) - Depth 0.1 0 -Total Square (Post) (cm) 0.06 0 -Area of Debridement (cm) - Length 0.3 0 -Area of Debridement (cm) - Width 0.2 0 -Total Square (Area) (cm) 0.06 0 -Tunneling No -Undermining/Tunneling No -Circular Undermining No -Wound/Ulcer Outcome Not Healed Healed- Epithelialized -Ulcer Cleansing Rinsed/ Irrigated with Saline -Foul Odor after Cleansing No -Bioengineered Tissue No -Type of Bioengineered Tissue -Expiration Date -Product Lot Number -Percent Used -Lot number of Saline Used -Bleeding Controlled with Pressure -Treatment Response Procedure Tolerated Well -Offloading Yes Yes -Type of Offloading Total Contact Total Contact Cast (TCC) - Cast (TCC) - Right ($) Right ($) -Debridement - Subq, 1st 20sq cm Yes -Apply Skin Sub - 1st 25 sq cm - Feet -Epifix 18mm Disc Pain Scale: 0-10 Numeric Is Patient Pain Free? Yes Yes - Nurse 3 - General Ulcer D/C NN Start: 05/28/22 08:37 Freq: Status: Active Protocol: Activity Type Activity Date Activity User E-sign Co-sign Detail Recorded Client Recorded Date Recorded By Document 06/04/22 09:03 [facility] [id number] 06/04/22 09:04 [facility] 06/04/22 09:03 Wound Care Nurse 3 #2- R INFERIOR PLANTAR FOOT POST OP -Ulcer Cleansing Rinsed/ Irrigated with Saline -Foul Odor after Cleansing No -Primary Dressing Applied Mepilex Border, Promogran Jennifer Matter -Primary Dressing Covered/Secured with Secured with Tape -Other Covering tcc undercast -Mepilex Border 1 -Promogran Jennifer Matter 1 Treatment Response Procedure Tolerated Well Pain Scale: 0-10 Numeric Is Patient Pain Free? Yes - Visit Discharge Discharge Condition Stable Ambulatory Status Ambulatory, Walker Transportation Private Auto Accompanied by Notes: knee walker Assessment/Plan Assessment/Plan (1) Non-pressure chronic ulcer of other part of right foot with necrosis of muscle: CODE(S): L97.513 - Non-pressure chronic ulcer of other part of right foot with necrosis of muscle (2) Non-pressure chronic ulcer of other part of right foot with fat layer exposed: CODE(S): L97.512 - Non-pressure chronic ulcer of other part of right foot with fat layer exposed (3) Type 2 diabetes mellitus with foot ulcer: CODE(S): E11.621 - Type 2 diabetes mellitus with foot ulcer; L97.509 - Non-pressure chronic ulcer of other part of unspecified foot with unspecified severity (4) Other specified peripheral vascular diseases: CODE(S): I73.89 - Other specified peripheral vascular diseases (5) Localized edema: CODE(S): R60.0 - Localized edema (6) Delayed healing of traumatic wound: CODE(S): T14.8XXD - Other injury of unspecified body region, subsequent encounter (7) Type 2 diabetes mellitus with diabetic polyneuropathy: CODE(S): E11.42 - Type 2 diabetes mellitus with diabetic polyneuropathy PLAN: Plan I reviewed and discussed his case today. The ulcers have healed. The following work up and care recommendations were made: Dressing: Discontinue due to healed status Wash: Soap and water performed today . Offload: To maintain a strict nonweightbearing status with knee roller to allow continued skin remodeling this upcoming week with a total contact cast. Verbal consent was obtained to apply a total contact cast in a rectus well-padded manner position. He tolerated this well. He was advised to keep this clean, dry, and intact until follow-up next week. Vascular: His noninvasive vascular studies demonstrate evidence of micro vascular disease and a vascular specialist referral has been recommended in the past. I recommend this again at this time and he refuses. It is also noted he uses tobacco products and this can affect microvascular circulation. He was urged to quit. Infection: This is resolved. It is noted he was treated by infectious disease on an inpatient and outpatient basis. To monitor for return of infection signs. Pain: He is neuropathic and does not have pain at this time. Host factors: He is a diabetic and his last A1c on file was 6.7%. To continue to manage his glucose levels to optimize healing. I answered all the patient's questions. To return to the wound healing center in 1 week or call sooner if the patient has any questions or concerns. The cast will be removed and healed ulcer status will be confirmed prior to discharge. Note: [employer] speech recognition garage door installer software was used to create portions of this document. Sound-alike and misspelled words, as well as other garage door installer errors may be contained in the documentation.
== END 2022-06-25 23:59 | disposition home or self-care (01) ==
LOC: WC 08:45
PROVIDERS: PCP Family Medicine; Referring Provider Podiatrist; Visit Provider Podiatrist
DX: E11.621 Type 2 diabetes mellitus with foot ulcer (principal); E11.51 Type 2 diabetes mellitus with diabetic peripheral angiopathy without gangrene; L97.513 Non-pressure chronic ulcer of other part of right foot with necrosis of muscle; L97.512 Non-pressure chronic ulcer of other part of right foot with fat layer exposed; E11.42 Type 2 diabetes mellitus with diabetic polyneuropathy; I73.89 Other specified peripheral vascular diseases; R60.0 Localized edema; T14.8XXD Other injury of unspecified body region, subsequent encounter
CPT/HCPCS: 11042; 15275; 29445; 99213; Q4186; G0463

== ENCOUNTER 2022-07-02 08:28 | Outpatient (RCR) | payer BC, SELFPAY ==
[2022-06-26 00:33] VITALS: BP 126/75; PULSE 78; RESP 20; TEMP 36.4; BMI 29.8
[2022-07-02 08:50] VITALS: BP 157/85; PULSE 91; RESP 20; TEMP 36.3; BMI 29.8
--- NOTE | 2022-07-02 10:46 | PN.PCM_ITS ---
History of Present Illness Date of Service: 07/02/22 Chief Complaint: Right foot ulcer History of Wound: This 52-year-old male with history of diabetic neuropathy presents to the wound healing center for delayed healing of right foot ulcers. It is noted he had prior foot infections with a bedside incision and drainage performed by Dr. Jack on 12-05-21. He denies current fever, chill, nausea, vomiting, redness or odor. He has been using a knee roller. He takes nutritional supplementation. He refuses vascular surgery referral as recommended previously. This ulcer has been present for over several months. He places weight on his heel if needed. He is with his today. He healed last week and kept his total contact cast intact. Progress of Wound: healed Objective Data Objective Data Vital Signs: Vital Signs Temp Pulse Resp BP 97.3 F L 91 20 H 157/85 H 07/02/22 08:50 07/02/22 08:50 07/02/22 08:50 07/02/22 08:50 Weight: 99.79 kg Body Mass Index (BMI) 29.8 Physical Exam Const alert and oriented x3 Extremity Extremity Narrative: No calf tenderness Diminished pulses; palpable DP pulse and weak PT bilateral Muscle wasting noted Skin Skin Narrative: no purulence, no streaking, no odor, no infection. plantar foot ulcer is healed with full epithelialization. There is a lateral column rocker-bottom type foot shape noted and there is no laxity, calor, erythema or significant edema. There is no purulence on expression or adjacent erythema or streaking. No remaining bogginess or fluctuance. Compartments remain soft to palpate improvement is noted General Skin Exam: Negative for erythema Neuro Neuro Narrative: lack of normal epicritic sensation via light touch is consistent with neuropathy status Psych cooperative and affect normal Debridement Note Debridement Note Post-Debridement Measurements and Additional Note: Post-Debridement Measurements/Treatment WC - Nurse 1 - General Ulcer Assessment Start: 07/02/22 08:50 Freq: Status: Active Protocol: MARY JO Activity Type Activity Date Activity User E-sign Co-sign Detail Recorded Client Recorded Date Recorded By Document 07/02/22 08:50 DL [id number] 07/02/22 08:59 DL 07/02/22 08:50 - Today's Visit Information Type of service Follow-up Visit (Physician/SOCKET WELDER HELPER ) Arrival Mode Ambulatory Transfer Assistance None Patient Identification Verified (Name & Yes ) Patient Requires Transmission-Based No Precautions Finger Stick Blood Sugar(mg/dl) (if 180 indicated): Blood Sugar Stated by Patient Height and Weight Body Mass Index (BMI) 29.8 BMI Classification Overweight Vital Signs Temperature (97.8 F-99.1 F) 97.3 F L Temperature Source Temporal Pulse Rate (60-100) 91 Pulse Location Monitor Respiratory Rate (12-18) 20 H Respiratory rate source Observation Blood Pressure (90/60-120/80) 157/85 H Blood Pressure Mean (mm Hg) 109 Source Monitor Comment Remains healed History Since Last Visit- (Skip if this is Patient's initial visit) Have you changed medications since your No last visit? Any new allergies or adverse reactions No Had a fall/change in ADL's that may No increase risk of falls Signs or symptoms of abuse and/or No neglect since last visit Have you been in the hospital since your No last visit? Has dressing in place as prescribed Yes Has compression in place as prescribed N/A Has offloadiing in place as prescribed Yes Experienced any changes in pain level or No management Pain Scale: 0-10 Numeric Is Patient Pain Free? Yes - Nurse 2 - General Ulcer CM Notes Start: 07/02/22 08:50 Freq: Status: Active Protocol: Activity Type Activity Date Activity User E-sign Co-sign Detail Recorded Client Recorded Date Recorded By Document 07/02/22 09:12 JF [id number] 07/02/22 09:12 07/02/22 09:12 Is Patient Pain Free? Yes - Nurse 3 - General Ulcer D/C NN Start: 07/02/22 08:50 Freq: Status: Active Protocol: Activity Type Activity Date Activity User E-sign Co-sign Detail Recorded Client Recorded Date Recorded By Document 07/02/22 09:13 [id number] [id number] 07/02/22 09:13 07/02/22 09:13 Is Patient Pain Free? Yes - Visit Discharge Discharge Condition Stable Ambulatory Status Ambulatory, Walker Transportation Private Auto Accompanied by Medication Reconcilliation completed & Yes provided to patient/care provider Clinical Summary of Care Provided Yes Assessment/Plan Assessment/Plan (1) Non-pressure chronic ulcer of other part of right foot with necrosis of muscle: CODE(S): L97.513 - Non-pressure chronic ulcer of other part of right foot with necrosis of muscle (2) Non-pressure chronic ulcer of other part of right foot with fat layer exposed: CODE(S): L97.512 - Non-pressure chronic ulcer of other part of right foot with fat layer exposed (3) Type 2 diabetes mellitus with foot ulcer: CODE(S): E11.621 - Type 2 diabetes mellitus with foot ulcer; L97.509 - Non-pressure chronic ulcer of other part of unspecified foot with unspecified severity (4) Other specified peripheral vascular diseases: CODE(S): I73.89 - Other specified peripheral vascular diseases (5) Localized edema: CODE(S): R60.0 - Localized edema (6) Type 2 diabetes mellitus with diabetic polyneuropathy: CODE(S): E11.42 - Type 2 diabetes mellitus with diabetic polyneuropathy PLAN: Plan I reviewed and discussed his case today. The ulcers have healed. The following work up and care recommendations were made: Dressing: Discontinue due to healed status Wash: Soap and water performed . Offload: To progress to supportive and protective shoe. total contact cast d/c at this time. Vascular: His noninvasive vascular studies demonstrate evidence of micro vascular disease and a vascular specialist referral has been recommended in the past. I recommend this again at this time and he refuses. It is also noted he uses tobacco products and this can affect microvascular circulation. He was urged to quit. Infection: This is resolved. It is noted he was treated by infectious disease on an inpatient and outpatient basis. To monitor for return of infection signs. Pain: He is neuropathic and does not have pain at this time. Host factors: He is a diabetic and his last A1c on file was 6.7%. To continue to manage his glucose levels to optimize healing. I answered all the patient's questions. d/c from wound center. Follow up at [facility] center within a couple months for risk assessment. Note: [employer] [facility] [employer] speech recognition casino gaming inspector software was used to create portions of this document. Sound-alike and misspelled words, as well as other casino gaming inspector errors may be contained in the documentation. The medical decision making level is low. There is noted low risk of morbidity after considering this treatment plan and diagnostic data. The problems addressed require a low medical decision making level which includes two or more minor problems, a stable chronic illness, or an acute uncomplicated illness or injury.
== END 2022-07-03 10:13 | disposition home or self-care (01) ==
LOC: WC 08:28
PROVIDERS: PCP Family Medicine; Referring Provider Podiatrist; Visit Provider Podiatrist
DX: Z09 Encounter for follow-up examination after completed treatment for conditions other than malignant neoplasm (principal); E11.51 Type 2 diabetes mellitus with diabetic peripheral angiopathy without gangrene; E11.42 Type 2 diabetes mellitus with diabetic polyneuropathy; R60.0 Localized edema
CPT/HCPCS: 99212; G0463

== ENCOUNTER → 2022-07-15 | Outpatient (CLI) | payer BC, SELFPAY ==
--- NOTE | 2022-07-15 10:56 | VDLE_ITS ---
Reason For Study: DVT RIGHT LEFT GSV is normal. GSV is normal. CFV is compressible, spontaneous, phasic, CFV is compressible, spontaneous, phasic, competent and demonstrates normal competent, and demonstrates normal augmentation. augmentation. FV is compressible, spontaneous, phasic, FV is compressible, spontaneous, phasic, competent and demonstrates normal competent and demonstrates normal augmentation. augmentation. POP V is compressible, spontaneous, phasic, POP V is compressible, spontaneous, phasic, competent and demonstrates normal competent and demonstrates normal augmentation. augmentation. T/P Trunk is compressible. T/P Trunk is compressible. PTV is compressible. PTV is compressible. RT PerV is compressible. LT PerV is compressible. Procedure Hypoechoic area behind the knee measuring This is a venous duplex using B-mode, color 3.07 x .6 cm. Area is nonvascular. flow and spectral Doppler. Exam performed in department. The exam was diagnostic. A preliminary report was called and/or faxed to Dr. Jack. VL/Venous Duplex US - Ramiro Extrem Interpretation Summary Deep veins of the lower extremities are bilaterally patent and compressible seg mentally. There is no evidence of deep vein thrombosis on either side. Valvular competence appears in tact within the proximal deep venous systems bilaterally. The great saphenous veins appear bila terally patent and compressible segmentally. A non-vascular, hypoechoic structure is noted in the left popliteal space, measuring 3.07 cm x 0.6 cm. This probably represents a popliteal cyst. Clinical correlation is advised. Ordering Physician: Jesse Jack Performed By: Rony Smith RVT
== END | disposition home or self-care (01) ==
LOC: CVS 10:54
PROVIDERS: PCP Family Medicine; Referring Provider Podiatrist; Visit Provider Podiatrist
DX: I82.401 Acute embolism and thrombosis of unspecified deep veins of right lower extremity (principal)
CPT/HCPCS: 93970

== ENCOUNTER → 2022-09-11 | Outpatient (CLI) | payer BC, SELFPAY ==
[2022-09-11 13:05] LABS: Anion Gap 6 (5-15); BUN 11 mg/dL (7-18); BUN/Creat Ratio 13.1 RATIO (10-20); Calcium,Total 9.5 mg/dL (8.5-10.1); Chloride 103 mmol/L (98-107); Cholesterol 114 mg/dL (200); Creatinine, Serum 0.84 mg/dL (0.70-1.30); EST Glomerular Filtration Rate 101 mL/min (>60); Est Glom Filt Rate - Afr Amer 122 mL/min (>60); Glucose 154 mg/dL (74-106); High Density Lipoprotein 36 mg/dL; Potassium 3.9 mmol/L (3.5-5.1); Sodium Level 135 mmol/L (136-145); Triglycerides 164 mg/dL; Very Low Density Lipoprotein 33 mg/dL (5-40)
== END | disposition home or self-care (01) ==
LOC: MFPLAB 11:19
PROVIDERS: PCP Family Medicine; Referring Provider Family Medicine; Visit Provider Family Medicine
DX: E11.9 Type 2 diabetes mellitus without complications (principal)
CPT/HCPCS: 36415; 80048; 80061

== ENCOUNTER → 2023-03-16 | Outpatient (CLI) | payer BC, SELFPAY ==
[2023-03-16 16:18] LABS: Anion Gap 9 (5-15); BUN 18 mg/dL (7-18); BUN/Creat Ratio 22.2 RATIO (10-20); Calcium,Total 9.3 mg/dL (8.5-10.1); Chloride 102 mmol/L (98-107); Cholesterol 108 mg/dL (200); Creatinine, Serum 0.81 mg/dL (0.70-1.30); EST Glomerular Filtration Rate 105 mL/min (>60); Est Glom Filt Rate - Afr Amer 127 mL/min (>60); Glucose 175 mg/dL (74-106); High Density Lipoprotein 36 mg/dL; Potassium 4.3 mmol/L (3.5-5.1); Sodium Level 135 mmol/L (136-145); Triglycerides 191 mg/dL; Very Low Density Lipoprotein 38 mg/dL (5-40)
[2023-03-16 16:31] LABS: Creatinine, Urine (random) < 13.00 mg/dL (NO RANGE EST.); Microalbumin,Random Urine < 5.0 mg/L (NO RANGE EST.)
== END | disposition home or self-care (01) ==
PROVIDERS: PCP Family Medicine; Visit Provider Family Medicine
DX: E11.9 Type 2 diabetes mellitus without complications (principal)
CPT/HCPCS: 36415; 80048; 80061; 82043; 82570

== ENCOUNTER → 2023-09-24 | Outpatient (CLI) | payer BC, SELFPAY ==
[2023-09-24 16:11] LABS: Anion Gap 6 (5-15); BUN 13 mg/dL (7-18); Calcium,Total 9.4 mg/dL (8.5-10.1); Chloride 103 mmol/L (98-107); Cholesterol 117 mg/dL (200); Creatinine, Serum 0.86 mg/dL (0.70-1.30); EST Glomerular Filtration Rate 97 mL/min (>60); Est Glom Filt Rate - Afr Amer 118 mL/min (>60); Glucose 191 mg/dL (74-106); High Density Lipoprotein 33 mg/dL; Potassium 4.3 mmol/L (3.5-5.1); Sodium Level 137 mmol/L (136-145); Triglycerides 245 mg/dL; Very Low Density Lipoprotein 49 mg/dL (5-40)
== END | disposition home or self-care (01) ==
LOC: MFPLAB 12:17
PROVIDERS: PCP Family Medicine; Visit Provider Family Medicine
DX: E11.9 Type 2 diabetes mellitus without complications (principal)
CPT/HCPCS: 36415; 80048; 80061

== ENCOUNTER → 2024-09-19 | Outpatient (CLI) | payer BC, SELFPAY ==
[2024-09-19 12:33] LABS: Creatinine, Urine (random) < 13.00 mg/dL (NO RANGE EST.); Microalbumin,Random Urine < 5.0 mg/L (NO RANGE EST.)
[2024-09-19 13:12] LABS: ALB/GLOB Ratio 1.3 RATIO (0.9-2.4); AST(SGOT) 16 U/L (15-37); Alanine Aminotransfer ALT/SGPT 28 U/L (16-61); Albumin, Serum 4.2 g/dL (3.2-5.0); Alkaline Phosphatase 42 U/L (45-117); Anion Gap 9 (5-15); BUN 14 mg/dL (7-18); BUN/Creat Ratio 16.1 RATIO (10-20); Calcium,Total 9.6 mg/dL (8.5-10.1); Chloride 98 mmol/L (98-107); Cholesterol 113 mg/dL (200); Creatinine, Serum 0.87 mg/dL (0.70-1.30); EST Glomerular Filtration Rate 96 mL/min (>60); Est Glom Filt Rate - Afr Amer 117 mL/min (>60); Globulin 3.2 g/dL (2.2-4.2); Glucose 186 mg/dL (74-106); High Density Lipoprotein 34 mg/dL; Potassium 3.7 mmol/L (3.5-5.1); Protein, Total 7.4 g/dL (6.4-8.2); Sodium Level 131 mmol/L (136-145); Triglycerides 247 mg/dL; Very Low Density Lipoprotein 49 mg/dL (5-40)
== END | disposition home or self-care (01) ==
LOC: MFPLAB 09:29
PROVIDERS: PCP Family Medicine; Visit Provider Family Medicine
DX: E11.9 Type 2 diabetes mellitus without complications (principal)
CPT/HCPCS: 36415; 80053; 80061; 82043; 82570

== ENCOUNTER 2025-03-12 00:37 | Emergency (ER) | payer BC, SELFPAY ==
[2025-03-12 00:40] VITALS: BP 146/81; PULSE 105; RESP 18; TEMP 36.9; O2SAT 99
[2025-03-12 00:43] VITALS: BP 146/81; PULSE 104; RESP 18; TEMP 36.9; O2SAT 98
--- NOTE | 2025-03-12 00:48 | ED.VIS.LOWEX ---
HPI History of Present Illness Chief Complaint: Wound Check Informant: patient and spouse/S.O. Narrative Narrative: 55-year-old male developed a blister on his left foot within the last week or so, he states he had some new boots. In the last 3 days or so he has noticed redness spreading from there up onto the top of his foot. He states he felt tired couple days while this was going on but this past day he has felt better and fine. Denies any fevers or chills. He states it has been a little sore but not major pain. He has some mild peripheral neuropathy related to his diabetes. He states his sugars are fairly well-controlled in the 100s. He has been draining some clear fluid. [facility] Medical History Acute anemia Chronic cough Non-pressure chronic ulcer of other part of right foot with fat layer exposed Diabetes mellitus with diabetic polyneuropathy Alcohol abuse Chewing tobacco use Cutaneous abscess of right foot HTN (hypertension) HTN (hypertension) Diabetes mellitus Home Medications ?Medication ?Instructions ?Recorded ?Last Taken ?Type aspirin 81 mg chewable tablet 81 mg PO DAILY@0800 03/30/14 Unknown History lisinopril 40 mg tablet 40 mg PO DAILY hypertension 12/04/21 Unknown History metformin 750 mg tablet,extended 750 mg PO BID daily 12/04/21 Unknown History release 24 hr multivitamin 1 tab PO DAILY 03/19/22 Unknown History cephalexin 500 mg capsule 500 mg PO Q6 #40 CAPSULES 03/12/25 Unknown Rx tadalafil 20 mg tablet 20 mg PO DAILY PRN sexual activity 03/12/25 Unknown History Allergy/AdvReac Type Severity Reaction Status Date / Time naproxen sodium (From Aleve) Allergy Other Verified 03/12/25 00:38 Social History Smoking Status: Former smoker ROS ROS ED Constitutional Constitutional ED: Denies chills or fever(s) Musculoskeletal Musculoskeletal: Reports extremity pain; Denies neck pain Integumentary Reports rash and wounds; Denies Abrasions Neurologic Neurologic: Reports paresthesias RLE and LLE; Denies weakness EXAM Physical Exam Const Vital Signs: 03/12/25 00:40 03/12/25 00:43 03/12/25 01:40 Temperature 98.5 F 98.5 F 98.5 F Temperature Source Oral Oral Oral Pulse Rate 105 H 104 H 95 Respiratory Rate 18 18 18 Blood Pressure 146/81 H 146/81 H 131/76 H Blood Pressure Mean 102 102 94 Pulse Ox 99 98 98 Oxygen Delivery Method Room Air Room Air Room Air Positive well nourished and well developed General Appearance ED: well developed and NAD Neck full ROM and supple Resp normal respiratory effort Back/Spine normal ROM and normal to inspection Extremity full ROM Extremity Narrative: There is a blister on the peroneal aspect of his distal forefoot, at the base of the fifth toe, the skin is broken open at the plantar aspect of the flexion crease of the fifth toe and it is also open where the blister rubbed open peroneal only. There is no active discharge from either of the sites, but beneath the epidermis there is a space where these 2 openings communicate. Spreading dorsally to the dorsal midfoot from this area is erythema that is a little warm and minimally tender. No subcutaneous emphysema. No lymphangitis, there is no erythema at or proximal to the ankle. Neuro oriented x3, no focal motor deficits and no sensory deficits noted Sensorium / Orientation: alert Psych mental status grossly normal and thought process normal Skin no wounds Rashes: no rashes MDM MDM MDM Narrative Medical decision making narrative: This is consistent with cellulitis developed from this open blister/wound. Patient sees Dr. Jack for podiatry. He appears to have hallux valgus with regards to the left foot. This deformity may be contributing to his boots rubbing. Obtained some basic labs and they are unremarkable. Clinically he is not septic. Three-view x-ray series of the left foot on my interpretation shows no subcutaneous emphysema tracking, or bone involvement radiology in agreement. There is nothing expressible for me to culture right now, gave him a dose of empiric vancomycin 15 mg/kg, he is not septic vital signs are stable he is well-appearing otherwise, we will discharge him home on cephalexin with close outpatient follow-up with podiatry he is comfortable with that plan. History & Record Review Discussion w/independent historian: Patient and Significant other Lab Data Labs: Laboratory Results - last 24 hr 03/12/25 00:56 WBC 9.9 RBC 4.49 L Hgb 14.6 Hct 39.2 L MCV 87.3 MCH 32.5 H MCHC 37.2 H RDW Std Deviation 38.5 RDW Coeff of Davina 11.9 Plt Count 156 MPV 9.2 Immature Gran % (Auto) 0.500 Neut % (Auto) 64.0 Lymph % (Auto) 16.6 L Sawyer % (Auto) 16.8 H Eos % (Auto) 1.6 Baso % (Auto) 0.5 Absolute Neuts (auto) 6.3 Absolute Lymphs (auto) 1.64 Nucleated RBC % 0 Differential Comment SCANNED Sodium 133 Potassium 4.3 Chloride 99 Carbon Dioxide 21.2 Anion Gap 13 BUN 13 Creatinine 0.96 Estim Creat Clear Calc 104.18 Est GFR (MDRD) Non-Af 92 BUN/Creatinine Ratio 13.1 Glucose 188 H Calcium 9.7 Radiography Diagnostic Testing: Clinical Impression(s) from Imaging Studies Foot X-Ray 03/12/25 01:00 IMPRESSION: 1. Soft tissue swelling with questionable soft tissue ulceration adjacent to the distal aspect of the 5th metatarsal bone. No definite acute osteomyelitis is seen. If clinical concern for osteomyelitis, three-phase nuclear bone scan and MRI are more sensitive exams. 2. Degenerative changes. 3. Calcaneal spurring. Reading Location: [facility] Discharge Plan Triage Chief Complaint: Wound Check ED Provider: Savage Alcantara Dx/Rx/DC Orders Clinical Impression: Type 2 diabetes mellitus with diabetic foot infection, Blister (nonthermal), left foot, initial encounter Instructions: ED Cellulitis Prescriptions: New cephalexin 500 mg capsule 500 mg PO Q6 Qty: 40 0RF No Action aspirin 81 MG tablet,chewable 81 mg PO DAILY@0800 lisinopril 40 mg tablet 40 mg PO DAILY Patient Comments: TAKE 1 TABLET BY MOUTH EVERY DAY metformin 750 mg tablet extended release 24 hr 750 mg PO BID Patient Comments: TAKE 1 TABLET BY MOUTH TWICE A DAY multivitamin Tablet 1 tab PO DAILY tadalafil 20 mg tablet 20 mg PO DAILY PRN (Reason: sexual activity) Primary Care Provider: Steve Mckeon Referrals: Jesse Jack DPM [Med Staff - Active Staff] - As soon as possible Activity Restrictions/Additional Instructions: Continue performing dressing changes as needed for drainage. Keep open areas clean and covered. Print Language: Occitan Disposition Disposition: Home, Self Care
--- NOTE | 2025-03-12 01:00 | RAD_ITS ---
PROCEDURE: FOOT MIN 3 VIEWS 03/12/2025 REASON FOR EXAM: PAIN/INFECTION TECHNIQUE: 3 views of the left foot. COMPARISON: None. FINDINGS: No acute fracture or dislocation is identified. There are advanced degenerative changes involving the tarsometatarsal joints. There are degenerative changes of the 1st and 2nd metatarsophalangeal joints with hallux valgus. There is soft tissue swelling with questionable soft tissue ulceration adjacent to the distal aspect of the 5th metatarsal bone. No acute osseous erosive changes are present. Plantar surface and posterior calcaneal spurring is identified. RAD/Foot min 3 Views IMPRESSION: 1. Soft tissue swelling with questionable soft tissue ulceration adjacent to th e distal aspect of the 5th metatarsal bone. No definite acute osteomyelitis is seen. If clinical concern for osteomyelitis, t hree-phase nuclear bone scan and MRI are more sensitive exams. 2. Degenerative changes. 3. Calcaneal spurring. Reading Location: [facility]
[2025-03-12 01:09] LABS: Absolute Lymphocyte Count 1.64 X10^3/uL (0.83-4.51); Absolute Neutrophil Count 6.3 X10^3/uL (2.0-7.7); Basophil# 0.05 X10^3/uL; Basophil% 0.5 % (0-1); Differential Indicated SCAN CRITERIA MET; Eosinophil# 0.16 X10^3/uL; Eosinophils% 1.6 % (0-5); Hematocrit 39.2 % (40-54); Hemoglobin 14.6 g/dL (13.0-16.5); Lymphocyte # 1.64 X10^3/ul (0.83-4.51); Lymphocyte % 16.6 % (19-41); Mean Corp Hgb Conc 37.2 g/dL (32-36); Mean Corpuscular Hgb 32.5 pg (27.0-32.0); Mean Corpuscular Volume 87.3 fL (80-94); Mean Platelet Vol. 9.2 fl (6.2-12.0); Monocyte# 1.66 X10^3/uL; Monocyte% 16.8 % (0-10); NRBC Flagged by Analyzer 0 % (0-5); Neutrophil # 6.31 X10^3/uL (2.7-7.7); POSITIVE DIFFERENTIAL YES; Platelet Count 156 K/mm3 (150-450); RBC Distribution Width CV 11.9 % (11.6-14.6); RBC Distribution Width SD 38.5 fl (35.1-43.9); Red Blood Count 4.49 M/mm3 (4.6-6.2); White Blood Count 9.9 K/mm3 (4.4-11.0)
[2025-03-12 01:31] LABS: Anion Gap 13 (5-15); BUN 13 mg/dL (4-19); Calcium,Total 9.7 mg/dL (7.6-11.0); Carbon Dioxide 21.2 mmol/L (21.0-32.0); Chloride 99 mmol/L (98-108); Glucose 188 mg/dL (70-99); Potassium 4.3 mmol/L (3.3-5.1); Sodium Level 133 mmol/L (133-145)
[2025-03-12] MEDS: Vancomycin HCl 1,500 MG in 0.9% Normal Saline (500mL Bag) 500 ML 250 MG IV (01:34)
[2025-03-12 01:40] VITALS: BP 131/76; PULSE 95; RESP 18; TEMP 36.9; O2SAT 98
[2025-03-12 01:43] LABS: BUN/Creat Ratio 13.1 RATIO (10-20); Creatinine, Serum 0.96 mg/dL (0.70-1.20); EST Glomerular Filtration Rate 92 (>60); Estimated Creatinine Clearance 104.18 ml/min (50-250)
[2025-03-12 01:45] LABS: Differential Comment SCANNED
[2025-03-12 03:18] VITALS: BP 112/74; PULSE 93; RESP 18; TEMP 36.9; O2SAT 98
[2025-03-12] MEDS: Cephalexin 250 MG Capsule 500 MG PO (03:25)
== END 2025-03-12 03:56 | disposition home or self-care (01) ==
PROVIDERS: Emergency Provider Emergency Medicine; PCP Family Medicine; Visit Provider Emergency Medicine
DX: E11.628 Type 2 diabetes mellitus with other skin complications (principal); E11.42 Type 2 diabetes mellitus with diabetic polyneuropathy; Z87.891 Personal history of nicotine dependence; I10 Essential (primary) hypertension; M20.12 Hallux valgus (acquired), left foot; S90.822A Blister (nonthermal), left foot, initial encounter; X58.XXXA Exposure to other specified factors, initial encounter
CPT/HCPCS: 73630; 80048; 85025; 96365; 96366; 99284; A4216

== ENCOUNTER → 2025-03-15 | Outpatient (CLI) | payer BC, SELFPAY | END | disposition home or self-care (01) | LOC: LABSPEC 16:40 | PROVIDERS: PCP Family Medicine; Visit Provider Podiatrist | DX: L03.116 Cellulitis of left lower limb (principal) | CPT/HCPCS: 36415; 87070; 87077; 87186; 87205 ==

== ENCOUNTER 2025-10-16 17:27 | Inpatient (IN) | payer BC, SELFPAY ==
[2025-10-16 16:51] VITALS: BP 142/82; PULSE 106; RESP 18; TEMP 37.2; O2SAT 99; BMI 29.7
[2025-10-16 16:54] VITALS: BP 142/82; PULSE 106; RESP 18; TEMP 37.2; O2SAT 99
[2025-10-16 17:15] VITALS: BMI 28.8
[2025-10-16 17:27] VITALS: BP 152/72; PULSE 109; RESP 18; TEMP 37.8; O2SAT 99
--- NOTE | 2025-10-16 17:30 | MRI_ITS ---
PROCEDURE: MRI LEFT LOWER EXT/NO JT/W/O 10/16/2025 REASON FOR EXAM: OSTEOMYELITIS 5TH METATARSAL AND 5TH TOE TECHNIQUE: Procedure Code: [id number] Modality: MR Procedure: LOWER EXT/NO JT/W/O Multiplanar and multisequential MRI of the left forefoot was performed without contrast. COMPARISON: COMPARISON : Radiographs earlier same day 10/16/2025. FINDINGS: No acute fracture or dislocation visualized. There is marrow edema and corresponding T1 hypointense marrow signal abnormality within the distal shaft and head of the 5th metatarsal, with cortical thinning/erosion of the 5th metatarsal head compatible with osteomyelitis. No cortical erosion or marrow signal abnormality suspicious for osteomyelitis elsewhere. Advanced degenerative arthrosis of the tarsometatarsal articulations with extensive subchondral cyst formations and likely reactive marrow edema without overt evidence of infection. Severe hallux valgus deformity, with mild arthrosis of the 1st MTP joint. There is also mild arthrosis and lateral subluxation of the 2nd MTP joint. Mild generalized soft tissue swelling/edema about the forefoot, with more pronounced soft tissue edema and cellulitic changes with ulceration at the lateral plantar aspect of the forefoot adjacent to the 5th MTP joint. No drainable fluid collection/abscess visualized. MRI/Lower Ext/No Jt/w/o IMPRESSION: Soft tissue edema and cellulitic changes with ulceration at the lateral plantar aspect of the forefoot adjacent to the 5th MTP joint. Osteomyelitis involving the subjacent distal 5th metatarsal head/neck. 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 Advanced hallux valgus deformity. Reading Location: [id number]
--- NOTE | 2025-10-16 17:30 | RAD_ITS ---
PROCEDURE: FOOT MIN 3 VIEWS 10/16/2025 REASON FOR EXAM: CELLULITIS, ULCER TECHNIQUE: Procedure Code: RADFO Modality: DX Procedure: FOOT MIN 3 VIEWS COMPARISON: 03/12/2025. FINDINGS: No evidence of acute fracture or dislocation. Hallux valgus deformity. Degenerative changes of the foot better severe in the midfoot. Mild degenerative changes of the forefoot and hindfoot. Calcaneal enthesophytes. Heavy atherosclerosis. Diffuse soft tissue swelling. RAD/Foot min 3 Views IMPRESSION: As above. Reading Location: [facility]
--- NOTE | 2025-10-16 17:38 | PCM.HP.STD ---
HPI - General General Date of Admission: 10/16/25 Date of Service: 10/16/25 Chief Complaint: Left foot infection HPI Narrative JENNIFER ANTHONY, is a 55 M who presents from my office today for ulceration and infection left foot. He relates it started recently relates he picked a callus to deep, he relates foot started turning red and he did start oral antibiotic Keflex over weekend. He presented today in office and foot was very red, hot, swollen, and a ulcer was noted sub 5th metatarsal head with purulence. He denies any pain but he does have peripheral neuropathy. Due he was admitted for IV antibiotics and further workup and management. He has history of diabetes, has had several other foot infections in the past. He works and on his feet most of the day. He relates otherwise he is feeling good and he worked today, he did not relate to any complaints of fever, chills, nausea or vomiting. [facility] Medical History (Updated 10/16/25 @ 17:[address] Jesse Jack, [place]) Diabetes mellitus with diabetic polyneuropathy Acute anemia Chronic cough Non-pressure chronic ulcer of other part of right foot with fat layer exposed Alcohol abuse Chewing tobacco use Cutaneous abscess of right foot HTN (hypertension) HTN (hypertension) Diabetes mellitus Home Medications ?Medication ?Instructions ?Recorded ?Last Taken ?Type aspirin 81 mg chewable tablet 81 mg PO DAILY@0800 03/30/14 Unknown History lisinopril 40 mg tablet 40 mg PO DAILY hypertension 12/04/21 Unknown History metformin 750 mg tablet,extended 750 mg PO BID daily 12/04/21 Unknown History release 24 hr multivitamin 1 tab PO DAILY 03/19/22 Unknown History cephalexin 500 mg capsule 500 mg PO Q6 #40 CAPSULES 03/12/25 Unknown Rx tadalafil 20 mg tablet 20 mg PO DAILY PRN sexual activity 03/12/25 Unknown History Allergy/AdvReac Type Severity Reaction Status Date / Time naproxen sodium (From Aleve) Allergy Other Verified 10/16/25 16:53 Social History Smoking Status: Former smoker Patient's Goals Of Care . What would you like to achieve or improve as a result of your hospital stay?: I am not admitted for a hospital stay, but I would like to see my patient get better for their hospital stay Vital Signs Vital Signs Vital Signs: 10/16/25 17:27 Temperature 100.1 F H Temperature Source Temporal Pulse Rate 109 H Respiratory Rate 18 Blood Pressure 152/72 H Blood Pressure Mean 98 Blood Pressure Source Monitor Blood Pressure Position Sitting Blood Pressure Location Right Arm Pulse Ox 99 Oxygen Delivery Method Room Air Physical Exam Const alert, oriented x3 and no apparent distress Constitutional Narrative: Left foot with ulceration sub 5th MTPJ which probes down to fascia close to bone of the 5th metatarsal head, there is some purulence to the site, there is significant cellulitis, swelling and warmth to left foot, there is no pain to left foot, there is chronic peripheral neuropathy, chronic HAV and tailor bunion and hammer toe deformities. Assessment & Plan Assessment/Plan (1) Cellulitis of left lower limb: (2) Non-pressure chronic ulcer of other part of left foot with necrosis of muscle: (3) Type 2 diabetes mellitus with foot ulcer: QUALIFIERS: Laterality: left Non-pressure ulcer stage: with necrosis of muscle (4) Diabetes mellitus with diabetic polyneuropathy: PLAN: Plan Patient has been admitted for further management and workup of left foot infection. There is concern about possible osteomyelitis to left 5th toe and 5th metatarsal head. A deep wound culture has been obtained and sent to microbiology. Patient has been started on IV antibiotics Zosyn and Vancomycin. Infectious Disease consulted. Hospital Medicine also consulted. Left foot xrays and MRI ordered. New noninvasive lower extremity arterial studies ordered. Wound care left foot - betadine solution, gauze, kerlix and narayan dressing change daily. Pending results, surgery left foot may be indicated.
--- NOTE | 2025-10-16 17:50 | ART_ITS ---
Reason For Study Reason For Study: Wound Procedure A bilateral lower extremity continuous wave Doppler with analog waveform analysis,segmental pressures,and ankle brachial indexes without exercise. Left Segmental Pressures Left posterior tibial artery = 195mmHg. Left dorsalis pedis artery = 157mmHg. Left digit = 95 mmHg. The left dorsalis pedis waveforms are triphasic. The left posterior tibial artery waveforms are triphasic. Right Segmental Pressures Right brachial= 119mmHg. Right posterior tibial artery = >254mmHg. Right dorsalis pedis artery = 213mmHg. Right digit = 117 mmHg. The right dorsalis pedis waveforms are triphasic. The right posterior tibial artery waveforms are triphasic. Indices The right ankle brachial index by the dorsalis pedis is 1.79. The right ankle brachial index by the posterior tibial artery is NC. The right digital-brachial index is 0.98. The left ankle brachial index by the dorsalis pedis is 1.32. The left ankle brachial index by the posterior tibial artery is 1.64. The left digital-brachial index is 0.80. VL/Lower Ext Art Exam w/o Exercis Interpretation Summary Triphasic Doppler waveforms are noted at ankle level bilaterally. Pulse-volume recordings appear satisfactory at all levels bilaterally. Resting ankle-brachial indices are supra-normal bilaterally . Digital-brachial indices are normal bilaterally. There is evidence of arterial calcification at ankle level bilaterally. There i s no evidence of significant arterial occlusive disease in the lower extremities bilaterally. Ordering Physician: Jesse Jakc Referring Physician: Steve Mckeon Performed By: Alka Gamboa RVT
--- NOTE | 2025-10-16 18:24 | CON.PCM.HO_ITS ---
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 He chooses to be a FULL CODE. HPI Consult Data Date of Consult: 10/16/25 HPI Narrative HPI Narrative: JENNIFER ANTHONY, is a 55 M who presents for [facility] admission today following office visit to Dr. Jack concerning a possible left foot wound infection. Pt reports that he was picking at a foot callus below his fifth toe and thought he just went too deep. He did start an antibiotic, cephalexin 500mg, this past Thursday. Tonight the foot is still wrapped from podiatry with toes and lower ankle covered, assessed exposed extremity to identify new areas of erythema and heat extending to his proximal calf and tibia; I asked nrsg to bree edges of erythematous tissue w/skin marker. He just returned from having MRI image obtained to investigate for osteomyelitis. His bolus IVF is infusing now. He denies any pain related to the foot wound, but admits that he has limited sensation to certain areas of his feet; he can feel if he steps on a rock but not fine filament. He also states having a history of previous foot wounds r/t DM as well on his right foot. He continues to deny fever, chills, nausea and vomiting. His PMHx includes: HTN - takes lisinopril; DM II - takes metformin; ED - takes tadalafil as needed. He reports checking his fingerstick glucometer every morning, and occasionally some times during midday. Social hx includes former smoker, current chewing tobacco, and drinks 2 beers a night. He denies having alcohol withdrawal sx if he doesn't get those 2 beers. He denies need for nicotine replacement at this time. [facility] Medical History (Updated 10/16/25 @ 20:41 by PIYUSH Castillo) Diabetes mellitus with diabetic polyneuropathy Acute anemia Non-pressure chronic ulcer of other part of right foot with fat layer exposed Alcohol abuse Chewing tobacco use Cutaneous abscess of right foot HTN (hypertension) Diabetes mellitus Home Medications ?Medication ?Instructions ?Recorded ?Last Taken ?Type aspirin 81 mg chewable tablet 81 mg PO DAILY@0800 anti coagulant 03/30/14 10/16/25 History lisinopril 40 mg tablet 40 mg PO DAILY hypertension 12/04/21 10/16/25 History metformin 750 mg tablet,extended 750 mg PO BID daily 0 12/04/21 10/16/25 History release 24 hr multivitamin 1 tab PO DAILY home medicati on 03/19/22 10/16/25 History tadalafil 20 mg tablet 20 mg PO DAILY PRN sexual ac tivity 03/12/25 10/11/25 History cephalexin 500 mg capsule 500 mg PO Q12H 10/16/25 Unkn own History Allergy/AdvReac Type Severity Reaction Status Date / Time naproxen sodium (From Aleve) AdvReac Severe Other Verified 10/16/25 19:37 Social History (Updated 10/16/25 @ 19:38 by PIYUSH Castillo) Smoking Status: Former smoker Smokeless tobacco user: dissolvable tobacco ROS Constitutional Constitutional: Denies chills, fatigue or fever(s) Eyes Eyes: Denies change in vision ENT HEENT: Denies abnormal hearing Cardiovascular Cardiovascular: Denies chest pain, dyspnea on exertion or lightheadedness Respiratory/Chest Respiratory/Chest: Denies cough, shortness of breath at rest or shortness of breath with exertion Gastrointestinal Gastrointestinal: Denies abdominal pain, constipation, diarrhea, hematochezia or melena Genitourinary Genitourinary: Denies difficulty urinating Musculoskeletal Musculoskeletal: Reports joint pain Neurologic Neurologic: Reports paresthesias RLE and LLE; Denies abnormal gait Psychiatric Psychiatric: Denies anxiety or depression Endocrine Endocrinology: Denies cold intolerance or heat intolerance Hematologic/Lymphatic Hematologic/Lymphatic: Reports easy bruising; Denies easy bleeding Physical Exam Const alert, oriented x3, no apparent distress and healthy appearing General Appearance: cooperative Neck no lymphadenopathy Resp normal respiratory effort Cardio regular rate, regular rhythm, no murmurs, no rub and no gallops GI normal to inspection, nondistended, normoactive bowel sounds, soft to palpation and non-tender Extremity full ROM Extremity Narrative: LLE:foot/ankle wrapped in gauze and HARRY wrap from podiatry. Assessed proximal limb to find warm irregular erythematous streaks migrating from his ankle up to just below the patella. Neuro oriented x3 Psych affect normal Lab / Micro Data 10/16/25 18:00 10/16/25 18:00 Charges/Coding Visit Charges Office Visits / Consults: 10405 OV L3 Est 20min
[2025-10-16 18:27] LABS: Hematocrit 37.1 % (40-54); Hemoglobin 13.7 g/dL (13.0-16.5); Immature Granulocytes Count 0.040 X10^3/uL (0.0-0.0); Mean Corp Hgb Conc 36.9 g/dL (32-36); Mean Corpuscular Volume 86.5 fL (80-94); Mean Platelet Vol. 9.0 fl (6.2-12.0); NRBC Flagged by Analyzer 0 % (0-5); Platelet Count 199 K/mm3 (150-450); RBC Distribution Width CV 12.0 % (11.6-14.6); RBC Distribution Width SD 37.9 fl (35.1-43.9); Red Blood Count 4.29 M/mm3 (4.6-6.2); White Blood Count 11.3 K/mm3 (4.4-11.0)
[2025-10-16 18:30] LABS: Prothrombin Time (Protime)PT. 14.1 SECONDS (11.7-14.9)
[2025-10-16] MEDS: 0.9% Normal Saline (1000mL) 1,000 ML 999 ML IV (18:50)
[2025-10-16 18:52] LABS: AST(SGOT) 16 U/L (<=37); Alanine Aminotransfer ALT/SGPT 20 U/L (<=46); Albumin, Serum 4.4 g/dL (3.5-5.0); Alkaline Phosphatase 49 U/L (40-129); Anion Gap 12 (7-18); BUN 12 mg/dL (4-19); BUN/Creat Ratio 15.8 RATIO (10-20); CRP 55.20 mg/L (0.0-3.0); Calcium,Total 10.2 mg/dL (7.6-11.0); Carbon Dioxide 24.3 mmol/L (20.0-29.0); Chloride 97 mmol/L (96-106); Estimated Creatinine Clearance 131.26 ml/min (50-250); Globulin 3.3 g/dL (2.2-4.2); Glucose 157 mg/dL (70-99); Potassium 4.3 mmol/L (3.5-5.1)
[2025-10-16 19:32] VITALS: BP 138/79; PULSE 101; RESP 18; TEMP 37.2; O2SAT 98
[2025-10-16] MEDS: 0.9% Saline Lock 10 ML Syringe IV (19:49)
[2025-10-16] MEDS: 0.9% Normal Saline (250mL Bag) 250 ML 15 ML IV ×2 (19:49→19:52)
[2025-10-16] MEDS: Vancomycin HCl 2,000 MG in 0.9% Normal Saline (500mL Bag) 500 ML 250 MG IV (19:50)
[2025-10-16] MEDS: Piperacil/Tazobactam 3.375 GM in 0.9% Normal Saline (50mL MB+) 50 ML IV (19:50)
--- NOTE | 2025-10-16 21:06 | PCM.RX.CS ---
Consult Antibiotic Management Pharmacy has been consulted to manage selected antibiotic: Vancomycin Type of Intervention Type of Consult: New start Suspected Infection Suspected Infection: Osteomyelitis Labs Labs: Sodium 134 mmol/L (135-145) L 10/16/25 18:00 Potassium 4.3 mmol/L (3.5-5.1) 10/16/25 18:00 Chloride 97 mmol/L (96-106) 10/16/25 18:00 Carbon Dioxide 24.3 mmol/L (20.0-29.0) 10/16/25 18:00 Anion Gap 12 (7-18) 10/16/25 18:00 BUN 12 mg/dL (4-19) 10/16/25 18:00 Creatinine 0.77 mg/dL (0.70-1.20) 10/16/25 18:00 Est GFR (MDRD) Non-Af 105 (>60) 10/16/25 18:00 BUN/Creatinine Ratio 15.8 RATIO (10-20) 10/16/25 18:00 Glucose 157 mg/dL (70-99) H 10/16/25 18:00 Dosing Weight Weight used for dosin.5 kg Estimated Creatinine Clearance Estimated Creatinine Clearance: 131 Goal Trough Goal Trough: 15-20 mcg/mL Pharmacy Plan for Drug Dosing Pharmacy Plan for Drug Dosing: Pharmacy Service will continue to monitor and adjust dosing as required. NEW START IV VANCOMYCIN Consulting Physician: Dr. Jack Indication: Ostoemyelitis Goal Trough: 15-20 SCr: 0.77 CrCl: 131 mL/min Vancomycin Dose: 1500 mg Q12H with first dose 10/17 @ 0800 Pending Level: 10/18/25 @ 0730 Date/Time Labs Ordered Labs to be done on [date and time ordered]: 10/18/25 @ 0742
[2025-10-16] MEDS: 0.9% Normal Saline (1000mL) 1,000 ML 75 ML IV (22:30)
--- NOTE | 2025-10-16 23:41 | EKG12_ITS ---
Test Reason : PER-OP Blood Pressure : */* mmHG Vent. Rate : 83 BPM Atrial Rate : 83 BPM P-R Int : 226 ms QRS Dur : 102 ms QT Int : 356 ms P-R-T Axes : 33 2 25 degrees QTcB Int : 418 ms Sinus rhythm with 1st degree A-V block with PREMATURE VENTRICULARE COMPLEXES Cannot rule out Inferior infarct , age undetermined Abnormal ECG When compared with ECG of 04-Dec-2021 11:03, Premature ventricular complexes are no longer Present Aberrant conduction is now Present CO interval has increased Vent. rate has decreased by 50 bpm Minimal criteria for Inferior infarct are now Present Confirmed by Bereket Garcia ([id number]), news video editor FABRICIO NIEVES ([id number]) on 10/17/2025 11:44:47 AM Also confirmed by Bereket Garcia ([id number]), news video editor FABRICIO NIEVES ([id number]) on 10/18/2025 10:20:28 AM Referred By: Jesse Jack Confirmed By: Bereket Garcia
[2025-10-17] VITALS (9 sets, daily range): BP systolic 97–152; BP diastolic 67–78; PULSE 74–93; RESP 16–18; TEMP 35.8–37.2; O2SAT 98–100; BMI 28.8
[2025-10-17] MEDS: Piperacil/Tazobactam 3.375 GM in 0.9% Normal Saline (50mL MB+) 50 ML IV ×2 (03:30→09:12)
[2025-10-17 06:26] LABS: Anion Gap 8 (7-18); BUN 10 mg/dL (4-19); BUN/Creat Ratio 12.1 RATIO (10-20); Calcium,Total 9.2 mg/dL (7.6-11.0); Carbon Dioxide 25.7 mmol/L (20.0-29.0); Chloride 103 mmol/L (96-106); Estimated Creatinine Clearance 127.94 ml/min (50-250); Glucose 167 mg/dL (70-99); Potassium 4.3 mmol/L (3.5-5.1)
--- NOTE | 2025-10-17 07:49 | WOUNDNOTE ---
wound photo: left foot
--- NOTE | 2025-10-17 07:50 | WOUNDNOTE ---
skin photo: left foot
[2025-10-17] MEDS: Vancomycin HCl 1,500 MG in 0.9% Normal Saline (500mL Bag) 500 ML 250 MG IV ×2 (09:12→19:58)
[2025-10-17] MEDS: 0.9% Normal Saline (1000mL) 1,000 ML 75 ML IV (10:48)
--- NOTE | 2025-10-17 11:26 | CASEMGMT ---
PRATIK SCUHMACHER Assessment Face to Face with patient for initial transition planning/care coordination assessment. PRATIK SCHUMACHER introduced self and role at [facility], pt voices understanding. Pt is A&Ox4 and is resting comfortably in bed and is calm. Care providers, pharmacy, and demographics verified. Admitting dx: Left Foot Cellulitis LACE Strata: 1 PCP: Steve Mckeon Specialists: Guero (Podiatry) Preferred Pharmacy: [facility] Insurance: [employer] Prescription Benefit:Yes LNOK: Gracie (W) Living Arrangements: Pt lives with with his in a 2 story home with 2 steps to enter ADLs/IADLs: Pt states that he is indep and denies needs or concerns Transportation: Self, DME: Pt states that he has a functioning BGM with sufficient testing supplies including lancets, test strips, and EtOH swabs. Pt also has a BP Machine and pulse ox HHC/SNF: Hx with [facility] HH. denies SNF Pt?s goal: Home Plan: Anticipate DC home once medically ready, follow for IV ATB needs. MRI (+) for osteo. Pt to undergo left 5th toe amputation today. ID consulted. Pt informed on the home IV ATB process and what this could entail. Pt states that he and his would would be teachable. However, pt states that he wants to wait and see what ID recommends before selecting preferences regarding HH, OP, infusion companies, etc. CM to follow. Pt denies further questions or concerns at this time. Report given to MS3 PRATIK SCHUMACHER. Bertin Streeter RN, CM
[2025-10-17] MEDS: Ampicillin/Sulbactam 3 GM in 0.9% Normal Saline (100mL MB+) 100 ML IV ×3 (12:39→22:55)
--- NOTE | 2025-10-17 12:56 | CON.PCM.ID_ITS ---
Assessment & Plan Assessment/Plan (1) Diabetes mellitus with diabetic polyneuropathy: QUALIFIERS: Diabetes mellitus type: type 2 Diabetes mellitus nursing home insulin use: without nursing home use Qualified Code(s): E11.42 - Type 2 diabetes mellitus with diabetic polyneuropathy PLAN: Wound cx with strep so far. MRI showed L 5th met osteo. OR planned. Will narrow abx to vanc/unasyn. Will follow, thank you (2) Foot osteomyelitis, left: HPI Consult Data Date of Consult: 10/17/25 HPI Narrative Reason for Consultation: osteo HPI Narrative: JENNIFER ANTHONY, is a 55 M with DM neuropathy, presented with 10 days progressive L foot drainage, redness, swelling after picking at callus on bottom of that foot. Developed chills past few days, saw Dr. Jack, sent to hospital. Now on vanc/zosyn, feeling better, OR planned. No n/v/d. No pain in foot. full ROS performed and neg except as noted above. [facility] Medical History Diabetes mellitus with diabetic polyneuropathy Acute anemia Non-pressure chronic ulcer of other part of right foot with fat layer exposed Alcohol abuse Chewing tobacco use Cutaneous abscess of right foot HTN (hypertension) Diabetes mellitus Home Medications ?Medication ?Instructions ?Recorded ?Last Taken ?Type aspirin 81 mg chewable tablet 81 mg PO DAILY@0800 anti coagulant 03/30/14 10/16/25 History lisinopril 40 mg tablet 40 mg PO DAILY hypertension 12/04/21 10/16/25 History metformin 750 mg tablet,extended 750 mg PO BID daily 0 12/04/21 10/16/25 History release 24 hr multivitamin 1 tab PO DAILY home medicati on 03/19/22 10/16/25 History tadalafil 20 mg tablet 20 mg PO DAILY PRN sexual ac tivity 03/12/25 10/11/25 History cephalexin 500 mg capsule 500 mg PO Q12H 10/16/25 Unkn own History Allergy/AdvReac Type Severity Reaction Status Date / Time naproxen sodium (From Aleve) AdvReac Severe Other Verified 10/16/25 19:37 Social History (Updated 10/16/25 @ 19:38 by PIYUSH Castillo) Smoking Status: Former smoker Smokeless tobacco user: dissolvable tobacco Physical Exam Const alert, oriented x3 and no apparent distress General Appearance: cooperative HEENT normocephalic and head/scalp atraumatic Eyes PERRL and EOMs intact bilaterally Neck supple and No nodes Resp normal air movement and clear to auscultation bilaterally Cardio regular rate, regular rhythm and no murmurs GI soft to palpation, non-tender and non-distended Extremity General Extremity: Negative for edema Skin Skin Narrative: L foot wrapped, reviewed photos Neuro CN's II-XII intact bilaterally Lab / Micro Data Attestation: I reviewed the patient's lab results. 10/16/25 18:00 10/17/25 04:27 Labs: Laboratory Results - last 24 hr 10/16/25 18:00: WBC 11.3 H, RBC 4.29 L, Hgb 13.7, Hct 37.1 L, MCV 86.5, MCH 31.9, MCHC 36.9 H, RDW Std Deviation 37.9, RDW Coeff of Davina 12.0, Plt Count 199, MPV 9.0, Immature Gran % (Auto) 0.400, Neut % (Auto) 75.9 H, Lymph % (Auto) 10.8 L, Livingston % (Auto) 11.8 H, Eos % (Auto) 0.8, Baso % (Auto) 0.3, Absolute Neuts (auto) 8.6 H, Absolute Lymphs (auto) 1.22, Nucleated RBC % 0, ESR 25 H, PT 14.1, INR 1.1, Sodium 134 L, Potassium 4.3, Chloride 97, Carbon Dioxide 24.3, Anion Gap 12, BUN 12, Creatinine 0.77, Estim Creat Clear Calc 131.26, Est GFR (MDRD) Non-Af 105, BUN/Creatinine Ratio 15.8, Glucose 157 H, Calcium 10.2, Total Bilirubin 1.10, AST 16, ALT 20, Alkaline Phosphatase 49, C-React Prot Ext Range 55.20 H, Total Protein 7.7, Albumin 4.4, Globulin 3.3, Albumin/Globulin Ratio 1.3 10/16/25 19:28: Lactic Acid < 1.0 10/16/25 21:33: POC Glucose 197 H 10/17/25 00:21: POC Glucose 156 H 10/17/25 04:27: Sodium 137, Potassium 4.3, Chloride 103, Carbon Dioxide 25.7, Anion Gap 8, BUN 10, Creatinine 0.79, Estim Creat Clear Calc 127.94, Est GFR (MDRD) Non-Af 104, BUN/Creatinine Ratio 12.1, Glucose 167 H, Hemoglobin A1c 6.5 H, Calcium 9.2 10/17/25 06:04: POC Glucose 189 H 10/17/25 10:50: POC Glucose 177 H Imaging Radiology Impression Foot X-Ray 10/16/25 17:30 IMPRESSION: As above. Reading Location: [facility] Lower Extremity MRI 10/16/25 17:30 IMPRESSION: Soft tissue edema and cellulitic changes with ulceration at the lateral plantar aspect of the forefoot adjacent to the 5th MTP joint. Osteomyelitis involving the subjacent distal 5th metatarsal head/neck. 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 Advanced hallux valgus deformity. Reading Location: [id number]
--- NOTE | 2025-10-17 14:47 | PRE.ANES_ITS ---
ASA Classification* ASA Classification ASA Classification: 3 Assessment & Plan Anesthesia* Anesthesia Assessment Anesthesia Assessment: Discussed sedation and/or anesthesia options, risks, benefits, and alternatives with patient/parents/legal guardian/POA. Questions invited. The patient/parents/legal guardian/POA seems to understand and agrees to proceed with anesthesia plan. Reviewed the physical assessment, medical history, allergy history and patient home medications list prior to surgery/procedure/anesthetic and documented any changes. Performed airway and anesthesia risk assessments. Anesthesia Type Anesthesia Type: MAC History Source History Obtained from:: Patient and Chart Anesthesia Focused Assessment* Temperature: 97.8 F Pulse Rate: 79 Blood Pressure: 120/77 Respiratory Rate: 18 Pulse Ox: 98 Oxygen Delivery Method: Room Air Airway Assessment Mouth opens: >3 cm Mallampati Score: III Teeth Condition: Caps/Crowns (Patient has several crowns. They are all tight.) Neck Range of motion (ROM): Limited ROM (Somewhat Decreased) Labs Anesthesia Preop lab: CBC WBC, (4.4-11.0) 11.3 K/mm3 H 10/16/25, 18:00 RBC, (4.6-6.2) 4.29 M/mm3 L 10/16/25, 18:00 Hgb, (13.0-16.5) 13.7 g/dL 10/16/25, 18:00 Hct, (40-54) 37.1 % L 10/16/25, 18:00 Plt Count, (150-450) 199 K/mm3 10/16/25, 18:00 CHEMISTRY Potassium, (3.5-5.1) 4.3 mmol/L Today, 04:27 Sodium, (135-145) 137 mmol/L Today, 04:27 BUN, (4-19) 10 mg/dL Today, 04:27 Creatinine, (0.70-1.20) 0.79 mg/dL Today, 04:27 Glucose, (70-99) 167 mg/dL H Today, 04:27 POC Glucose, (74-106) 177 mg/dL H Today, 10:50 COAG PT, (11.7-14.9) 14.1 SECONDS 10/16/25, 18:00 Pre-Assessment Diagnosis/Proposed Procedure Planned Operative Procedure(s): Left fifth toe amputation. 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 When Was Last Pacemaker Check QUESTION #4 FULL TEXT: You/Your Family Experience fever (hyperthermia) with Anesthesia Last Oral Intake Last Oral intake: Last Oral Intake NPO since 00:00 10/17/25 11:10 Meds taken in AM with sips of Yes 10/17/25 11:10 water? Meds patient instructed to lisinopril 10/17/25 11:10 take am of surgery Any additional information?: Yes NPO since: 10:00 (Patient is a chewing tobacco pouch at 10 AM.) Meds taken in AM with sips of water?: Yes PONV PONV - pulpwood dealer: PONV - pulpwood dealer Female HX of Motion Sickness HX of N/V After Surgery Non-Smoker Duration of Surgery greater than 60 minutes Number of Risk Factors PONV Score Height & Weight Height & Weight: Anesthesia: Height & Weight Height 6 ft 1 in 10/17/25 11:10 Weight: 99.337 kg 10/17/25 11:10 Body Mass Index (BMI) 28.8 10/17/25 11:10 Respiratory Assessment Respiratory Assessment - pulpwood dealer: Respiratory Tract Infection Hx - pulpwood dealer Hx Respiratory Tract Infection No 10/17/25 00:23 STOP Sleep Apnea STOP Sleep Apnea - pulpwood dealer: STOP Sleep Apnea - pulpwood dealer Hx Hypertension Yes 10/16/25 17:15 Hx Sleep Apnea No 10/16/25 17:15 CPAP No 12/04/21 14:41 BIPAP No 12/04/21 14:41 Do you snore loudly (louder No 10/16/25 17:15 than talking or can be heard Do you often feel tired/ No 10/16/25 17:15 fatigued/ sleepy during daytime? Has anyone observed you stop No 10/16/25 17:15 breathing during sleep? STOP Results Negative 10/16/25 17:15 QUESTION #5 FULL TEXT : Do you snore loudly (louder than talking or can be heard through closed doors)? Tobacco Use History Tobacco Use History - pulpwood dealer: Tobacco Use History - pulpwood dealer Tobacco Use Smoking Status Former smoker 10/16/25 19:38 Hx Tobacco Use Yes 10/16/25 17:15 Years Smoking Packs Smoked per Day Smoking Cessation Date was Yes - quit smoking within 15 10/16/25 17:15 within the last 15 years years Hx Smoking Cessation Date 12/04/89 10/16/25 17:15 Hx Smoking Cessation Counseling Hematologic Medial History Hematologic Hx - pulpwood dealer: Hematologic Medical Hx - watch technician Hx of Blood Transfusion No 10/16/25 17:15 Hx of Transfusion in last 3 No 10/16/25 17:15 Months Date of Last Transfusion (if within last 3 months) Ever experience any problems No 10/16/25 17:15 with transfusion(s)? Specify any problems Hx of Preganancy in last 3 N/A 10/16/25 17:15 Months Nurse Filling Out Transfusion [email or web address] 10/16/25 17:15 & Questions: Date: 10/16/25 10/16/25 17:15 Time: 17:37 10/16/25 17:15 Patient unable to answer at this time (ie. confused, unrespo /Reproduction History /Reproductive History - pulpwood dealer: /Reproductive Hx- pulpwood dealer Hx Now No 10/17/25 00:23 Gestational Age (in weeks): EDC: Hx Hx Para Hx Section SAB No 10/17/25 00:23 Does the father of the baby or his family experience fever w Father of the baby Malignant Hypertension history comment Active Medications Active Medications: Current Medications Generic Name Dose Route Start Last Admin Trade Name Freq PRN Reason Stop Dose Admin Acetaminophen 650 mg 10/16/25 19:57 Acetaminophen 325 Mg Tablet PO Q4H PRN PRN Pain 1-10 or Fever Aspirin 81 mg 10/17/25 08:00 10/17/25 08:26 Aspirin 81 Mg Tab.Chew PO Not Given BREAKFAST ARLEN Glucagon 1 mg 10/16/25 17:55 Glucagon 1 Mg/Ml Syringe IM X1 PRN Hypoglycemia Protocol Hydralazine HCl 5 mg 10/16/25 21:00 Hydralazine 20 Mg/Ml Vial IV Q4H PRN PRN SBP > 160 Protocol Vancomycin IV-PHARMACY TO DOSE 500 mls @ 250 mls/hr 10/16/25 17:36 1 each/ Sodium Chloride IV X1 PRN Rx to Dose Protocol Sodium Chloride 250 mls @ 15 mls/hr 10/16/25 17:49 10/17/25 03:30 IV 0 mls/hr .[id number] PRN Infusion Saline Flush Sodium Chloride 250 mls @ 15 mls/hr 10/16/25 17:49 IV .[id number] PRN Additional IVPB Infusion Dextrose 250 mls @ 0 mls/hr 10/16/25 17:55 Dextrose 10%-Water IV .Q0M PRN HYPOGLYCEMIA Protocol As Directed Vancomycin HCl 1,500 mg/ 530 mls @ 250 mls/hr 10/17/25 08:00 10/17/25 11:24 Sodium Chloride IV Infused Q12H ARLEN Infusion Sodium Chloride 1,000 mls @ 75 mls/hr 10/16/25 21:45 10/17/25 13:45 IV 0 mls/hr .[id number] ARLEN Infusion Ampicillin Sodium/Sulbactam 100 mls @ 150 mls/hr 10/17/25 12:30 10/17/25 13:20 Sodium 3 gm/ Sodium Chloride IV Infused Q6 ARLEN Infusion Sodium Chloride 1,000 mls @ 15 mls/hr 10/17/25 13:55 IV .Q48H ARLEN Insulin Human Lispro 0 unit 10/17/25 00:00 10/17/25 11:01 Insulin Lispro 100 Unit/Ml Insuln.Pen SC Not Given Q6H ARLEN Protocol Lisinopril 40 mg 10/17/25 10:00 10/17/25 09:12 Lisinopril 40 Mg Tablet PO 40 mg DAILY ARLEN Administration Protocol Sodium Chloride 10 - 40 ml 10/16/25 17:49 10/16/25 19:49 0.9% Saline Lock 10 Ml Syringe IV 30 ml UD PRN Administration SALINE FLUSH Vancomycin Protocol 1 lab 10/18/25 06:30 Vancomycin Trough/Random Due MC 10/18/25 08:30 DAILY ARLEN PFSH Medical History Diabetes mellitus with diabetic polyneuropathy Acute anemia Non-pressure chronic ulcer of other part of right foot with fat layer exposed Alcohol abuse Chewing tobacco use Cutaneous abscess of right foot HTN (hypertension) Diabetes mellitus Home Medications ?Medication ?Instructions ?Recorded ?Last Taken ?Type aspirin 81 mg chewable tablet 81 mg PO DAILY@0800 anti coagulant 03/30/14 10/16/25 History lisinopril 40 mg tablet 40 mg PO DAILY hypertension 12/04/21 10/16/25 History metformin 750 mg tablet,extended 750 mg PO BID daily 0 12/04/21 10/16/25 History release 24 hr multivitamin 1 tab PO DAILY home medicati on 03/19/22 10/16/25 History tadalafil 20 mg tablet 20 mg PO DAILY PRN sexual ac tivity 03/12/25 10/11/25 History cephalexin 500 mg capsule 500 mg PO Q12H 10/16/25 Unkn own History Allergy/AdvReac Type Severity Reaction Status Date / Time naproxen sodium (From Aleve) AdvReac Severe Other Verified 10/16/25 19:37 Surgical History (Updated 10/17/25 @ 14:[address] Abel Garcia MD) S/P cystoscopy Social History Smoking Status: Former smoker Smokeless tobacco user: dissolvable tobacco Review of Systems (Anesthesia) ROS Narrative System reviewed and no additional complaints, except as documented.
--- NOTE | 2025-10-17 15:00 | AMP_PTH ---
PATIENT: JENNIFER ANTHONY LOC: MS3 U#:[id number] AGE/SX: 55/M ROOM: [facility] RE10/16/[address]: Dr. Home Sierra MD : 1970 BED: 1 DIS: 10/20/2025 SPEC #: [id number] RECD: 10/18/25 08:10 STATUS: BILLIE REEmile #: [id number] SCOTT: 10/17/25 15:[address]: Jesse Jack DEPT: SURGICAL PATHOLOGY RECD BY: Hima Tidwell ENTERED: 10/18/25 10:49 SP TYPE: Amputation OTHR DR: MD Dr. Orville Mei DO Dr. Paul Nielsen, MD Dr. Robert Leininger, MD Tissues: A - Toe, NOS B - Toe, NOS Procedures: Decalcification bone/plaque Surgery Specimen Level IV HEADER OPERATION: Toe and metatarsal amputation, 5th PRE-OP DIAGNOSIS: Diabetes mellitus with diabetic polyneuropathy, foot osteomyelitis, left TISSUE SUBMITTED: A. Amputated 5th toe and metatarsal head, B. Clearance fragment left 5th metatarsal MICROSCOPIC DIAGNOSIS A. Left 5th toe and metatarsal head, amputation: - Osteomyelitis. B. Bone, left 5th metatarsal, clearance fragment, excision: - Bone and soft tissue negative for significant inflammation. MICROSCOPIC DESCRIPTION Slides are reviewed. GROSS DESCRIPTION Received in 2 formalin containers labeled with the patient's name and date of . Designated as: A. Amputated 5th toe and metatarsal head is a 5.1 x 2.4 x 1.8 m digit surfaced by le slightly wrinkled skin with an intact toenail. Also within the container is a 5.3 x 3.0 x 1.7 cm aggregate of irregular le-pink skin and soft tissue fragments along with a portion of bone surfaced by le, focally disrupted and congested articular cartilage. Sectioning reveals le to red, focally brittle bone. Slurry Blender sections are submitted in 2 cassettes following decalcification as follows: A1: DigitA2: Bone with focally disrupted and congested articular cartilage B. Clearance fragment left 5th metatarsal is a 1.2 x 0.7 x 0.2 cm aggregate of le-yellow bone fragments. Entirely submitted in 1 cassette, following decalcification. [place] 10/18/2025 CPT:58542v5, 87807v8
--- NOTE | 2025-10-17 16:08 | OP.PCM_ITS ---
Operative Report (Standard) Operative Information Date of Procedure: 10/17/25 Pre-Operative Diagnosis: Osteomyelitis left 5th metatarsal and 5th toe Post-Operative Diagnosis: Same Surgery/Procedure Performed: Left 5th toe amputation Left 5th metatarsal head resection sr. strategic sourcing manager: No Type of Anesthesia: Local MAC RN Documented Start/Stop Times: Operation Date: 10/17/25 15:00 Case Time Into Pre-Op 10/17/25 13:53 Anesthesia Start 10/17/25 16:13 Into Room 10/17/25 16:13 Procedure Start 10/17/25 16:29 Procedure End 10/17/25 17:03 Anesthesia End 10/17/25 17:06 Out of Room 10/17/25 17:06 Procedure Start Time: 16:29 Procedure Stop Time: 17:03 Select all DRAINS/GRAFTS/IMPLANTS that apply: None Estimated Blood Loss: < 5mL Specimen collected: Yes Description of specimen(s) removed: 1. Left 5th toe and 5th metatarsal - sent to pathology 2. Bone left 5th metatarsal head - sent to microbiology 3. Clearance fragment left 5th metatarsal - sent to microbiology and pathology Description of surgery: Indications: Patient is a 55 year old gentleman with history of diabetes and peripheral neuropathy presented with significant infection left foot. There was ulceration with purulent drainage and significant erythema, edema and increased temperature to left foot, the ulceration was draining and probed very close to the 5th metatarsal bone. There was a lot of nonviable tissue to the and around the 5th metatarsal phalangeal joint. MRI was consistent with osteomyelitis to the left 5th metatarsal head and neck. Due to the findings we discussed surgical intervention vs nonsurgical. We discussed antibiotics, wound care, offloading, and surgical debridement/amputation of the left 5th toe and resection of 5th metatarsal. This was discussed with him in detail, reviewed procedure, possible benefits vs risks, goals and expectations. He was advised the risks include but are not limited to need for further surgery, nonhealing, further or persistent infection, bleeding, pain, loss of function, loss of limb, loss of life. He expressed understanding and agreement. The consent form was reviewed with him and he freely signed it. No guarantees were given nor implied. Operative Procedure: The patient was brought back the operating room and was placed on the operating room table in the supine position. The patient was carefully secured to the operating room table with a safety belt around his waist. The patient was already on IV antibiotics. A well padded pneumatic tourniquet was applied around the patient's left ankle. The patient received MAC anesthesia per the anesthesia team. After the overlying skin was cleansed with 70% Isopropyl alcohol a total of 10mL of 0.5% Bupivacaine plain was given as a local nerve block around the 5th ray on the patient's left foot. The patient's left foot was scrubbed, prepped, and draped in the usual aseptic fashion. A timeout was performed and the patient was properly identified and the surgical plan was confirmed. Further attention was directed to the patient's left foot, there was again noted to be a deep ulceration to the plantar 5th metatarsal phalangeal joint down to and including the fascia layer, there was a lot of nonviable tissue to the base and margins and probed very close to bone, and there was purulent drainage. The patient's left foot was elevated for several minutes and the left pneumatic tourniquet was inflated to 250mmHg. Using a 15 blade an incision was made around the base of the 5th toe and was extended along the 5th metatarsal. The 5th toe was disarticulated at the level of the 5th metatarsal phalangeal joint using a 15 blade. The base of the 5th toe proximal phalanx was yellow and soft. The head of the 5th metatarsal was visualized and noted to be yellow, soft and nonviable consistent with osteomyelitis, and there was deep abscess to the site. The abscess was excised using a 15 blade there was no extension into the 4th ray or into the midfoot. The distal 5th metatarsal was resected using a powered sagittal saw. The nonviable ulceration was excised using a 15 blade, this nonviable tissue extended down and included the fascia layer. The excised toe, bone and soft tissue was sent to pathology as specimen. This was excised to healthy and viable margins. A piece bone from the head of the 5th metatarsal was obtained using a bone cutting rongeur and was sent to microbiology as a specimen. The bone of the shaft of the 5th metatarsal was noted to be hard, white and appeared to be free of infection visually. A clearance fragment was obtained from the remaining distal edge of the remaining 5th metatarsal - this was was noted to be hard, white and viable appearing. The distal edge of the remaining 5th metatarsal was smoothed using a bone cutting rongeur and sagittal saw. The site was flushed out with copious amounts of normal saline solution. The remaining tissues of the site were noted to be healthy, viable and granular. The skin edges were reapproximated using 3-0 Prolene. A dressing was applied consisting of betadine adaptic, 4x4 gauze, Kerlix and narayan dressing. The pneumatic touriquet was deflated while applying the dressing and it was noted there was return of good flow into the foot and to all remaining toes. Total tourniquet time was 32 minutes. The patient tolerated the above procedure well and anesthesia well with no complications. The patient will be transferred back to the floor and will be followed as an inpatient. Surgical Findings: As noted above Complications Complications: No
[2025-10-17] MEDS: Lidocaine 1% (5 ml sdv) 5 ML Vial 4 ML IV (16:13)
[2025-10-17] MEDS: Midazolam 2 MG/2 ML Syringe IV (16:25)
--- NOTE | 2025-10-17 16:52 | PN.HOSP_ITS ---
Reason for Visit Chief Complaint: Left foot infection Subjective Subjective Patient was seen and examined today, he is scheduled for foot surgery today by podiatry, patient's blood sugars have been under 200-sliding scale insulin is being used as indicated. Objective Data Objective Data Vital Signs: Vital Signs Temp Pulse Resp BP Pulse Ox O2 Del Method 97.8 F 79 18 120/77 98 Room Air 10/17/25 15:00 10/17/25 15:00 10/17/25 15:00 10/17/25 15:00 10/17/25 15:00 10/17/25 15:00 Oxygen Delivery Method Room Air Weight: 99.337 kg Body Mass Index (BMI) 28.8 Intake & Output: Intake and Output for Last 24 Hours 10/15/25 10/16/25 10/17/25 23:59 23:59 23:59 Intake Total 1000.75 / 1000.75 3120.33 / 3120.33 Balance 1000.75 / 1000.75 3120.33 / 3120.33 Lab / Micro Data 10/16/25 18:00 10/17/25 04:27 Labs: Laboratory Results - last 24 hr 10/16/25 18:00: WBC 11.3 H, RBC 4.29 L, Hgb 13.7, Hct 37.1 L, MCV 86.5, MCH 31.9, MCHC 36.9 H, RDW Std Deviation 37.9, RDW Coeff of [place] 12.0, Plt Count 199, MPV 9.0, Immature Gran % (Auto) 0.400, Neut % (Auto) 75.9 H, Lymph % (Auto) 10.8 L, [place] % (Auto) 11.8 H, Eos % (Auto) 0.8, Baso % (Auto) 0.3, Absolute Neuts (auto) 8.6 H, Absolute Lymphs (auto) 1.22, Nucleated RBC % 0, ESR 25 H, PT 14.1, INR 1.1, Sodium 134 L, Potassium 4.3, Chloride 97, Carbon Dioxide 24.3, Anion Gap 12, BUN 12, Creatinine 0.77, Estim Creat Clear Calc 131.26, Est GFR (MDRD) Non-Af 105, BUN/Creatinine Ratio 15.8, Glucose 157 H, Calcium 10.2, Total Bilirubin 1.10, AST 16, ALT 20, Alkaline Phosphatase 49, C-React Prot Ext Range 55.20 H, Total Protein 7.7, Albumin 4.4, Globulin 3.3, Albumin/Globulin Ratio 1.3 10/16/25 19:28: Lactic Acid < 1.0 10/16/25 21:33: POC Glucose 197 H 10/17/25 00:21: POC Glucose 156 H 10/17/25 04:27: Sodium 137, Potassium 4.3, Chloride 103, Carbon Dioxide 25.7, Anion Gap 8, BUN 10, Creatinine 0.79, Estim Creat Clear Calc 127.94, Est GFR (MDRD) Non-Af 104, BUN/Creatinine Ratio 12.1, Glucose 167 H, Hemoglobin A1c 6.5 H, Calcium 9.2 10/17/25 06:04: POC Glucose 189 H 10/17/25 10:50: POC Glucose 177 H Radiography Diagnostic Testing: Radiology Impression Foot X-Ray 10/16/25 17:30 IMPRESSION: As above. Reading Location: [facility] Lower Extremity MRI 10/16/25 17:30 IMPRESSION: Soft tissue edema and cellulitic changes with ulceration at the lateral plantar aspect of the forefoot adjacent to the 5th MTP joint. Osteomyelitis involving the subjacent distal 5th metatarsal head/neck. 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 Advanced hallux valgus deformity. Reading Location: [id number] Physical Exam Const alert, oriented x3 and no apparent distress General Appearance: cooperative, well kempt and well developed Orientation / Consciousness: awake, oriented to person, oriented to place and oriented to time HEENT normocephalic, head/scalp atraumatic and moist oral mucous membranes Eyes PERRL, EOMs intact bilaterally and conjunctivae normal Neck supple, no JVD, thyroid normal and no carotid bruits General: trachea midline Resp normal respiratory effort, no retractions, no use of accessory muscles and clear to auscultation bilaterally Auscultation: Negative for rales, rhonchi or wheezes Cardio regular rate, regular rhythm, S1 normal heart sound, S2 normal heart sound, no murmurs, no rub and no gallops GI normal to inspection, nondistended, normoactive bowel sounds, soft to palpation, non-tender and non-distended Neuro oriented x3, CN's II-XII intact bilaterally, moves all extremities and no focal motor deficits Sensorium / Orientation: awake and alert Speech: speech normal Psych affect normal Assessment & Plan Assessment/Plan (1) Type 2 diabetes mellitus with foot ulcer: QUALIFIERS: Diabetic foot ulcer location: midfoot Laterality: l eft PLAN: Plan 1. Type 2 diabetes-patient's blood sugars will be monitored and sliding scale insulin will be administered as indicated #2 essential hypertension-patient will remain on his present medications, blood sugars will be monitored #3 neuropathy of diabetes-complicates care, management, recovery, and prognosis #4 osteomyelitis of the left foot secondary to neuropathy of diabetes-patient will undergo surgery today by podiatry, infectious diseases is participating in his care Total clinical time spent by myself addressing the patient's medical issues, reviewing all of his data, and collaborating with the patient's care team: 35- minutes Charges/Coding Visit Charges Inpatient E&M: 29102 Subs Hosp L2
--- NOTE | 2025-10-17 17:13 | PCM.POST.ANE ---
Anesthesia: Postop Eval I Current Vital Signs Temperature: 97 F Pulse Rate: 77 Blood Pressure: 97/67 Respiratory Rate: 16 Pulse Ox: 99 Oxygen Delivery Method: Room Air Assessment Airway patent: Yes Spontaneous unlabored respirations: Yes Mental status: Awake and Calm nausea: No Vomiting: No Anesthesia Complication: No Fluid Hydration Crystalloid volume administer (ml): 400 Total IV fluid infused: 400 Progress Note Anesthesia document: Postop Eval 1 completed: Yes
--- NOTE | 2025-10-17 17:15 | RAD_ITS ---
PROCEDURE: FOOT MIN 3 VIEWS 10/17/2025 REASON FOR EXAM: POST OP TECHNIQUE: Procedure Code: RADFO Modality: DX Procedure: FOOT MIN 3 VIEWS COMPARISON: 10/16/2025. FINDINGS: Interval 5th ray amputation of the level of the mid metatarsal. Flecks of soft tissue air which may be postsurgical. No evidence of acute fracture. Degenerative changes throughout the foot. RAD/Foot min 3 Views IMPRESSION: Postsurgical changes as above. Reading Location: [facility]
--- NOTE | 2025-10-17 18:34 | PCM.POSTANE2 ---
Anesthesia Postop Eval I Sum Postop Eval Completion status Anesthesia document: Postop Eval 1 completed: Yes Anesthesia Postop Eval I Summary Anesthesia Postop Eval I Summary: Anesthesia Postop Eval I: Assessment Summary Airway patent Yes 10/17/25 17:15 Spontaneous unlabored Yes 10/17/25 17:15 respirations Mental status Awake,Calm 10/17/25 17:15 nausea No 10/17/25 17:15 Vomiting No 10/17/25 17:15 Anesthesia Postop Eval I: Fluid Summary Crystalloid volume administer 400 10/17/25 17:15 (ml) Colloids volume administered ( ml) Blood Product volume administered (ml) Total IV fluid infused 400 10/17/25 17:15 Anesthesia Postop Eval I: Summary Notes Anesthesia Complication No 10/17/25 17:15 Anesthesia Complication Comment: Post-operative progress note Anesthesia: Postop Eval II Evaluation Mental status: Awake and Calm Pain Level: 1 nausea: No Vomiting: No Complications Anesthesia Complication: No
[2025-10-18] VITALS (7 sets, daily range): BP systolic 122–140; BP diastolic 66–79; PULSE 80–95; RESP 18; TEMP 36.9–37.2; O2SAT 95–99
[2025-10-18] MEDS: Ampicillin/Sulbactam 3 GM in 0.9% Normal Saline (100mL MB+) 100 ML IV ×4 (06:44→23:43)
[2025-10-18 08:06] LABS: Vancomycin, Trough Level 9.6 ug/mL (5.0-15.0)
--- NOTE | 2025-10-18 08:20 | PCM.RX.CS ---
Consult Antibiotic Management Pharmacy has been consulted to manage selected antibiotic: Vancomycin Type of Intervention Type of Consult: Follow-up Suspected Infection Suspected Infection: Osteomyelitis Prior Doses of Antibiotics Prior Doses of Antibiotics Received/Current Regimen: current dose is vanc 1500mg IV q12h Labs Labs: Sodium 137 mmol/L (135-145) 10/17/25 04:27 Potassium 4.3 mmol/L (3.5-5.1) 10/17/25 04:27 Chloride 103 mmol/L (96-106) 10/17/25 04:27 Carbon Dioxide 25.7 mmol/L (20.0-29.0) 10/17/25 04:27 Anion Gap 8 (7-18) 10/17/25 04:27 BUN 10 mg/dL (4-19) 10/17/25 04:27 Creatinine 0.79 mg/dL (0.70-1.20) 10/17/25 04:27 Est GFR (MDRD) Non-Af 104 (>60) 10/17/25 04:27 BUN/Creatinine Ratio 12.1 RATIO (10-20) 10/17/25 04:27 Glucose 167 mg/dL (70-99) H 10/17/25 04:27 Vancomycin Trough 9.6 ug/mL (5.0-15.0) 10/18/25 07:26 Dosing Weight Weight used for dosin.3 kg Estimated Creatinine Clearance Estimated Creatinine Clearance: 128ml/min Goal Trough Goal Trough: 15-20 mcg/mL Pharmacy Plan for Drug Dosing Pharmacy Plan for Drug Dosing: VANCOMYCIN LEVEL RECEIVED Current Vancomycin Dose: 1500MG Q12H Number of Doses Received: 2000MG X1, 1500MG X2 Vancomycin Level: 9.6 MCG/ML Hours Since Last Dose: 11.5 HRS Renal Function: SCr 0.79, CrCl 128 (FROM 10/17/25) Renal Function Trend: SCr WAS 0.77 ON 10/16 Vancomycin Plan/Comments: TROUGH BELOW GOAL. WILL INCREASE DOSE TO 2000MG Q12H. REPEAT A TROUGH BEFORE THE 4TH DOSE. Pending Level: 10/19/25 20:30 Pharmacy Service will continue to monitor and adjust dosing as required. Follow-Up Labs Follow-Up Labs: Trough: Vancomycin Date/Time Labs Ordered Labs to be done on [date and time ordered]: 10/19/25 20:30
--- NOTE | 2025-10-18 09:37 | WOUNDNOTE ---
wound photo: left foot
--- NOTE | 2025-10-18 09:38 | WOUNDNOTE ---
wound photo: left foot
--- NOTE | 2025-10-18 09:39 | WOUNDNOTE ---
wound photo: left foot
[2025-10-18] MEDS: Vancomycin HCl 2,000 MG in 0.9% Normal Saline (500mL Bag) 500 ML 250 MG IV ×2 (10:10→21:05)
[2025-10-18] MEDS: Vancomycin Trough/Random Due 1 LAB MC (10:20)
--- NOTE | 2025-10-18 10:56 | PN_ITS ---
Subjective Subjective Patient was seen this morning for follow up on left foot. He is resting comfortably in bed, no new complaints. No complains of f/c/n/v. Objective Data Objective Data Vital Signs: Vital Signs Temp Pulse Resp BP Pulse Ox O2 Del Method 98.5 F 95 18 122/79 H 99 Room Air 10/18/25 06:39 10/18/25 06:39 10/18/25 06:39 10/18/25 06:39 10/18/25 06:39 10/18/25 06:39 Oxygen Delivery Method Room Air Weight: 99.337 kg Body Mass Index (BMI) 28.8 Intake & Output: Intake and Output for Last 24 Hours 10/16/25 10/17/25 10/18/25 23:59 23:59 23:59 Intake Total 1000.75 / 1000.75 3750.33 / 3750.33 1000 / 1000 Output Total 5 / 1700 / 1700 Balance 1000.75 / 1000.75 3745.33 / 3745.33 -700 / -700 Lab / Micro Data 10/16/25 18:00 10/17/25 04:27 Labs: Laboratory Results - last 24 hr 10/17/25 10:50: POC Glucose 177 H 10/17/25 18:00: POC Glucose 126 H 10/17/25 22:53: POC Glucose 174 H 10/18/25 06:44: POC Glucose 148 H 10/18/25 07:26: Vancomycin Trough 9.6 Micro: Microbiology 10/17/25 17:00 Bone - 5th Toe Wound Culture - Preliminary No growth-Final to follow 10/17/25 17:00 Bone - 5th Toe Wound Culture - Preliminary No growth-Final to follow Radiography Diagnostic Testing: Radiology Impression Extremity Arterial Study 10/16/25 17:50 Interpretation Summary Triphasic Doppler waveforms are noted at ankle level bilaterally. Pulse-volume recordings appear satisfactory at all levels bilaterally. Resting ankle-brachial indices are supra-normal bilaterally. Digital-brachial indices are normal bilaterally. There is evidence of arterial calcification at ankle level bilaterally. There is no evidence of significant arterial occlusive disease in the lower extremities bilaterally. Ordering Physician: Jesse Jack Referring Physician: Steve Mckeon Performed By: Alka Gamboa RVT Foot X-Ray 10/17/25 17:15 IMPRESSION: Postsurgical changes as above. Reading Location: [facility] Physical Exam Const alert, oriented x3 and no apparent distress Constitutional Narrative: Left foot s/p 5th toe amputation and resection of distal 5th metatarsal, skin reapproximated with sutures intact but there is new area of tissue nonviable tissue centrally at site, there is diffuse edema and cellulitis to the foot which is overall improved, no maloder, no visible abscess, no crepitus, no evidence of dvt bilateral. 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 There is an area of new nonviable tissue centrally at surgical site, will monitor and let demarcate. Wound care left foot - betadine solution, gauze, kerlix and narayan dressing change daily. No weightbearing left foot, keep left foot elevated. Reviewed available culture data - patient on Unasyn and Vanc - Infectious Disease on consult. Hospital Medicine also following as well. Reviewed noninvasive lower extremity arterial studies - no evidence of significant arterial occlusive disease.
[2025-10-18] MEDS: 0.9% Normal Saline (1000mL) 1,000 ML 75 ML IV ×2 (12:45→16:53)
--- NOTE | 2025-10-18 12:46 | PCM.PN.ID ---
Physical Exam Narrative Feeling better, no fever, no n/v/d. 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 MRI showed L 5th met osteo. OR 10/17/[address] Jack for 5th toe amp and partial 5th met resection. Surg cx pending. Cont vanc/unasyn. Plan is for home with po abx. Will follow (2) Foot osteomyelitis, left:
--- NOTE | 2025-10-18 13:51 | CASEMGMT ---
RN CM in to discuss needs at discharge. Per patient, Dr Jack states he will be here till Thursday. Patient states he has knee scooter at home and and pt have competed wound care in the past. Patient had no further questions or concerns. CM will continue to follow this patient and plan for a safe discharge.
--- NOTE | 2025-10-18 14:40 | CASEMGMT ---
Social Work SW spoke with pt at bedside and inquired about follow up for advance directives. Pt stated he noted to nursing that he needed to speak with his if there was paperwork completed already. SW acknowledged. Requested if he does, if the could provide those documents to the accredited legal secretary to place on file. Pt agreed. SW explained if he does not have paperwork completed, offered to complete during stay or pt can schedule to complete as an outpatient. SW provided pt with Advance Care Planning packet and phone number to call to schedule. Pt appreciative. 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 Pt is in great spirits and appreciative of visit. Aspen Trivedi [employer]
--- NOTE | 2025-10-18 15:35 | PCM.PN.HOSP ---
Reason for Visit Chief Complaint: Left foot infection Subjective Subjective Patient was seen and examined today, he appears to be in good spirits and is not complaining of much foot pain. I talked briefly with infectious diseases about his care also. I readjusted his sliding scale insulin dosage. Objective Data Objective Data Vital Signs: Vital Signs Temp Pulse Resp BP Pulse Ox O2 Del Method 99 F 94 18 140/76 H 98 Room Air 10/18/25 10:00 10/18/25 10:00 10/18/25 10:00 10/18/25 10:00 10/18/25 10:00 10/18/25 10:00 Oxygen Delivery Method Room Air Weight: 99.337 kg Body Mass Index (BMI) 28.8 Intake & Output: Intake and Output for Last 24 Hours 10/16/25 10/17/25 10/18/25 23:59 23:59 23:59 Intake Total 1000.75 / 1000.75 3750.33 / 3750.33 2418.75 / 2418.75 Output Total 5 / 5 1700 / 1700 Balance 1000.75 / 1000.75 3745.33 / 3745.33 718.75 / 718.75 Lab / Micro Data 10/16/25 18:00 10/17/25 04:27 Labs: Laboratory Results - last 24 hr 10/17/25 18:00: POC Glucose 126 H 10/17/25 22:53: POC Glucose 174 H 10/18/25 06:44: POC Glucose 148 H 10/18/25 07:26: Vancomycin Trough 9.6 10/18/25 11:43: POC Glucose 178 H Micro: Microbiology 10/17/25 17:00 Bone - 5th Toe Gram Stain - Final 10/17/25 17:00 Bone - 5th Toe Wound Culture - Preliminary No growth-Final to follow 10/17/25 17:00 Bone - 5th Toe Gram Stain - Final 10/17/25 17:00 Bone - 5th Toe Wound Culture - Preliminary No growth-Final to follow Radiography Diagnostic Testing: Radiology Impression Extremity Arterial Study 10/16/25 17:50 Interpretation Summary Triphasic Doppler waveforms are noted at ankle level bilaterally. Pulse-volume recordings appear satisfactory at all levels bilaterally. Resting ankle-brachial indices are supra-normal bilaterally. Digital-brachial indices are normal bilaterally. There is evidence of arterial calcification at ankle level bilaterally. There is no evidence of significant arterial occlusive disease in the lower extremities bilaterally. Ordering Physician: Jesse Jack Referring Physician: Steve Mckeon Performed By: Alka Gamboa RVT Foot X-Ray 10/17/25 17:15 IMPRESSION: Postsurgical changes as above. Reading Location: [facility] Physical Exam Narrative alert, oriented x3 and no apparent distress General Appearance: cooperative, well kempt and well developed Orientation / Consciousness: awake, oriented to person, oriented to place and oriented to time HEENT normocephalic, head/scalp atraumatic and moist oral mucous membranes Eyes PERRL, EOMs intact bilaterally and conjunctivae normal Neck supple, no JVD, thyroid normal and no carotid bruits General: trachea midline Resp normal respiratory effort, no retractions, no use of accessory muscles and clear to auscultation bilaterally Auscultation: Negative for rales, rhonchi or wheezes Cardio regular rate, regular rhythm, S1 normal heart sound, S2 normal heart sound, no murmurs, no rub and no gallops GI normal to inspection, nondistended, normoactive bowel sounds, soft to palpation, non-tender and non-distended Neuro oriented x3, CN's II-XII intact bilaterally, moves all extremities and no focal motor deficits Sensorium / Orientation: awake and alert Speech: speech normal Psych affect normal Assessment & Plan Assessment/Plan (1) Foot osteomyelitis, left: (2) Type 2 diabetes mellitus with foot ulcer: QUALIFIERS: Diabetic foot ulcer location: midfoot Laterality: left PLAN: Plan 1. Type 2 diabetes-patient's blood sugars will be monitored and sliding scale insulin will be administered as indicated #2 essential hypertension-patient will remain on his present medications, blood sugars will be monitored #3 neuropathy of diabetes-complicates care, management, recovery, and prognosis #4 osteomyelitis of the left foot secondary to neuropathy of diabetes-patient underwent surgery by podiatry yesterday, they are following the patient #5 infection of the left foot secondary to neuropathy of diabetes-ID is monitoring antibiotic coverage Total clinical time spent by myself addressing the patient's medical issues, reviewing all of his data, and collaborating with the patient's care team: 25-minutes Charges/Coding Visit Charges Inpatient E&M: 64853 Subs Hosp L1
[2025-10-18] MEDS: 0.9% Saline Lock 10 ML Syringe IV (21:08)
[2025-10-19 02:43] VITALS: BP 123/76; PULSE 72; RESP 16; TEMP 36.7; O2SAT 97
[2025-10-19] MEDS: 0.9% Normal Saline (1000mL) 1,000 ML 75 ML IV (02:49)
[2025-10-19] MEDS: Ampicillin/Sulbactam 3 GM in 0.9% Normal Saline (100mL MB+) 100 ML IV ×3 (06:24→17:18)
--- NOTE | 2025-10-19 07:26 | PN.HOSP_ITS ---
Reason for Visit Chief Complaint: Left foot infection Subjective Subjective Patient is a 55-year-old gentleman who was admitted by podiatry on account of left foot ulceration with infection having failed outpatient treatment imaging studies demonstrated features consistent with osteomyelitis. Admitted to regular nursing floor patient underwent foot surgery Objective Data Objective Data Vital Signs: Vital Signs Temp Pulse Resp BP Pulse Ox O2 Del Method 98.1 F 72 16 123/76 H 97 Room Air 10/19/25 02:43 10/19/25 02:43 10/19/25 02:43 10/19/25 02:43 10/19/25 02:43 10/19/25 02:43 Oxygen Delivery Method Room Air Weight: 99.337 kg Body Mass Index (BMI) 28.8 Intake & Output: Intake and Output for Last 24 Hours 10/17/25 10/18/25 10/19/25 23:59 23:59 23:59 Intake Total 3750.33 / 3750.33 5068.75 / 5448.75 1625 / 1625 Output Total 2099 / 2099 820 / 820 Balance 3745.33 / 3745.33 2968.75 / 3348.75 805 / 805 Lab / Micro Data 10/19/25 08:00 10/19/25 08:00 Labs: Laboratory Results - last 24 hr 10/18/25 07:26: Vancomycin Trough 9.6 10/18/25 11:43: POC Glucose 178 H 10/18/25 16:49: POC Glucose 167 H 10/18/25 21:23: POC Glucose 141 H 10/19/25 06:29: POC Glucose 156 H Micro: Microbiology 10/17/25 17:00 Bone - 5th Toe Gram Stain - Final 10/17/25 17:00 Bone - 5th Toe Wound Culture - Preliminary No growth-Final to follow 10/17/25 17:00 Bone - 5th Toe Gram Stain - Final 10/17/25 17:00 Bone - 5th Toe Wound Culture - Preliminary No growth-Final to follow Physical Exam Narrative GENERAL: cooperative HEENT: Atraumatic; normocephalic EYES; Anicteric, Normal Conjunctiva NECK; supple, normal thyroid, RESPIRATORY: Diminished to auscultation CARDIOVASCULAR: Regular S1 S2, GI: soft, normoactive bowel sounds, : No Renal angle tenderness; EXTREMITIES: Left foot in surgical dressing MUSCULOSKELETAL: no muscle wasting NEURO: Awake; no lateralizing signs. SKIN: No Rash PSYCH; Flat affect Assessment & Plan Assessment/Plan (1) Foot osteomyelitis, left: (2) Type 2 diabetes mellitus with foot ulcer: QUALIFIERS: Diabetic foot ulcer location: midfoot Laterality: l eft PLAN: Plan Patient is a 55-year-old gentleman who was admitted by podiatry on account of left foot ulceration with infection having failed outpatient treatment imaging studies demonstrated features consistent with osteomyelitis. Admitted to regular nursing floor patient underwent foot surgery #1. Diabetic foot ulceration ? Imaging studies on admission did show Soft tissue edema and cellulitic changes with ulceration at the lateral plantar aspect of the forefoot adjacent to the 5th MTP joint. Osteomyelitis involving the subjacent distal 5th metatarsal head/neck. 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 Advanced hallux valgus deformity. Patient underwent left fifth toe amputation on 10/17/[address] Jack 2. Diabetes mellitus type II with complications including peripheral neuropathy as well as diabetic foot ulceration -patient's oral hypoglycemics held. Placed on long acting insulin, Accu-Cheks a.c. and at bedtime and covered with sliding scale insulin 3. Hypertension ? Blood pressure controlled, home medications continued with dose adjustment as needed 4. DVT prophylaxis ? On enoxaparin Time spent in the patient's overall evaluation,decision-making process, review of diagnostic data, adjustment of management, discussion with other providers, nursing nursing and ancillary staff involved in patient's care documentation, 38 Minutes Charges/Coding Visit Charges Inpatient E&M: 72277 Subs Hosp L2
[2025-10-19 08:00] VITALS: BP 126/71; PULSE 83; RESP 16; TEMP 37.1; O2SAT 97
[2025-10-19 08:11] LABS: Hematocrit 35.6 % (40-54); Hemoglobin 12.7 g/dL (13.0-16.5); Mean Corp Hgb Conc 35.7 g/dL (32-36); Mean Corpuscular Volume 88.6 fL (80-94); Mean Platelet Vol. 8.6 fl (6.2-12.0); Platelet Count 190 K/mm3 (150-450); RBC Distribution Width CV 11.8 % (11.6-14.6); RBC Distribution Width SD 38.0 fl (35.1-43.9); Red Blood Count 4.02 M/mm3 (4.6-6.2); White Blood Count 5.9 K/mm3 (4.4-11.0)
[2025-10-19 08:47] LABS: Anion Gap 8 (7-18); BUN 10 mg/dL (4-19); BUN/Creat Ratio 12.7 RATIO (10-20); Calcium,Total 9.2 mg/dL (7.6-11.0); Carbon Dioxide 25.9 mmol/L (20.0-29.0); Chloride 103 mmol/L (96-106); Estimated Creatinine Clearance 129.58 ml/min (50-250); Glucose 141 mg/dL (70-99); Magnesium 2.2 mg/dL (1.5-2.2); Potassium 3.9 mmol/L (3.5-5.1)
[2025-10-19] MEDS: Vancomycin HCl 2,000 MG in 0.9% Normal Saline (500mL Bag) 500 ML 250 MG IV ×2 (09:39→22:23)
--- NOTE | 2025-10-19 11:25 | PN_ITS ---
Subjective Subjective Patient was seen this morning for follow up, he relates no pain to left foot. No new complaints. He is resting comfortably in bed, no f/c/n/v/sob/chest pain or calf pain. Objective Data Objective Data Vital Signs: Vital Signs Temp Pulse Resp BP Pulse Ox O2 Del Method 98.1 F 72 16 123/76 H 97 Room Air 10/19/25 02:43 10/19/25 02:43 10/19/25 02:43 10/19/25 02:43 10/19/25 02:43 10/19/25 02:43 Oxygen Delivery Method Room Air Weight: 99.337 kg Body Mass Index (BMI) 28.8 Intake & Output: Intake and Output for Last 24 Hours 10/17/25 10/18/25 10/19/25 23:59 23:59 23:59 Intake Total 3750.33 / 3750.33 5068.75 / 5448.75 1725 / 1725 Output Total 2100 / 2099 820 / 820 Balance 3745.33 / 3745.33 2968.75 / 3348.75 905 / 905 Lab / Micro Data 10/19/25 08:00 10/19/25 08:00 Labs: Laboratory Results - last 24 hr 10/18/25 11:43: POC Glucose 178 H 10/18/25 16:49: POC Glucose 167 H 10/18/25 21:23: POC Glucose 141 H 10/19/25 06:29: POC Glucose 156 H 10/19/25 08:00: WBC 5.9, RBC 4.02 L, Hgb 12.7 L, Hct 35.6 L, MCV 88.6, MCH 31.6, MCHC 35.7, RDW Std Deviation 38.0, RDW Coeff of Davina 11.8, Plt Count 190, MPV 8.6, Sodium 137, Potassium 3.9, Chloride 103, Carbon Dioxide 25.9, Anion Gap 8, BUN 10, Creatinine 0.78, Estim Creat Clear Calc 129.58, Est GFR (MDRD) Non-Af 104, BUN/Creatinine Ratio 12.7, Glucose 141 H, Calcium 9.2, Phosphorus 2.9, Magnesium 2.2 Micro: Microbiology 10/17/25 17:00 Bone - 5th Toe Gram Stain - Final 10/17/25 17:00 Bone - 5th Toe Wound Culture - Preliminary Staphylococcus species 10/17/25 17:00 Bone - 5th Toe Gram Stain - Final 10/17/25 17:00 Bone - 5th Toe Wound Culture - Preliminary No growth-Final to follow Physical Exam Const alert, oriented x3 and no apparent distress Constitutional Narrative: Left foot s/p 5th toe amputation and resection of distal 5th metatarsal, skin reapproximated with sutures intact but there, area of tissue nonviable tissue centrally at site - stable, there is diffuse edema and cellulitis to the foot which has continued improvement, no calf edema, no maloder, no visible abscess, no crepitus, no evidence of dvt bilateral. Calf soft and supple bilateral with no pain with calf squeeze bilateral. No open lesions or breakdown right foot. General Appearance: comfortable Assessment & Plan Assessment/Plan (1) Cellulitis of left lower limb: (2) Non-pressure chronic ulcer of other part of left foot with necrosis of muscle: (3) Type 2 diabetes mellitus with foot ulcer: QUALIFIERS: Diabetic foot ulcer location: midfoot Laterality: l eft (4) Diabetes mellitus with diabetic polyneuropathy: QUALIFIERS: Diabetes mellitus skilled nursing insulin use: without terminal supervisor use Diabetes mellitus type: type 2 Qualified Code(s): E11.42 - Type 2 diabetes mellitus with diabetic polyneuropathy PLAN: Plan s/p left 5th toe amputation and resection of distal 5th metatarsal due to osteomyelitis. Cellulitis improving. New nonviable tissue centrally at surgical site stable, will continue to monitor and let demarcate. Wound care left foot - betadine solution, gauze, kerlix and narayan dressing change daily. No weightbearing left foot, keep left foot elevated. Reviewed available culture data - strep and Coag Neg Staph - patient on Unasyn and Vanc - Infectious Disease on consult. Hospital Medicine also following as well. Possible d/c home tomorrow.
[2025-10-19 16:00] VITALS: BP 136/82; PULSE 75; RESP 16; TEMP 36.7; O2SAT 98
[2025-10-19 20:30] VITALS: BP 155/91; PULSE 79; RESP 16; TEMP 37.2; O2SAT 99
[2025-10-19 21:22] LABS: Vancomycin, Trough Level 12.1 ug/mL (5.0-15.0)
[2025-10-19] MEDS: 0.9% Saline Lock 10 ML Syringe IV (22:23)
[2025-10-20] MEDS: Ampicillin/Sulbactam 3 GM in 0.9% Normal Saline (100mL MB+) 100 ML IV ×3 (00:44→13:34)
[2025-10-20 02:15] VITALS: BP 125/76; PULSE 61; RESP 16; TEMP 36.6; O2SAT 98
--- NOTE | 2025-10-20 03:51 | PCM.RX.CS ---
Consult Antibiotic Management Pharmacy has been consulted to manage selected antibiotic: Vancomycin Type of Intervention Type of Consult: Follow-up Labs Labs: Sodium 137 mmol/L (135-145) 10/19/25 08:00 Potassium 3.9 mmol/L (3.5-5.1) 10/19/25 08:00 Chloride 103 mmol/L (96-106) 10/19/25 08:00 Carbon Dioxide 25.9 mmol/L (20.0-29.0) 10/19/25 08:00 Anion Gap 8 (7-18) 10/19/25 08:00 BUN 10 mg/dL (4-19) 10/19/25 08:00 Creatinine 0.78 mg/dL (0.70-1.20) 10/19/25 08:00 Est GFR (MDRD) Non-Af 104 (>60) 10/19/25 08:00 BUN/Creatinine Ratio 12.7 RATIO (10-20) 10/19/25 08:00 Glucose 141 mg/dL (70-99) H 10/19/25 08:00 Vancomycin Trough 12.1 ug/mL (5.0-15.0) 10/19/25 20:23 Microbiology Microbiology: Microbiology 10/17/25 17:00 Bone - 5th Toe Gram Stain - Final 10/17/25 17:00 Bone - 5th Toe Wound Culture - Preliminary Staphylococcus species 10/17/25 17:00 Bone - 5th Toe Gram Stain - Final 10/17/25 17:00 Bone - 5th Toe Wound Culture - Preliminary No growth-Final to follow Goal Trough Goal Trough: 15-20 mcg/mL Pharmacy Plan for Drug Dosing Pharmacy Plan for Drug Dosing: Pharmacy Service will continue to monitor and adjust dosing as required. TROUGH 12.1 @ 11 HOURS. CHANGE TO 1500 Q8H AND DRAW TROUGH PRIOR TO 4TH DOSE Follow-Up Labs Follow-Up Labs: Trough: Vancomycin Date/Time Labs Ordered Labs to be done on [date and time ordered]: 10/21 @ 3001
[2025-10-20 07:11] LABS: Hematocrit 37.1 % (40-54); Hemoglobin 13.0 g/dL (13.0-16.5); Immature Granulocytes Count 0.040 X10^3/uL (0.0-0.0); Mean Corp Hgb Conc 35.0 g/dL (32-36); Mean Corpuscular Volume 89.2 fL (80-94); Mean Platelet Vol. 9.0 fl (6.2-12.0); NRBC Flagged by Analyzer 0 % (0-5); Platelet Count 219 K/mm3 (150-450); RBC Distribution Width CV 11.9 % (11.6-14.6); RBC Distribution Width SD 38.5 fl (35.1-43.9); Red Blood Count 4.16 M/mm3 (4.6-6.2); White Blood Count 5.6 K/mm3 (4.4-11.0)
--- NOTE | 2025-10-20 07:41 | PN.HOSP_ITS ---
Reason for Visit Chief Complaint: Left foot infection Subjective Subjective Patient seen, wound cultures so far positive for staphylococcus species, final identification and sensitivities pending. Objective Data Objective Data Vital Signs: Vital Signs Temp Pulse Resp BP Pulse Ox O2 Del Method 97.8 F 61 16 125/76 H 98 Room Air 10/20/25 02:15 10/20/25 02:15 10/20/25 02:15 10/20/25 02:15 10/20/25 02:15 10/20/25 02:15 Oxygen Delivery Method Room Air Weight: 99.337 kg Body Mass Index (BMI) 28.8 Intake & Output: Intake and Output for Last 24 Hours 10/18/25 10/19/25 10/20/25 23:59 23:59 23:59 Intake Total 5068.75 / 5448.75 4232.5 / 4232.5 740 / 740 Output Total 2100 / 2100 1520 / 1520 Balance 2968.75 / 3348.75 2712.5 / 2712.5 740 / 740 Lab / Micro Data 10/20/25 05:29 10/20/25 05:29 Labs: Laboratory Results - last 24 hr 10/19/25 08:00: WBC 5.9, RBC 4.02 L, Hgb 12.7 L, Hct 35.6 L, MCV 88.6, MCH 31.6, MCHC 35.7, RDW Std Deviation 38.0, RDW Coeff of Davina 11.8, Plt Count 190, MPV 8.6, Sodium 137, Potassium 3.9, Chloride 103, Carbon Dioxide 25.9, Anion Gap 8, BUN 10, Creatinine 0.78, Estim Creat Clear Calc 129.58, Est GFR (MDRD) Non-Af 104, BUN/Creatinine Ratio 12.7, Glucose 141 H, Calcium 9.2, Phosphorus 2.9, Magnesium 2.2 10/19/25 12:05: POC Glucose 131 H 10/19/25 17:08: POC Glucose 177 H 10/19/25 20:23: Vancomycin Trough 12.1 10/19/25 22:31: POC Glucose 190 H 10/20/25 05:29: WBC 5.6, RBC 4.16 L, Hgb 13.0, Hct 37.1 L, MCV 89.2, MCH 31.3, MCHC 35.0, RDW Std Deviation 38.5, RDW Coeff of Davina 11.9, Plt Count 219, MPV 9.0, Immature Gran % (Auto) 0.700, Neut % (Auto) 53.3, Lymph % (Auto) 26.3, [place] % (Auto) 13.9 H, Eos % (Auto) 4.7, Baso % (Auto) 1.1 H, Absolute Neuts (auto) 3.0, Absolute Lymphs (auto) 1.46, Nucleated RBC % 0 10/20/25 06:02: POC Glucose 163 H Micro: Microbiology 10/17/25 17:00 Bone - 5th Toe Gram Stain - Final 10/17/25 17:00 Bone - 5th Toe Wound Culture - Preliminary Staphylococcus species 10/17/25 17:00 Bone - 5th Toe Gram Stain - Final 10/17/25 17:00 Bone - 5th Toe Wound Culture - Preliminary No growth-Final to follow Physical Exam Narrative GENERAL: cooperative HEENT: Atraumatic; normocephalic EYES; Anicteric, Normal Conjunctiva NECK; supple, normal thyroid, RESPIRATORY: Diminished to auscultation CARDIOVASCULAR: Regular S1 S2, GI: soft, normoactive bowel sounds, : No Renal angle tenderness; EXTREMITIES: Left foot in surgical dressing MUSCULOSKELETAL: no muscle wasting NEURO: Awake; no lateralizing signs. SKIN: No Rash PSYCH; Flat affect Assessment & Plan Assessment/Plan (1) Foot osteomyelitis, left: (2) Type 2 diabetes mellitus with foot ulcer: QUALIFIERS: Diabetic foot ulcer location: midfoot Laterality: l eft PLAN: Plan Patient is a 55-year-old gentleman who was admitted by podiatry on account of left foot ulceration with infection having failed outpatient treatment imaging studies demonstrated features consistent with osteomyelitis. Admitted to regular nursing floor patient underwent foot surgery #1. Diabetic foot ulceration ? Imaging studies on admission did show Soft tissue edema and cellulitic changes with ulceration at the lateral plantar aspect of the forefoot adjacent to the 5th MTP joint. Osteomyelitis involving the subjacent distal 5th metatarsal head/neck. 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 Advanced hallux valgus deformity. Patient underwent left fifth toe amputation on 10/17/[address] Jack ? 10/20/2025; wound cultures positive for staphylococcus species, final identification and sensitivities pending. Patient is on Unasyn as well as vancomycin 2. Diabetes mellitus type II with complications including peripheral neuropathy as well as diabetic foot ulceration -patient's oral hypoglycemics held. Placed on long acting insulin, Accu-Cheks a.c. and at bedtime and covered with sliding scale insulin 3. Hypertension ? Blood pressure controlled, home medications continued with dose adjustment as needed 4. DVT prophylaxis ? On enoxaparin Time spent in the patient's overall evaluation,decision-making process, review of diagnostic data, adjustment of management, discussion with other providers, nursing nursing and ancillary staff involved in patient's care documentation, 36 Minutes Charges/Coding Visit Charges Inpatient E&M: 82095 Subs Hosp L2
[2025-10-20 07:57] LABS: Anion Gap 10 (7-18); BUN 13 mg/dL (4-19); BUN/Creat Ratio 16.9 RATIO (10-20); Calcium,Total 9.6 mg/dL (7.6-11.0); Carbon Dioxide 25.6 mmol/L (20.0-29.0); Chloride 103 mmol/L (96-106); Estimated Creatinine Clearance 134.76 ml/min (50-250); Glucose 143 mg/dL (70-99); Potassium 4.1 mmol/L (3.5-5.1)
[2025-10-20] MEDS: Vancomycin HCl 1,500 MG in 0.9% Normal Saline (500mL Bag) 500 ML 250 MG IV (09:28)
[2025-10-20 09:34] VITALS: BP 114/70; PULSE 78; RESP 18; TEMP 36.8; O2SAT 96
--- NOTE | 2025-10-20 11:21 | NURSING ---
This RN took over care at this time
--- NOTE | 2025-10-20 12:39 | PCM.PN.ID ---
Physical Exam Narrative Feeling better, wants to go home, no fever, no n/v/d. Const alert and no apparent distress General Appearance: cooperative Resp normal air movement and clear to auscultation bilaterally Cardio regular rate and regular rhythm GI soft to palpation, non-tender and non-distended Skin Skin Narrative: L foot wrapped ID ID: Route of nutrition/ use of supplements: [] Nutritional Intake: [] IV Site: [] Garcia Catheter: [] Assessment & Plan Assessment/Plan (1) Diabetes mellitus with diabetic polyneuropathy: QUALIFIERS: Diabetes mellitus type: type 2 Diabetes mellitus skilled nursing insulin use: without intermediate project manager use Qualified Code(s): E11.42 - Type 2 diabetes mellitus with diabetic polyneuropathy PLAN: Wound cx with strep and gram pos so far. MRI showed L 5th met osteo. OR 10/17/[address] Jack for 5th toe amp and partial 5th met resection. Surg cx (+) staph. Cont vanc/unasyn while inpatient. Ok for home with 6 weeks total abx, will write for doxy and augmentin. ID followup in 2-3 weeks. Will follow (2) Foot osteomyelitis, left:
[2025-10-20 13:31] VITALS: BP 130/81; PULSE 84; RESP 16; TEMP 36.4; O2SAT 98
--- NOTE | 2025-10-20 14:34 | DCINST_ITS ---
Discharge Instructions DC O2, CPAP, BIPAP needs Home O2 Discharge instructions: No Dressing / Incision Discharge Activity: Use Walker (Use knee walker/scooter to stay off left foot) Weight Bearing Status: No weight bearing (No weightbearing left foot) Keep extremity elevated above heart level: Left Leg (Keep left foot elevated as much as possible) Dressing / Incision Call your doctor if your incision/area has: Continuous Slow Oozing and Foul Smelling Discharge Call your doctor if you observe: Fever of 101 or Higher, Shortness of breath, Chest pain, Increased palpitations (irregular heartbeat), Calf discomfort and Uncontrolled pain Change Dressing in: 1 day (Change bandage left foot daily- apply betadine solution, then overlying 4x4 gauze, gauze roll and narayan dressing - be sure not apply to tight) Follow Up Care Please Follow Up With: Jesse Jack DPM When: in office in 1 week, but sooner if needed Test Results: Test results from this visit will be discussed in further detail at your follow- up appointment, if applicable. Discharge Plan Admission Admit Date/Time: 10/16/25 17:27 Attending Provider: Home [facility] Primary Care Provider: Steve Mckeon Consulting Providers: Lizy Randle; Tyson Michael; Orville Eden; Jesse Jack Discharge Orders/Prescriptions Prescriptions: New doxycycline hyclate 100 mg capsule 100 mg PO BID Qty: 78 0RF amoxicillin-pot clavulanate 875-125 mg tablet 1 tab PO BID Qty: 78 0RF Continued aspirin 81 MG tablet,chewable 81 mg PO DAILY@0800 lisinopril 40 mg tablet 40 mg PO DAILY Patient Comments: TAKE 1 TABLET BY MOUTH EVERY DAY metformin 750 mg tablet extended release 24 hr 750 mg PO BID Patient Comments: TAKE 1 TABLET BY MOUTH TWICE A DAY multivitamin Tablet 1 tab PO DAILY tadalafil 20 mg tablet 20 mg PO DAILY PRN (Reason: sexual activity) Discontinued cephalexin 500 mg capsule 500 mg PO Q12H Referrals / Follow Up: Steve Mckeon MD [Primary Care Provider, Family Practice] Disposition Disposition (needs filled in before D/C Order can be placed): Home, Self Care
--- NOTE | 2025-10-20 14:37 | DS.PCM_ITS ---
Providers Date of Admission: 10/16/25 Primary Care Physician: Dr. Steve Mckeon MD Consultations 10/16/25 17:27 Consult: Hospitalist Routine Consulting Provider: Lizy Randle Reason for Consult: diabetes and other medical problems EMERGENT Consult: No Notified: Yes Date Notified: 10/16/25 Time Notified: 17:37 Method of Notification: Text Consult: Infectious Disease Routine Consulting Provider: Tyson Michael Reason for Consult: cellulitis, possible osteomyelitis left foot EMERGENT Consult: No Notified: Yes Date Notified: 10/16/25 Time Notified: 17:27 Method of Notification: Text Consult: Onc/Wound/general education instructor Routine Comment: Reason for Consult:: wound left foot Reason For Visit: LEFT FOOT CELLULITIS Diagnosis Discharge Diagnosis (1) Diabetes mellitus with diabetic polyneuropathy: Status: Acute Code(s): E11.42 - Type 2 diabetes mellitus with diabetic polyneuropathy Qualifiers: Diabetes mellitus type: type 2 Diabetes mellitus correction insulin use: without correction use Qualified Code(s): E11.42 - Type 2 diabetes mellitus with diabetic polyneuropathy (2) Foot osteomyelitis, left: Status: Acute Code(s): M86.9 - Osteomyelitis, unspecified Plan s/p left 5th toe amputation and resection of distal 5th metatarsal due to osteomyelitis. Cellulitis improving. New nonviable tissue centrally at surgical site stable, will continue to monitor and let demarcate. Wound care left foot - betadine solution, gauze, kerlix and narayan dressing change daily. No weightbearing left foot, keep left foot elevated. Reviewed available culture data - strep and Coag Neg Staph - patient on Unasyn and Vanc - Infectious Disease on consult. Hospital Medicine also following as well. Possible d/c home tomorrow. Medications at Discharge Home Medications aspirin 81 mg chewable tablet 81 mg PO DAILY@0800 anticoagulant 03/30/14 lisinopril 40 mg tablet 40 mg PO DAILY hypertension 12/04/21 metformin 750 mg tablet,extended release 24 hr 750 mg PO BID daily 12/04/21 multivitamin 1 tab PO DAILY home medication 03/19/22 tadalafil 20 mg tablet 20 mg PO DAILY PRN sexual activity 03/12/25 amoxicillin 875 mg-potassium clavulanate 125 mg tablet 1 tab PO BID #78 tabs 10/20/25 doxycycline hyclate 100 mg capsule 100 mg PO BID #78 caps 10/20/25 Physical Exam Const alert, oriented x3 and no apparent distress Constitutional Narrative: Left foot s/p 5th toe amputation and resection of distal 5th metatarsal, skin remains reapproximated with sutures intact, area of tissue nonviable tissue centrally at site - remains stable and slightly improved today, there is diffuse edema and cellulitis to the foot which has significantly improved, no calf edema or calf pain, no maloder, no visible abscess, no crepitus, no evidence of dvt bilateral. Calf soft and supple with no pain with calf squeeze bilateral. General Appearance: comfortable Weight / BMI Weight Weight: 99.337 kg Body Mass Index (BMI) 28.8 ABG / Lab / Microbiology Data 10/20/25 05:29 10/20/25 05:29 Laboratory: Laboratory Results - last 24 hr 10/19/25 17:08: POC Glucose 177 H 10/19/25 20:23: Vancomycin Trough 12.1 10/19/25 22:31: POC Glucose 190 H 10/20/25 05:29: WBC 5.6, RBC 4.16 L, Hgb 13.0, Hct 37.1 L, MCV 89.2, MCH 31.3, MCHC 35.0, RDW Std Deviation 38.5, RDW Coeff of Davina 11.9, Plt Count 219, MPV 9.0, Immature Gran % (Auto) 0.700, Neut % (Auto) 53.3, Lymph % (Auto) 26.3, [place] % (Auto) 13.9 H, Eos % (Auto) 4.7, Baso % (Auto) 1.1 H, Absolute Neuts (auto) 3.0, Absolute Lymphs (auto) 1.46, Nucleated RBC % 0, Sodium 138, Potassium 4.1, Chloride 103, Carbon Dioxide 25.6, Anion Gap 10, BUN 13, Creatinine 0.75, Estim Creat Clear Calc 134.76, Est GFR (MDRD) Non-Af 105, BUN/Creatinine Ratio 16.9, G lucose 143 H, Calcium 9.6 10/20/25 06:02: POC Glucose 163 H 10/20/25 12:19: POC Glucose 142 H Microbiology: Microbiology 10/17/25 17:00 Bone - 5th Toe Gram Stain - Final 10/17/25 17:00 Bone - 5th Toe Wound Culture - Preliminary Staphylococcus species 10/17/25 17:00 Bone - 5th Toe Anaerobic Culture - Preliminary Checking for anaerobes, further studies to follow. 10/17/25 17:00 Bone - 5th Toe Gram Stain - Final 10/17/25 17:00 Bone - 5th Toe Wound Culture - Preliminary Staphylococcus species 10/17/25 17:00 Bone - 5th Toe Anaerobic Culture - Preliminary Checking for anaerobes, further studies to follow. D/C Instructions Weight Bearing Status: No weight bearing (No weightbearing left foot) Keep extremity elevated above heart level: Left Leg (Keep left foot elevated as much as possible) Call your doctor if your incision/area has: Continuous Slow Oozing and Foul Smelling Discharge Call your doctor if you observe: Fever of 101 or Higher, Shortness of breath, Chest pain, Increased palpitations (irregular heartbeat), Calf discomfort and Uncontrolled pain DC O2, CPAP, BIPAP Needs Home O2 Discharge instructions: No Please Follow Up With: Jesse Jack DPM When: in office in 1 week, but sooner if needed Meaningful Use Info Meaningful Use Meaningful Use Diagnoses (Choose all that apply): None applicable Discharge Plan Admission Admit Date/Time: 10/16/25 17:27 Attending Provider: [facility] Primary Care Provider: Steve Mckeon Consulting Providers: Lizy Randle; Tyson Michael; Orville Eden; Jesse Jack Discharge Orders/Prescriptions Prescriptions: New doxycycline hyclate 100 mg capsule 100 mg PO BID Qty: 78 0RF amoxicillin-pot clavulanate 875-125 mg tablet 1 tab PO BID Qty: 78 0RF Continued aspirin 81 MG tablet,chewable 81 mg PO DAILY@0800 lisinopril 40 mg tablet 40 mg PO DAILY Patient Comments: TAKE 1 TABLET BY MOUTH EVERY DAY metformin 750 mg tablet extended release 24 hr 750 mg PO BID Patient Comments: TAKE 1 TABLET BY MOUTH TWICE A DAY multivitamin Tablet 1 tab PO DAILY tadalafil 20 mg tablet 20 mg PO DAILY PRN (Reason: sexual activity) Discontinued cephalexin 500 mg capsule 500 mg PO Q12H Referrals / Follow Up: Steve Mckeon MD [Primary Care Provider, Family Practice] Disposition Disposition (needs filled in before D/C Order can be placed): Home, Self Care
--- NOTE | 2025-10-20 15:00 | CASEMGMT ---
Pt with dc order placed, pt to dc on po atb.
[2025-10-20 15:12] VITALS: BP 140/85; PULSE 73; RESP 16; TEMP 36.7; O2SAT 98
== END 2025-10-20 16:08 | disposition home or self-care (01) | DRG 617 ==
PROVIDERS: Anesthesiology; Family Medicine; Internal Medicine Infectious Disease; Admitting Provider Podiatrist; PCP Family Medicine; Referring Provider Podiatrist; Visit Provider Internal Medicine
PROC: 0Y6N0ZF Detachment at Left Foot, Partial 5th Ray, Open Approach (ICD-10-PCS; principal; 2025-10-17 14:45)
DX: E11.69 Type 2 diabetes mellitus with other specified complication (principal); L03.116 Cellulitis of left lower limb; M86.172 Other acute osteomyelitis, left ankle and foot; L02.612 Cutaneous abscess of left foot; E11.621 Type 2 diabetes mellitus with foot ulcer; I10 Essential (primary) hypertension; L97.523 Non-pressure chronic ulcer of other part of left foot with necrosis of muscle; E11.42 Type 2 diabetes mellitus with diabetic polyneuropathy; F17.220 Nicotine dependence, chewing tobacco, uncomplicated; N52.9 Male erectile dysfunction, unspecified; Z79.82 Long term (current) use of aspirin; Z79.899 Other long term (current) drug therapy; Z79.84 Long term (current) use of oral hypoglycemic drugs
CPT/HCPCS: 36415; 73630; 73718; 80048; 80053; 80202; 82962; 83036; 83605; 83735; 84100; 85025; 85027; 85610; 85652; 86140; 87015; 87070; 87075; 87077; 87102; 87116; 87176; 87186; 87205; 87206; 88305; 88311; 93005; 93923; 99406; A4216; J0295; J2405

== ENCOUNTER → 2025-10-16 | Outpatient (CLI) | payer SELFPAY | END | disposition home or self-care (01) | LOC: LABSPEC 17:01 | PROVIDERS: PCP Family Medicine; Referring Provider Podiatrist; Visit Provider Podiatrist | DX: L03.116 Cellulitis of left lower limb (principal) | CPT/HCPCS: 87070; 87075; 87077; 87186; 87205 ==